=== PATIENT | female | born 1980 | race Caucasian/White ===

== ENCOUNTER 2019-04-02 13:15 | Emergency (ER) | payer OTHER ==
--- OUTSIDE RECORDS SUMMARY | 2019-04-02 13:17 | XMS REPORT ---
:1980 [facility] Address [address] [place] [address] Care Team Providers Name Role Phone Unavailable Unavailable Unavailable Problems This patient has no known problems. Allergies, Adverse Reactions, Alerts This patient has no known allergies or adverse reactions. Medications This patient has no known medications.
--- OUTSIDE RECORDS SUMMARY | 2019-04-02 13:17 | XMS REPORT | Clinical Summary ---
:1980 Author Organization [facility] Address [address] [place] [address] Care Team Providers Name Role Phone Asked, No Pcp Primary Care Provider Unavailable Allergies No Known Allergies Medications Medication Sig Dispensed Refills Start Date End Date Status ALPRAZolam (XANAX) 1 MG Take 1 mg by 0 Active tablet mouth 4 (four) times a day as needed for anxiety. escitalopram (LEXAPRO) Take 20 mg by 0 Active 20 MG tablet mouth nightly. risperiDONE (RisperDAL) Take 1 mg by 0 Active 1 MG tablet mouth nightly. propranolol (INDERAL) Take 40 mg by 0 Active 40 MG tablet mouth daily. estrogens-methyltestost Take 1 tablet by 0 Active erone (EEMT,COVARYX) mouth daily. 1.25-2.5 mg per tablet Active Problems Not on file Encounters Date Type Specialty Care Team Description 11/15/2018 - Emergency Emergency Medicine Kwasi Felix Drug-induced insomnia (HCC) (Primary Dx); 11/16/2018 MD Cristino Passive suicidal ideations after 04/01/2018 Social History Tobacco Use Types Packs/Day Years Used Date Current Every Day Smoker Smokeless Tobacco: Never Used Sex Assigned at Date Recorded Not on file Job Start Date Occupation Industry Not on file Not on file Not on file Travel History Travel Start Travel End No recent travel history available. Last Filed Vital Signs Vital Sign Reading Time Taken Blood Pressure 130/77 11/16/2018 4:39 PM CDT Pulse 103 11/16/2018 4:39 PM CDT Temperature 36.6 C (97.8 F) 11/16/2018 4:39 PM CDT Respiratory Rate 18 11/16/2018 4:39 PM CDT Oxygen Saturation 96% 11/16/2018 4:39 PM CDT Inhaled Oxygen Concentration - - Weight - - Height 172.7 cm (5' 8") 11/15/2018 9:35 PM CDT Body Mass Index - - Plan of Treatment Not on file Procedures Procedure Name Priority Date/Time Associated Comments Diagnosis SALICYLATE LEVEL STAT 11/15/2018 11:45 Results for this PM CDT procedure are in the results section. ESTIMATED GFR STAT 11/15/2018 11:45 Results for this PM CDT procedure are in the results section. URINALYSIS SCREEN AND STAT 11/15/2018 11:45 Results for this MICROSCOPY, WITH PM CDT procedure are in REFLEX TO CULTURE the results section. URINE DRUGS OF ABUSE STAT 11/15/2018 11:45 Results for this SCREEN PM CDT procedure are in the results section. ALCOHOL LEVEL, BLOOD STAT 11/15/2018 11:45 Results for this PM CDT procedure are in the results section. T4, FREE STAT 11/15/2018 11:45 Results for this PM CDT procedure are in the results section. THYROID STIMULATING STAT 11/15/2018 11:45 Results for this HORMONE PM CDT procedure are in the results section. COMPREHENSIVE STAT 11/15/2018 11:45 Results for this METABOLIC PANEL PM CDT procedure are in the results section. HC COMPLETE BLD COUNT STAT 11/15/2018 11:45 Results for this W/AUTO DIFF PM CDT procedure are in the results section. URINE CULTURE STAT 11/15/2018 11:45 Results for this PM CDT procedure are in the results section. after 04/01/2018 Results Urinalysis screen and microscopy, with reflex to culture (11/15/2018 11:45 PM CDT) Specimen site Clean catch [facility] Color, UA Yellow [facility] Appearance, UA Cloudy [facility] Specific gravity, UA 1.020 1.001 - 1.035 [facility] pH, UA 5.0 5.0 - 8.5 [facility] Protein, UA 2+ (A) Negative [facility] Glucose, UA Negative Negative [facility] Ketones, UA Negative Negative [facility] Bilirubin, UA Negative Negative [facility] Blood, UA Negative Negative [facility] Nitrite, UA Negative Negative [facility] Urobilinogen, UA <2.0 <2.0 [facility] Leukocyte esterase, Negative Negative [facility] Epithelial cells, UA >20 /HPF [facility] WBC, UA 4 0 - 4 /HPF [facility] RBC, UA 37 (H) 0 - 5 /HPF [facility] Bacteria, UA Few None seen [facility] Yeast, UA None seen [facility] Yeast with None seen [facility] pseudohyphae, UA HOSPITAL Hyaline casts, UA 2 /LPF [facility] Specimen Urine Performing Organization Address City/[facility]/Zipcode Phone Number [facility] DEPARTMENT OF PATHOLOGY AND [address] [place] [phone] Estimated GFR (11/15/2018 11:45 PM CDT) Estimated GFR 72 mL/min/1.73 [facility] Comment: HOSPITAL CatergoryUnitsInterpretation G1 >=90 Normal or high G2 60-89Mildly decreased O3x81-58Zijhat to moderately decreased D9p58-50Nzlvdyjnxx to severely decreased G4 15-29Severely decreased G5 <15Kidney failure The eGFR was calculated using the Chronic Kidney Disease Epidemiology Collaboration (CKD-EPI) equation. Interpretation is based on recommendations of the National Kidney Foundation-Kidney Disease Outcomes Quality Initiative (NKF-KDOQI) published in 2014. Specimen Plasma specimen Performing Organization Address City/[facility]/Zipcode Phone Number [facility] DEPARTMENT OF PATHOLOGY AND [address] [place] [phone] Urine drugs of abuse screen (11/15/2018 11:45 PM CDT) Amphetamine screen, Positive (A) [place] urine [facility] Barbiturate screen, Negative [place] urine [facility] Benzodiazepine Positive (A) [place] screen, urine [facility] Cannabinoid screen, Negative [place] urine [facility] Cocaine screen, urine Negative [facility] Methadone metabolite Negative [place] (EDDP), urine [facility] Opiates screen, urine Negative [facility] Oxycodone screen, Negative [place] urine [facility] Phencyclidine screen, Negative [place] urine [facility] Tricyclic screen, Negative [place] urine Comment: LATTER-DAY Drug screen minimum concentration of detectability [facility] Emiemnpkrjqz9076 ng/mL Barbiturates 200 ng/mL Ljoojllznizzmgf599 ng/mL Jvxtlfz393 ng/mL Sqbqzokgi514 ng/mL Vqwcmoy637 ng/mL Wexrnpnkr076 ng/mL Phencyclidine 25 ng/mL Hzgirknsyafw57 ng/mL Dutodxwouk0187 ng/mL Results are from screening tests and should only be used for medical evaluation. Drug testing for legal purposes requires definitive (or confirmatory) testing methods, which are available upon request. Contact the laboratory if definitive testing is required. Specimen Urine Performing Organization Address City/State/Zipcode Phone Number [facility] DEPARTMENT OF PATHOLOGY AND [address] [place] [address] [address] CBC with platelet and differential (11/15/2018 11:45 PM CDT) WBC 12.84 (H) 4.50 - 11.00 [facility] k/uL HOSPITAL RBC 4.89 4.20 - 5.50 [facility] muL [facility] HGB 12.9 12.0 - 16.0 [facility] HCT 41.4 37.0 - 47.0 % [facility] MCV 84.7 82.0 - 100.0 [facility] MCH 26.4 (L) 27.0 - 34.0 pg [facility] MCHC 31.2 31.0 - 37.0 [facility] RDW - SD 49.0 37.0 - 55.0 fL [facility] MPV 9.7 8.8 - 13.2 fL [facility] Platelet count 490 (H) 150 - 400 k/uL [facility] Nucleated RBC 0.00 /100 WBC [facility] Neutrophils 61.5 39.0 - 69.0 % [facility] Lymphocytes 27.6 25.0 - 45.0 % [facility] Monocytes 8.8 0.0 - 10.0 % [facility] Eosinophils 1.2 0.0 - 5.0 % [facility] Basophils 0.4 0.0 - 1.0 % [facility] Immature granulocytes 0.5Comment: 0.0 - 1.0 % [facility] "Immature [facility] granulocytes" (promyelocytes , myelocytes, metamyelocytes ) Specimen Blood Performing Organization Address City/[facility]/Zipcode Phone Number [facility] DEPARTMENT OF PATHOLOGY AND [address] [place] [address] [address] Urine culture (11/15/2018 11:45 PM CDT) [facility] Urine culture SEE COMMENTComment: [facility] Bacteriuria screen HOSPITAL negative. Specimen Performing Organization Address City/[facility] Phone Number [facility] DEPARTMENT OF PATHOLOGY AND [address] [place] [phone] [address] Thyroid stimulating hormone (11/15/2018 11:45 PM CDT) TSH 5.12 (H) 0.27 - 4.20 uIU/mL [facility] Specimen Plasma specimen Performing Organization Address [facility] Phone Number [facility] DEPARTMENT OF PATHOLOGY AND [address] [place] [phone] [place] [phone] T4, free (11/15/2018 11:45 PM CDT) [facility] T4, free 1.3 0.9 - 1.7 ng/dL [facility] Specimen Plasma specimen Performing Organization Address [facility] Phone Number [facility] DEPARTMENT OF PATHOLOGY AND [address] [place] [phone] [address] Alcohol level, blood (11/15/2018 11:45 PM CDT) [facility] Alcohol None Detected mg/dL [facility] Comment: HOSPITAL Normal None Detected Legal Intoxication in [place]80 mg/dL (0.08%) - Whole Blood Toxic Dljmwomyitebs045 mg/dL (0.2%) Potentially Cszyp455 - 500 mg/dL (0.35 - 0.5%) Alcohol percent None Detected % [facility] Specimen Plasma specimen Performing Organization Address [facility] Phone Number [facility] DEPARTMENT OF PATHOLOGY AND [address] [place] [phone] [address] Salicylate level (11/15/2018 11:45 PM CDT) [facility] Salicylate <3.0 3.0 - 30.0 mg/dL [facility] Specimen Plasma specimen Performing Organization Address City/[facility] Phone Number [facility] DEPARTMENT OF PATHOLOGY AND [address] [place] [phone] [place] [address] Comprehensive metabolic panel (11/15/2018 11:45 PM CDT) Sodium 137 135 - 148 [facility] mEq/L [facility] Potassium 4.5 3.5 - 5.0 [facility] mEq/L [facility] Chloride 99 98 - 112 mEq/L [facility] CO2 22 (L) 24 - 31 mEq/L [facility] Anion gap 16@ANIO (H) 7 - 15 mEq/L [facility] BUN 13 6 - 20 mg/dL [facility] Creatinine 0.98 (H) 0.50 - 0.90 [facility] mg/dL [facility] Glucose 104 (H) 65 - 99 mg/dL [facility] Calcium 9.8 8.3 - 10.2 [facility] mg/dL [facility] Protein 8.3 6.3 - 8.3 g/dL [facility] Comment: HOSPITAL [place] 4.6-7.0 g/dL 1 week 4.4-7.6 g/dL 7 months-1year5.1-7.3 g/dL 1-2 years5.6-7.5 g/dL >3 years6.0-8.0 g/dL 18-150 6.3-8.3 g/dL Albumin 3.8 3.5 - 5.0 g/dL [facility] A/G ratio 0.8 0.7 - 3.8 [facility] Alkaline phosphatase 70 35 - 104 U/L [facility] AST 22 10 - 35 U/L [facility] ALT 25 5 - 50 U/L [facility] Total bilirubin 0.4 0.0 - 1.2 [facility] mg/dL [facility] Specimen Plasma specimen Performing Organization Address City/State/Zipcode Phone Number [facility] DEPARTMENT OF PATHOLOGY AND [address] [place] [address] [facility]IC[facility] [address] [address] after 04/01/2018 Advance Directives Patient has advance care planning documents on file. For more information, please contact:[address] [address]
[2019-04-02 13:43] LABS: Urine Blood NEGATIVE (NEG); Urine Glucose NEGATIVE (NEG); Urine Protein NEGATIVE (NEG); Urine pH 5.5 (5.0-7.0)
[2019-04-02 13:53] LABS: Absolute Lymphocytes (CBC) 2.3 K/uL (0.7-4.9); Hematocrit 37.8 % (36.0-45.0); Lymphocytes % 33.6 % (15.3-44.8); MPV 8.6 fL (7.6-11.3); RBC Red Blood Cell Count 4.62 M/uL (3.86-4.86)
[2019-04-02 14:02] LABS: Urine Bacteria >50 /HPF (<20); Urine Culture Reflex Order NOT NEEDED; Urine RBC NONE SEEN /HPF (NONE SEEN)
[2019-04-02 14:20] LABS: ALT/SGPT 40 U/L (12-78); AST/SGOT 32 U/L (15-37); Albumin 3.5 g/dL (3.4-5.0); Alkaline Phosphatase 75 U/L (45-117); BUN Blood Urea Nitrogen 9 mg/dL (7-18); Bicarbonate 29 mmol/L (21-32); Bilirubin Direct < 0.1 mg/dL (0-0.2); Bilirubin Total 0.3 mg/dL (0.2-1.0); Glucose Level 88 mg/dL (74-106); Lipase 95 U/L (73-393); Potassium 4.1 mmol/L (3.5-5.1); Protein, Total 7.6 g/dL (6.4-8.2); Sodium Level 140 mmol/L (136-145)
[2019-04-02] MEDS ORDERED: KETOROLAC 30 MG/ML INJ ONE (14:27)
[2019-04-02] MEDS ORDERED: PHENAZOPYRIDINE 100MG TAB PO ONE (14:27)
--- NOTE | 2019-04-02 14:58 | RAD REPORT ---
EXAM DESCRIPTION: CT - Abdomen Pelvis W Contrast - 04/02/2019 2:43 pm CLINICAL HISTORY: Abdominal pain, dysuria COMPARISON: CT study December 2014 TECHNIQUE: Biphasic, helical CT imaging of the abdomen and pelvis was performed following 100 ml non -ionic IV contrast. Oral contrast was given. All CT scans are performed using dose optimization technique as appropriate and may include automated exposure control or mA/KV adjustment according to patient size. FINDINGS: No suspicious findings in the lung bases. The liver, spleen, and pancreas show no suspicious findings. Gallbladder and biliary tree are also wi thout suspicious finding. Symmetric renal function is seen with no hydronephrosis or suspicious renal mass. No pyelonephritis o r acute parenchymal process. Urinary bladder is mostly contracted which limits detail. No bladder isha culus seen. No abnormal enhancement of the urinary bladder moya. No adrenal abnormalities. No dilated bowel loops or bowel wall thickening. Appendix is normal. No free air, free fluid or infla mmatory stranding. No hernia, mass or bulky lymphadenopathy. Uterus and ovaries show no suspicious findings. No suspicious bony findings. IMPRESSION: No pyelonephritis or other acute finding identified. No abnormality seen to explain l ower abdominal pain and dysuria. As detailed above, no acute CT abdomen or pelvis finding.
[2019-04-02] MEDS ORDERED: NA CHLORIDE 0.9% 100 ML IV ONE (15:31)
[2019-04-02] MEDS ORDERED: CEFTRIAXONE 1000 MG/VIAL ONE (15:31)
--- NOTE | 2019-04-02 15:34 | EDPHYS ---
Physician Documentation [facility] Name: Maribel Diaz Age: 38 yrs Sex: Female : 1980 Arrival Date: 04/02/2019 Time: 13:17 Bed 13 Private MD: ED Physician Umang Toth HPI: 04/02 13:30 This 38 yrs old Female presents to ER via EMS with complaints of Abdominal jmm Pain. 13:30 Onset: The symptoms/episode began/occurred gradually, 3 month(s) ago. Modifying jmm factors: The symptoms are alleviated by nothing, the symptoms are aggravated by nothing. Associated signs and symptoms: Pertinent negatives: fever. This is a 38 year old female with a history of fibromyalgia, panic attacks, add/adhd that presents to the ED with complaints of lower abdominal pain, dysuria beginning approx 3 months. Patient states she has been on 3 different abx with no relief. Denies fever, denies vomiting. . [employer] ROOM: 13:20 LMP N/A - Irregular menses bp Historical: - Allergies: 13:20 No Known Allergies; bp - Home Meds: 13:20 None [Active]; bp - PMHx: 13:20 ADD/ADHD; Fibromyalgia; Panic Attacks; SUBSTANCE ABUSE; bp - Immunization history:: Adult Immunizations up to date. - Social history:: Smoking status: Patient/guardian denies using tobacco. - Ebola Screening: : No symptoms or risks identified at this time. ROS: 13:30 Constitutional: Negative for fever, chills, and weight loss, Cardiovascular: Negative jmm for chest pain, palpitations, and edema, Respiratory: Negative for shortness of breath, cough, wheezing, and pleuritic chest pain. 13:30 Abdomen/GI: Positive for abdominal pain. 13:30 Back: Positive for 13:30 : Positive for urinary symptoms. 13:30 All other systems are negative. Exam: 13:30 Head/Face: atraumatic. Eyes: EOMI, no conjunctival erythema appreciated ENT: Moist jmm Mucus Membranes Neck: Trachea midline, Supple Chest/axilla: Normal chest wall appearance and motion. Cardiovascular: Regular rate and rhythm. No edema appreciated Respiratory: Normal respirations, no respiratory distress appreciated 13:30 Constitutional: The patient appears in no acute distress, alert, awake. 13:30 Abdomen/GI: Inspection: obese Bowel sounds: normal, Palpation: soft, mild abdominal tenderness, in the suprapubic area. 13:30 Back: CVA tenderness, is noted on the right. 13:30 Musculoskeletal/extremity: ROM: intact in all extremities. 13:30 Skin: Appearance: Color: normal in color. 13:30 Neuro: Orientation: is normal, Mentation: is normal, Memory: is normal, Gait: is steady. 13:30 Psych: Behavior/mood is pleasant, cooperative. Vital Signs: 13:20 BP 121 / 84; Pulse 70; Resp 16; Temp 98.9; Pulse Ox 98% ; Weight 136.08 kg; Height 5 bp ft. 8 in. (172.72 cm); 15:35 BP 109 / 79; Pulse 67; Resp 16; Temp 98; Pulse Ox 99% ; bp 13:20 Body Mass Index 45.61 (136.08 kg, 172.72 cm) bp MDM: 13:36 Patient medically screened. basilio 15:33 Data reviewed: vital signs, nurses notes. Counseling: I had a detailed discussion with basilio the patient and/or guardian regarding: the historical points, exam findings, and any diagnostic results supporting the discharge/admit diagnosis, the need for outpatient follow up, to return to the emergency department if symptoms worsen or persist or if there are any questions or concerns that arise at home. 04/02 13:23 Order name: Basic Metabolic Panel; Complete Time: 14:23 bp 04/02 13:23 Order name: CBC with Diff; Complete Time: 14:02 bp 04/02 13:23 Order name: Creatinine for Radiology; Complete Time: 14:23 bp 04/02 13:23 Order name: Hepatic Function; Complete Time: 14:23 bp 04/02 13:23 Order name: Lipase; Complete Time: 14:23 bp 04/02 13:23 Order name: Urine Microscopic Only; Complete Time: 14:12 bp 04/02 13:23 Order name: IV Saline Lock; Complete Time: 13:45 bp 04/02 13:31 Order name: Urine Dipstick--Ancillary (enter results); Complete Time: 13:51 em1 04/02 13:31 Order name: Urine --Ancillary (enter results); Complete Time: 13:51 em1 04/02 13:37 Order name: CT Abd/Pelvis - IV Contrast Only; Complete Time: 14:59 [facility] 04/02 14:12 Order name: Urine Culture [facility] 04/02 13:23 Order name: Labs collected and sent; Complete Time: 13:45 bp 04/02 13:23 Order name: Urine Dipstick-Ancillary (obtain specimen); Complete Time: 13:24 bp 04/02 13:23 Order name: Urine Test (obtain specimen); Complete Time: 13:24 bp Administered Medications: 14:30 Drug: Pyridium 200 mg Route: PO; bp 15:45 Follow up: Response: No adverse reaction; Pain is decreased bp 14:30 Drug: Ketorolac 30 mg Route: IVP; Site: right antecubital; bp 15:45 Follow up: Response: No adverse reaction; Pain is decreased bp 15:30 Drug: Rocephin - (cefTRIAXone) 1 grams Route: IVPB; Infused Over: 30 mins; Site: right bp antecubital; 15:45 Follow up: IV Status: Completed infusion; IV Intake: 20ml bp Disposition: 04/02/19 15:33 Discharged to Home. Impression: Urinary tract infection, site not specified. - Condition is Stable. - Discharge Instructions: Urinary Tract Infection, Adult. - Prescriptions for cefpodoxime 200 mg Oral Tablet - take 1 tablet by ORAL route every 12 hours for 10 days with food; 20 tablet. - Medication Reconciliation Form, Thank You Letter, Antibiotic Education, Prescription Opioid Use form. - Follow up: Private Physician; When: 2 - 3 days; Reason: Recheck today's complaints, Continuance of care, Re-evaluation by your physician. Addendum: 04/05/2019 09:22 Co-signature as Attending Physician, Umang Toth MD I agree with the assessment and k dr plan of care. Signatures: Dispatcher [employer] EDMS Umang Toth MD MD kdr Mickail, Joel, PA PA jmm Peltier, Brian RN RN bp Corrections: (The following items were deleted from the chart) 04/02 15:50 15:33 04/02/2019 15:33 Discharged to Home. Impression: Urinary tract infection, site bp not specified. Condition is Stable. Forms are Medication Reconciliation Form, Thank You Letter, Antibiotic Education, Prescription Opioid Use. Follow up: Private Physician; When: 2 - 3 days; Reason: Recheck today's complaints, Continuance of care, Re-evaluation by your physician. basilio
--- NOTE | 2019-04-02 15:34 | ER ---
Nurse's Notes [facility] Name: Maribel Diaz Age: 38 yrs Sex: Female : 1980 Arrival Date: 04/02/2019 Time: 13:17 Bed 13 Private MD: Diagnosis: Urinary tract infection, site not specified Presentation: 04/02 13:18 Presenting complaint: EMS states: P[facility]ED UP [facility] FOR LOWER ABD PAIN AND bp DYSURIA. Transition of care: patient was not received from another setting of care. Onset of symptoms is unknown. Risk Assessment: Do you want to hurt yourself or someone else? Patient reports no desire to harm self or others. Initial Sepsis Screen: Does the patient meet any 2 criteria? No. Patient's initial sepsis screen is negative. Does the patient have a suspected source of infection? No. Patient's initial sepsis screen is negative. Care prior to arrival: None. 13:18 Method Of Arrival: EMS: [facility] bp 13:18 Acuity: RICO 3 bp Triage Assessment: 13:20 General: Appears in no apparent distress. comfortable, obese, Behavior is cooperative, bp appropriate for age, anxious. Pain: Complains of pain in right lower quadrant and left lower quadrant. EENT: No deficits noted. Neuro: No deficits noted. Cardiovascular: No deficits noted. Respiratory: No deficits noted. GI: Reports lower abdominal pain. : Reports burning with urination. Derm: No deficits noted. Musculoskeletal: No deficits noted. [employer]: 13:20 LMP N/A - Irregular menses bp Historical: - Allergies: 13:20 No Known Allergies; bp - Home Meds: 13:20 None [Active]; bp - PMHx: 13:20 ADD/ADHD; Fibromyalgia; Panic Attacks; SUBSTANCE ABUSE; bp - Immunization history:: Adult Immunizations up to date. - Social history:: Smoking status: Patient/guardian denies using tobacco. - Ebola Screening: : No symptoms or risks identified at this time. Screenin:23 Abuse screen: Denies threats or abuse. Denies injuries from another. Nutritional bp screening: No deficits noted. Tuberculosis screening: No symptoms or risk factors identified. Fall Risk None identified. Assessment: 13:20 General: SEE TRIAGE NOTE. bp 13:20 GI: Bowel sounds present X 4 quads. Abd is soft X 4 quads. bp 14:39 Reassessment: PT TO CT. bp 15:35 Reassessment: D/C ON HOLD FOR ABX INFUSION. bp Vital Signs: 13:20 BP 121 / 84; Pulse 70; Resp 16; Temp 98.9; Pulse Ox 98% ; Weight 136.08 kg; Height 5 bp ft. 8 in. (172.72 cm); 15:35 BP 109 / 79; Pulse 67; Resp 16; Temp 98; Pulse Ox 99% ; bp 13:20 Body Mass Index 45.61 (136.08 kg, 172.72 cm) bp ED Course: 13:17 Patient arrived in ED. bp 13:19 Triage completed. bp 13:20 Arm band placed on. bp 13:23 Patient has correct armband on for positive identification. Bed in low position. Call bp light in reach. Side rails up X2. 13:24 Arnold Sahu PA is PHCP. jmm 13:24 Umang Toth MD is Attending Physician. jmm 13:36 Initial lab(s) drawn, by dc, sent to lab. Urine collected: clean catch specimen, tm3 cloudy, Amount Voided: 60mL. Inserted saline lock: 22 gauge in right antecubital area, using aseptic technique. 13:46 Lui Godinez, RN is Primary Nurse. bp 14:[address] via wheelchair. vm2 14:45 CT Abd/Pelvis - IV Contrast Only In Process Unspecified. EDMS 15:49 No provider procedures requiring assistance completed. IV discontinued, intact, bp bleeding controlled, No redness/swelling at site. Pressure dressing applied. Administered Medications: 14:30 Drug: Pyridium 200 mg Route: PO; bp 15:45 Follow up: Response: No adverse reaction; Pain is decreased bp 14:30 Drug: Ketorolac 30 mg Route: IVP; Site: right antecubital; bp 15:45 Follow up: Response: No adverse reaction; Pain is decreased bp 15:30 Drug: Rocephin - (cefTRIAXone) 1 grams Route: IVPB; Infused Over: 30 mins; Site: right bp antecubital; 15:45 Follow up: IV Status: Completed infusion; IV Intake: 20ml bp Intake: 15:45 IV: 20ml; Total: 20ml. bp Outcome: 15:33 Discharge ordered by . jmm 15:48 Discharged to home ambulatory, with friend. bp 15:48 Condition: stable 15:48 Discharge instructions given to patient, Instructed on discharge instructions, follow up and referral plans. medication usage, Demonstrated understanding of instructions, follow-up care, medications, Prescriptions given X 1. 15:50 Patient left the ED. bp Signatures: Dispatcher [employer] EDMS Herman Multani tm3 Arnold Sahu PA PA jmm McGuire, Victoria 2 Lui Godinez, RN RN bp
== END 2019-04-02 15:50 | disposition home or self-care (01) ==
LOC: ER 13:15
DX: N39.0 Urinary tract infection, site not specified (principal)
CPT/HCPCS: 87088; 85025; 87086; 80048; 36415; 81025; 80076; 87077; 87186; 83690; 74177; 96375; 96374; 99284; Q9967; 81003; 81015

== ENCOUNTER 2019-07-10 16:33 | Emergency (ER) | payer OTHER ==
--- OUTSIDE RECORDS SUMMARY | 2019-07-10 16:35 | XMS REPORT ---
:1980 Author Organization [facility] Address [address] [place] [address] Care Team Providers Name Role Phone Unavailable Unavailable Unavailable Problems This patient has no known problems. Allergies, Adverse Reactions, Alerts This patient has no known allergies or adverse reactions. Medications This patient has no known medications.
--- OUTSIDE RECORDS SUMMARY | 2019-07-10 16:35 | XMS REPORT | Summary of Care ---
:1980 Author Organization [facility] Address [address] [place] [address] Care Team Providers Name Role Phone Ambika Dickinson MD Primary Care Provider Encounter Details Date Type Department Care Team Description 05/07/2019 Hospital Encounter [facility] Ambika Dickinson, Manfred Ybarra Radiology [address] [facility] [place] [address] [place], [place] [phone] Allergies No Known Allergiesdocumented as of this encounter (statuses as of 05/08/2019) Medications Medication Sig Dispensed Refills Start Date End Date Status escitalopram oxalate Take 20 mg by 0 Active (LEXAPRO) 20 mg tablet mouth daily. estrogens, Take 1 tablet by 0 Active conjugated,-methyltesto mouth daily. sterone 1.25-2.5 mg per tablet hydrOXYzine 25 mg Take 25 mg by 0 04/07/2019 Active tablet mouth 3 (three) times daily as needed for Anxiety. risperiDONE 1 mg tablet TAKE 1 TABLET BY 0 04/04/2019 Active MOUTH EVERY DAY AT NIGHT QUEtiapine 25 mg tablet 1 tablet by mouth 2 04/25/2019 Active QHS gabapentin 300 mg TAKE 1 CAPSULE BY 2 04/25/2019 Active capsule MOUTH THREE TIMES DAILY documented as of this encounter (statuses as of 05/08/2019) Active Problems Problem Noted Date Morbid obesity with body mass index of 40.0-49.9 10/30/2018 Suicidal overdose 10/30/2018 Suicide attempt 10/29/2018 documented as of this encounter (statuses as of 05/08/2019) Social History Tobacco Use Types Packs/Day Years Used Date Current Some Day Smoker Smokeless Tobacco: Never Used Comments: "Smokes Vape" Alcohol Use Drinks/Week oz/Week Comments Yes Sex Assigned at Date Recorded Not on file Job Start Date Occupation Industry Not on file Not on file Not on file Travel History Travel Start Travel End No recent travel history available. documented as of this encounter Last Filed Vital Signs Not on filedocumented in this encounter Plan of Treatment Date Type Specialty Care Team Description 05/12/2019 Office Visit Obstetrics & Gynecology Indira June PA-C [address] [place] [phone] Health Maintenance Due Date Last Done Comments PNEUMOCOCCAL 0-64 YEARS COMBINED SERIES (1 of 1 - 1985 PPSV23) DTaP,Tdap,and Td Vaccines (1 - Tdap) 1998 PAP SMEAR 2000 INFLUENZA VACCINE (#1) 2019 documented as of this encounter Procedures Procedure Name Priority Date/Time Associated Diagnosis Comments XR CERVICAL SPINE 4 Routine 05/07/2019 3:48 PM Chronic neck pain Results for this VW CDT procedure are in the results section. documented in this encounter Results XR CERVICAL SPINE 4 VW (05/07/2019 3:48 PM CDT) Specimen Impressions Performed At 1.No acute osseous findings are seen. PACS/VR/DOSE 2.Curvature abnormality and minimal degenerative changes. Narrative Performed At * * * * * * * * ORIGINAL REPORT * * * * * * * * PACS/VR/DOSE HISTORY:38yo F with chronic neck pain. TECHNIQUE: Frontal and lateral views of the cervical spine were obtained. COMPARISON:None. FINDINGS: There is reversal the normal cervical lordosis with results sagittal alignment. The vertebral body heights are preserved. The craniocervical junction is unremarkable. Minimal degenerative changes are seen in the form of disc space narrowing and facet arthropathy. Procedure Note [facility], Radiant Results Inft User - 05/07/2019 3:49 PM CDT * * * * * * * * ORIGINAL REPORT * * * * * * * * HISTORY:38yo F with chronic neck pain. TECHNIQUE: Frontal and lateral views of the cervical spine were obtained. COMPARISON:None. FINDINGS: There is reversal the normal cervical lordosis with results sagittal alignment. The vertebral body heights are preserved. The craniocervical junction is unremarkable. Minimal degenerative changes are seen in the form of disc space narrowing and facet arthropathy. IMPRESSION 1. No acute osseous findings are seen. 2. Curvature abnormality and minimal degenerative changes. Performing Organization Address City/State/Zipcode Phone Number PACS/VR/DOSE documented in this encounter Visit Diagnoses Diagnosis Chronic neck pain Cervicalgia documented in this encounter Insurance Payer Benefit Plan / Subscriber ID Effective Dates Phone Address Type Group [facility] xxxxxxxxx 2019-Present Medicaid COMM PLAN - MANAGED MEDICAID documented as of this encounter
--- OUTSIDE RECORDS SUMMARY | 2019-07-10 16:35 | XMS REPORT | Summary of Care ---
:1980 [address] [facility] Address [address] [place] [address] Care Team Providers Name Role Phone Ambika Dickinson MD Primary Care Provider Encounter Details Date Type Department Care Team Description 05/03/[address] [facility] Doctor Unassigned, No [address] [facility] [place] [address] [address] [place] [address] Allergies No Known Allergiesdocumented as of this encounter (statuses as of 05/03/2019) Medications Medication Sig Dispensed Refills Start Date End Date Status escitalopram oxalate Take 20 mg by 0 Active (LEXAPRO) 20 mg mouth daily. tablet TRAMADOL HCL Take by mouth. 0 Active (TRAMADOL ORAL) proMETHazine 25 mg Take 1 tablet by 12 tablet 0 09/09/2016 Active tablet mouth every 6 (six) hours as needed for Nausea and Vomiting (N/V). proMETHazine Insert 1 12 Suppository 0 09/09/2016 Active (PHENERGAN) 25 mg Suppository into suppository rectum every 4 (four) hours as needed for Nausea and Vomiting (N/V). norgestimate-ethinyl Take 1 tablet by 0 Active estradiol mouth daily. 0.18/0.215/0.25 mg-35 mcg (28) tablet CYCLOBENZAPRINE HCL Take by mouth. 0 Active (FLEXERIL ORAL) ondansetron (ZOFRAN Take 1 tablet by 15 tablet 0 03/05/2017 Active ODT) 4 mg mouth every 8 disintegrating (eight) hours as tablet needed for Nausea and Vomiting (N/V). mirtazapine Take 15 mg by 0 Active (REMERON) 15 mg mouth at tablet bedtime. propranolol 10 mg Take 10 mg by 0 Active tablet mouth daily. estrogens, Take 1 tablet by 0 Active conjugated,-methylte mouth daily. stosterone 1.25-2.5 mg per tablet naphazoline Place in each 0 Active HCl/pheniramine eye as needed (OPCON-A OPHTHALMIC) for Itching. clonazePAM 1 mg Take 1 tablet by 9 tablet 0 11/09/2018 Active tabletIndications: mouth 3 (three) Suicide attempt times daily. traMADOL (ULTRAM) 50 Take 1 tablet by 15 tablet 0 11/26/2018 Active mg mouth every 6 tabletIndications: (six) hours as Toothache needed for Pain (scale 4-6). ketorolac 10 mg Take 1 tablet by 16 tablet 0 01/20/2019 Active tabletIndications: mouth every 6 Migraine with aura (six) hours as and without status needed for Pain migrainosus, not (scale 7-10). intractable hydrOXYzine 10 mg Take 1 tablet by 20 tablet 0 02/17/2019 Active tabletIndications: mouth every 6 Benzodiazepine (six) hours as withdrawal without needed for complication Anxiety. documented as of this encounter (statuses as of 05/03/2019) Active Problems Problem Noted Date Morbid obesity with body mass index of 40.0-49.9 10/30/2018 Suicidal overdose 10/30/2018 Suicide attempt 10/29/2018 documented as of this encounter (statuses as of 05/03/2019) Social History Tobacco Use Types Packs/Day Years [...] Treatment Date Type Specialty Care Team Description 05/03/2019 Office Visit Family Medicine Ambika Dickinson MD [address] [place] [address] [address] BONDS, KOMAL [phone] Health Maintenance Due Date Last Done Comments PNEUMOCOCCAL 0-64 YEARS COMBINED SERIES ( - 1985 PPSV23) DTaP,Tdap,and Td Vaccines (1 - Tdap) 1998 PAP SMEAR 2000 INFLUENZA VACCINE (#1) 2019 documented as of this encounter Procedures Procedure Name Priority Date/Time Associated Diagnosis Comments ASSIGNMENT OF BENEFITS Routine 05/03/2019 2:25 PM CDT documented in this encounter Results Not on filedocumented in this encounter Insurance Payer Benefit Plan / Subscriber ID Effective Dates Phone Address Type [facility] xxxxxxxxx 2019-Present Medicaid COMM PLAN - MANAGED MEDICAID documented as of this encounter
--- OUTSIDE RECORDS SUMMARY | 2019-07-10 16:35 | XMS REPORT | Summary of Care ---
:1980 Author Organization [facility] Address [address] [place] [address] Care Team Providers Name Role Phone Ambika Dickinson MD Primary Care Provider Reason for Visit Reason Comments Notification Encounter Details Date Type Department Care Team Description 05/04/2019 Telephone [facility] Family Medicine Ambika Dickinson MD Notification - [address] [phone] [place] [address] Allergies No Known Allergiesdocumented as of this encounter (statuses as of 05/05/2019) Medications Medication Sig Dispensed Refills Start Date [...] as of this encounter (statuses as of 05/05/2019) Active Problems Problem Noted Date Morbid obesity with body mass index of 40.0-49.9 10/30/2018 Suicidal overdose 10/30/2018 Suicide attempt 10/29/2018 documented as of this encounter (statuses as of 05/05/2019) Social History Tobacco Use Types Packs/Day Years [...] Visit Obstetrics & Gynecology Indira June PA-C [address] [place] [phone] Health Maintenance Due Date Last Done Comments PNEUMOCOCCAL 0-64 YEARS COMBINED SERIES (1 of 1 - 1985 PPSV23) DTaP,Tdap,and Td Vaccines (1 - Tdap) 1998 PAP SMEAR 2000 INFLUENZA VACCINE (#1) 2019 documented as of this encounter Results Not on filedocumented in this encounter Insurance Payer Benefit Plan / Subscriber ID Effective Dates Phone Address Type Group [facility] xxxxxxxxx 2019-Present Medicaid COMM PLAN - MANAGED MEDICAID documented as of this encounter
--- OUTSIDE RECORDS SUMMARY | 2019-07-10 16:35 | XMS REPORT | Summary of Care ---
:1980 Author Organization [facility] Address [address] [place] [address] Care Team Providers Name Role Phone Ambika Dickinson MD Primary Care Provider Reason for Referral Radiology Services (Routine) Status Reason Specialty Diagnoses / Referred By Referred To Procedures Contact Contact New Request Diagnostic Diagnoses Chronic pain of right ankle Chronic pain of right hip Chronic pain of right knee [place], Radiology Procedures XR HIPS 2 VW RIGHT Ambika Gaines MD [address] [place] [address] [facility] [place] [address] Radiology Services (Routine) Status Reason Specialty Diagnoses / Referred By Referred To Procedures Contact Contact New Request Diagnostic Diagnoses Chronic pain of right ankle Chronic pain of right hip Chronic pain of right knee [place], Radiology Procedures XR HIPS 2 VW RIGHT Ambika Gaines MD [address] [place] [address] [place] [address] Reason for Visit Radiology Services (Routine) Status Reason Specialty Diagnoses / Referred By Referred To Procedures Contact Contact New Request Diagnostic Diagnoses Chronic pain of right ankle Chronic pain of right hip Chronic pain of right knee [place], Radiology Procedures XR HIPS 2 VW RIGHT Ambika Gaines MD [address] [place] [address] [place] [address] Encounter Details Date Type Department Care Team Description 05/07/2019 Hospital Encounter [facility] Ambika Dickinson Arrived [facility] [address] [place] [address] [place] [address] [place] [address] [place], [place] [phone] Allergies No Known Allergiesdocumented as of this [...] Visit Obstetrics & Gynecology Indira June PA-C [address] [place] [phone] Health Maintenance Due Date Last Done Comments PNEUMOCOCCAL 0-64 YEARS COMBINED SERIES (1 of 1 - 1985 PPSV23) DTaP,Tdap,and Td Vaccines (1 - Tdap) 1998 PAP SMEAR 2000 INFLUENZA VACCINE (#1) 2019 documented as of this encounter Procedures Procedure Name Priority Date/Time Associated Diagnosis Comments XR HIPS 2 VW RIGHT Routine 05/07/2019 3:47 PM Chronic pain of Results for this CDT right ankle procedure are in Chronic pain of the results right hip section. Chronic pain of right knee documented in this encounter Results XR HIPS 2 VW RIGHT (05/07/2019 3:47 PM CDT) Specimen Impressions Performed At Osteoarthrosis PACS/VR/DOSE Narrative Performed At * * * * * * * * ORIGINAL REPORT * * * * * * * * PACS/VR/DOSE EXAM: Right hip 2 views HISTORY: 38yo F with chronic right hip, knee, and ankle pain.; TECHNIQUE:AP and frog-leg views of the right hip are obtained. FINDINGS:No acute abnormality of the hip joint is seen. Degenerative changes are seen in the hip joint in the form of minimal narrowing of the joint, sclerosis of the acetabular roof and small osteophytes. Shape of the femoral head is preserved. No bone lesion is noted. Procedure Note [facility], Radiant Results Inft User - 05/07/2019 3:58 PM CDT * * * * * * * * ORIGINAL REPORT * * * * * * * * EXAM: Right hip 2 views HISTORY: 38yo F with chronic right hip, knee, and ankle pain.; TECHNIQUE:AP and frog-leg views of the right hip are obtained. FINDINGS:No acute abnormality of the hip joint is seen. Degenerative changes are seen in the hip joint in the form of minimal narrowing of the joint, sclerosis of the acetabular roof and small osteophytes. Shape of the femoral head is preserved. No bone lesion is noted. IMPRESSION Osteoarthrosis Performing Organization Address City/State/Zipcode Phone Number PACS/VR/DOSE documented in this encounter Visit Diagnoses Diagnosis Chronic pain of right ankle Chronic pain of right hip Chronic pain of right knee documented in this encounter Insurance Payer Benefit Plan / Subscriber ID Effective Dates Phone Address Type Group [facility] xxxxxxxxx 2019-Present Medicaid COMM PLAN - MANAGED MEDICAID documented as of this encounter
--- OUTSIDE RECORDS SUMMARY | 2019-07-10 16:36 | XMS REPORT | Summary of Care ---
:1980 Author Organization [facility] Address [address] [place] [address] Care Team Providers Name Role Phone Ambika Dickinson MD Primary Care Provider Reason for Visit Radiology Services (Routine) Status Reason Specialty Diagnoses / Referred By Referred To Procedures Contact Contact New Request Diagnostic Diagnoses Chronic pain of right ankle Chronic pain of right hip Chronic pain of right knee [place], Radiology Procedures XR KNEE 3 VW LEFT XR KNEE 3 VW RIGHT Ambika Gaines MD [address] [facility] [place] [place] [address] Encounter Details Date Type Department Care Team Description 05/07/2019 Hospital Encounter [facility] Ambika Dickinson Arrived [facility] [address] [place] [address] [place], [place] [phone] Allergies No Known Allergiesdocumented as of [...] Visit Obstetrics & Gynecology Indira June PA-C [address] [place] [phone] Health Maintenance Due Date Last Done Comments PNEUMOCOCCAL 0-64 YEARS COMBINED SERIES (1 of 1 - 1985 PPSV23) DTaP,Tdap,and Td Vaccines (1 - Tdap) 1998 PAP SMEAR 2000 INFLUENZA VACCINE (#1) 2019 documented as of this encounter Procedures Procedure Name Priority Date/Time Associated Diagnosis Comments XR KNEE 3 VW LEFT Routine 05/07/2019 3:47 PM Chronic pain of Results for this CDT right ankle procedure are in Chronic pain of the results right hip section. Chronic pain of right knee documented in this encounter Results XR KNEE 3 VW LEFT (05/07/2019 3:47 PM CDT) Specimen Impressions Performed At 1. Changes of osteoarthritis PACS/VR/DOSE 2. Soft tissue swelling anterior to the quadriceps tendon Narrative Performed At * * * * * * * * ORIGINAL REPORT * * * * * * * * PACS/VR/DOSE EXAM: Left knee 3 views HISTORY: 38yo F with chronic right hip, knee, and ankle pain TECHNIQUE:AP lateral and oblique views of the left knee are obtained. FINDINGS:Narrowing of the medial joint space is seen. Hypertrophy of the tibial spines is noted. Small osteophytes are seen at the patellar facets. No bone lesion is noted. Soft tissue swelling is seen anterior to the quadriceps tendon. Procedure Note [facility], Radiant Results Inft User - 05/07/2019 3:56 PM CDT * * * * * * * * ORIGINAL REPORT * * * * * * * * EXAM: Left knee 3 views HISTORY: 38yo F with chronic right hip, knee, and ankle pain TECHNIQUE:AP lateral and oblique views of the left knee are obtained. FINDINGS:Narrowing of the medial joint space is seen. Hypertrophy of the tibial spines is noted. Small osteophytes are seen at the patellar facets. No bone lesion is noted. Soft tissue swelling is seen anterior to the quadriceps tendon. IMPRESSION 1. Changes of osteoarthritis 2. Soft tissue swelling anterior to the quadriceps tendon Performing Organization Address City/State/Zipcode Phone Number PACS/VR/DOSE documented in this encounter Visit Diagnoses Diagnosis Chronic pain of right ankle Chronic pain of right hip Chronic pain of right knee documented in this encounter Insurance Payer Benefit Plan / Subscriber ID Effective Dates Phone Address Type Group [facility] xxxxxxxxx 2019-Present Medicaid COMM PLAN - MANAGED MEDICAID documented as of this encounter
--- OUTSIDE RECORDS SUMMARY | 2019-07-10 16:36 | XMS REPORT | Summary of Care ---
:1980 Author Organization [facility] Address [address] [place] [id number] Care Team Providers Name Role Phone Ambika Dickinson MD Primary Care Provider Reason for Visit Radiology Services (Routine) Status Reason Specialty Diagnoses / Referred By Referred To Procedures Contact Contact New Request Diagnostic Diagnoses Chronic pain of right ankle Chronic pain of right hip Chronic pain of right knee Alok, Radiology Procedures XR ANKLE 3+ VW RIGHT XR ANKLE <3 VW RIGHT Ambika Gaines MD [address] [place] [address] Encounter Details Date Type Department Care Team Description 05/07/2019 Hospital Encounter [facility] Ambika Dickinson Arrived [place] [facility] [address] [place] [address] [place], [place] [phone] Allergies No Known Allergiesdocumented as of [...] Visit Obstetrics & Gynecology Indira June PA-C [address] [place] [id number] Health Maintenance Due Date Last Done Comments PNEUMOCOCCAL 0-64 YEARS COMBINED SERIES (1 of 1 - 1985 PPSV23) DTaP,Tdap,and Td Vaccines (1 - Tdap) 1998 PAP SMEAR 2000 INFLUENZA VACCINE (#1) 2019 documented as of this encounter Procedures Procedure Name Priority Date/Time Associated Diagnosis Comments XR ANKLE 3+ VW Routine 05/07/2019 3:47 PM Chronic pain of Results for this RIGHT CDT right ankle procedure are in Chronic pain of the results right hip section. Chronic pain of right knee documented in this encounter Results XR ANKLE 3+ VW RIGHT (05/07/2019 3:47 PM CDT) Specimen Impressions Performed At Mild degenerative changes in the medial ankle joint PACS/VR/DOSE Narrative Performed At * * * * * * * * ORIGINAL REPORT * * * * * * * * PACS/VR/DOSE EXAM: Right ankle 3 views HISTORY: 38yo F with chronic right hip, knee, and ankle pain TECHNIQUE:AP lateral and oblique views of the right ankle are obtained. FINDINGS:An old healed fracture of the distal fibula is noted affixed by means of a plate and multiple screws. No perihardware lucency is seen. Ankle mortise is intact. Degenerative changes are seen in the medial ankle joint in the form of small osteophytes. Procedure Note [facility], Radiant Results Inft User - 05/07/2019 3:57 PM CDT * * * * * * * * ORIGINAL REPORT * * * * * * * * EXAM: Right ankle 3 views HISTORY: 38yo F with chronic right hip, knee, and ankle pain TECHNIQUE:AP lateral and oblique views of the right ankle are obtained. FINDINGS:An old healed fracture of the distal fibula is noted affixed by means of a plate and multiple screws. No perihardware lucency is seen. Ankle mortise is intact. Degenerative changes are seen in the medial ankle joint in the form of small osteophytes. IMPRESSION Mild degenerative changes in the medial ankle joint Performing Organization Address City/State/Zipcode Phone Number PACS/VR/DOSE documented in this encounter Visit Diagnoses Diagnosis Chronic pain of right ankle Chronic pain of right hip Chronic pain of right knee documented in this encounter Insurance Payer Benefit Plan / Subscriber ID Effective Dates Phone Address Type Group [facility] xxxxxxxxx 2019-Present Medicaid COMM PLAN - MANAGED MEDICAID documented as of this encounter
[2019-07-10] MEDS ORDERED: DIAZEPAM 5 MG TABLET ONE (17:33)
[2019-07-10] MEDS ORDERED: KETOROLAC 30 MG/ML INJ ONE (17:33)
[2019-07-10 17:34] LABS: Urine Blood NEGATIVE (NEG); Urine Glucose NEGATIVE (NEG); Urine Protein NEGATIVE (NEG)
[2019-07-10 17:41] LABS: Urine RBC <5 /HPF (NONE SEEN)
[2019-07-10 17:42] LABS: Urine Bacteria 20-50 /HPF (<20); Urine Culture Reflex Order NOT NEEDED
--- NOTE | 2019-07-10 17:57 | EDPHYS ---
Physician Documentation [facility] Name: Maribel Diaz Age: 39 yrs Sex: Female : 1980 Arrival Date: 07/10/2019 Time: 16:35 Bed 30 Private MD: ED Physician Alden Morrison HPI: 07/10 17:29 This 39 yrs old Female presents to ER via Ambulatory with complaints of Low snw Back Pain. 17:29 The patient presents with pain that is acute, with no known mechanism of injury. The snw symptoms are located in the low back. Location: right mid back. The problem was sustained from unknown cause. Onset: The symptoms/episode began/occurred gradually, 2 week(s) ago, and became worse and became persistent. Associated signs and symptoms: Pertinent positives: fever, subjective. Severity of symptoms: At their worst the symptoms were moderate, severe. It is unknown whether or not the patient has had similar symptoms in the past. The patient has not recently seen a physician. 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 - Social history:: Smoking status: Patient/guardian denies using tobacco. - Ebola Screening: : Patient denies travel to an Ebola-affected area in the 21 days before illness onset. ROS: 17:27 Constitutional: Negative for chills and weight loss, +fever Eyes: Negative for injury, snw pain, redness, and discharge, ENT: Negative for injury, pain, and discharge, Neck: Negative for injury, pain, and swelling, Cardiovascular: Negative for chest pain, palpitations, and edema, Respiratory: Negative for shortness of breath, cough, wheezing, and pleuritic chest pain, Abdomen/GI: Negative for abdominal pain, nausea, vomiting, diarrhea, and constipation, : Negative for injury, bleeding, discharge, and swelling, MS/Extremity: Negative for injury and deformity, Skin: Negative for injury, rash, and discoloration, Neuro: Negative for headache, weakness, numbness, tingling, and seizure, Psych: Negative for depression, anxiety, suicide ideation, homicidal ideation, and hallucinations. 17:27 Back: Positive for pain at rest, pain with movement, flank pain, on the right. Exam: 17:27 Constitutional: This is a well developed, well nourished patient who is awake, alert, snw and in no acute distress. Head/Face: Normocephalic, atraumatic. Eyes: Pupils equal round and reactive to light, extra-ocular motions intact. Lids and lashes normal. Conjunctiva and sclera are non-icteric and not injected. Cornea within normal limits. Periorbital areas with no swelling, redness, or edema. ENT: Nares patent. No nasal discharge, no septal abnormalities noted. Tympanic membranes are normal and external auditory canals are clear. Oropharynx with no redness, swelling, or masses, exudates, or evidence of obstruction, uvula midline. Mucous membranes moist. Neck: Trachea midline, no thyromegaly or masses palpated, and no cervical lymphadenopathy. Supple, full range of motion without nuchal rigidity, or vertebral point tenderness. No Meningismus. Chest/axilla: Normal chest wall appearance and motion. Nontender with no deformity. No lesions are appreciated. Cardiovascular: Regular rate and rhythm with a normal S1 and S2. No gallops, murmurs, or rubs. Normal PMI, no JVD. No pulse deficits. Respiratory: Lungs have equal breath sounds bilaterally, clear to auscultation and percussion. No rales, rhonchi or wheezes noted. No increased work of breathing, no retractions or nasal flaring. Abdomen/GI: Soft, non-tender, with normal bowel sounds. No distension or tympany. No guarding or rebound. No evidence of tenderness throughout. Skin: Warm, dry with normal turgor. Normal color with no rashes, no lesions, and no evidence of cellulitis. MS/ Extremity: Pulses equal, no cyanosis. Neurovascular intact. Full, normal range of motion. Neuro: Awake and alert, GCS 15, oriented to person, place, time, and situation. Cranial nerves II-XII grossly intact. Motor strength 5/5 in all extremities. Sensory grossly intact. Cerebellar exam normal. Normal gait. Psych: Awake, alert, with orientation to person, place and time. Behavior, mood, and affect are within normal limits. 17:27 Back: pain, that is moderate, of the low back area, right mid back and right low back, CVA tenderness, that is mild, is noted on the right, muscle spasm, is appreciated in the low back area. Vital Signs: 16:56 BP 129 / 98; Pulse 108; Resp 20; Temp 97.3; Pulse Ox 97% on R/A; Weight 131.54 kg (R); aj1 Height 5 ft. 8 in. (172.72 cm) (R); Pain 8/10; 16:56 Body Mass Index 44.09 (131.54 kg, 172.72 cm) aj1 MDM: 17:01 Patient medically screened. snw 17:57 Data reviewed: vital signs, nurses notes. Data interpreted: Pulse oximetry: on room air snw is 97 %. Interpretation: normal. Counseling: I had a detailed discussion with the patient and/or guardian regarding: the historical points, exam findings, and any diagnostic results supporting the discharge/admit diagnosis, the presence of at least one elevated blood pressure reading (>120/80) during this emergency department visit, lab results, the need for outpatient follow up, to return to the emergency department if symptoms worsen or persist or if there are any questions or concerns that arise at home. Special discussion: I have referred the patient to see his PCP for further evaluation of high blood pressure. Based on the history and exam findings, there is no indication for further emergent testing or inpatient evaluation. I discussed with the patient/guardian the need to see the primary care provider for further evaluation of the symptoms. 07/10 17:14 Order name: Urine Culture snw 07/10 17:14 Order name: Urine Microscopic Only; Complete Time: 17:55 snw 07/10 17:15 Order name: Urine Culture EDDC 07/10 17:30 Order name: Urine Dipstick--Ancillary (enter results); Complete Time: 17:55 em1 07/10 17:30 Order name: Urine --Ancillary (enter results); Complete Time: 17:55 em1 07/10 17:14 Order name: Urine Test (obtain specimen); Complete Time: 17:29 snw 07/10 17:14 Order name: Urine Dipstick-Ancillary (obtain specimen); Complete Time: 17:29 snw Administered Medications: 17:39 Drug: TORadol 30 mg Route: IM; Site: right deltoid; tr5 18:00 Follow up: Response: Marked relief of symptoms tr5 17:39 Drug: Valium 10 mg Route: PO; tr5 18:00 Follow up: Response: Marked relief of symptoms tr5 Disposition: 07/10/19 17:56 Discharged to Home. Impression: Low back pain, Muscle spasm of back. - Condition is Stable. - Discharge Instructions: Back Pain, Adult, Hypertension, Muscle Cramps and Spasms, Musculoskeletal Pain, Back Exercises, [id number]-[id number], Cryotherapy, Rehydration, Adult, Heat Therapy. - Prescriptions for Diclofenac Sodium 75 mg Oral Tablet Sustained Release - take 1 tablet by ORAL route 2 times per day; 30 tablet. orphenadrine citrate 100 mg Oral Tablet Sustained Release - take 1 tablet by ORAL route 2 times per day As needed; 20 tablet. - Work release form, Medication Reconciliation Form, Thank You Letter, Antibiotic Education, Prescription Opioid Use form. - Follow up: Private Physician; When: 2 - 3 days; Reason: Recheck today's complaints, Continuance of care, Re-evaluation by your physician. Follow up: Emergency Department; When: As needed; Reason: Worsening of condition. Addendum: 07/13/2019 07:04 Co-signature as Attending Physician, Alden Morrison MD I agree with the assessment and c samson plan of care. Signatures: Dispatcher [employer] Michelle Sutton RN RN aj1 Alden Morrison MD MD cha Therrien, Shelly, BAR EXAMINER-C BAR EXAMINER-Csnw Dean Rios RN RN tr5 Corrections: (The following items were deleted from the chart) 07/10 18:58 17:56 07/10/2019 17:56 Discharged to Home. Impression: Low back pain; Muscle spasm of tr5 back. Condition is Stable. Forms are Medication Reconciliation Form, Thank You Letter, Antibiotic Education, Prescription Opioid Use. Follow up: Private Physician; When: 2 - 3 days; Reason: Recheck today's complaints, Continuance of care, Re-evaluation by your physician. Follow up: Emergency Department; When: As needed; Reason: Worsening of condition. snw
--- NOTE | 2019-07-10 17:57 | ER ---
Nurse's Notes [facility] Name: Maribel Diaz Age: 39 yrs Sex: Female : 1980 Arrival Date: 07/10/2019 Time: 16:35 Bed 30 Private MD: Diagnosis: Low back pain;Muscle spasm of back Presentation: 07/10 16:53 Presenting complaint: Patient states: "Theres this pain in my mid to lower back on both aj1 sides now, it started out on my right and I don't know if its my back or my kidneys" Denies recent injury. Patient reports urinary frequency, denies dysuria. Patient state that she thinks that she was running fever yesterday as well. Transition of care: patient was not received from another setting of care. Onset of symptoms was June 2019. Risk Assessment: Do you want to hurt yourself or someone else? Patient reports no desire to harm self or others. Initial Sepsis Screen: Does the patient meet any 2 criteria? HR > 90 bpm. No. Patient's initial sepsis screen is negative. Does the patient have a suspected source of infection? Yes: Dysuria/Frequency/Urgency/UTI. Care prior to arrival: None. 16:53 Method Of Arrival: Ambulatory aj 16:53 Method Of Arrival: Ambulatory aj 16:53 Acuity: RICO 3 aj1 Triage Assessment: 16:56 General: Appears in no apparent distress. uncomfortable, Behavior is calm, cooperative, aj1 appropriate for age. Pain: Pain currently is 8 out of 10 on a pain scale. Neuro: Level of Consciousness is awake, alert, obeys commands. Cardiovascular: Patient's skin is warm and dry. Respiratory: Airway is patent Respiratory effort is even, unlabored, Respiratory pattern is regular, symmetrical. 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 - Social history:: Smoking status: Patient/guardian denies using tobacco. - Ebola Screening: : Patient denies travel to an Ebola-affected area in the 21 days before illness onset. Screenin:40 Abuse screen: Denies threats or abuse. Nutritional screening: No deficits noted. tr5 Tuberculosis screening: No symptoms or risk factors identified. Fall Risk None identified. Assessment: 17:40 General: Appears uncomfortable, Behavior is calm, cooperative, appropriate for age. tr5 Pain: Complains of pain in left low back and right low back. Neuro:. Cardiovascular: Heart tones present Capillary refill < 3 seconds Pulses are all present. Respiratory: Airway is patent Respiratory effort is even, unlabored, Respiratory pattern is regular, symmetrical. GI: No signs and/or symptoms were reported involving the gastrointestinal system. : No signs and/or symptoms were reported regarding the genitourinary system. EENT:. Derm:. Musculoskeletal: No signs and/or symptoms reported regarding the musculoskeletal system. Vital Signs: 16:56 BP 129 / 98; Pulse 108; Resp 20; Temp 97.3; Pulse Ox 97% on R/A; Weight 131.54 kg (R); aj1 Height 5 ft. 8 in. (172.72 cm) (R); Pain 8/10; 16:56 Body Mass Index 44.09 (131.54 kg, 172.72 cm) aj1 ED Course: 16:35 Patient arrived in ED. as 16:55 Triage completed. aj1 16:56 Arm band placed on Patient placed in an exam room. aj1 17:00 Irasema Heck FNP-C is PHCP. snw 17:00 Alden Morrison MD is Attending Physician. snw 17:15 Dean Rios RN is Primary Nurse. tr5 17:40 Placed in gown. Bed in low position. Call light in reach. tr5 Administered Medications: 17:39 Drug: TORadol 30 mg Route: IM; Site: right deltoid; tr5 18:00 Follow up: Response: Marked relief of symptoms tr5 17:39 Drug: Valium 10 mg Route: PO; tr5 18:00 Follow up: Response: Marked relief of symptoms tr5 Outcome: 17:56 Discharge ordered by . snw 18:58 Patient left the ED. tr5 Signatures: Michelle Thompson RN RN aj Irasema Heck FNP-C FNP-Csnw Ariana Holliday Tommie, RN RN tr5
[2019-07-10 19:52] VITALS: BP 129/98; TEMP 97.3; O2SAT 97
== END 2019-07-10 18:58 | disposition home or self-care (01) ==
LOC: ER 16:33
DX: M62.830 Muscle spasm of back (principal); F32.9 Major depressive disorder, single episode, unspecified; Z85.41 Personal history of malignant neoplasm of cervix uteri
CPT/HCPCS: 81003; 81015; 81025; 87077; 87086; 87088; 87186; 96372; 99282

== ENCOUNTER 2020-11-23 15:44 | Emergency (ER) | payer OTHER ==
--- OUTSIDE RECORDS SUMMARY | 2020-11-23 15:48 | XMS REPORT | Continuity of Care Document ---
:1980 Author Organization [facility] t Address [address] [place] [address] Care Team Providers Name Role Phone Damon Menendez DO Attending Clinician Liana Dickinson MD Attending Clinician Doctor Unassigned, Name Attending Clinician Unavailable Carl Capps DO Attending Clinician Pramod He Attending Clinician Provider, Urgent Care Attending Clinician Unavailable Oj CEDEÑO, S Attending Clinician Megan Larson Attending Clinician Carl Long Attending Clinician Problems This patient has no known problems. Allergies, Adverse Reactions, Alerts This patient has no known allergies or adverse reactions. Medications This patient has no known medications. Procedures This patient has no known procedures. Encounters Start End Encounter Admission Attending Care Care Encounter Source Date/Time Date/Time Type Type Clinicians Facility Department ID 2020-11-09 2020-11-09 Patient Shon COKRISTEN 1.2.840.114 [id number] 00:00:00 00:00:[address] [facility] [id number] Damon [facility] 4.2.7.2.686 YESY [id number] 2020-11-01 2020-11-01 Telephone Alok [facility] 1.2.840.114 [id number] 00:00:00 00:00:00 [facility] [id number] [place] 4.2.7.2.686 [facility] [phone] [place] [address] [address] One 2020-10-27 2020-10-27 Orders Doctor NIKOLAY 1.2.840.114 [id number] 00:00:00 00:00:00 Only Unassigned, MARLON [id number] [place] [facility] 4.2.7.2.686 [id number] 2020-10-24 2020-10-24 Telephone Alok [facility] 1.2.840.114 [id number] 00:00:00 00:00:00 [facility] [id number] [place] 4.2.7.2.686 Professio [phone] [place] [address] [address] One 2020-10-23 2020-10-23 Telemedici Alok [facility] 1.2.840.114 [id number] 16:47:16 17:53:03 ne Visit [facility] [id number] [place] 4.2.7.2.686 Profess[facility] [phone] [place] [address] [address] One 2020-10-17 2020-10-17 Emergency [facility] 1.2.840.114 [id number] 16:12:00 18:15:00 Khadijah [place] [id number] [place] 4.2.7.2.686 [place] [id number] [id number] 2020-10-17 2020-10-17 Telephone Alok [facility] 1.2.840.114 [id number] 00:00:00 00:00:00 [facility] 350.1.13.10 [place] 4.2.7.2.686 Professio [phone] [place] [address] [address] One 2020-10-16 2020-10-16 [facility] 1.2.840.114 [id number] 00:00:00 00:00:00 [facility] 350.1.13.10 [place] 4.2.7.2.686 Profess[facility] [phone] [place] [address] [address] One 2020-09-15 2020-09-15 Emergency [facility] [id number] 14:33:00 18:20:00 Jaqueline Benavidez [place] [id number] [place] 4.2.7.2.686 [place] [id number] 2020-07-07 2020-07-07 [facility] 1.2.840.114 [id number] 00:00:00 00:00:00 [facility] 350.1.13.10 [place] 4.2.7.2.686 [facility] [phone] [place] [address] [address] One 2020-06-29 2020-06-29 Urgent Provider, [facility] [id number] 14:02:05 15:07:[address] [facility] 350.1.13.10 Care [place] 4.2.7.2.686 [facility] [phone] [place] [address] [address] One 2020-06-29 2020-06-29 Letter Doctor NIKOLAY 1.2.840.114 [id number] 00:00:00 00:00:00 (Out) Unassigned, MARLON 350.1.13.10 [place] [facility] 4.2.7.2.686 [id number] 2020-06-01 2020-06-01 Emergency [facility] [id number] 17:45:00 22:34:00 Marleni Floyd [place] 350.1.13.10 [place] 4.2.7.2.686 [place] [id number] 2020-05-15 2020-05-15 Emergency Lucas Lal [facility] 1.2.840.114 [id number] 19:17:00 21:27:00 Megan Young 350.1.13.10 [place] 4.2.7.2.686 [place] [id number] 2020-05-15 2020-05-15 Telemedici Alok [facility] 1.2.840.114 [id number] 11:19:42 15:58:43 ne Visit [facility] 350.1.13.10 [place] 4.2.7.2.686 [facility] [phone] [place] 044 [address] One 2020-05-12 2020-05-12 Telephone Alok [facility] 1.2.840.114 [id number] 00:00:00 00:00:00 [facility] 350.1.13.10 [place] 4.2.7.2.686 Professio [phone] [place] 044 [address] One 2020-04-08 2020-04-08 Emergency [facility] [id number] 10:44:00 12:53:00 Trish Young 350.1.13.10 [place] 4.2.7.2.686 [place] [id number] 2020-04-08 2020-04-08 Orders Doctor NIKOLAY 1.2.840.114 [id number] 00:00:00 00:00:00 Only Unassigned, MARLON 350.1.13.10 [place] [facility] 4.2.7.2.686 [id number] 2019-05-07 2019-05-07 [facility] [id number] 15:01:43 23:59:00 Encounter [facility] [place] 350.1.13.10 [place] 4.2.7.2.686 [place] [id number] 2019-05-07 2019-05-07 [facility] 1.2.294.084 [id number] 15:01:25 23:59:00 Encounter [facility] A [place] 350.1.13.10 [place] 4.2.7.2.686 [place] [id number] 2019-05-07 2019-05-07 [facility] [id number] 15:00:59 15:00:59 Encounter [facility] A [place] 350.1.13.10 [place] 4.2.7.2.686 [place] [id number] 2019-05-07 2019-05-07 [facility] [id number] 15:00:00 15:00:00 Encounter [facility] [place] 350.1.13.10 [place] 4.2.7.2.686 [place] [id number] 2019-05-04 2019-05-04 Telephone JACQUELINE Dickinson 1.2.840.114 [id number] 00:00:00 00:00:00 [facility] 350.1.13.10 [place] 4.2.7.2.686 [facility] [phone] [place] 0[address] One 2019-05-03 2019-05-03 Orders Doctor NIKOLAY 1.2.840.114 [id number] 00:00:00 00:00:00 Only Unassigned, MARLON 350.1.13.10 [place] [facility] 4.2.7.2.686 [id number] Results Test Description Test Time Test Comments Results Result Comments Source RPR Qualitative 2019-08-14 13:49:18 Test Item Value Reference Range Interpretation Comme nts RPR Qual (test code = RPR Qual) Non-Reactive Non-Reactive Reactive Control (test code = Reactive Control) Reactive Weak Reactive Control (test code = Weak Reactive Weak Reactive Control) Non-Reactive Control (test code = Non-Reactive Non-Reactive Control) Lot # (test code = Lot #) [id number] Expiration Dt (test code = Expiration Dt) 06-24-20 N Comprehensive Metabolic [id number] 22:30:33 Test Item Value Reference Range Interpretation Comments Sodium Level (test code = Sodium 141.0 mmol/L 135.0-145.0 Level) Potassium Level (test code = 3.9 mmol/L 3.5-5.1 Potassium Level) Chloride Level (test code = 104 mmol/L 98-105 Chloride Level) CO2 (test code = CO2) 21 mmol/L 22-29 L Anion Gap (test code = Anion 16 mmol/L 7-16 Gap) BUN (test code = BUN) 11.80 mg/dL 6.00-20.00 Creatinine Level (test code = 1.00 mg/dL 0.50-0.90 H Creatinine Level) BUN/Creat Ratio (test code = 12 N BUN/Creat Ratio) Glucose Level (test code = 141 mg/dL 70-115 H Glucose Level) Calcium Level (test code = 10.0 mg/dL 8.3-10.5 Calcium Level) Alk Phos (test code = Alk Phos) 68 U/L 35-104 Bilirubin Total (test code = 0.3 mg/dL 0.1-0.9 Bilirubin Total) Albumin Level (test code = 4.4 g/dL 3.5-5.2 Albumin Level) Protein Total (test code = 7.3 g/dL 6.4-8.3 Protein Total) ALT (test code = ALT) 63 U/L 1-33 H AST (test code = AST) 34 U/L 1-32 H Globulin (test code = Globulin) 2.9 g/dL 2.9-3.1 A/G Ratio (test code = A/G 1.5 ratio N Ratio) Comprehensive Metabolic [id number] 22:30:33 Test Item Value Reference Range Interpretation Comments Sodium Level (test 141.0 mmol/L 135.0-145.0 code = Sodium Level) Potassium Level 3.9 mmol/L 3.5-5.1 (test code = Potassium Level) Chloride Level (test 104 mmol/L 98-105 code = Chloride Level) CO2 (test code = 21 mmol/L 22-29 L CO2) Anion Gap (test code 16 mmol/L 7-16 = Anion Gap) BUN (test code = 11.80 mg/dL 6.00-20.00 BUN) Creatinine Level 1.00 mg/dL 0.50-0.90 H (test code = Creatinine Level) BUN/Creat Ratio 12 N (test code = BUN/Creat Ratio) Glucose Level (test 141 mg/dL 70-115 H code = Glucose Level) Calcium Level (test 10.0 mg/dL 8.3-10.5 code = Calcium Level) Alk Phos (test code 68 U/L 35-104 = Alk Phos) Bilirubin Total 0.3 mg/dL 0.1-0.9 (test code = Bilirubin Total) Albumin Level (test 4.4 g/dL 3.5-5.2 code = Albumin Level) Protein Total (test 7.3 g/dL 6.4-8.3 code = Protein Total) ALT (test code = 63 U/L 1-33 H ALT) AST (test code = 34 U/L 1-32 H AST) Globulin (test code 2.9 g/dL 2.9-3.1 = Globulin) A/G Ratio (test code 1.5 ratio N = A/G Ratio) eGFR AA (test code = >60 N eGFR (e stimated eGFR AA) mL/min/1.73 m2 Glomerular Filtration Rate ) is an estimated va lue, calculated from the patient's serum creatinine usin g the MDRD equation. It is NOT the patient 's actual GFR. The eGFR provides a more clinically usef ul measure of kidn ey disease than se rum creatinine alone.This calculation giorgi es sex and race in to account, if the information is provided. If th e race is not provided, and t he patient is -Luz n, multiply by 1.2 12. If sex is not provided, and t he patient is fema le, multiply by 0.7 42. Results for pat ients <18 years of ag e have not been validated by th e MDRD study and should be interpreted wit h caution. eGFR R esult Interpretation: eGFR > or = 60 is in the Normal RangeeGF R < 60 may mean kid kath diseaseeGFR < 1 5 may mean kidney failure Rang es recommended by the National Kidney Foundation, http://nkdep.ni h.gov Alcohol [id number] 22:30:33 Test Item Value Reference Range Interpretation Comments Ethanol Level (test <0.00 g/dL 0.00-0.01 Intoxica wilma 0.080 g/dL code = Ethanol or more Level) Ethanol Inst (test <0 N code = Ethanol Inst) Comprehensive Metabolic [id number] 22:30:33 Test Item Value Reference Range Interpretation Comments Sodium Level (test 141.0 mmol/L 135.0-145.0 code = Sodium Level) Potassium Level 3.9 mmol/L 3.5-5.1 (test code = Potassium Level) Chloride Level (test 104 mmol/L 98-105 code = Chloride Level) CO2 (test code = 21 mmol/L 22-29 L CO2) Anion Gap (test code 16 mmol/L 7-16 = Anion Gap) BUN (test code = 11.80 mg/dL 6.00-20.00 BUN) Creatinine Level 1.00 mg/dL 0.50-0.90 H (test code = Creatinine Level) BUN/Creat Ratio 12 N (test code = BUN/Creat Ratio) Glucose Level (test 141 mg/dL 70-115 H code = Glucose Level) Calcium Level (test 10.0 mg/dL 8.3-10.5 code = Calcium Level) Alk Phos (test code 68 U/L 35-104 = Alk Phos) Bilirubin Total 0.3 mg/dL 0.1-0.9 (test code = Bilirubin Total) Albumin Level (test 4.4 g/dL 3.5-5.2 code = Albumin Level) Protein Total (test 7.3 g/dL 6.4-8.3 code = Protein Total) ALT (test code = 63 U/L 1-33 H ALT) AST (test code = 34 U/L 1-32 H AST) Globulin (test code 2.9 g/dL 2.9-3.1 = Globulin) A/G Ratio (test code 1.5 ratio N = A/G Ratio) eGFR AA (test code = >60 N eGFR (e stimated eGFR AA) mL/min/1.73 m2 Glomerular Filtration Rate ) is an estimated va lue, calculated from the patient's serum creatinine usin g the MDRD equation. It is NOT the patient 's actual GFR. The eGFR provides a more clinically usef ul measure of kidn ey disease than se rum creatinine alone.This calculation giorgi es sex and race in to account, if the information is provided. If th e race is not provided, and t he patient is -Luz n, multiply by 1.2 12. If sex is not provided, and t he patient is fema le, multiply by 0.7 42. Results for pat ients <18 years of ag e have not been validated by th e MDRD study and should be interpreted wit h caution. eGFR R esult Interpretation: eGFR > or = 60 is in the Normal RangeeGF R < 60 may mean kid kath diseaseeGFR < 1 5 may mean kidney failure Rang es recommended by the National Kidney Foundation, http://nkdep.ni h.gov eGFR Non-AA (test >60.00 N eGFR (wiliam mated code = eGFR Non-AA) mL/min/1.73 m2 Glomer ular Filtration Rate ) is an estimated va lue, calculated from the patient's serum creatinine usin g the MDRD equation. It is NOT the patient 's actual GFR. The eGFR provides a more clinically usef ul measure of kidn ey disease than se rum creatinine alone.This calculation giorgi es sex and race in to account, if the information is provided. If th e race is not provided, and t he patient is -Luz n, multiply by 1.2 12. If sex is not provided, and t he patient is fema le, multiply by 0.7 42. Results for pat ients <18 years of ag e have not been validated by th e MDRD study and should be interpreted wit h caution. eGFR R esult Interpretation: eGFR > or = 60 is in the Normal RangeeGF R < 60 may mean kid kath diseaseeGFR < 1 5 may mean kidney failure Rang es recommended by the National Kidney Foundation, http://nkdep.ni h.gov HCG Qualitative [id number] 22:23:26 Test Item Value Reference Range Interpretation Comments hCG Ur (test code = Negative If the r esult is hCG Ur) "Negative" in p atients suspected to be , recom mend retest with a s ample obtained 48 to 72 hours later, or by ordering a quantitative as say. If the result i s "Borderline" te sting should be repea wilma in 48 to 72 hours. Lot # (test code = [id number] N Lot #) Expiration Dt (test 2020-09-24 N code = Expiration Dt) Neg Control (test Negative code = Neg Control) Pos Control (test Positive code = Pos Control) Internal QC (test Acceptable code = Internal QC) Complete Blood Count with [id number] 22:08:35 Test Item Value Reference Range Interpretation Comments WBC (test code = WBC) 10.4 x10 4.4-10.5 RBC (test code = RBC) 4.84 x10 3.75-5.20 Hgb (test code = Hgb) 13.3 g/dL 12.2-14.8 MCV (test code = MCV) 85.50 fL 80.00-100.00 Hct (test code = Hct) 41.4 % 36.5-44.4 MCHC (test code = 32.10 g/dL 32.00-37.50 MCHC) RDW CV (test code = 14.5 % 11.5-14.5 RDW CV) MCH (test code = MCH) 27.5 pg 27.0-32.5 Platelets (test code = 352.0 x10 140.0-440.0 Platelets) MPV (test code = MPV) 9.9 fL N Slide Review (test Auto Auto Result cr eated by code = Slide Review) GL_SJM_ SLIDE_REV_AUTO nRBC (test code = 0 N nRBC) NRBC Abs (test code = 0.00 x10 N NRBC Abs) IPF (test code = IPF) 0 % N Automated [id number] 22:08:35 Test Item Value Reference Range Interpretation Comments Neutro Auto (test code = Neutro 64.2 % 36.0-70.0 Auto) Lymph Auto (test code = Lymph Auto) 25.7 % 12.0-44.0 [place] Auto (test code = [place] Auto) 8.2 % 0.0-11.0 Eos, Auto (test code = Eos, Auto) 1.2 % 0.0-7.0 Basophil Auto (test code = Basophil 0.4 % 0.0-2.0 Auto) Neutro Absolute (test code = Neutro 6.7 x10 1.6-7.4 Absolute) Lymph Absolute (test code = Lymph 2.68 x10 .50-4.60 Absolute) [place] Absolute (test code = [place] .86 x10 .00-1.20 Absolute) Eos Absolute (test code = Eos 0.12 x10 0.00-0.74 Absolute) Baso Absolute (test code = Baso 0.04 x10 0.00-0.21 Absolute) IG [id number] 22:08:35 Test Item Value Reference Range Interpretation Comments IG (test code = IG) 0.3 % 0.0-5.0 IG Abs (test code = IG Abs) 0 x10 N
--- NOTE | 2020-11-23 18:28 | EDPHYS ---
Physician Documentation [facility] Name: Maribel Diaz Age: 40 yrs Sex: Female : 1980 Arrival Date: 11/23/2020 Time: 15:49 Bed 16 Private MD: ED Physician Umang Toth HPI: 11/23 18:10 This 40 yrs old Female presents to ER via Ambulatory with complaints of jr8 Dental Pain. 18:10 Patient reports having oral surgery next week to have teeth pulled and implants with jr8 partial in place. She reports having diffuse mouth pain from an abscess from a location she is unable to pinpoint. She reports having recently finished a round of antibiotics. She denies BROWN, Changes to vision, Hearing, or dizziness. . 11/24 00:09 The patient has not experienced similar symptoms in the past. The patient has not jr8 recently seen a physician. MANAGER APPLICATION: 11/23 16:05 LMP N/A - Hysterectomy ca1 Historical: - Allergies: 16:05 No Known Allergies; ca1 - PMHx: 16:05 ADD/ADHD; cervical cancer; Depression; Fibromyalgia; Panic Attacks; Substance Abuse; ca1 - PSHx: 16:05 Hysterectomy; ca1 - Immunization history:: Flu vaccine is up to date. - Social history:: Smoking status: Patient/guardian denies using tobacco, the patient reports quitting approximately 6 years ago. ROS: 18:13 Cardiovascular: Negative for chest pain, palpitations, and edema, Respiratory: Negative jr8 for shortness of breath, cough, wheezing, and pleuritic chest pain, Abdomen/GI: Negative for abdominal pain, nausea, vomiting, diarrhea, and constipation, MS/Extremity: Negative for injury and deformity, Skin: Negative for injury, rash, and discoloration, Neuro: Negative for headache, weakness, numbness, tingling, and seizure. 18:13 ENT: Positive for dental pain, Teeth pain 18:18 All other systems are negative. jr8 Exam: 18:13 Constitutional: This is a well developed, well nourished patient who is awake, alert, jr8 and in no acute distress. Chest/axilla: Normal chest wall appearance and motion. Nontender with no deformity. No lesions are appreciated. Cardiovascular: Regular rate and rhythm with a normal S1 and S2. No gallops, murmurs, or rubs. Normal PMI, no JVD. No pulse deficits. Respiratory: Lungs have equal breath sounds bilaterally, clear to auscultation and percussion. No rales, rhonchi or wheezes noted. No increased work of breathing, no retractions or nasal flaring. Abdomen/GI: Soft, non-tender, with normal bowel sounds. No distension or tympany. No guarding or rebound. No evidence of tenderness throughout. 18:13 ENT: External ear(s): are unremarkable, Ear canal(s): are normal, Nose: is normal, Mouth: Lips: normal, Oral mucosa: pink and intact, moist, Gums: normal with healthy appearance, Tongue: is normal, is moist, abscess, is not appreciated. Vital Signs: 16:05 BP 149 / 108; Pulse 111; Resp 17 S; Temp 97.6(TE); Pulse Ox 99% on R/A; Weight 113.4 kg ca1 (R); Height 5 ft. 8 in. (172.72 cm) (R); Pain 8/10; 19:54 BP 131 / 103; Pulse 90; Resp 16 S; Pulse Ox 96% on R/A; Pain 6/10; bb 16:05 Body Mass Index 38.01 (113.40 kg, 172.72 cm) ca1 MDM: 17:48 [facility] Data reviewed: vital signs, nurses notes, and as a result, I will discharge patient. jr8 Data interpreted: Pulse oximetry: on room air is 99 %. Interpretation: normal. Counseling: I had a detailed discussion with the patient and/or guardian regarding: the historical points, exam findings, and any diagnostic results supporting the discharge/admit diagnosis, the need for outpatient follow up, a dentist, to return to the emergency department if symptoms worsen or persist or if there are any questions or concerns that arise at home. ED course: Patient with poor dentition and cavities diffusely. No abscess formation or significant erythematic region noted. Will put on Abx and pain meds . Administered Medications: 18:23 Drug: TORadol 30 mg Route: IM; Site: right deltoid; bw 19:53 Follow up: Response: No adverse reaction bb 18:28 Drug: Ondansetron (Zofran) 4 mg Route: PO; bw 19:53 Follow up: Response: No adverse reaction bb 19:32 Drug: [place] (HYDROcodone-acetaminophen) 10 mg-325 mg 1 tabs {Note: RASS 0.} Route: PO; bb 19:53 Follow up: Response: No adverse reaction; Pain is decreased bb 19:53 Follow up: Response: RASS: Alert and Calm (0) Disposition: 11/24 08:20 Co-signature as Attending Physician, Umang Toth MD I agree with the assessment and kdr plan of care. Disposition: 11/23/20 18:27 Discharged to Home. Impression: Dental caries, Dentalgia. - Condition is Stable. - Discharge Instructions: Dental Caries, Adult. - Prescriptions for Tylenol- Codeine #3 300-30 mg Oral Tablet - take 2 tablets by ORAL route every 4-6 hours As needed; 20 tablet. Amoxicillin 875 mg Oral Tablet - take 1 tablet by ORAL route every 12 hours for 10 days; 20 tablet. - Medication Reconciliation Form, Thank You Letter, Antibiotic Education, Prescription Opioid Use form. - Follow up: Private Physician; When: 2 - 3 days; Reason: Recheck today's complaints, Continuance of care, Re-evaluation by your physician. - Problem is new. - Symptoms have improved. Signatures: Umang Toth MD MD [facility] Mariam Caldera RN RN bb Yonas Quiñonez PA PA jr8 Florence Finch RN RN [facility] Arlin Alexander RN RN Corrections: (The following items were deleted from the chart) 11/23 19:55 18:27 11/23/2020 18:27 Discharged to Home. Impression: Dental caries; Dentalgia. bb Condition is Stable. Forms are Medication Reconciliation Form, Thank You Letter, Antibiotic Education, Prescription Opioid Use. Follow up: Private Physician; When: 2 - 3 days; Reason: Recheck today's complaints, Continuance of care, Re-evaluation by your physician. Problem is new. Symptoms have improved. jr8
--- NOTE | 2020-11-23 18:28 | ER ---
Nurse's Notes [facility] Name: Maribel Diaz Age: 40 yrs Sex: Female : 1980 Arrival Date: 11/23/2020 Time: 15:49 Bed 16 Private MD: Diagnosis: Dental caries;Dentalgia Presentation: 11/23 16:02 Chief complaint: Patient states: Am seeing my oral surgeon next week, but am having so ca1 much pain right now, I can't sleep and I get real anxious. Coronavirus screen: Client denies travel out of the [place] in the last 14 days. At this time, the client does not indicate any symptoms associated with coronavirus-19. Ebola Screen: Patient negative for fever greater than or equal to 101.5 degrees Fahrenheit, and additional compatible Ebola Virus Disease symptoms Patient denies exposure to infectious person. Patient denies travel to an Ebola-affected area in the 21 days before illness onset. No symptoms or risks identified at this time. Initial Sepsis Screen: Does the patient meet any 2 criteria? No. Patient's initial sepsis screen is negative. Does the patient have a suspected source of infection? No. Patient's initial sepsis screen is negative. Risk Assessment: Do you want to hurt yourself or someone else? Patient reports no desire to harm self or others. Onset of symptoms was November 23, 2020. 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 - Social history:: Smoking status: Patient/guardian denies using tobacco, the patient reports quitting approximately 6 years ago. Screenin:15 Abuse screen: Denies threats or abuse. Nutritional screening: No deficits noted. bw Tuberculosis screening: No symptoms or risk factors identified. Fall Risk None identified. Assessment: 18:15 General: Appears in no apparent distress. Behavior is appropriate for age, anxious, bw crying. Pain: Complains of pain in jaw pain. Neuro: No deficits noted. Cardiovascular: No deficits noted. Respiratory: No deficits noted. GI: No deficits noted. : No deficits noted. EENT: No deficits noted. Derm: No deficits noted. Musculoskeletal: Reports pain in jaw. 19:33 Reassessment: Patient is alert, oriented x 3, equal unlabored respirations, skin bb warm/dry/pink. pt upset, crying states pain is real, administered pain medication see MAR. 19:52 Reassessment: Patient and/or family updated on plan of care and expected duration. Pain bb level reassessed. Patient is alert, oriented x 3, equal unlabored respirations, skin warm/dry/pink. pt verbalized understanding of and agrees to plan of care discharge instructions given pt ambulated with steady gait to exit Patient states feeling better. Vital Signs: 16:05 BP 149 / 108; Pulse 111; Resp 17 S; Temp 97.6(TE); Pulse Ox 99% on R/A; Weight 113.4 kg ca1 (R); Height 5 ft. 8 in. (172.72 cm) (R); Pain 8/10; 19:54 BP 131 / 103; Pulse 90; Resp 16 S; Pulse Ox 96% on R/A; Pain 6/10; bb 16:05 Body Mass Index 38.01 (113.40 kg, 172.72 cm) ca1 ED Course: 15:49 Patient arrived in ED. ds1 16:04 Triage completed. ca1 16:05 Arm band placed on right wrist. ca1 17:48 Yonas Quiñonez PA is PHCP. jr8 17:48 Umang Toth MD is Attending Physician. jr8 18:13 Arlin Alexander RN is Primary Nurse. bw 18:15 Patient has correct armband on for positive identification. Call light in reach. Side bw rails up X 1. 18:15 No provider procedures requiring assistance completed. Patient did not have IV access bw during this emergency room visit. Administered Medications: 18:23 Drug: TORadol 30 mg Route: IM; Site: right deltoid; bw 19:53 Follow up: Response: No adverse reaction bb 18:28 Drug: Ondansetron (Zofran) 4 mg Route: PO; bw 19:53 Follow up: Response: No adverse reaction bb 19:32 Drug: [facility] (HYDROcodone-acetaminophen) 10 mg-325 mg 1 tabs {Note: RASS 0.} Route: PO; bb 19:53 Follow up: Response: No adverse reaction; Pain is decreased bb 19:53 Follow up: Response: RASS: Alert and Calm (0) bb Outcome: 18:27 Discharge ordered by MD. landin 19:54 Discharged to home ambulatory. bb 19:54 Condition: stable 19:54 Discharge instructions given to patient, Instructed on discharge instructions, follow up and referral plans. medication usage, Demonstrated understanding of instructions, follow-up care, Prescriptions given X 2. 19:55 Patient left the ED. bb Signatures: Lena Bright ds1 Mariam Caldera RN RN bb Yonas Quiñonez PA PA jr8 Florence Finch RN RN ca1 Arlin Alexander RN RN Corrections: (The following items were deleted from the chart) 16:06 16:02 Acuity: RICO 4 ca1 ca1
[2020-11-23] MEDS ORDERED: KETOROLAC 30 MG/ML INJ ONE (18:35)
[2020-11-23] MEDS ORDERED: ONDANSETRON 4 MG (ODT) TAB ONE (18:44)
[2020-11-23] MEDS ORDERED: HYDROCODONE/APAP 10/325 TAB ONE (19:45)
[2020-11-24 12:52] VITALS: TEMP 97.6
[2020-11-24 12:53] VITALS: BP 131/103; O2SAT 96
== END 2020-11-23 19:55 | disposition home or self-care (01) ==
LOC: ER 15:44
DX: K02.9 Dental caries, unspecified (principal)
CPT/HCPCS: 96372; 99283

== ENCOUNTER 2021-01-22 11:26 | Inpatient (IN) | payer OTHER ==
--- OUTSIDE RECORDS SUMMARY | 2021-01-22 11:30 | XMS REPORT | Continuity of Care Document ---
:1980 Author Organization [facility] t Address [address] [place] [address] Care Team Providers Name Role Phone Asked, Pcp Primary Care Physician Unavailable Liana Dickinson MD Attending Clinician Mariel Solis MD Attending Clinician Damon Menendez DO Attending Clinician Doctor Unassigned, Name Attending Clinician Unavailable Carl Capps DO Attending Clinician Pramod He Attending Clinician Provider, Urgent Care Attending Clinician Unavailable Mariel Li Attending Clinician Megan Larson Attending Clinician Carl Long Attending Clinician Problems This patient has no known problems. Allergies, Adverse Reactions, Alerts This patient has no known allergies or adverse reactions. Social History Social Habit Start Date Stop Date Quantity Comments Source Tobacco use and 2018-11-16 2018-11-16 Never used David jacquesodist exposure 00:00:00 00:00:00 Sex Assigned At [birth year] [facility] ethodist 00:00:00 00:00:00 Smoking Status Start Date Stop Date Source Current every day smoker 2018-11-16 00:00:00 Lázaro Galindo Medications Ordered Filled Start Stop Current Ordering Indication Dosage Frequency Signature Comments Components Source Medication Medication Date Date Medication? Clinician (SIG) Name Name estrogens-m 2018- Yes 1{tbl} QD Take 1 [place] ethyltestos 3-25 tablet by Met aditya hampton 16:45: mouth st (EEMT,COVAR 28 daily. YX) 1.25-2.5 mg per tablet ALPRAZolam 2018-0 Yes 1mg Q.25D Take 1 mg [place] (XANAX) 1 3-25 by mouth 4 Meth shy MG tablet 16:45: (four) st 28 times a day as needed for anxiety. escitalopra Yes 20mg QD Take 20 mg Hernandez m (LEXAPRO) 3-25 by mouth Meth shy 20 MG 16:45: nightly. st tablet 28 risperiDONE 2018- Yes 1mg QD Take 1 mg [place] (RisperDAL) 3-25 by mouth Meth shy 1 MG tablet 16:45: nightly. st 28 propranolol Yes 40mg Take 40 mg Hernandez (INDERAL) 3-25 by mouth Method i 40 MG 16:45: daily. st tablet 28 Procedures This patient has no known procedures. Encounters Start End Encounter Admission Attending Care Care Encounter Source Date/Time Date/Time Type Type Clinicians Facility Department ID 2020-12-14 2020-12-14 Telemedici Alok [facility] [id number] 16:30:00 16:45:00 ne Visit [facility] [id number] [place] [id number] Professio [phone] [place] [address] [address] 2020-12-13 2020-12-13 Patient [place] [facility] [id number] 00:00:00 00:00:00 Secure Msg [facility] [id number] [place] [id number] Professio [phone] [place] [address] [address] 2020-12-11 2020-12-11 Telephone [place] [facility] [id number] 00:00:00 00:00:00 [facility] [id number] [place] [id number] Professio [phone] [place] [address] [address] 2020-12-06 2020-12-06 Emergency [facility] [id number] 01:21:00 03:58:00 [place] Floyd Hannah [id number] [place] [id number] [place] [id number] [id number] 2020-11-09 2020-11-09 Patient Shon [facility] [id number] 00:00:00 00:00:00 Outreach [facility] [id number] [facility] 4.2.7.2.686 PAVILLION [id number] [id number] 2020-11-01 2020-11-01 Telephone Alok [facility] [id number] 00:00:00 00:00:00 [facility] [id number] [place] [id number] Professio [phone] [place] [address] [address] 2020-10-27 2020-10-27 Orders Doctor NIKOLAY [id number] 00:00:00 00:00:00 Only Unassigned, MARLON [id number] [place] [facility] 4.2.7.2.686 [id number] 2020-10-24 2020-10-24 Telephone Alok [facility] [id number] 00:00:00 00:00:00 [facility] [id number] [place] [id number] Professio [phone] [place] [address] [address] 2020-10-23 2020-10-23 Telemedici Alok [facility] 1.2.840.114 [id number] 16:47:16 17:53:03 ne Visit [facility] [id number] [place] [id number] Professio [phone] [place] [address] [address] 2020-10-17 2020-10-17 Emergency Jefry [facility] 1.2.840.114 [id number] 16:12:00 18:15:00 Khadijah Carl Young [id number] [place] [id number] [place] [id number] 2020-10-17 2020-10-17 Telephone Alok [facility] [id number] 00:00:00 00:00:00 [facility] [id number] [place] [id number] Professio [phone] [place] [address] [address] 2020-10-16 2020-10-16 [facility] [id number] 00:00:00 00:00:00 [facility] [id number] [place] [id number] Professio [phone] [place] [address] [address] 2020-09-15 2020-09-15 Emergency [facility] [id number] 14:33:00 18:20:00 Jaqueline Young [id number] [place] [id number] [place] [id number] [id number] 2020-07-07 2020-07-07 [facility] 1.2.840.114 [id number] 00:00:00 00:00:00 [facility] [id number] [place] 4.2.7.2.686 Professio [phone] [place] [address] [address] 2020-06-29 2020-06-29 Urgent Provider, [facility] [id number] 14:02:05 15:07:58 Care [facility] [id number] Care [place] [id number] Professio [phone] [place] [address] [address] 2020-06-29 2020-06-29 Letter Doctor LINK 1.2.840.114 [id number] 00:00:00 00:00:00 (Out) Unassigned, MARLON 350.1.13.10 [place] [facility] 4.2.7.2.686 [id number] 2020-06-01 2020-06-01 Emergency Oj, [facility] [id number] 17:45:00 22:34:00 Marleni Floyd Hannah [id number] [place] [id number] [place] [id number] 2020-05-15 2020-05-15 Emergency Lucas Lal [facility] 1.2.840.114 [id number] 19:17:00 21:27:00 Megan Hannah [id number] [place] [id number] [place] [id number] 2020-05-15 2020-05-15 [facility] 1.2.840.114 [id number] 11:19:42 15:58:43 ne Visit [facility] 350.1.13.10 [place] 4.2.7.2.686 Professio [phone] nal [facility] 2020-05-12 2020-05-12 [facility] 1.2.840.114 [id number] 00:00:00 00:00:00 [facility] 350.1.13.10 [place] 4.2.7.2.686 Professio [phone] [place] [address] [address] 2020-04-08 2020-04-08 [facility] [id number] 10:44:00 12:53:00 Trish Young 350.1.13.10 [place] 4.2.7.2.686 [place] [id number] [id number] 2020-04-08 2020-04-08 Orders Doctor NIKOLAY 1.2.840.114 [id number] 00:00:00 00:00:00 Only Unassigned, MARLON 350.1.13.10 [place] [facility] 4.2.7.2.686 [id number] 2019-05-07 2019-05[facility]07 [facility] [id number] 15:01:43 23:59:00 Encounter [facility] [place] 350.1.13.10 [place] 4.2.7.2.686 [place] [id number] 2019-05-07 2019-05-07 [facility] [id number] 15:01:25 23:59:00 Encounter [facility]ondiful A Nathalie 350.1.13.10 [place] 4.2.7.2.686 [place] [id number] 2019-05-07 2019-05-07 [facility] [id number] 15:00:59 15:00:59 Encounter [facility]ondiful A [place]athalie 350.1.13.10 [place] 4.2.7.2.686 [place] [id number] 2019-05-07 2019-05-07 [facility] [id number] 15:00:00 15:00:00 Encounter [facility]ondiful A Nathalie 350.1.13.10 [place] 4.2.7.2.686 [place] [id number] 2019-05-04 2019-05-04 [facility] 1.2.840.114 [id number] 00:00:00 00:00:00 [facility] 350.1.13.10 [place] 4.2.7.2.686 Professio [phone] [place] [address] 2019-05-03 2019-05-03 Orders Doctor NIKOLAY 1.2.840.114 [id number] 00:00:00 00:00:00 Only Unassigned, MARLON 350.1.13.10 [place] [facility] 4.2.7.2.686 [id number] Results Test Description Test Time Test [...] = Expiration Dt) 06-24-20 N Comprehensive Metabolic [id number] 22:30:33 Test Item Value Reference Range Interpretation [...] A/G 1.5 ratio N Ratio) Comprehensive Metabolic [id number] 22:30:33 Test Item Value Reference Range Interpretation [...] the National Kidney Foundation, http://nkdep.ni h.gov Alcohol [id number] 22:30:33 Test Item Value Reference Range Interpretation Comments Ethanol Level (test <0.00 g/dL 0.00-0.01 Intoxica wilma 0.080 g/dL code = Ethanol or more Level) Ethanol Inst (test <0 N code = Ethanol Inst) Comprehensive Metabolic [id number] 22:30:33 Test Item Value Reference Range Interpretation [...] ag e have not been validated by [facility] MDRD study and should be interpreted wit [...] account, if the information is provided. If [facility] race is not provided, and t he patient is -Luz n, multiply by 1.2 12. If sex is not provided, and t he patient is fema le, multiply by 0.7 42. Results for pat ients <18 years of ag e have not been validated by [facility] MDRD study and should be interpreted wit h caution. eGFR R esult Interpretation: eGFR > or = 60 is in the Normal RangeeGF R < 60 may mean kid kath diseaseeGFR < 1 5 may mean kidney failure Rang es recommended by the National Kidney Foundation, http://nkdep.ni h.gov HCG Qualitative [id number] 22:23:26 Test Item Value Reference Range Interpretation [...] 72 hours. Lot # (test code = [id number] Lot #) Expiration Dt (test 2020-09-24 N code = Expiration Dt) Neg Control (test Negative code = Neg Control) Pos Control (test Positive code = Pos Control) Internal QC (test Acceptable code = Internal QC) Complete Blood Count with [id number] 22:08:35 Test Item Value Reference Range Interpretation [...] code = IPF) 0 % N Automated [id number] 22:08:35 Test Item Value Reference Range Interpretation Comments Neutro Auto (test code = Neutro 64.2 % 36.0-70.0 Auto) Lymph Auto (test code = Lymph Auto) 25.7 % 12.0-44.0 [place] Auto (test code = [place] Auto) 8.2 % 0.0-11.0 Eos, Auto (test code = Eos, Auto) 1.2 % 0.0-7.0 Basophil Auto (test code = Basophil 0.4 % 0.0-2.0 Auto) Neutro Absolute (test code = Neutro 6.7 x10 1.6-7.4 Absolute) Lymph Absolute (test code = Lymph 2.68 x10 .50-4.60 Absolute) [place] Absolute (test code = [place] .86 x10 .00-1.20 Absolute) Eos Absolute (test code = Eos 0.12 x10 0.00-0.74 Absolute) Baso Absolute (test code = Baso 0.04 x10 0.00-0.21 Absolute) IG [id number] 22:08:35 Test Item Value Reference Range Interpretation Comments IG (test code = IG) 0.3 % 0.0-5.0 IG Abs (test code = IG Abs) 0 x10 N
--- NOTE | 2021-01-22 12:49 | RAD REPORT ---
EXAM DESCRIPTION: CT - Head Brain Wo Cont - 01/22/2021 12:40 pm CLINICAL HISTORY: right eye pain;Headache COMPARISON: No comparisons TECHNIQUE: Axial 5 mm thick images of the head were obtained without IV contrast. All CT scans are performed using dose optimization technique as appropriate and may include automated exposure control or mA/KV adjustment according to patient size. FINDINGS: No intracranial hemorrhage, mass, edema or shift of mid-line structures. No acute infarcti on changes seen. No abnormal extra-axial fluid collections. Ventricles are normal. The mastoid air cells, external auditory canals and middle ears are clear of any significant or suspi cious finding. No globe or orbital content abnormality. No retro-orbital, sella or cavernous sinus ab normality evident on standard CT protocol. No acute bony findings. Patient has normal variant hyperostosis frontalis interna. IMPRESSION: Negative non-contrast CT head examination for acute or significant finding.
[2021-01-22 12:50] LABS: Absolute Lymphocytes (CBC) 2.6 K/uL (0.7-4.9); Basophils % 1.2 % (0-1.3); Hematocrit 43.2 % (36.0-45.0); Lymphocytes % 34.2 % (15.3-44.8); MPV 8.2 fL (7.6-11.3); RBC Red Blood Cell Count 5.12 M/uL (3.86-4.86)
[2021-01-22] MEDS ORDERED: MEPERIDINE HCL 25 MG/ML SYR ONE (12:53)
[2021-01-22] MEDS ORDERED: METHYLPREDNISOLONE 125 MG INJ ONE (12:53)
[2021-01-22] MEDS ORDERED: NA CHLORIDE 0.9% 1,000 ML ONE (12:53)
[2021-01-22 13:06] LABS: ALT/SGPT 34 U/L (12-78); AST/SGOT 20 U/L (15-37); Alkaline Phosphatase 74 U/L (45-117); BUN Blood Urea Nitrogen 7 mg/dL (7-18); Bicarbonate 30 mmol/L (21-32); Bilirubin Direct < 0.1 mg/dL (0-0.2); Bilirubin Total 0.4 mg/dL (0.2-1.0); Glucose Level 102 mg/dL (74-106); Potassium 3.8 mmol/L (3.5-5.1); Protein, Total 8.2 g/dL (6.4-8.2); Sodium Level 138 mmol/L (136-145)
[2021-01-22] MEDS ORDERED: DIAZEPAM 5 MG TABLET ONE (14:20)
--- NOTE | 2021-01-22 14:25 | ER ---
Nurse's Notes [facility] Name: Maribel Diaz Age: 40 yrs Sex: Female : 1980 Arrival Date: 01/22/2021 Time: 11:37 Bed 23 Private MD: Diagnosis: Headache;Unilateral blurred vision Presentation: 01/22 11:50 Chief complaint: Patient states: R lower jaw tooth pain for 3 days. Pain radiates up ll1 into R eye with blurred vision. + nausea. Entire BROWN (migraine) for 2 days. No fever. Coronavirus screen: Client denies travel out of the [place] in the last 14 days. At this time, the client does not indicate any symptoms associated with coronavirus-19. Ebola Screen: Patient denies travel to an Ebola-affected area in the 21 days before illness onset. Initial Sepsis Screen: Does the patient meet any 2 criteria? HR > 90 bpm. No. Patient's initial sepsis screen is negative. Does the patient have a suspected source of infection? Yes: S/S of meningitis or endocarditis. Risk Assessment: Do you want to hurt yourself or someone else? Patient reports no desire to harm self or others. Onset of symptoms was January 20, 2021. 11:50 Method Of Arrival: Ambulatory ll1 11:50 Acuity: RICO 3 ll1 Triage Assessment: 12:41 Headache History: The patient has had previous headaches and this one is different than zb previous episodes, and this one is more severe than previous episodes. 14:43 Pain: Pain began 2-3 days ago. Also complains of nausea, photophobia, labile emotions. 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 - Social history:: Smoking status: Patient denies any tobacco usage or history of. - Family history:: not pertinent. - Hospitalizations: : No recent hospitalization is reported. Screenin:39 Abuse screen: Denies threats or abuse. Denies injuries from another. Nutritional zb screening: No deficits noted. Tuberculosis screening: No symptoms or risk factors identified. Fall Risk None identified. Assessment: 12:30 General: Appears uncomfortable, Behavior is anxious. Pain: Complains of pain in zb forehead, right ear, right hoahaoism, right jaw and right base of the skull Pain currently is 10 out of 10 on a pain scale. Quality of pain is described as aching, pressure, tender. Neuro: Level of Consciousness is awake, alert, obeys commands, Oriented to person, place, time, situation, Reports blurred vision headache photophobia. Cardiovascular: Patient's skin is warm and dry. Respiratory: Airway is patent Respiratory effort is even, unlabored, Respiratory pattern is regular, symmetrical. Derm: Skin is intact, is healthy with good turgor. Musculoskeletal: Range of motion: intact in all extremities. 13:30 Reassessment: Patient appears in no apparent distress at this time. Patient and/or zb family updated on plan of care and expected duration. Pain level reassessed. patient appears less agitated at this time time. light dimmed. 14:30 Reassessment: Patient appears in no apparent distress at this time. Patient and/or zb family updated on plan of care and expected duration. Pain level reassessed. Patient is alert, oriented x 3, equal unlabored respirations, skin warm/dry/pink. 15:30 Reassessment: Patient appears in no apparent distress at this time. Patient and/or zb family updated on plan of care and expected duration. Pain level reassessed. Patient is alert, oriented x 3, equal unlabored respirations, skin warm/dry/pink. Reassessment:. Vital Signs: 11:50 BP 130 / 100; Pulse 105; Resp 17; Temp 98.3; Pulse Ox 96% ; Weight 104.33 kg; Height 5 ll1 ft. 8 in. (172.72 cm); Pain 8/10; 14:42 BP 109 / 91; Pulse 66; Resp 16; Pulse Ox 98% on R/A; zb 11:50 Body Mass Index 34.97 (104.33 kg, 172.72 cm) ll1 [place] Coma Score: 14:15 Eye Response: spontaneous(4). Verbal Response: oriented(5). Motor Response: obeys rn commands(6). Total: 15. ED Course: 11:37 Patient arrived in ED. bp1 11:52 Triage completed. ll1 11:53 Arm band placed on. ll1 12:14 Trice Al, ZION is Primary Nurse. zb 12:14 Jonathan Maria MD is Attending Physician. rn 12:39 CT Head Brain wo Cont In Process Unspecified. EDMS 12:39 Initial lab(s) drawn, by me, sent to lab. Inserted saline lock: 22 gauge in left zb antecubital area, using aseptic technique. Blood collected. Missed attempt(s): 22 gauge in right antecubital area. 12:41 Patient has correct armband on for positive identification. Pulse ox on. NIBP on. Door zb closed. Noise minimized. 14:24 Dionisio Looney MD is Hospitalizing Provider. rn 16:00 No provider procedures requiring assistance completed. Patient admitted, IV remains in zb place. Administered Medications: 12:30 Drug: SOLU-Medrol (methylPrednisoLONE) 125 mg Route: IVP; Site: left antecubital; zb 14:41 Follow up: Response: No adverse reaction zb 12:30 Drug: Demerol (meperidine) 25 mg {Note: RASS +2.} Route: IVP; Site: left antecubital; zb 13:00 Follow up: Response: No adverse reaction; Pain is unchanged, physician notified; RASS: zb Agitated (+2) 12:50 Drug: NS 0.9% 1000 ml Route: IV; Rate: 1000 ml; Site: left antecubital; zb 15:07 Follow up: Response: No adverse reaction; IV Status: Completed infusion; IV Intake: zb 1000ml 14:02 Drug: Valium (diazepam) 5 mg Route: PO; zb 14:42 Follow up: Response: No adverse reaction; Marked relief of symptoms; Anxiety decreased zb 14:37 Drug: TEGretol (carbamazepine) 200 mg Route: PO; zb 15:07 Follow up: Response: No adverse reaction zb 14:41 Drug: morphine 4 mg {Note: RASS +1.} Route: IVP; Site: left antecubital; zb 15:07 Follow up: Response: No adverse reaction; Pain is decreased; RASS: Alert and Calm (0) zb Intake: 15:07 IV: 1000ml; Total: 1000ml. zb Outcome: 14:25 Decision to Hospitalize by Provider. rn 16:00 Admitted to ER Hold. Please see [facility] for further documentation. zb 16:00 Condition: stable zb 01/23 10:28 Patient left the ED. em1 Signatures: Dispatcher [employer] EDMS Jonathan Maria MD MD rn Martinez, Eric em1 Yeison Barboza RN RN ll1 Sravani Wolff Zipporah, RN RN zb Corrections: (The following items were deleted from the chart) 01/22 13:10 12:50 NS 0.9% 1000 ml IV at 1000 ml in right antecubital zb zb 21:51 14:42 BP 109 / 105; Pulse 66bpm; Resp 16bpm; Pulse Ox 98% RA; zb zb
--- NOTE | 2021-01-22 14:25 | EDPHYS ---
Physician Documentation [facility] Name: Maribel Diaz Age: 40 yrs Sex: Female : 1980 Arrival Date: 01/22/2021 Time: 11:37 Bed 23 Private MD: ED Physician Jonathan Maria HPI: 01/22 14:15 This 40 yrs old Female presents to ER via Ambulatory with complaints of rn Headache, Jaw Pain, Blurred Vision. 14:15 The patient complains of pain to the top of head and right pentecostalism. The patient rn describes the headache as aching. Onset: The symptoms/episode began/occurred 2 day(s) ago. Associated signs and symptoms: Pertinent positives: blurred vision, Pertinent negatives: altered mental status, fever, neck stiffness, rash, vision loss, weakness. Severity of symptoms: At its worst the pain was moderate, in the emergency department the pain is unchanged. The symptoms are alleviated by nothing. the symptoms are aggravated by nothing. The patient has not experienced similar symptoms in the past. The patient has not recently seen a physician. Reports 2 days of headache, right side pentecostalism and behind right eye, no fever, + blurred vision and right jaw pain. Reports poor dentition but this feels like pain is different or not coming from her teeth per patient. . TRAIN EXAMINER: 14:43 LMP N/A - Hysterectomy zb Historical: - PMHx: 11:53 ADD/ADHD; cervical cancer; Depression; Fibromyalgia; Panic Attacks; Substance Abuse; ll1 - PSHx: 11:53 Hysterectomy; pins/plates both ankles; ll1 - Immunization history:: Flu vaccine is up to date. - Social history:: Smoking status: Patient denies any tobacco usage or history of. - Family history:: not pertinent. - Hospitalizations: : No recent hospitalization is reported. ROS: 14:15 Constitutional: Negative for fever, chills, and weight loss, Eyes: + blurred vision rn right eye ENT: + right jaw pain Neck: Negative for injury, pain, and swelling, Cardiovascular: Negative for chest pain, palpitations, and edema, Respiratory: Negative for shortness of breath, cough, wheezing, and pleuritic chest pain, Abdomen/GI: Negative for abdominal pain, nausea, vomiting, diarrhea, and constipation, Back: Negative for injury and pain, : Negative for injury, bleeding, discharge, and swelling, MS/Extremity: Negative for injury and deformity, Skin: Negative for injury, rash, and discoloration, Neuro: + headache Exam: 14:15 Constitutional: This is a well developed, well nourished patient who is awake, alert, rn seems very anxious. Head/Face: Normocephalic, atraumatic. Eyes: Pupils equal round and reactive to light, extra-ocular motions intact. Lids and lashes normal. Conjunctiva and sclera are non-icteric and not injected. Cornea within normal limits. Periorbital areas with no swelling, redness, or edema. ENT: Mucous membranes moist. Poor dentition. Neck: Trachea midline, No Meningismus. Cardiovascular: Tachycardic. No pulse deficits. Respiratory: No increased work of breathing, no retractions or nasal flaring. Abdomen/GI: soft, non-tender Skin: Warm, dry MS/ Extremity: Pulses equal, no cyanosis. Neurovascular intact. Full, normal range of motion. Equal circumference. Neuro: Awake and alert, GCS 15, oriented to person, place, time, and situation. Cranial nerves II-XII grossly intact. Motor strength 5/5 in all extremities. Sensory grossly intact. + tenderness over right temporal artery/region Vital Signs: 11:50 BP 130 / 100; Pulse 105; Resp 17; Temp 98.3; Pulse Ox 96% ; Weight 104.33 kg; Height 5 ll1 ft. 8 in. (172.72 cm); Pain 8/10; 14:42 BP 109 / 91; Pulse 66; Resp 16; Pulse Ox 98% on R/A; zb 11:50 Body Mass Index 34.97 (104.33 kg, 172.72 cm) ll1 Rasheed Coma Score: 14:15 Eye Response: spontaneous(4). Verbal Response: oriented(5). Motor Response: obeys rn commands(6). Total: 15. MDM: 12:14 Patient medically screened. rn 14:15 Differential diagnosis: hypertensive headache, migraine, temporal arteritis, tension rn headache, trigeminal neuralgia, vasomotor headache. Data reviewed: vital signs, nurses notes, lab test result(s), radiologic studies, CT scan, and as a result, I will admit patient. Counseling: I had a detailed discussion with the patient and/or guardian regarding: the historical points, exam findings, and any diagnostic results supporting the discharge/admit diagnosis, lab results, radiology results, the need for further work-up and treatment in the hospital. Response to treatment: There is no appreciated change of the patient's symptoms at this time. Admission orders: after a detailed discussion of the patient's condition and case, the admit orders are written by me. ED course: Consulted with Dr. Samson, recommends steroids and tegretol at this point. I consulted with Dr. Lang, states can take for temporal artery biopsy in AM and to keep NPO. Pt with multiple possible etiologies of symptoms but will admit to rule out temporal arteritis given unilateral blurred vision/jaw pain, in setting of elevated ESR/CRP. . 01/22 12:21 Order name: CBC with Diff; Complete Time: 13:15 rn 01/22 12:21 Order name: Basic Metabolic Panel; Complete Time: 13:15 rn 01/22 12:21 Order name: LFT's; Complete Time: 13:15 rn 01/22 12:21 Order name: ESR; Complete Time: 13:15 rn 01/22 12:21 Order name: CRP; Complete Time: 13:15 rn 01/22 14:19 Order name: COVID-19 : Document "Date of Symptom Onset" if Symptomatic. sv 01/22 16:24 Order name: SARS-COV-2 RT PCR EDMS 01/23 00:34 Order name: Troponin I EDMS 01/23 00:34 Order name: T4 Free EDMS 01/23 00:34 Order name: Thyroid Stimulating Hormone EDMS 01/23 05:38 Order name: CBC with Automated Diff EDMS 01/23 05:50 Order name: Basic Metabolic Panel EDMS 01/23 05:50 Order name: Lipid Profile EDMS 01/23 05:50 Order name: Carbamazepine (Tegretol) Level EDMS 01/22 12:21 Order name: IV Start; Complete Time: 12:38 rn 01/22 12:21 Order name: CT Head Brain wo Cont; Complete Time: 13:05 rn 01/23 06:27 Order name: Manual Differential EDMS Administered Medications: 12:30 Drug: SOLU-Medrol (methylPrednisoLONE) 125 mg Route: IVP; Site: left antecubital; zb 14:41 Follow up: Response: No adverse reaction zb 12:30 Drug: Demerol (meperidine) 25 mg {Note: RASS +2.} Route: IVP; Site: left antecubital; zb 13:00 Follow up: Response: No adverse reaction; Pain is unchanged, physician notified; RASS: zb Agitated (+2) 12:50 Drug: NS 0.9% 1000 ml Route: IV; Rate: 1000 ml; Site: left antecubital; zb 15:07 Follow up: Response: No adverse reaction; IV Status: Completed infusion; IV Intake: zb 1000ml 14:02 Drug: Valium (diazepam) 5 mg Route: PO; zb 14:42 Follow up: Response: No adverse reaction; Marked relief of symptoms; Anxiety decreased zb 14:37 Drug: TEGretol (carbamazepine) 200 mg Route: PO; zb 15:07 Follow up: Response: No adverse reaction zb 14:41 Drug: morphine 4 mg {Note: RASS +1.} Route: IVP; Site: left antecubital; zb 15:07 Follow up: Response: No adverse reaction; Pain is decreased; RASS: Alert and Calm (0) zb Disposition: 01/22/21 14:25 Hospitalization ordered by Dionisio Looney for Observation. Preliminary diagnosis are Headache, Unilateral blurred vision. - Bed requested for Telemetry/MedSurg (observation). - Status is Observation. em1 - Condition is Stable. - Problem is new. - Symptoms are unchanged. Signatures: Dispatcher [employer] EDMS Jonathan Maria MD MD rn Martinez, Eric em1 Milli Easley RN RN Nidia Beach cs8 Yeison Barboza RN RN 1 Trice Al RN RN zb Corrections: (The following items were deleted from the chart) 20:20 14:25 Hospitalization Ordered by Dionisio Looney MD for Observation. Preliminary cs8 diagnosis is Headache; Unilateral blurred vision. Bed requested for Telemetry/MedSurg (observation). Status is Observation. Condition is Stable. Problem is new. Symptoms are unchanged. rn 01/23 07:59 01/22 20:20 01/22/2021 14:25 Hospitalization Ordered by Dionisio Looney MD for cg Observation. Preliminary diagnosis is Headache; Unilateral blurred vision. Bed requested for [facility] ER HOLD. Status is Observation. Condition is Stable. Problem is new. Symptoms are unchanged. cs8 01/23 10:28 07:59 01/22/2021 14:25 Hospitalization Ordered by Dionisio Looney MD for Observation. em1 Preliminary diagnosis is Headache; Unilateral blurred vision. Bed requested for Telemetry/MedSurg (observation). Status is Observation. Condition is Stable. Problem is new. Symptoms are unchanged.
[2021-01-22] MEDS ORDERED: carBAMazepine 200 MG TAB ONE ×2 (14:53→22:06)
[2021-01-22] MEDS ORDERED: MORPHINE 4 MG/ML SYR ONE (14:59)
[2021-01-22] MEDS ORDERED: ONDANSETRON 4 MG/2 ML VIAL ONE (15:19)
[2021-01-22] MEDS: MORPHINE 2 MG/ML SYR IV PRN (16:45)
[2021-01-22] MEDS ORDERED: MORPHINE 2 MG/ML SYR ONE ×2 (16:59→22:03)
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
[2021-01-22] MEDS: clonazePAM 1 MG TAB PO PRN (18:24)
[2021-01-22] MEDS ORDERED: clonazePAM 1 MG TAB ONE (18:38)
[2021-01-22 20:31] VITALS: BMI 34.9
[2021-01-22] MEDS: carBAMazepine 200 MG TAB PO SCH (21:00)
[2021-01-22] MEDS ORDERED: MORPHINE 2 MG/ML SYR IV ONE (21:08)
[2021-01-22] MEDS ORDERED: ALBUTEROL 2.5 MG/3 ML NEB SOL NEB PRN (21:48)
[2021-01-22] MEDS ORDERED: ONDANSETRON 4 MG/2 ML VIAL IV PRN (21:48)
[2021-01-23 00:34] LABS: Thyroid Stimulating Hormone 0.549 uIU/mL (0.360-3.740); Troponin I < 0.02 ng/mL (0.0-0.045)
[2021-01-23] MEDS: MORPHINE 2 MG/ML SYR IV PRN ×4 (00:34→20:29)
[2021-01-23] MEDS: hydrOXYzine HCL 25 MG TAB PO PRN ×2 (00:34→16:49)
[2021-01-23] MEDS ORDERED: hydrOXYzine HCL 25 MG TAB ONE (00:51)
[2021-01-23] MEDS ORDERED: MORPHINE 2 MG/ML SYR ONE ×2 (00:51→06:20)
[2021-01-23] MEDS: clonazePAM 1 MG TAB PO PRN (05:09)
[2021-01-23] MEDS ORDERED: clonazePAM 1 MG TAB ONE (05:28)
[2021-01-23 05:34] LABS: Absolute Lymphocytes (CBC) 1.5 K/uL (0.7-4.9); Basophils % 0.9 % (0-1.3); Hematocrit 44.2 % (36.0-45.0); MPV 8.7 fL (7.6-11.3); RBC Red Blood Cell Count 5.23 M/uL (3.86-4.86)
[2021-01-23 06:27] LABS: Blood Morphology Comment NOT SEEN (NOT SEEN); Platelet Estimate INCR
[2021-01-23] MEDS ORDERED: CEFAZOLIN/NS 1gm 1 GM/50 ML BAG IVPB SCH (08:00)
[2021-01-23] MEDS ORDERED: CEFAZOLIN/SWI 1gm 1 GM/10 ML SYR IVP SCH (08:00)
[2021-01-23] MEDS: carBAMazepine 200 MG TAB PO SCH ×3 (08:54→20:29)
[2021-01-23] MEDS: PARoxetine HCL 10 MG TAB PO SCH (08:54)
[2021-01-23] MEDS ORDERED: carBAMazepine 200 MG TAB ONE (09:12)
[2021-01-23] MEDS: ACETAMINOPHEN 500 MG TAB PO PRN ×2 (10:01→20:29)
[2021-01-23] MEDS ORDERED: ACETAMINOPHEN 500 MG TAB ONE (10:20)
[2021-01-23 12:38] LABS: Urine Appearance CLEAR (Clear); Urine Bilirubin NEGATIVE (Negative); Urine Blood NEGATIVE (Negative); Urine Color YELLOW (Yellow); Urine Glucose NEGATIVE (Negative); Urine Protein NEGATIVE (Negative); Urine Specific Gravity 1.015 (1.005-1.030); Urine Urobilinogen 0.2 mg/dL (0.2-1.0)
[2021-01-23 12:50] LABS: Urine Microscopic Reflex ORDER UMIC
[2021-01-23 13:07] LABS: Urine Bacteria <20 /HPF (<20); Urine RBC <5 /HPF (NONE SEEN)
[2021-01-23] MEDS ORDERED: CEFAZOLIN/SWI 1gm 1 GM/10 ML SYR ONE (13:10)
[2021-01-23] MEDS ORDERED: Ringers Lactate 1,000 ML IV ONE (13:26)
--- NOTE | 2021-01-23 13:48 | PREOPCON ---
Date of Consultation: 01/23/2021 Reason For Consultation: The patient needs temporal artery biopsy. History Of Present Illness: The patient is a 40-year-old female, who came in with pain on the right side of her face, which migrated to the right roman catholic behind her right eye associated with loss of vis ion over the last couple of days and she was admitted, and had elevated sed rate and C-reactive prote in, and therefore she was started on steroids and I was asked to do a biopsy to rule out temporal art eritis. She is awake and alert, feels a little better after the steroids were started. No sore thro at, runny nose, cough, headaches, or dizziness. No chest pain. Review of Systems: Otherwise unremarkable. Past Medical History: Significant for cervical cancer, anxiety, depression, obesity, and fibromyalgi a. Past Surgical History: Hysterectomy, tonsillectomy, and ankle surgery. Allergies: NONE. Social History: The patient does not smoke. Drinks alcohol occasionally. Family History: Noncontributory. Physical Examination: Vital Signs: Stable. She is afebrile. General: She is awake, alert, and oriented x3. Head and Neck: Cranial nerves 2 through 12 are grossly within normal limits. No neck masses. No JV D. Throat clear. Neck: Supple. Chest: Clear. Heart: S1 and S2. Abdomen: Soft. Extremities: Neurovascularly intact. Neurologic: Nonfocal. Laboratory Data: White count is 7.3. There is a slight left shift. Sed rate is 24. C-reactive pro tein is 6.5. Assessment: Vision change, right-sided headaches, rule out temporal arteritis. Plan: Right temporal artery biopsy. The patient understands the risks, benefits, and alternatives a nd agrees to procedure. /MODL Voice ID: [id number] Report ID: [id number]
[2021-01-23] MEDS ORDERED: LIDOCAINE 1% 20 ML MDV ONE (14:03)
[2021-01-23] MEDS ORDERED: propofoL 200 MG/20 ML VIAL IV ONE (14:10)
[2021-01-23] MEDS ORDERED: LIDOCAINE 2% MPF 5 ML VIAL ONE (14:11)
[2021-01-23] MEDS ORDERED: FENTANYL CITR 100 MCG/2 ML ONE (14:11)
[2021-01-23] MEDS ORDERED: MIDAZOLAM HCL 2 MG/2 ML INJ ONE (14:11)
[2021-01-23] MEDS ORDERED: ONDANSETRON 4 MG/2 ML VIAL ONE (14:12)
[2021-01-23] MEDS ORDERED: KETOROLAC 30 MG/ML INJ ONE (14:47)
[2021-01-23] MEDS ORDERED: dexAMETHasone 10 MG/ML VIAL ONE (14:47)
[2021-01-23] MEDS ORDERED: GLYCOPYRROLATE 0.2 MG/ML SYR ONE (14:53)
--- NOTE | 2021-01-23 15:02 | P.OP ---
Sewing Machine Attachment Tester: Donald WILDE Preoperative diagnosis: Right eye vision loss, R/O Temporal arteritis Postoperative diagnosis: Same Primary procedure: Right temporal artery biopsy Secondary procedure: Doppler Anesthesia: General Estimated blood loss: min Specimen: Right temporal artery Findings: as above Complications: None Transferred to: Recovery Room Condition: Good
--- NOTE | 2021-01-23 15:52 | OP ---
Date of Procedure: 01/23/2021 Surgeon: James Lang MD Operations Scheduler: CHANI Cook. Preoperative Diagnoses: Right eye vision changes, headaches, rule out temporal arteritis. Postoperative Diagnoses: Right eye vision changes, headaches, rule out temporal arteritis. Procedure: Right temporal artery biopsy and utilization of Doppler device. Estimated Blood Loss: Minimal. Specimen: Right temporal artery. Finding: As above. Anesthesia: General. Complications: None. Disposition: The patient tolerated the procedure in stable condition and taken to Recovery in good g eneral condition. Procedure In Detail: The patient was brought to the OR and placed in supine position. General anest hesia begun. The patient was prepped and draped in the usual sterile fashion. Doppler device was us ed to isolate the branch of the temporal artery in the anterior and superior to the right ear and the n Marcaine 0.5% infiltrated locally. A 15-blade was used to make approximately a 3 cm incision. Sub cutaneous tissue divided and deep to that, a branch of the temporal artery identified, proximal and d istal control obtained with sharp and blunt dissection and clamped and tied off after 3 cm segment wa s excised and sent to Pathology as specimen with 4-0 silk. Wound irrigated, bleeding controlled with cautery, and a 4-0 chromic used to approximate the subcutaneous tissue and close the skin. Sterile dressing was applied. The patient was awakened and taken to Recovery in good general condition. /MODL Voice ID: [id number] Report ID: [id number]
[2021-01-23] MEDS: clonazePAM 1 MG TAB PO SCH (20:29)
[2021-01-24] MEDS ORDERED: HYDROCODONE/APAP 5/325 MG TAB PO ONE (00:35)
[2021-01-24] MEDS: PARoxetine HCL 10 MG TAB PO SCH (08:29)
[2021-01-24] MEDS: carBAMazepine 200 MG TAB PO SCH ×2 (08:30→13:34)
[2021-01-24] MEDS: clonazePAM 1 MG TAB PO SCH (08:30)
[2021-01-24] MEDS: MORPHINE 2 MG/ML SYR IV PRN (08:35)
[2021-01-24 09:28] VITALS: O2SAT 99
--- NOTE | 2021-01-24 09:52 | RAD REPORT ---
EXAM DESCRIPTION: MRI - MRA Head Wo Cont - 01/24/2021 9:41 am CLINICAL HISTORY: headache and decreased vision/radiculoapthy CVA COMPARISON: Head Brain Wo Cont dated 01/22/2021 FINDINGS: 3D noncontrast [id number] MR angiography of the [place] was performed. No aneurysm, flow-limiting stenosis or vascular malformation is seen. Forward flow seen in codominant vertebral arteries. The visualized dural venous sinuses appear patent. IMPRESSION: No significant flow abnormality of the [place] is identified.
--- NOTE | 2021-01-24 10:21 | RAD REPORT ---
EXAM DESCRIPTION: MRI - Brain Wo Cont - 01/24/2021 10:01 am CLINICAL HISTORY: headache and decreased vision/radiculoapthy Headache, drowsiness COMPARISON: MRA Head Wo Cont dated 01/24/2021 TECHNIQUE: Multi-sequence, multiplanar MR imaging of the brain was performed without contrast. FINDINGS: No intracranial hemorrhage, hydrocephalus or extra-axial fluid collections. No edema or sh ift of midline structures. No findings to suspect brain mass. DWI is negative for acute CVA. Midline structures are normally formed. Mastoid air cells and paranasal sinuses are clear. IMPRESSION: Negative for acute CVA or other acute intracranial abnormality.
--- NOTE | 2021-01-24 10:32 | RAD REPORT ---
EXAM DESCRIPTION: MRI - C Spine Wo Cont- 01/24/2021 10:01 am CLINICAL HISTORY: headache and decreased vision/radiculoapthy Radiculopathy COMPARISON: No comparisons FINDINGS: Cervical vertebral bodies are normal in height and alignment. No suspicious marrow edema or marrow replacing process. No fracture or traumatic subluxation. The craniocervical junction is normal. C2-3 level: 2 mm posterior osteophyte/ disc complex is seen anteriorly attenuating the anterior subar achnoid space. C3-4 level: 2-3 mm posterior osteophyte/ disc complex is seen attenuating the anterior subarachnoid s pace and contacting the anterior cord. C4-5 level: 4 mm right paracentral disc herniation is seen contacting and deforming the right natali co rd. C5-6 level: Small posterior osteophyte/ disc complex is present attenuating the anterior subarachnoid space and contacting the anterior cord. C6-7 level: Mild posterior disc bulge mildly attenuates the anterior subarachnoid space. C7-T1 level: No significant findings. Cervical cord is normal in size and signal. IMPRESSION: Mild cervical spondylosis is present. 4 mm disc herniation is seen right paracentral loc ation at C4-5 contacting and deforming the right natali cord.
[2021-01-24] MEDS ORDERED: HYDROCODONE/APAP 10/325 TAB PO ONE (11:55)
[2021-01-24] MEDS ORDERED: HOME MED 1 EA UNK PO ONE (14:37)
[2021-01-24] MEDS ORDERED: UBROGEPANT 100 MG PO PRN (14:38)
[2021-01-24 17:04] VITALS: BP 104/54; TEMP 97.7
--- NOTE | 2021-01-24 19:56 | CON ---
Reason For Consultation: Consultation called because of headache and possible temporal arteritis. History Of Present Illness: Ms. Diaz is a 40-year-old right-handed patient with history o f cervical cancer, anxiety, depression, morbid obesity, fibromyalgia, and migraines who comes in to [facility] on 22 Jan 2021 with a 2-week history of fluctuating headache along with right ey e blurry vision that was fluctuating. She also had jaw pain that migrated and extended into her righ t jaw and restorationist region. This pain was severe with a maximum rating of about 10/10. The headache wa s also aching in quality and she had facial spasms. At [facility], she had b Geneixod work, which showed an elevated sedimentation rate to 24. Her C-reactive protein was elevated to 6.5. Other abnormal parameters including elevated cholesterol of 297, LDL cholesterol 203, HDL chol esterol was 77. Thyroid-stimulating hormone and free T4 were normal. Liver function studies are nor mal. Electrolyte panel normal. Glucose slightly elevated at 113. She was considered for temporal a rteritis, placed on Tegretol, and scheduled to have a biopsy and did receive intravenous antibiotics Ancef for possible infection. Steroids were not started at that time. She did receive a biopsy of t he temporal artery on the right by Dr. Lang on the and the pathology report is pending. She was started on prednisone 60 mg daily along with the Tegretol 200 mg twice daily and Ubrelvy 100 mg as n eeded for abortive headache treatment. She was discharged and is to follow up with home demonstrator, Dr. Eligio Moore and to follow up in Dr. Samson's clinic within a month. Past Medical History: As indicated. Allergies: NO KNOWN DRUG ALLERGIES. Social History: The patient does drink alcohol moderately. No tobacco or IV drug use. Family History: Noncontributory. Review of Systems: She does have headache, blurry vision and right facial pain. Otherwise, no recent fevers, chills, na usea, vomiting, and no myalgias, arthralgias, or rash. She does have depression and she is seeing a psychiatrist and counselor. Physical Examination: Vital Signs: Blood pressure 104/54, pulse 72, respiratory rate 16, temperature 97.7, oxygen saturati on 98% on room air. Weight 230 pounds, height 5 feet inches, BMI 35. General: Ms. Diaz is resting in bed. She has no significant distress. HEENT: She is normocephalic, atraumatic. Sclerae anicteric. Oropharynx is pink and moist. Neck: Supple. Chest: Clear. Heart: Regular. Extremities: Show no edema, cyanosis, or clubbing. Neurologic: She is alert and oriented to situation, place, and person. Cranial nerves show no focal deficits. She does have Steri-Strips over the right temporal artery biopsy site, which she said is mildly to moderately painful, and she has actually received Groveton for the pain, which she says does g abdoul significant relief and was asking for Groveton by name. She said that it is better than morphine. She did not try any medications for migraine while hospitalized. She was given the Ubrelvy as indica wilma above. In terms of her motor examination, 5/5 strength proximally and distally. Sensory exam intact in uppe r and lower extremities. Coordination intact in upper and lower extremities. Gait normal stance, st ride and arm swing. Assessment: Ms. Diaz is a 40-year-old patient with elevated CRP and ESR, headache and some visual d isturbance in the right eye. She has no stroke on imaging. She completed a brain MRI with MRA, whic h showed no acute ischemic or hemorrhagic stroke. Cervical spine MRI rule out the presence of any si gnificant cord compression. There was mild cervical spondylosis with a 4 mm disk herniation in the r ight paracentral region at C4-5. It was contacting and deforming the right hemicord. Ms. Diaz is a 40-year-old patient with possible temporal arteritis. She has received a biopsy. She does have elevated ESR and CRP. She does have an MRI of the cervical spine, which did show some her niation at C4-5, which deformed the right hemicord. However, she does not have any symptoms related to that. That may be followed up as outpatient and potentially by Surgery as needed. Plan: 1.Continue steroid 60 mg daily for at least around a month, and she will follow up in the office aft er that. 2.Use Ubrelvy for abortive headache treatment. 3.Tegretol 200 mg twice daily. 4.Follow up with Psychiatry as appropriate. 5.Follow up with Dr. Eligio Moore as indicated above and the patient may be discharged home today. STEPHANIA Voice ID: [id number] Report ID: [id number]
[2021-01-24] MEDS ORDERED: carBAMazepine 200 MG TAB PO SCH (21:00)
[2021-01-25] MEDS ORDERED: predniSONE 20 MG TAB PO SCH (09:00)
--- NOTE | 2021-01-29 04:47 | P.DS ---
Discharge Date: 01/24/21 Disposition: ROUTINE DISCHARGE Discharge Condition: GOOD Reason for Admission: Headache Consultations: Neurology Brief History of Present Illness: Patient is a 40-year-old female with a past medical history significant for cervical cancer, depression, fibromyalgia, anxiety disorder who presents with complaint of headache onset 2 days ago. Patient indicated that she initially started having jaw pain which migrated to the right side of her face and then to her right catholic and under her right eye. Patient rated pain as 10/10 and described headache as aching in quality. Patient reports associated signs and symptoms of photophobia, blurry vision and nausea. Patient reported that over a week ago she had spasms on her face which later self- resolved. Patient denies any other signs and symptoms. Symptoms are aggravated or relieved by nothing. Patient decided to present to the hospital due to worsening symptoms. Hospital Course: Patient has done well during hospital stay. Sed rate was not really that elevated. But with patient's symptoms decision was made to do a temporal artery biopsy. Results are pending. Headache is improved. Discharge on tapering dose of steroid. At this time, patient is stable for discharge home. Patient will need close follow with Neurology, Neuro-Ophthalmology, and general surgery for biopsy results. Patient can call me if she has any questions. Vital Signs/Physical Exam: Temp Pulse Resp BP Pulse Ox 97.7 F 72 18 104/54 L 94 01/24/21 16:00 01/24/21 16:00 01/24/21 16:00 01/24/21 16:00 01/24/21 16:00 General: Alert, In no apparent distress, Oriented x3 Laboratory Data at Discharge: WBC 7.30 K/uL (4.3-10.9) 01/23/21 05:03 Hgb 14.6 g/dL (12.0-15.0) 01/23/21 05:03 Hct 44.2 % (36.0-45.0) 01/23/21 05:03 Plt Count 352 K/uL (152-406) 01/23/21 05:03 Sodium 140 mmol/L (136-145) 01/23/21 05:03 Potassium 4.0 mmol/L (3.5-5.1) 01/23/21 05:03 BUN 8 mg/dL (7-18) 01/23/21 05:03 Creatinine 0.76 mg/dL (0.55-1.3) 01/23/21 05:03 Glucose 113 mg/dL (74-106) H 01/23/21 05:03 Total Bilirubin 0.4 mg/dL (0.2-1.0) 01/22/21 12:30 AST 20 U/L (15-37) 01/22/21 12:30 ALT 34 U/L (12-78) 01/22/21 12:30 Alkaline Phosphatase 74 U/L (45-117) 01/22/21 12:30 Troponin I < 0.02 ng/mL (0.0-0.045) 01/22/21 23:45 Triglycerides 87 mg/dL (<150) 01/23/21 05:03 Cholesterol 297 mg/dL (<200) H 01/23/21 05:03 HDL Cholesterol 77 mg/dL (40-60) H 01/23/21 05:03 Cholesterol/HDL Ratio 3.86 01/23/21 05:03 Home Medications: Paroxetine HCl [Paxil] 30 mg PO DAILY 01/22/21 hydrOXYzine HCL [Atarax] 50 mg PO BIDP PRN 01/22/21 clonazePAM [Klonopin*] 1 tab PO BIDP PRN 01/23/21 Hydrocodone 10/APAP 325 [[place] 10/325] 1 tab PO Q12H PRN #30 tab 01/24/21 carBAMazepine [Tegretol*] 200 mg PO BID #60 tab 01/24/21 predniSONE [Prednisone*] 60 mg PO DAILY #90 tab 01/24/21 predniSONE [Prednisone*] 20 mg PO DAILY #90 tab 01/25/21 New Medications: Hydrocodone 10/APAP 325 [[place] 10/325] 1 tab PO Q12H PRN #30 tab PRN Reason: Pain predniSONE [Prednisone*] 60 mg PO DAILY #90 tab predniSONE [Prednisone*] 20 mg PO DAILY #90 tab carBAMazepine [Tegretol*] 200 mg PO BID #60 tab Physician Discharge Instructions: OK TO DC IV AND DC HOME FOLLOW-UP WITH PRIMARY CARE PROVIDER IN 1-2 WEEKS FOLLOW-UP WITH NEUROLOGY IN 1-2 WEEKS & OPHTHAMOLOGY, Dr. Moore, in 1-2 weeks RETURN TO THE ER IF symptoms worsen CALL or TEXT DR. TAN AT [phone] IF ANY QUESTIONS REGARDING HOSPITAL STAY. PLEASE CALL THE FLOOR AT [phone] IF ANY MEDICATION OR NURSING QUESTIONS. Diet: Regular Activity: Fall precautions Followup: Simon Samson MD [ASSOCIATE-ACTIVE - CAN ADMIT] - (call to schedule appointment) Eligio Moore MD [OUTSIDE PHYSICIAN] - (call to schedule appointment) Unknown,U [Primary Care Provider] - (call to schedule appointment) Time spent managing pt's care (in minutes): 35
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
== END 2021-01-24 17:50 | disposition home or self-care (01) | DRG 517 ==
LOC: ER 11:26 → ERHOLD 15:07 → 4TH 01-23 10:07 → OBSVTOIN 01-23 13:52
PROVIDERS: ADMIT Hospitalist; ATTEND Hospitalist
PROC: 03BS0ZX Excision of Right Temporal Artery, Open Approach, Diagnostic (ICD-10-PCS; principal; 2021-01-23 12:15)
DX: M31.6 Other giant cell arteritis (principal); M79.7 Fibromyalgia; F32.9 Major depressive disorder, single episode, unspecified; F41.9 Anxiety disorder, unspecified; N18.2 Chronic kidney disease, stage 2 (mild); M50.221 Other cervical disc displacement at C4-C5 level; M47.892 Other spondylosis, cervical region; E66.9 Obesity, unspecified; R11.0 Nausea; H54.61 Unqualified visual loss, right eye, normal vision left eye; R70.0 Elevated erythrocyte sedimentation rate; R51.9 Headache, unspecified; Z68.35 Body mass index [BMI] 35.0-35.9, adult; Z90.710 Acquired absence of both cervix and uterus; Z79.52 Long term (current) use of systemic steroids; Z79.899 Other long term (current) drug therapy; Z85.41 Personal history of malignant neoplasm of cervix uteri; Z20.822 Contact with and (suspected) exposure to COVID-19
CPT/HCPCS: 36415; 70450; 70544; 70551; 72141; 80048; 80061; 80076; 80156; 81003; 81015; 84439; 84443; 84484; 85025; 85652; 86140; 87077; 87086; 87088; 87186; 88305; 96361; 96374; 96375; 99285; J0690; J1100; J2175; J2250; J2270; J2405; J2704; J2930; J3010; J7030; J7120; U0003

== ENCOUNTER 2021-02-12 20:34 | Emergency (ER) | payer OTHER ==
--- OUTSIDE RECORDS SUMMARY | 2021-02-12 20:37 | XMS REPORT | Continuity of Care Document ---
:1980 Author Organization [facility] t Address [address] [place] [address] Care Team Providers Name Role Phone Liana Dickinson MD Attending Clinician Mariel Solis [...] Date/Time Type Type Clinicians Facility Department ID 2021-01-31 2021-01-31 Patient JACQUELINE Dickinson [id number] [id number] 00:00:00 00:00:00 [facility] [id number] [place] [id number] Professio [phone] [place] [address] [address] One 2021-01-31 2021-01-31 Refill Alok [facility] [id number] 00:00:00 00:00:00 [facility] [id number] [place] [id number] Professio [phone] [place] [address] [address] One 2020-12-14 2020-12-14 [facility]ici [facility] 1.2.840.114 [id number] 16:30:00 16:45:00 ne Visit [facility] [id number] [place] [id number] Professio [phone] [place] [address] [address] One 2020-12-13 2020-12-13 Patient Alok [facility] 1.2.840.114 [id number] 00:00:00 00:00:00 Secure Msg [facility] [id number] [place] [id number] Professio [phone] [place] [address] [address] One 2020-12-11 2020-12-11 Telephone [facility] 1.2.840.114 [id number] 00:00:00 00:00:00 [facility] [id number] [place] [id number] Professio [phone] [place] [address] [address] One 2020-12-06 2020-12-06 Emergency [facility] [id number] 01:21:00 03:58:00 America Floyd [place] [id number] [place] [id number] [place] [phone] 2020-11-09 2020-11-09 Patient Shon [facility] 1.2.840.114 [id number] 00:00:00 00:00:00 Outreach Stefan PRIMARY [id number] [facility] 4.2.7.2.686 PAVILLION [phone] 388 2020-11-01 2020-11-01 Telephone Alok [facility] 1.2.840.114 [id number] 00:00:00 00:00:00 [facility] [id number] [place] [id number] Professio [phone] [place] [address] [address] One 2020-10-27 2020-10-27 Orders Doctor NIKOLAY 1.2.840.114 [id number] 00:00:00 00:00:00 Only Unassigned, MARLON [id number] [place] [facility] 4.2.7.2.686 [phone] [id number] 2020-10-24 2020-10-24 Telephone [facility] 1.2.840.114 [id number] 00:00:00 00:00:00 [facility] [id number] [place] [id number] Professio [phone] [place] [address] [address] One 2020-10-23 2020-10-23 Telemedici [facility] 1.2.840.114 [id number] 16:47:16 17:53:03 ne Visit [facility] [id number] [place] [id number] Professio [phone] [place] [address] [address] One 2020-10-17 2020-10-17 Emergency [facility] 1.2.840.114 [id number] 16:12:00 18:15:00 Khadijah Young [id number] [place] [id number] [place] [phone] 2020-10-17 2020-10-17 Telephone [facility] 1.2.840.114 [id number] 00:00:00 00:00:00 [facility] [id number] [place] [id number] Professio [phone] [place] [address] [address] One 2020-10-16 2020-10-16 Telephone [facility] 1.2.840.114 [id number] 00:00:00 00:00:00 [facility] [id number] [place] [id number] Professio [phone] nal [facility] Office Building One 2020-09-15 2020-09-15 Emergency [place], [facility] [id number] 14:33:00 18:20:00 Jaqueline Pramod Hannah [id number] [place] 4.2.7.2.686 [place] [phone] 2020-07-07 2020-07-07 Refill [facility] 1.2.840.114 [id number] 00:00:00 00:00:00 [facility] [id number] [place] [id number] Professio [phone] [place] [address] [address] One 2020-06-29 2020-06-29 Urgent Provider, [facility] [id number] 14:02:05 15:07:58 [facility] 350.1.13.10 Care [place] 4.2.7.2.686 Professio [phone] [place] [address] [address] One 2020-06-29 2020-06-29 Letter Doctor NIKOLAY 1.2.840.114 [id number] 00:00:00 00:00:00 (Out) Unassigned, MARLON [id number] [place] [facility] 4.2.7.2.686 [id number] [id number] 2020-06-01 2020-06-01 Emergency [facility] 1.2.479.774 [id number] 17:45:00 22:34:00 Marleninic Young [id number] [place] 4.2.7.2.686 [place] [phone] [phone] 2020-05-15 Emergency Lukasz, Lucas [facility] 1.2.840.114 [id number] 19:17:00 21:27:00 Megan Young 350.1.13.10 [place] 4.2.7.2.686 [place] [phone] 084 2020-05-15 2020-05-15 Tele[facility]ici [facility] 1.2.840.114 [id number] 11:19:42 15:58:43 ne Visit [facility] 350.1.13.10 [place] [id number] Professio [phone] nal 044 Office Building One 2020-05-12 2020-05-12 [facility] 1.2.840.114 [id number] 00:00:00 00:00:00 [facility] 350.1.13.10 [place] 4.2.7.2.686 Professio [phone] nal 044 Office Building One 2020-04-08 2020-04-08 Emergency [facility] [id number] 10:44:00 12:53:00 Trish Young 350.1.13.10 [place] 4.2.7.2.686 [place] [phone] 084 2020-04-08 2020-04-08 Orders Doctor NIKOLAY 1.2.840.114 [id number] 00:00:00 00:00:00 Only Unassigned, MARLON 350.1.13.10 [place] [facility] 4.2.7.2.686 [phone] [id number] 2019-05-07 2019-05-07 [facility] 1.2.162.081 [id number] 15:01:43 23:59:00 Encounter [facility] [place] 350.1.13.10 [place] 4.2.7.2.686 [place] [phone] [phone] 2019-05-07 [facility] [id number] 15:01:25 23:59:00 Encounter [facility] A [place] 350.1.13.10 [place] 4.2.7.2.686 [place] [phone] [phone] 2019-05-07 [facility] [id number] [id number] 15:00:59 15:00:59 Encounter [facility] A [place] 350.1.13.10 [place] 4.2.7.2.686 [place] [phone] [phone] 2019-05-07 [facility] [id number] 15:00:00 15:00:00 Encounter [facility] A [place] 350.1.13.10 [place] 4.2.7.2.686 [place] [phone] [phone] 2019-05-04 Telephone JACQUELINE Dickinson 1.2.840.114 [id number] 00:00:00 00:00:00 [facility] 350.1.13.10 [place] 4.2.7.2.686 [facility] [phone] nal 044 Office Building One 2019-05-03 2019-05-03 Orders Doctor NIKOLAY 1.2.840.114 [id number] 00:00:00 00:00:00 Only Unassigned, MARLON 350.1.13.10 [place] [facility] [id number] [id number] Results Test Description Test Time Test [...] = Expiration Dt) 06-24-20 N Comprehensive Metabolic [id number] 22:30:33 Test Item Value Reference Range Interpretation [...] A/G 1.5 ratio N Ratio) Comprehensive Metabolic [id number] 22:30:33 Test Item Value Reference Range Interpretation [...] the National Kid[employer] Foundation, http://nkdep.ni h.gov Alcohol [id number] 22:30:33 Test Item Value Reference Range Interpretation Comments Ethanol Level (test <0.00 g/dL 0.00-0.01 Intoxica wilma 0.080 g/dL code = Ethanol or more Level) Ethanol Inst (test <0 N code = Ethanol Inst) Comprehensive Metabolic [id number] 22:30:33 Test Item Value Reference Range Interpretation [...] National Kidney Foundation, http://nkdep.ni h.gov HCG Qualitative [id number] 22:23:26 Test Item Value Reference Range Interpretation [...] 72 hours. Lot # (test code = [id number] N Lot #) Expiration Dt (test 2020-09-24 N code = Expiration Dt) Neg Control (test Negative code = Neg Control) Pos Control (test Positive code = Pos Control) Internal QC (test Acceptable code = Internal QC) Complete Blood Count with [id number] 22:08:35 Test Item Value Reference Range Interpretation [...] code = IPF) 0 % N Automated [id number] 22:08:35 Test Item Value Reference Range Interpretation Comments Neutro Auto (test code = Neutro 64.2 % 36.0-70.0 Auto) Lymph Auto (test code = Lymph Auto) 25.7 % 12.0-44.0 Laramie Auto (test code = Laramie Auto) 8.2 % 0.0-11.0 Eos, Auto (test code = Eos, Auto) 1.2 % 0.0-7.0 Basophil Auto (test code = Basophil 0.4 % 0.0-2.0 Auto) Neutro Absolute (test code = Neutro 6.7 x10 1.6-7.4 Absolute) Lymph Absolute (test code = Lymph 2.68 x10 .50-4.60 Absolute) Laramie Absolute (test code = Laramie .86 x10 .00-1.20 Absolute) Eos Absolute (test code = Eos 0.12 x10 0.00-0.74 Absolute) Baso Absolute (test code = Baso 0.04 x10 0.00-0.21 Absolute) IG [id number] 22:08:35 Test Item Value Reference Range Interpretation Comments IG (test code = IG) 0.3 % 0.0-5.0 IG Abs (test code = IG Abs) 0 x10 N
[2021-02-12] MEDS ORDERED: ONDANSETRON 4 MG/2 ML VIAL ONE (23:23)
[2021-02-12] MEDS ORDERED: MORPHINE 4 MG/ML SYR ONE (23:23)
[2021-02-12] MEDS ORDERED: NA CHLORIDE 0.9% 1,000 ML ONE (23:24)
[2021-02-12 23:30] LABS: Absolute Lymphocytes (CBC) 3.3 K/uL (0.7-4.9); Hematocrit 42.8 % (36.0-45.0); Lymphocytes % 32.9 % (15.3-44.8); MPV 7.7 fL (7.6-11.3); RBC Red Blood Cell Count 5.02 M/uL (3.86-4.86)
[2021-02-12 23:42] LABS: BUN Blood Urea Nitrogen 17 mg/dL (7-18); Bicarbonate 28 mmol/L (21-32); Glucose Level 88 mg/dL (74-106); Sodium Level 138 mmol/L (136-145)
[2021-02-12 23:44] LABS: Potassium 4.1 mmol/L (3.5-5.1)
[2021-02-13] MEDS ORDERED: MEPERIDINE HCL 50 MG/ML ONE (01:51)
[2021-02-13] MEDS ORDERED: DIPHENHYDRAMINE 50 MG/ML VIAL ONE (01:52)
[2021-02-13] MEDS ORDERED: ACETAMINOPHEN 500 MG TAB ONE (04:06)
--- NOTE | 2021-02-13 07:03 | ER ---
Nurse's Notes [facility] Name: Maribel Diaz Age: 40 yrs Sex: Female : 1980 Arrival Date: 02/12/2021 Time: 20:40 Bed 5 Private MD: Diagnosis: Recurrent headache. Visual disturbance Presentation: 02/12 20:49 Chief complaint: Patient states: Headache all day, pressure behind R eye and my vision ca1 is going in and out again on my R eye. 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 I take Tegretol for preventative measure but I stopped it yesterday cause it was giving me nightmares. Also, is not taking the pain meds prescribed cause I don't like them. Coronavirus screen: Client denies travel out of the [place] in the last 14 days. At this time, the client does not indicate any symptoms associated with coronavirus-19. Ebola Screen: Patient negative for fever greater than or equal to 101.5 degrees Fahrenheit, and additional compatible Ebola Virus Disease symptoms Patient denies exposure to infectious person. Patient denies travel to an Ebola-affected area in the 21 days before illness onset. No symptoms or risks identified at this time. Initial Sepsis Screen: Does the patient meet any 2 criteria? No. Patient's initial sepsis screen is negative. Does the patient have a suspected source of infection? No. Patient's initial sepsis screen is negative. Risk Assessment: Do you want to hurt yourself or someone else? Patient reports no desire to harm self or others. Onset of symptoms was February 12, 2021. 20:49 Method Of Arrival: Wheelchair ca1 20:49 Acuity: RICO 3 ca1 Triage Assessment: 02/13 07:00 Pain: Pain currently is 6 out of 10 on a pain scale. Pain began years ago. Also bp complains of photophobia. 07:00 Headache History: The patient has had previous headaches and this one is similar to bp previous episodes. General: Appears distressed, uncomfortable, obese, Behavior is cooperative, appropriate for age, anxious. 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 Flu vaccine is not up to date. - Social history:: Smoking status: Patient/guardian denies using tobacco, the patient reports quitting approximately 5 years ago. Screenin:02 Abuse screen: Denies threats or abuse. Nutritional screening: No deficits noted. ea Tuberculosis screening: No symptoms or risk factors identified. Fall Risk None identified. Assessment: 21:30 General: Appears distressed, Behavior is anxious. Pain: Complains of pain in headache. ea Neuro: Reports blurred vision headache. Neuro: Level of Consciousness is awake, alert, obeys commands, Oriented to person, place, time, situation, Appropriate for age Paediatric Physiotherapist are equal bilaterally Moves all extremities. Gait is steady, Speech is normal, Facial symmetry appears normal, Intact. Cardiovascular: Capillary refill < 3 seconds Patient's skin is warm and dry. Rhythm is regular. Respiratory: No deficits noted. Airway is patent Respiratory effort is even, unlabored, Respiratory pattern is regular, symmetrical. GI: No deficits noted. No signs and/or symptoms were reported involving the gastrointestinal system. : No deficits noted. No signs and/or symptoms were reported regarding the genitourinary system. Derm: No deficits noted. No signs and/or symptoms reported regarding the dermatologic system. Skin is pink, warm \T\ dry. 23:21 Reassessment: No changes from previously documented assessment. Patient and/or family ea updated on plan of care and expected duration. Pain level reassessed. Patient is alert, oriented x 3, equal unlabored respirations, skin warm/dry/pink. General: Behavior is anxious. 02/13 00:52 Reassessment: Patient appears in no apparent distress at this time. No changes from ad5 previously documented assessment. Pt reports continued headache, provider aware. Awaiting further orders. Pt VS remain stable. Will continue to monitor. 01:42 Reassessment: Patient and/or family updated on plan of care and expected duration. Pain ea level reassessed. Patient is alert, oriented x 3, equal unlabored respirations, skin warm/dry/pink. Provider reported pt is to be monitored until morning and then she will be discharged. 02:30 Reassessment: Patient and/or family updated on plan of care and expected duration. Pain ea level reassessed. Patient is alert, oriented x 3, equal unlabored respirations, skin warm/dry/pink. 03:30 Reassessment: Pt up to restroom, ambulates independently with steady gait. Pt ad5 repositioned back into stretcher for comfort. Pt reports continued headache, provider aware. Awaiting further orders. Bed remains low and locked, bedrails x 2, call light within reach. Will continue to monitor. 04:30 Reassessment: Patient appears in no apparent distress at this time. Patient and/or ad5 family updated on plan of care and expected duration. Pain level reassessed. Patient is alert, oriented x 3, equal unlabored respirations, skin warm/dry/pink. 05:40 Reassessment: Patient appears in no apparent distress at this time. No changes from ad5 previously documented assessment. 07:00 Reassessment: RECD REPORT FROM MILADIS DONOVAN. 40YO WF P/W DIZZINESS AND BROWN, SEEN FOR SAME MX bp TIMES WITH NO CONCLUSIVE DX. PT TO F/U WITH [facility] THIS AM. 07:12 Reassessment: PT D/C HOME VIA W/C WITH FAMILY, DX WITH RECURRENT BROWN. bp Vital Signs: 02/12 20:49 BP 152 / 99; Pulse 113; Resp 15 S; Temp 97.4(TE); Pulse Ox 98% on R/A; Weight 58.97 kg ca1 (R); Height 5 ft. 8 in. (172.72 cm) (R); Pain 7/10; 22:32 BP 116 / 73; Pulse 109; Resp 18 S; Pulse Ox 97% on R/A; ea 23:20 BP 117 / 81; Pulse 116; Resp 18 S; Pulse Ox 97% on R/A; ea 02/13 00:52 Pulse 70; Resp 18 S; Pulse Ox 97% on R/A; ad5 03:45 BP 113 / 80; Pulse 94; Resp 18 S; Pulse Ox 96% on R/A; ad5 07:00 BP 115 / 75; Pulse 97; Resp 18; Temp 97.5; Pulse Ox 97% ; bp 02/12 20:49 Body Mass Index 19.77 (58.97 kg, 172.72 cm) ca1 Visual Acuity: 03:35 Left Eye Visual acuity 20/50, Normal, Brisk; Right Eye Visual acuity 20/50, Normal, ad5 Brisk; Both Eyes Visual acuity 20/40; Without Lenses; ED Course: 02/12 20:40 Patient arrived in ED. bp1 20:52 Triage completed. ca1 20:53 Arm band placed on right wrist. ca1 20:58 Miladis Chacon, RN is Primary Nurse. ea 21:02 Patient has correct armband on for positive identification. Bed in low position. Call ea light in reach. 21:51 Narciso Henao MD is Attending Physician. pkl 23:13 Initial lab(s) drawn, by me, sent to lab. Inserted saline lock: 20 gauge in right ea antecubital area, using aseptic technique. Blood collected. 02/13 01:43 No provider procedures requiring assistance completed. ea 07:01 Remedios Pond MD is Referral Physician. pkl 07:12 IV discontinued, intact, bleeding controlled, No redness/swelling at site. Pressure bp dressing applied. Administered Medications: 02/12 23:12 Drug: morphine 4 mg Route: IVP; Site: right antecubital; ea 02/13 02:30 Follow up: Response: No adverse reaction; RASS: Alert and Calm (0) ad5 02/12 23:13 Drug: Zofran (Ondansetron) 4 mg Route: IVP; Site: right antecubital; ea 02/13 02:30 Follow up: Response: No adverse reaction ad5 01:30 Drug: Demerol (meperidine) 50 mg Route: IVP; Site: right antecubital; ea 04:16 Follow up: Response: No adverse reaction; RASS: Alert and Calm (0) ad5 01:41 Drug: Benadryl (diphenhydrAMINE) 25 mg Route: IVP; Site: right antecubital; ea 04:16 Follow up: Response: No adverse reaction ad5 03:45 Drug: Tylenol 1000 mg Route: PO; ad5 07:14 Follow up: Response: No adverse reaction bp Outcome: 07:02 Discharge ordered by . pkl 07:12 Discharged to home via wheelchair, with family. bp 07:12 Condition: stable 07:12 Discharge instructions given to patient, Instructed on discharge instructions, follow up and referral plans. Demonstrated understanding of instructions, follow-up care. 07:15 Patient left the ED. bp 13:10 Condition: Dr. Pond's office called, pt did not make appt with office today as iw recommended by Dr. Henao Signatures: Narciso Henao MD MD pkl Williams, Irene RN RN Miladis aVughn RN RN ea Peltier, Brian, RN RN bp Acob, Florence RN RN Sravani Adames Andrea ad5 Corrections: (The following items were deleted from the chart) 02/12 23:21 23:20 BP 113 / 60; Pulse 82bpm; Resp 16bpm; Spontaneous; Pulse Ox 99% RA; ea ea
--- NOTE | 2021-02-13 07:03 | EDPHYS ---
Physician Documentation [facility] Name: Maribel Diaz Age: 40 yrs Sex: Female : 1980 Arrival Date: 02/12/2021 Time: 20:40 Bed 5 Private MD: ED Physician Narciso Henao HPI: 02/12 23:56 This 40 yrs old Female presents to ER via Wheelchair with complaints of pkl Dizziness, Headache, Loss Of Vision. 23:57 The patient complains of pain to the behind right eye. The patient describes the pkl headache as a pressure. Onset: The symptoms/episode began/occurred today. Associated signs and symptoms: Pertinent positives: vision going in and out today. Patient was admitted in this Hospital 2 weeks ago for headache and had biopsy of the temporal artery done. 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 Flu vaccine is not up to date. - Social history:: Smoking status: Patient/guardian denies using tobacco, the patient reports quitting approximately 5 years ago. ROS: 23:57 Eyes: Negative for injury, pain, redness, and discharge, ENT: Negative for injury, pkl pain, and discharge, Neck: Negative for injury, pain, and swelling, Cardiovascular: Negative for chest pain, palpitations, and edema, Respiratory: Negative for shortness of breath, cough, wheezing, and pleuritic chest pain, Abdomen/GI: Negative for abdominal pain, nausea, vomiting, diarrhea, and constipation, Back: Negative for injury and pain, : Negative for injury, bleeding, discharge, and swelling, MS/Extremity: Negative for injury and deformity, Skin: Negative for injury, rash, and discoloration. 23:57 Neuro: Positive for headache, of the behind right eye. Exam: 23:57 Head/Face: Normocephalic, atraumatic. Eyes: Pupils equal round and reactive to light, pkl extra-ocular motions intact. Lids and lashes normal. Conjunctiva and sclera are non-icteric and not injected. Cornea within normal limits. Periorbital areas with no swelling, redness, or edema. ENT: Nares patent. No nasal discharge, no septal abnormalities noted. Tympanic membranes are normal and external auditory canals are clear. Oropharynx with no redness, swelling, or masses, exudates, or evidence of obstruction, uvula midline. Mucous membranes moist. Neck: Trachea midline, no thyromegaly or masses palpated, and no cervical lymphadenopathy. Supple, full range of motion without nuchal rigidity, or vertebral point tenderness. No Meningismus. Chest/axilla: Normal chest wall appearance and motion. Nontender with no deformity. No lesions are appreciated. Cardiovascular: Regular rate and rhythm with a normal S1 and S2. No gallops, murmurs, or rubs. Normal PMI, no JVD. No pulse deficits. Respiratory: Lungs have equal breath sounds bilaterally, clear to auscultation and percussion. No rales, rhonchi or wheezes noted. No increased work of breathing, no retractions or nasal flaring. Abdomen/GI: Soft, non-tender, with normal bowel sounds. No distension or tympany. No guarding or rebound. No evidence of tenderness throughout. Back: No spinal tenderness. No costovertebral tenderness. Full range of motion. Skin: Warm, dry with normal turgor. Normal color with no rashes, no lesions, and no evidence of cellulitis. MS/ Extremity: Pulses equal, no cyanosis. Neurovascular intact. Full, normal range of motion. Neuro: Awake and alert, GCS 15, oriented to person, place, time, and situation. Cranial nerves II-XII grossly intact. Motor strength 5/5 in all extremities. Sensory grossly intact. Cerebellar exam normal. Normal gait. Vital Signs: 20:49 BP 152 / 99; Pulse 113; Resp 15 S; Temp 97.4(TE); Pulse Ox 98% on R/A; Weight 58.97 kg ca1 (R); Height 5 ft. 8 in. (172.72 cm) (R); Pain 7/10; 22:32 BP 116 / 73; Pulse 109; Resp 18 S; Pulse Ox 97% on R/A; ea 23:20 BP 117 / 81; Pulse 116; Resp 18 S; Pulse Ox 97% on R/A; ea 02/13 00:52 Pulse 70; Resp 18 S; Pulse Ox 97% on R/A; ad5 03:45 BP 113 / 80; Pulse 94; Resp 18 S; Pulse Ox 96% on R/A; ad5 07:00 BP 115 / 75; Pulse 97; Resp 18; Temp 97.5; Pulse Ox 97% ; bp 02/12 20:49 Body Mass Index 19.77 (58.97 kg, 172.72 cm) ca1 Visual Acuity: 03:35 Left Eye Visual acuity 20/50, Normal, Brisk; Right Eye Visual acuity 20/50, Normal, ad5 Brisk; Both Eyes Visual acuity 20/40; Without Lenses; MDM: 02/12 21:51 Patient medically screened. pkl 02/13 06:55 Data reviewed: vital signs, nurses notes, lab test result(s). ED course: Talked to Dr. cher Lopez, will see patient in her office today. Patient to call her office at 8 AM for appointment. Patient understood instructions. 02/12 23:03 Order name: CBC with Diff; Complete Time: 01:23 pkl 02/12 23:03 Order name: Chem 7; Complete Time: 01:23 pkl 02/13 00:42 Order name: SARS-COV-2 RT PCR; Complete Time: 01:23 EDMS 02/12 23:03 Order name: Saline Lock; Complete Time: 23:13 pkl 02/13 03:20 Order name: Visual Acuity; Complete Time: 04:16 pkl Administered Medications: 02/12 23:12 Drug: morphine 4 mg Route: IVP; Site: right antecubital; ea 02/13 02:30 Follow up: Response: No adverse reaction; RASS: Alert and Calm (0) ad5 02/12 23:13 Drug: Zofran (Ondansetron) 4 mg Route: IVP; Site: right antecubital; ea 02/13 02:30 Follow up: Response: No adverse reaction ad5 01:30 Drug: Demerol (meperidine) 50 mg Route: IVP; Site: right antecubital; ea 04:16 Follow up: Response: No adverse reaction; RASS: Alert and Calm (0) ad5 01:41 Drug: Benadryl (diphenhydrAMINE) 25 mg Route: IVP; Site: right antecubital; ea 04:16 Follow up: Response: No adverse reaction ad5 03:45 Drug: Tylenol 1000 mg Route: PO; ad5 07:14 Follow up: Response: No adverse reaction bp Disposition: 02/13/21 07:02 Discharged to Home. Impression: Recurrent headache. Visual disturbance. - Condition is Stable. - Medication Reconciliation Form, Thank You Letter, Antibiotic Education, Prescription Opioid Use form. - Follow up: Remedios Pond MD; When: Today; Reason: Re-evaluation by your physician. - Problem is new. - Symptoms have improved. Signatures: Dispatcher [employer] EDDE Narciso Henao MD MD pkl Miladis Chacon RN RN Lui Julien RN RN Florence Rodriguez RN Garett Vizcarra ad5 Corrections: (The following items were deleted from the chart) 02/12 23:34 23:24 CORONAVIRUS+[email or web address] ordered. [facility] 02/13 07:15 07:02 02/13/2021 07:02 Discharged to Home. Impression: Recurrent headache. Visual bp disturbance. Condition is Stable. Forms are Medication Reconciliation Form, Thank You Letter, Antibiotic Education, Prescription Opioid Use. Follow up: Remedios Pond; When: Today; Reason: Re-evaluation by your physician. Problem is new. Symptoms have improved. pkl
[2021-02-13 07:45] VITALS: BP 115/75; TEMP 97.5; O2SAT 97
== END 2021-02-13 07:15 | disposition home or self-care (01) ==
LOC: ER 20:34
DX: H53.9 Unspecified visual disturbance (principal); Z20.822 Contact with and (suspected) exposure to COVID-19
CPT/HCPCS: 85025; 80048; 36415; U0003; J1200; J2175; J7030; J2405; 96374; 96375; 99284

== ENCOUNTER 2021-02-14 13:43 | Emergency (ER) | payer OTHER ==
--- OUTSIDE RECORDS SUMMARY | 2021-02-14 13:47 | XMS REPORT | Continuity of Care Document ---
:1980 Author Organization [facility] t Address [address] [place] [place] [address] Care Team Providers Name Role Phone Asked, [...] 00:00:00 00:00:00 Sex [birth year] At [birth year] [place] [facility] 00:00:00 00:00:00 Smoking Status Start Date Stop Date Source Current every day smoker 2018-11-16 00:00:00 Lázaro Galindo Medications Ordered Filled Start Stop Current Ordering Indication Dosage Frequency Signature Comments Components Source Medication Medication Date Date Medication? Clinician (SIG) Name Name krystyna-m Yes 1{tbl} QD Take 1 [place] ethyltestos 3-25 tablet by Met hodjg terone 16:45: mouth st (EEMT,COVAR 28 daily. YX) 1.25-2.5 mg per tablet ALPRAZolam Yes 1mg Q.25D Take 1 mg [place] (XANAX) 1 3-25 by mouth 4 Meth shy MG tablet 16:45: (four) st 28 times a day as needed for anxiety. escitalopra Yes 20mg QD Take 20 mg David lopes (LEXAPRO) 3-25 by mouth Meth shy 20 MG 16:45: nightly. st tablet 28 risperiDONE Yes 1mg QD Take 1 mg H [...] Clinicians Facility Department ID 2021-01-31 2021-01-31 Patient Alok [facility] [id number] 00:00:00 00:00:00 Secure Msg [facility] [id number] [place] [id number] Professio [phone] [place] [address] [address] 2021-01-31 2021-01-31 Refill Alok [facility] [id number] 00:00:00 00:00:00 [facility] [id number] [place] [id number] Professio [phone] [place] [address] [address] One 2020-12-14 2020-12-14 Telemedici Alok [facility] 1.2.840.114 [id number] 16:30:00 16:45:00 ne Visit [facility] [id number] [place] [id number] Professio [phone] [place] [address] [address] One 2020-12-13 2020-12-13 Patient Alok [facility] 1.2.840.114 [id number] 00:00:00 00:00:00 Secure [facility] [id number] [place] [id number] Professio [phone] [place] [address] [address] One 2020-12-11 2020-12-11 Telephone Alok [facility] 1.2.840.114 [id number] 00:00:00 00:00:00 [facility] [id number] [place] [id number] Professio [phone] [place] [address] [address] One 2020-12-06 2020-12-06 Emergency [facility] [id number] 01:21:00 03:58:00 [place] [id number] [place] [id number] [place] [phone] [id number] 2020-11-09 2020-11-09 Patient Shon [facility] 1.2.840.114 [id number] 00:00:00 00:00:00 Outreach [facility] [id number] [facility] 4.2.7.2.686 [place] [id number] [id number] 2020-11-01 2020-11-01 Telephone Alok WAKRISTEN 1.2.840.114 [id number] 00:00:00 00:00:00 [facility] [id number] [place] [id number] Professio [phone] [place] [address] [address] One 2020-10-27 2020-10-27 Orders Doctor NIKOLAY 1.2.840.114 [id number] 00:00:00 00:00:00 Only Unassigned, MARLON [id number] Joslin [facility] [id number] [phone] [id number] 2020-10-24 2020-10-24 Telephone [facility] 1.2.840.114 [id number] 00:00:00 00:00:00 [facility] [id number] [place] [id number] Professio [phone] [place] [address] [address] One 2020-10-23 2020-10-23 [facility] 1.2.840.114 [id number] 16:47:16 17:53:03 ne Visit [facility] [id number] [place] [id number] Professio [phone] [place] [address] [address] One 2020-10-17 2020-10-17 Emergency [facility] 1.2.840.114 [id number] 16:12:00 18:15:00 Khadijah Young [id number] [place] [id number] [place] [phone] 2020-10-17 2020-10-17 Telephone [facility] 1.2.840.114 [id number] 00:00:00 00:00:00 [facility] [id number] [place] [id number] Professio [phone] [place] [address] Office [facility] One 2020-10-16 2020-10-16 [facility] 1.2.840.114 [id number] 00:00:00 00:00:00 [facility] [id number] [place] [id number] Professio [phone] [place] [address] [address] One 2020-09-15 2020-09-15 Emergency [facility] [id number] 14:33:00 18:20:00 Jaqueline Young [id number] [place] 4.2.7.2.686 [place] [phone] [phone] 2020-07-07 [facility] 1.2.840.114 [id number] 00:00:00 00:00:00 [facility] [id number] [place] [id number] Professio [phone] [place] [address] [address] One 2020-06-29 2020-06-29 Urgent Provider, [facility] [id number] 14:02:05 15:07:58 Care [facility] [id number] Care [place] [id number] Profess[facility] [phone] [place] [address] [address] One 2020-06-29 2020-06-29 Letter Doctor NIKOLAY 1.2.840.114 [id number] 00:00:00 00:00:00 (Out) Unassigned, MARLON 350.1.13.10 [facility] 4.2.7.2.686 [id number] [id number] 2020-06-01 2020-06-01 Emergency Mcwilliams, [facility] 1.2.373.534 [id number] 17:45:00 22:34:00 Marleni Young 350.1.13.10 [place] 4.2.7.2.686 [place] [phone] [id number] 2020-05-15 2020-05-15 Emergency Lukasz, K [facility] 1.2.840.114 [id number] 19:17:00 21:27:00 Megan Young 350.1.13.10 [place] 4.2.7.2.686 [place] [id number] [id number] 2020-05-15 2020-05-15 Telemedici [employer] [facility] 1.2.840.114 [id number] 11:19:42 15:58:43 ne Visit [facility] 350.1.13.10 [place] 4.2.7.2.686 Professio [phone] [place] [address] [address] One 2020-05-12 2020-05-12 Telephone [employer] [facility] 1.2.840.114 [id number] 00:00:00 00:00:00 [facility] 350.1.13.10 [place] 4.2.7.2.686 Professio [phone] [place] [address] [address] One 2020-04-08 2020-04-08 Emergency Nirmal, [facility] 1.2.803.695 [id number] 10:44:00 12:53:00 Trish J [place] 350.1.13.10 [place] 4.2.7.2.686 [place] [phone] [id number] 2020-04-08 2020-04-08 Orders Doctor NIKOLAY 1.2.840.114 [id number] 00:00:00 00:00:00 Only Unassigned, MARLON 350.1.13.10 [facility] .2.7.2.686 [id number] [id number] 2019-05-07 2019-05-07 [facility] [id number] 15:01:43 23:59:00 Encounter [facility] 350.1.13.10 [place] 4.2.7.2.686 [place] [address] [id number] [id number] 2019-05-07 2019-05-07 [facility] [id number] 15:01:25 23:59:00 Encounter [facility] 350.1.13.10 [place] 4.2.7.2.686 [place] [address] [id number] 2019-05-07 2019-05-07 [facility] 1.2.393.342 [id number] 15:00:59 15:00:59 Encounter [facility] 350.1.13.10 [place] 4.2.7.2.686 [place] [address] [id number] 2019-05-07 2019-05-07 [facility] [id number] [id number] 15:00:00 15:00:00 Encounter [facility] 350.1.13.10 [place] 4.2.7.2.686 [place] [id number] 2019-05-04 2019-05-04 [facility] 1.2.840.114 [id number] 00:00:00 00:00:00 [facility] 350.1.13.10 [place] 4.2.7.2.686 [facility] [phone] [place] [address] One 2019-05-03 2019-05-03 Orders Doctor LINK 1.2.840.114 [id number] 00:00:00 00:00:00 Only Unassigned, MARLON 350.1.13.10 Joslin [facility] [id number] Results Test Description Test Time Test [...] = Expiration Dt) 06-24-20 N Comprehensive Metabolic [id number] 22:30:33 Test Item Value Reference Range Interpretation [...] A/G 1.5 ratio N Ratio) Comprehensive Metabolic [id number] 22:30:33 Test Item Value Reference Range Interpretation [...] not provided, and t he patient is lenard le, multiply by 0.7 42. Results for pat ients <18 years of ag e have not been validated by e MDRD study and should be interpreted wit h caution. eGFR R esult Interpretation: eGFR > or = 60 is in the Normal RangeeGF R < 60 may mean kid kath diseaseeGFR < 1 5 may mean kidney failure Rang es recommended by the National Kidney Foundation, http://nkdep.ni h.gov Alcohol [id number] 22:30:33 Test Item Value Reference Range Interpretation Comments Ethanol Level (test <0.00 g/dL 0.00-0.01 Intoxica wilma 0.080 g/dL code = Ethanol or more Level) Ethanol Inst (test <0 N code = Ethanol Inst) Comprehensive Metabolic [id number] 22:30:33 Test Item Value Reference Range Interpretation [...] disease than se rum creatinine alone.This calculation giorig es sex and race in to account, if the information is provided. If th e race is not provided, and t he patient is -Luz n, multiply by 1.2 12. If sex is not provided, and t he patient is fema le, multiply by 0.7 42. Results for pat ients <18 years of ag e have not been validated by [facility] MDRD study and should be interpreted [...] ag e have not been validated by [facility] MDRD study and should be interpreted wit h caution. eGFR R esult Interpretation: eGFR > or = 60 is in the Normal RangeeGF R < 60 may mean kid kath diseaseeGFR < 1 5 may mean kidney failure Rang es recommended by the National Kidney Foundation, http://nkdep.ni h.gov HCG Qualitative [id number] 22:23:26 Test Item Value Reference Range Interpretation [...] 72 hours. Lot # (test code = [id number] N Lot #) Expiration Dt (test 2020-09-24 N code = Expiration Dt) Neg Control (test Negative code = Neg Control) Pos Control (test Positive code = Pos Control) Internal QC (test Acceptable code = Internal QC) Complete Blood Count with [id number] 22:08:35 Test Item Value Reference Range Interpretation [...] code = IPF) 0 % N Automated [id number] 22:08:35 Test Item Value Reference Range Interpretation Comments Neutro Auto (test code = Neutro 64.2 % 36.0-70.0 Auto) Lymph Auto (test code = Lymph Auto) 25.7 % 12.0-44.0 Hemphill Auto (test code = Hemphill Auto) 8.2 % 0.0-11.0 Eos, Auto (test code = Eos, Auto) 1.2 % 0.0-7.0 Basophil Auto (test code = Basophil 0.4 % 0.0-2.0 Auto) Neutro Absolute (test code = Neutro 6.7 x10 1.6-7.4 Absolute) Lymph Absolute (test code = Lymph 2.68 x10 .50-4.60 Absolute) Hemphill Absolute (test code = Hemphill .86 x10 .00-1.20 Absolute) Eos Absolute (test code = Eos 0.12 x10 0.00-0.74 Absolute) Baso Absolute (test code = Baso 0.04 x10 0.00-0.21 Absolute) IG [id number] 22:08:35 Test Item Value Reference Range Interpretation Comments IG (test code = IG) 0.3 % 0.0-5.0 IG Abs (test code = IG Abs) 0 x10 N
[2021-02-14] MEDS ORDERED: METOCLOPRAMIDE 10 MG/2mL INJ ONE (16:47)
[2021-02-14] MEDS ORDERED: DIPHENHYDRAMINE 50 MG/ML VIAL ONE (16:47)
[2021-02-14] MEDS ORDERED: MEPERIDINE HCL 25 MG/ML SYR ONE (18:00)
--- NOTE | 2021-02-14 18:06 | ER ---
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 it is inflamed. i can NOT see out of my RIGHT eye. it comes and goes. there feels like there is pressure behind my RIGHT eye. my head hurts so bad i want to smash it into something. i havent slept. Chief complaint: Patient states: i had an adverse reaction to Tegratol, the neurologist. steriods too but the Tegratol was causes nightmares and vomiting. i have had a headache for 3 days. Coronavirus screen: At this time, the client does not indicate any symptoms associated with coronavirus-19. Ebola Screen: Patient denies travel to an Ebola-affected area in the 21 days before illness onset. Initial Sepsis Screen: Does the patient meet any 2 criteria? No. Patient's initial sepsis screen is negative. Does the patient have a suspected source of infection? No. Patient's initial sepsis screen is negative. Risk Assessment: Do you want to hurt yourself or someone else? Patient reports no desire to harm self or others. Onset of symptoms was February 14, 2021. 14:03 Method Of Arrival: Wheelchair tw2 14:03 Acuity: RICO 3 tw2 Triage Assessment: 14:10 General: Appears in no apparent distress. Behavior is anxious. Pain: Complains of pain tw2 in right eye. Historical: - Allergies: 14:08 Tegretol; hallucinations; tw2 - Home Meds: 14:09 Paxil 20 mg Oral tab 1 tab once daily [Active]; clonazepam 0.5 mg Oral TbDL 1 tab 3 tw2 times per day [Active]; - PMHx: 14:08 Substance Abuse; Panic Attacks; Fibromyalgia; Depression; cervical cancer; ADD/ADHD; tw2 - PSHx: 14:08 pins/plates both ankles; Hysterectomy; tw2 - Immunization history:: Adult Immunizations. - Social history:: Smoking status: . Screenin:06 Abuse screen: Denies threats or abuse. Nutritional screening: No deficits noted. vg1 Tuberculosis screening: No symptoms or risk factors identified. Fall Risk No fall in past 12 months (0 pts). No secondary diagnosis (0 pts). No IV (0 pts). Ambulatory Aid- None/Bed Rest/Nurse Assist (0 pts). Gait- Normal/Bed Rest/Wheelchair (0 pts) Mental Status- Oriented to own ability (0 pts). Total Nick Fall Scale indicates No Risk (0-24 pts). Assessment: 15:54 General: Appears in no apparent distress. uncomfortable, Behavior is cooperative, vg1 anxious. Pain: Complains of pain in right eye Pain currently is 10 out of 10 on a pain scale. Pain began about two weeks ago Noted to be crying, grimacing. Neuro: Level of Consciousness is awake, alert, obeys commands, Oriented to person, place, time, situation. Cardiovascular: Patient's skin is warm and dry. Respiratory: Airway is patent Respiratory effort is even, unlabored. GI: No signs and/or symptoms were reported involving the gastrointestinal system. : No signs and/or symptoms were reported regarding the genitourinary system. EENT: Eyes no redness or tearing noted. Derm: Skin is intact, is healthy with good turgor. Musculoskeletal: Circulation, motion, and sensation intact. 18:38 Reassessment: Patient appears in no apparent distress at this time. Patient and/or vg1 family updated on plan of care and expected duration. Pain level reassessed. Patient is alert, oriented x 3, equal unlabored respirations, skin warm/dry/pink. Patient states feeling better. Vital Signs: 14:03 BP 128 / 80; Pulse 89; Resp 18; Temp 97.9(TE); Pulse Ox 100% on R/A; Weight 104.33 kg tw2 (R); Height 5 ft. 8 in. (172.72 cm); 18:37 BP 126 / 69; Pulse 80; Resp 16; Pulse Ox 100% ; vg1 14:03 Body Mass Index 34.97 (104.33 kg, 172.72 cm) tw2 ED Course: 13:49 Patient arrived in ED. mr 14:07 Triage completed. tw2 14:10 Arm band placed on. tw2 15:39 Aurora Easley, RN is Primary Nurse. vg1 15:43 [facility] jr8 15:43 Jonathan Maria MD is Attending Physician. jr8 16:07 Patient has correct armband on for positive identification. Bed in low position. Call vg1 light in reach. Side rails up X 1. 16:41 Inserted saline lock: 20 gauge in right antecubital area, using aseptic technique. vg1 18:04 Simon Samson MD is Referral Physician. jr8 18:39 No provider procedures requiring assistance completed. IV discontinued, intact, vg1 bleeding controlled, No redness/swelling at site. Pressure dressing applied. Administered Medications: 16:36 Drug: Reglan (metoCLOPramide) 10 mg Route: IVP; Site: left antecubital; vg1 18:39 Follow up: Response: No adverse reaction vg1 16:38 Drug: Benadryl (diphenhydrAMINE) 25 mg Route: IVP; Site: right antecubital; vg1 18:39 Follow up: Response: No adverse reaction vg1 17:43 Drug: Demerol (meperidine) 25 mg Route: IVP; Site: right antecubital; vg1 18:39 Follow up: Response: No adverse reaction; Marked relief of symptoms vg1 Outcome: 18:05 Discharge ordered by . jr8 18:39 Discharged to home ambulatory. vg1 18:39 Condition: stable 18:39 Discharge instructions given to patient, Instructed on discharge instructions, follow up and referral plans. Demonstrated understanding of instructions, follow-up care. 18:39 Patient left the ED. vg1 Signatures: Jaky Fuller mr Yonas Quiñonez PA PA jr8 Nicole Marcelino RN RN tw2 Aurora Easley, RN RN vg1
--- NOTE | 2021-02-14 18:06 | EDPHYS ---
Physician Documentation [facility] Name: Maribel Diaz Age: 40 yrs Sex: Female : 1980 Arrival Date: 02/14/2021 Time: 13:49 Bed 26 Private MD: ED Physician Jonathan Maria HPI: 02/14 17:55 This 40 yrs old Female presents to ER via Wheelchair with complaints of jr8 headache, visual problem. 17:55 The patient complains of pain to the right temporal area, right side of forehead, right jr8 occipital area and right base of the skull. The patient describes the headache as a pressure. Onset: The symptoms/episode began/occurred gradually, 1 day(s) ago. Associated signs and symptoms: Pertinent positives: blurred vision. Severity of symptoms: At its worst the pain was moderate, in the emergency department the pain is unchanged. The symptoms are alleviated by nothing. the symptoms are aggravated by nothing. The patient has experienced a previous episode. The patient has been recently seen by a physician:. Patient had similar episode earlier this month and a couple of days ago. Patient had MRI, MRA, and temporal artery biopsy which was negative. No acute findings on MRI/MRA. Referred to neurology at that point. Today started to have headache on right side with visual changes again. Still on prednisone at this time and being tapered off . Historical: - Allergies: 14:08 Tegretol; hallucinations; tw2 - Home Meds: 14:09 Paxil 20 mg Oral tab 1 tab once daily [Active]; clonazepam 0.5 mg Oral TbDL 1 tab 3 tw2 times per day [Active]; - PMHx: 14:08 Substance Abuse; Panic Attacks; Fibromyalgia; Depression; cervical cancer; ADD/ADHD; tw2 - PSHx: 14:08 pins/plates both ankles; Hysterectomy; tw2 - Immunization history:: Adult Immunizations. - Social history:: Smoking status: . ROS: 17:55 Eyes: Negative for injury, pain, redness, and discharge, ENT: Negative for injury, jr8 pain, and discharge, Neck: Negative for injury, pain, and swelling, Cardiovascular: Negative for chest pain, palpitations, and edema, Respiratory: Negative for shortness of breath, cough, wheezing, and pleuritic chest pain, Abdomen/GI: Negative for abdominal pain, nausea, vomiting, diarrhea, and constipation, Back: Negative for injury and pain, MS/Extremity: Negative for injury and deformity, Skin: Negative for injury, rash, and discoloration. 17:55 Neuro: Positive for headache, visual changes. Exam: 17:55 Eyes: Pupils equal round and reactive to light, extra-ocular motions intact. Lids and jr8 lashes normal. Conjunctiva and sclera are non-icteric and not injected. Cornea within normal limits. Periorbital areas with no swelling, redness, or edema. ENT: Nares patent. No nasal discharge, no septal abnormalities noted. Tympanic membranes are normal and external auditory canals are clear. Oropharynx with no redness, swelling, or masses, exudates, or evidence of obstruction, uvula midline. Mucous membranes moist. Neck: Trachea midline, no thyromegaly or masses palpated, and no cervical lymphadenopathy. Supple, full range of motion without nuchal rigidity, or vertebral point tenderness. No Meningismus. Cardiovascular: Regular rate and rhythm with a normal S1 and S2. No gallops, murmurs, or rubs. Normal PMI, no JVD. No pulse deficits. Respiratory: Lungs have equal breath sounds bilaterally, clear to auscultation and percussion. No rales, rhonchi or wheezes noted. No increased work of breathing, no retractions or nasal flaring. Abdomen/GI: Soft, non-tender, with normal bowel sounds. No distension or tympany. No guarding or rebound. No evidence of tenderness throughout. Back: No spinal tenderness. No costovertebral tenderness. Full range of motion. Skin: Warm, dry with normal turgor. Normal color with no rashes, no lesions, and no evidence of cellulitis. MS/ Extremity: Pulses equal, no cyanosis. Neurovascular intact. Full, normal range of motion. Neuro: Awake and alert, GCS 15, oriented to person, place, time, and situation. Cranial nerves II-XII grossly intact. Motor strength 5/5 in all extremities. Sensory grossly intact. Cerebellar exam normal. Normal gait. Vital Signs: 14:03 BP 128 / 80; Pulse 89; Resp 18; Temp 97.9(TE); Pulse Ox 100% on R/A; Weight 104.33 kg tw2 (R); Height 5 ft. 8 in. (172.72 cm); 18:37 BP 126 / 69; Pulse 80; Resp 16; Pulse Ox 100% ; vg1 14:03 Body Mass Index 34.97 (104.33 kg, 172.72 cm) tw2 MDM: 15:48 Patient medically screened. jr8 17:55 Data reviewed: vital signs, nurses notes, and as a result, I will discharge patient. jr8 Data interpreted: Pulse oximetry: on room air is 100 %. Interpretation: normal. Counseling: I had a detailed discussion with the patient and/or guardian regarding: the historical points, exam findings, and any diagnostic results supporting the discharge/admit diagnosis, the need for outpatient follow up, a neurologist, to return to the emergency department if symptoms worsen or persist or if there are any questions or concerns that arise at home. Response to treatment: the patient's symptoms have markedly improved after treatment. ED course: Patient feeling much better. Will go home to f/u with neurology. Return precautions given which patient understands . 02/14 16:10 Order name: IV; Complete Time: 16:41 jr8 Administered Medications: 16:36 Drug: Reglan (metoCLOPramide) 10 mg Route: IVP; Site: left antecubital; vg1 18:39 Follow up: Response: No adverse reaction vg1 16:38 Drug: Benadryl (diphenhydrAMINE) 25 mg Route: IVP; Site: right antecubital; vg1 18:39 Follow up: Response: No adverse reaction vg1 17:43 Drug: Demerol (meperidine) 25 mg Route: IVP; Site: right antecubital; vg1 18:39 Follow up: Response: No adverse reaction; Marked relief of symptoms vg1 Disposition: 02/14/21 18:05 Discharged to Home. Impression: Migraine. - Condition is Stable. - Discharge Instructions: Migraine Headache. - Medication Reconciliation Form, Thank You Letter, Antibiotic Education, Prescription Opioid Use form. - Follow up: Simon Samson MD; When: 5 - 6 days; Reason: Recheck today's complaints, Continuance of care, Re-evaluation by your physician. - Problem is new. - Symptoms have improved. Signatures: Yonas Quiñonez PA PA jr8 Nicole Marcelino RN RN tw2 Aurora Easley RN RN vg1 Corrections: (The following items were deleted from the chart) 18:39 18:05 02/14/2021 18:05 Discharged to Home. Impression: Migraine. Condition is Stable. vg1 Forms are Medication Reconciliation Form, Thank You Letter, Antibiotic Education, Prescription Opioid Use. Follow up: Simon Samson; When: 5 - 6 days; Reason: Recheck today's complaints, Continuance of care, Re-evaluation by your physician. Problem is new. Symptoms have improved. jr8
[2021-02-14 19:11] VITALS: TEMP 97.9; O2SAT 100
[2021-02-14 19:13] VITALS: BP 126/69
== END 2021-02-14 18:39 | disposition home or self-care (01) ==
LOC: ER 13:43
DX: G43.909 Migraine, unspecified, not intractable, without status migrainosus (principal); F32.9 Major depressive disorder, single episode, unspecified; Z88.8 Allergy status to other drugs, medicaments and biological substances
CPT/HCPCS: J2765; J1200; J2175

== ENCOUNTER 2021-03-01 06:27 | Emergency (ER) | payer OTHER ==
--- OUTSIDE RECORDS SUMMARY | 2021-03-01 06:31 | XMS REPORT | Continuity of Care Document ---
:1980 Author Organization [facility] t Address [address] [place] [address] Care Team Providers Name Role Phone Asked, [...] 00:00:00 00:00:00 Sex Ass[birth year] At [birth year] [place] ethodist 00:00:00 00:00:00 Smoking Status Start [...] Facility Department ID 2021-01-31 2021-01-31 Patient Alok [facility] [id number] [id number] 00:00:00 00:00:00 Secure Msg [facility] [id number] [facility] [id number] [facility] [phone] [place] [address] [address] One 2021-01-31 2021-01-31 Refill Alok [facility] 1.2.840.114 [id number] 00:00:00 00:00:00 [facility] [id number] [facility] [id number] Professio [phone] [place] [address] [address] One 2020-12-14 2020-12-14 Telemedici Alok [facility] 1.2.840.114 [id number] 16:30:00 16:45:00 ne Visit [facility] [id number] [facility] [id number] Professio [phone] [place] [address] [address] One 2020-12-13 2020-12-13 Patient Alok [facility] 1.2.840.114 [id number] 00:00:00 00:00:00 Secure [facility] [id number] [facility] [id number] [facility] [phone] [place] [address] [address] One 2020-12-11 2020-12-11 Telephone Alok [facility] 1.2.840.114 [id number] 00:00:00 00:00:00 [facility] [id number] [facility] [id number] Professio [phone] [place] [address] [address] One 2020-12-06 2020-12-06 Emergency [facility] [id number] 01:21:00 03:58:00 [place] 350.1.13.10 [place] 4.2.7.2.686 [place] [phone] [id number] 2020-11-09 2020-11-09 Patient Shon [facility] 1.2.840.114 [id number] 00:00:00 00:00:00 Outreach [facility] [id number] [facility] 4.2.7.2.686 [place] [phone] [id number] 2020-11-01 2020-11-01 Telephone Alok TNKRISTEN 1.2.840.114 [id number] 00:00:00 00:00:00 [facility] [id number] [facility] 4.2.7.2.686 [facility] [phone] [place] [address] [address] One 2020-10-27 2020-10-27 Orders Doctor NIKOLAY 1.2.840.114 [id number] 00:00:00 00:00:00 Only Unassigned, MARLON 350.1.13.10 [place] [facility] 4.2.7.2.686 [phone] [id number] 2020-10-24 2020-10-24 Telephone [facility] 1.2.840.114 [id number] 00:00:00 00:00:00 [facility] 350.1.13.10 [facility] 4.2.7.2.686 [facility] [phone] [place] [address] [address] One 2020-10-23 2020-10-23 [facility] 1.2.840.114 [id number] 16:47:16 17:53:03 ne Visit [facility] [id number] [facility] 4.2.7.2.686 [facility] [phone] [place] [address] [address] One 2020-10-17 2020-10-17 Emergency [facility] 1.2.840.114 [id number] 16:12:00 18:15:00 Khadijah Young 350.1.13.10 [place] 4.2.7.2.686 [place] [phone] 2020-10-17 2020-10-17 Telephone [facility] 1.2.840.114 [id number] 00:00:00 00:00:00 [facility] 350.1.13.10 [facility] 4.2.7.2.686 [facility] [phone] [place] [address] Office [facility] One 2020-10-16 2020-10-16 [place] [facility] 1.2.840.114 [id number] 00:00:00 00:00:00 [facility] 350.1.13.10 [facility] 4.2.7.2.686 [facility] [phone] [place] [address] [address] One 2020-09-15 2020-09-15 Emergency [facility] 1.2.911.894 [id number] 14:33:00 18:20:00 Jaqueline Young 350.1.13.10 [place] 4.2.7.2.686 [place] [phone] [phone] 2020-07-07 [facility] 1.2.840.114 [id number] 00:00:00 00:00:00 [facility] 350.1.13.10 [facility] 4.2.7.2.686 [facility] [phone] [place] [address] [address] One 2020-06-29 2020-06-29 Urgent Provider, [facility] [id number] 14:02:05 15:07:58 Care [facility] 350.1.13.10 Care [facility] 4.2.7.2.686 [facility] [phone] [place] [address] [address] One 2020-06-29 2020-06-29 Letter Doctor NIKOLAY 1.2.840.114 [id number] 00:00:00 00:00:00 (Out) Unassigned, MARLON 350.1.13.10 [place] [facility] 4.2.7.2.686 [id number] [id number] 2020-06-01 2020-06-01 Emergency Mcwilliams, [facility] 1.2.557.864 [id number] 17:45:00 22:34:00 Marleni Young 350.1.13.10 [place] 4.2.7.2.686 [place] [phone] [phone] 2020-05-15 Emergency Lukasz, K [facility] 1.2.840.114 [id number] 19:17:00 21:27:00 Megan Young 350.1.13.10 [place] 4.2.7.2.686 [place] [phone] [phone] 2020-05-15 Telemedici Christmas [facility] 1.2.840.114 [id number] 11:19:42 15:58:43 ne Visit [facility] 350.1.13.10 [place] 4.2.7.2.686 [facility] [phone] [place] [address] [address] One 2020-05-12 2020-05-12 Telephone Alok [facility] 1.2.840.114 [id number] 00:00:00 00:00:00 [facility] 350.1.13.10 [place] 4.2.7.2.686 [facility] [phone] [place] [address] [address] One 2020-04-08 2020-04-08 Emergency Nirmal, [facility] 1.2.451.956 [id number] 10:44:00 12:53:00 Trish J [facility] 350.1.13.10 [place] 4.2.7.2.686 [place] [phone] [phone] 2020-04-08 Orders Doctor NIKOLAY 1.2.840.114 [id number] 00:00:00 00:00:00 Only Unassigned, MARLON 350.1.13.10 [place] [facility] .2.7.2.686 [id number] 2019-05-07 2019-05-07 [facility] 1.2.095.179 [id number] 15:01:43 23:59:00 Encounter [facility] 350.1.13.10 [place] 4.2.7.2.686 [place] [address] [phone] [phone] 2019-05-07 [facility] [id number] 15:01:25 23:59:00 Encounter [facility] 350.1.13.10 [place] 4.2.7.2.686 [place] [address] [id number] [id number] 2019-05-07 2019-05-07 [facility] 1.2.920.642 [id number] 15:00:59 15:00:59 Encounter [facility] 350.1.13.10 [place] 4.2.7.2.686 [place] [address] [id number] [id number] 2019-05-07 2019-05-07 [facility] [id number] 15:00:00 15:00:00 Encounter [facility] 350.1.13.10 [place] 4.2.7.2.686 [place] [phone] [phone] 2019-05-04 [facility] 1.2.840.114 [id number] 00:00:00 00:00:00 [facility] 350.1.13.10 [place] 4.2.7.2.686 [facility] [phone] [place] [address] Office Building One 2019-05-03 2019-05-03 Orders Doctor LINK 1.2.840.114 [id number] 00:00:00 00:00:00 Only Unassigned, MARLON 350.1.13.10 [place] [facility] 4.2.7.2.686 [id number] [id number] Results Test Description Test Time Test [...] = Expiration Dt) 06-24-20 N Comprehensive Metabolic [id number] 22:30:33 Test Item Value Reference Range Interpretation [...] A/G 1.5 ratio N Ratio) Comprehensive Metabolic [id number] 22:30:33 Test Item Value Reference Range Interpretation [...] the National Kidney Foundation, http://nkdep.ni h.gov Alcohol [id number] 22:30:33 Test Item Value Reference Range Interpretation Comments Ethanol Level (test <0.00 g/dL 0.00-0.01 Intoxica wilma 0.080 g/dL code = Ethanol or more Level) Ethanol Inst (test <0 N code = Ethanol Inst) Comprehensive Metabolic [id number] 22:30:33 Test Item Value Reference Range Interpretation [...] ag e have not been validated by [facility] MDRD study and should be interpreted wit [...] ag e have not been validated by [facility] MDRD study and should be interpreted wit h caution. eGFR R esult Interpretation: eGFR > or = 60 is in the Normal RangeeGF R < 60 may mean kid kath diseaseeGFR < 1 5 may mean kidney failure Rang es recommended by the National Kidney Foundation, http://nkdep.ni h.gov HCG Qualitative [id number] 22:23:26 Test Item Value Reference Range Interpretation [...] 72 hours. Lot # (test code = [id number] N Lot #) Expiration Dt (test 2020-09-24 N code = Expiration Dt) Neg Control (test Negative code = Neg Control) Pos Control (test Positive code = Pos Control) Internal QC (test Acceptable code = Internal QC) Complete Blood Count with [id number] 22:08:35 Test Item Value Reference Range Interpretation [...] code = IPF) 0 % N Automated [id number] 22:08:35 Test Item Value Reference Range Interpretation Comments Neutro Auto (test code = Neutro 64.2 % 36.0-70.0 Auto) Lymph Auto (test code = Lymph Auto) 25.7 % 12.0-44.0 [place] Auto (test code = [place] Auto) 8.2 % 0.0-11.0 Eos, Auto (test code = Eos, Auto) 1.2 % 0.0-7.0 Basophil Auto (test code = Basophil 0.4 % 0.0-2.0 Auto) Neutro Absolute (test code = Neutro 6.7 x10 1.6-7.4 Absolute) Lymph Absolute (test code = Lymph 2.68 x10 .50-4.60 Absolute) [place] Absolute (test code = [place] .86 x10 .00-1.20 Absolute) Eos Absolute (test code = Eos 0.12 x10 0.00-0.74 Absolute) Baso Absolute (test code = Baso 0.04 x10 0.00-0.21 Absolute) IG [id number] 22:08:35 Test Item Value Reference Range Interpretation Comments IG (test code = IG) 0.3 % 0.0-5.0 IG Abs (test code = IG Abs) 0 x10 N
[2021-03-01 07:24] LABS: Absolute Lymphocytes (CBC) 5.2 K/uL (0.7-4.9); Basophils % 1.4 % (0-1.3); Hematocrit 43.5 % (36.0-45.0); Lymphocytes % 39.1 % (15.3-44.8); MPV 7.8 fL (7.6-11.3)
--- NOTE | 2021-03-01 07:42 | RAD REPORT ---
EXAM DESCRIPTION: CT - Head Brain Wo Cont - 03/01/2021 7:27 am CLINICAL HISTORY: Mental status change;Headache COMPARISON: Head Brain Wo Cont dated 01/22/2021 TECHNIQUE: Axial 5 mm thick images of the head were obtained without IV contrast. All CT scans are performed using dose optimization technique as appropriate and may include automated exposure control or mA/KV adjustment according to patient size. FINDINGS: No intracranial hemorrhage, mass, edema or shift of mid-line structures. No acute infarcti on changes seen. No abnormal extra-axial fluid collections. Ventricles are normal. Mastoid air cells and visualized portions of the paranasal sinuses are clear. No acute bony findings. No significant change from comparison. IMPRESSION: Negative non-contrast CT head examination.
[2021-03-01 07:50] LABS: Potassium 3.5 mmol/L (3.5-5.1)
[2021-03-01] MEDS ORDERED: METOCLOPRAMIDE 10 MG/2mL INJ ONE (07:52)
[2021-03-01] MEDS ORDERED: DIPHENHYDRAMINE 50 MG/ML VIAL ONE (07:52)
[2021-03-01 08:00] LABS: C-Reactive Protein 15.6 mg/L (<3.00)
[2021-03-01] MEDS ORDERED: KETOROLAC 30 MG/ML INJ ONE (08:55)
--- NOTE | 2021-03-01 09:12 | EDPHYS ---
Physician Documentation [facility] Name: Maribel Diaz Age: 40 yrs Sex: Female : 1980 Arrival Date: 03/01/2021 Time: 06:33 Bed 14 Private MD: ED Physician Louis Madison HPI: 03/01 07:40 This 40 yrs old Female presents to ER via Wheelchair with complaints of jr8 Headache, CONFUSION, JAW PAIN. 07:40 The patient complains of pain to the right frontal area, right temporal area and right jr8 side of forehead. The patient describes the headache as a pressure. Onset: The symptoms/episode began/occurred suddenly, 2 day(s) ago. Associated signs and symptoms: Pertinent positives: Photophobia blurred vision. Severity of symptoms: At its worst the pain was moderate, in the emergency department the pain is unchanged. The patient has experienced similar episodes in the past, a few times. The patient has not recently seen a physician. Patient was diagnosed with GCA early last month and was put on steroids. Patient had MRI/MRA without acute findings. Stated that she will go for several days feeling fine and then start to have jaw pain and headaches with photophobia . Historical: - Allergies: 06:50 Tegretol; hallucinations; bb - Home Meds: 06:50 clonazepam 0.5 mg Oral TbDL 1 tab 3 times per day [Active]; Paxil 20 mg Oral tab 1 tab bb once daily [Active]; - PMHx: 06:50 ADD/ADHD; cervical cancer; Depression; Fibromyalgia; Panic Attacks; Substance Abuse; bb - Immunization history:: Adult Immunizations unknown. - Social history:: Smoking status: unknown. ROS: 07:40 Eyes: Negative for injury, pain, redness, and discharge, ENT: Negative for injury, jr8 pain, and discharge, Neck: Negative for injury, pain, and swelling, Cardiovascular: Negative for chest pain, palpitations, and edema, Respiratory: Negative for shortness of breath, cough, wheezing, and pleuritic chest pain, Abdomen/GI: Negative for abdominal pain, nausea, vomiting, diarrhea, and constipation, Back: Negative for injury and pain, MS/Extremity: Negative for injury and deformity, Skin: Negative for injury, rash, and discoloration. 07:40 Neuro: Positive for headache, visual changes. Exam: 07:40 Eyes: Pupils equal round and reactive to light, extra-ocular motions intact. Lids and jr8 lashes normal. Conjunctiva and sclera are non-icteric and not injected. Cornea within normal limits. Periorbital areas with no swelling, redness, or edema. ENT: Nares patent. No nasal discharge, no septal abnormalities noted. Tympanic membranes are normal and external auditory canals are clear. Oropharynx with no redness, swelling, or masses, exudates, or evidence of obstruction, uvula midline. Mucous membranes moist. Neck: Trachea midline, no thyromegaly or masses palpated, and no cervical lymphadenopathy. Supple, full range of motion without nuchal rigidity, or vertebral point tenderness. No Meningismus. Cardiovascular: Regular rate and rhythm with a normal S1 and S2. No gallops, murmurs, or rubs. Normal PMI, no JVD. No pulse deficits. Respiratory: Lungs have equal breath sounds bilaterally, clear to auscultation and percussion. No rales, rhonchi or wheezes noted. No increased work of breathing, no retractions or nasal flaring. Abdomen/GI: Soft, non-tender, with normal bowel sounds. No distension or tympany. No guarding or rebound. No evidence of tenderness throughout. Skin: Warm, dry with normal turgor. Normal color with no rashes, no lesions, and no evidence of cellulitis. MS/ Extremity: Pulses equal, no cyanosis. Neurovascular intact. Full, normal range of motion. 07:40 Constitutional: The patient appears alert, awake, anxious, restless. 07:40 Neuro: Orientation: to person, place \T\ time. Mentation: is normal, Memory: is normal, immediate memory is intact, recent memory is intact, remote memory is intact, Cranial nerves: CN I not tested, CN II- XII are normal as tested, visual rodriguez are intact. extraocular movements are intact, Facial palsy and sensory deficits are absent. Nystagmus is absent. Speech is clear and appropriate. Tongue strength is normal, Cerebellar function: normal finger to nose testing, heel to santos testing is normal, Motor: moves all fours, strength is 5/5 in all extremities, Sensation: no obvious gross deficits, seizure activity, is not displayed by the patient, Abnormal movements: there are no abnormal movements. Vital Signs: 06:46 BP 118 / 77; Pulse 91; Resp 18 S; Temp 98.3(O); Pulse Ox 99% on R/A; Weight 104.33 kg bb (R); Height 5 ft. 8 in. (172.72 cm) (R); Pain 8/10; 06:46 Body Mass Index 34.97 (104.33 kg, 172.72 cm) bb MDM: 06:43 Patient medically screened. jr8 07:40 Differential diagnosis: cerebral vascular accident, glaucoma, intracerebral hemorrhage, jr8 migraine, neoplasm, temporal arteritis, tension headache, trigeminal neuralgia, vasomotor headache, psychogenic, pseudotumor cerebri. Data reviewed: vital signs, nurses notes, lab test result(s), radiologic studies, CT scan. Data interpreted: Pulse oximetry: on room air is 99 %. Interpretation: normal. Counseling: I had a detailed discussion with the patient and/or guardian regarding: the historical points, exam findings, and any diagnostic results supporting the discharge/admit diagnosis, lab results, radiology results, the need for outpatient follow up, a neurologist, to return to the emergency department if symptoms worsen or persist or if there are any questions or concerns that arise at home. 09:09 ED course: Patient has had slight relief. VS stable. No acute findings on CT. Labs jr8 stable. Patient appears to be more calm in exam room. Explained to her that she needs to continue her steroids and to f/u with neurology. That from an Emergency stand point she stable but does require further outpatient work up. If worse to come back. Patient is good with this plan . 03/01 06:58 Order name: CBC with Diff; Complete Time: 08:28 03/01 06:58 Order name: Basic Metabolic Panel; Complete Time: 08:28 03/01 06:58 Order name: Westergren Sedrate; Complete Time: 08:28 03/01 06:58 Order name: C-Reactive Protein; Complete Time: 08:28 03/01 07:04 Order name: CT Head Brain wo Cont; Complete Time: 07:47 03/01 06:58 Order name: IV; Complete Time: 07:13 Administered Medications: 07:41 Drug: Reglan (metoCLOPramide) 10 mg Route: IVP; Site: right antecubital; jd3 08:29 Follow up: Response: No adverse reaction jd3 07:42 Drug: Benadryl (diphenhydrAMINE) 25 mg Route: IVP; Site: right antecubital; jd3 08:29 Follow up: Response: No adverse reaction jd3 08:37 Drug: Ketorolac 30 mg Route: IVP; Site: right antecubital; tr6 Disposition Summary: 03/01/21 09:11 Discharge Ordered Location: Home jr8 Problem: new jr8 Symptoms: have improved jr8 Condition: Stable jr8 Diagnosis - Headache jr8 Followup: jr8 - With: Gerson [place] MD - When: 2 - 3 days - Reason: Recheck today's complaints, Continuance of care, Re-evaluation by your physician Followup: jr8 - With: Simon Samson MD - When: 2 - 3 days - Reason: Recheck today's complaints, Continuance of care, Re-evaluation by your physician Discharge Instructions: - Discharge Summary Sheet jr8 - General Headache Without Cause jr8 - Neuropathic Pain jr8 Forms: - Medication Reconciliation Form jr8 - Thank You Letter jr8 - Antibiotic Education jr8 - Prescription Opioid Use jr8 Addendum: 03/03/2021 15:28 Co-signature as Attending Physician, Louis Madison MD I agree with the assessment and t w4 plan of care. Signatures: Dispatcher [employer] Mariam Damon RN RN bb Roszak, Josh, PA PA jr8 Vladimir Duarte RN RN jd3 Wadley, Terrence, MD MD tw4 Cheryl Oliver RN RN tr6
--- NOTE | 2021-03-01 09:12 | ER ---
Nurse's Notes [facility] Name: Maribel Diaz Age: 40 yrs Sex: Female : 1980 Arrival Date: 03/01/2021 Time: 06:33 Bed 14 Private MD: Diagnosis: Headache Presentation: 03/01 06:46 Chief complaint: Patient states: she has been seen here and diagnosed with Giant Cell bb Arteritis but her symptoms all return 4 to 5 days after she goes home and they have worsened. She is confused, has pain to the right side of her head which radiates down her head to her neck she has nausea she "doesn't feel like herself" and "can't make any sense of it". Coronavirus screen: At this time, the client does not indicate any symptoms associated with coronavirus-19. Ebola Screen: No symptoms or risks identified at this time. Initial Sepsis Screen: Does the patient meet any 2 criteria? No. Patient's initial sepsis screen is negative. Does the patient have a suspected source of infection? No. Patient's initial sepsis screen is negative. Risk Assessment: Do you want to hurt yourself or someone else? Patient reports no desire to harm self or others. Onset of symptoms is unknown. 06:46 Method Of Arrival: Wheelchair bb 06:46 Acuity: RICO 2 bb Historical: - Allergies: 06:50 Tegretol; hallucinations; bb - Home Meds: 06:50 clonazepam 0.5 mg Oral TbDL 1 tab 3 times per day [Active]; Paxil 20 mg Oral tab 1 tab bb once daily [Active]; - PMHx: 06:50 ADD/ADHD; cervical cancer; Depression; Fibromyalgia; Panic Attacks; Substance Abuse; bb - Immunization history:: Adult Immunizations unknown. - Social history:: Smoking status: unknown. Screenin:01 Abuse screen: Denies threats or abuse. Nutritional screening: No deficits noted. fu Tuberculosis screening: No symptoms or risk factors identified. Fall Risk None identified. Assessment: 06:58 General: Appears uncomfortable, Behavior is cooperative, anxious. Pain: Complains of fu pain in right side of the head Pain radiates to neck Pain currently is 8 out of 10 on a pain scale. Neuro: Level of Consciousness is awake, alert, obeys commands, Oriented to person, place, time, Moves all extremities. Speech is slurred. Respiratory: Respiratory effort is even, Respiratory pattern is regular. GI: Reports nausea, Patient currently denies abdominal pain, diarrhea. Musculoskeletal: Range of motion: intact in all extremities. 07:30 General: Appears in no apparent distress. uncomfortable, Behavior is cooperative, jd3 anxious. Pain: Complains of pain in right side of head Quality of pain is described as pressure. Neuro: Level of Consciousness is awake, alert, obeys commands, Oriented to person, place, time, Moves all extremities. Full function. Cardiovascular: Capillary refill < 3 seconds Patient's skin is warm and dry. Respiratory: Airway is patent Respiratory effort is even, unlabored, Respiratory pattern is regular, symmetrical, Denies cough, shortness of breath. GI: Patient currently denies abdominal pain. : No signs and/or symptoms were reported regarding the genitourinary system. EENT: No signs and/or symptoms were reported regarding the EENT system. Derm: Skin is intact, Skin is dry, Skin is normal, Skin temperature is warm. Musculoskeletal: Circulation, motion, and sensation intact. Range of motion: intact in all extremities. 08:29 Reassessment: Patient appears in no apparent distress at this time. Patient and/or jd3 family updated on plan of care and expected duration. Pain level reassessed. Patient is alert, oriented x 3, equal unlabored respirations, skin warm/dry/pink. reports medication not helping yet. provider notified. 08:37 Reassessment: pt resting comfortably in bed. states she did not have much relief with tr6 previous meds. SHASHI Quiñonez informed. Vital Signs: 06:46 BP 118 / 77; Pulse 91; Resp 18 S; Temp 98.3(O); Pulse Ox 99% on R/A; Weight 104.33 kg bb (R); Height 5 ft. 8 in. (172.72 cm) (R); Pain 8/10; 06:46 Body Mass Index 34.97 (104.33 kg, 172.72 cm) bb ED Course: 06:33 Patient arrived in ED. es 06:34 [facility] jr8 06:34 Louis Madison MD is Attending Physician. jr8 06:50 Triage completed. bb 06:50 Arm band placed on Patient placed in an exam room, on a stretcher, on pulse oximetry. bb 07:13 Inserted saline lock: 22 gauge in right antecubital area, using aseptic technique. Blood collected. 07:27 CT Head Brain wo Cont In Process Unspecified. EDMS 07:44 Cheryl Oliver, RN is Primary Nurse. tr6 09:11 Gerson [place] MD is Referral Physician. jr8 09:11 Simon Samson MD is Referral Physician. jr8 09:27 No apparent distress. pt waiting in waiting room for ride. tr6 09:27 No provider procedures requiring assistance completed. IV discontinued, intact, tr6 bleeding controlled, No redness/swelling at site. Pressure dressing applied. Administered Medications: 07:41 Drug: Reglan (metoCLOPramide) 10 mg Route: IVP; Site: right antecubital; jd3 08:29 Follow up: Response: No adverse reaction jd3 07:42 Drug: Benadryl (diphenhydrAMINE) 25 mg Route: IVP; Site: right antecubital; jd3 08:29 Follow up: Response: No adverse reaction jd3 08:37 Drug: Ketorolac 30 mg Route: IVP; Site: right antecubital; tr6 Outcome: 09:11 Discharge ordered by MD. jr8 09:27 Discharged to home via wheelchair. tr6 09:27 Condition: stable 09:27 Discharge instructions given to patient, Instructed on discharge instructions, follow up and referral plans. medication usage, safety practices, Demonstrated understanding of instructions, follow-up care, medications. 09:27 Patient left the ED. tr6 Signatures: Dispatcher [employer] EDHI Grecia Kincaid Brenda RN RN Yonas Ly PA PA jr8 Vladimir Duarte RN RN jd3 Umadhay, Felix, RN RN fu Ramnanan, Tiffany, RN RN tr6
[2021-03-01 09:35] VITALS: BP 118/77; TEMP 98.3; O2SAT 99
== END 2021-03-01 09:27 | disposition home or self-care (01) ==
LOC: ER 06:27
DX: R51.9 Headache, unspecified (principal); F32.9 Major depressive disorder, single episode, unspecified; Z88.8 Allergy status to other drugs, medicaments and biological substances
CPT/HCPCS: 85025; 80048; 36415; 85652; 86140; 70450; 96375; 96374; 99284; J2765; J1200

== ENCOUNTER 2021-05-07 01:29 | Emergency (ER) | payer OTHER ==
--- OUTSIDE RECORDS SUMMARY | 2021-05-07 01:33 | XMS REPORT | Continuity of Care Document ---
:1980 Author Organization [facility] t Address [address] [place] [place] [address] Care Team Providers Name Role Phone Asked, [...] Tobacco use and 2018-11-16 2018-11-16 Never used [facility] exposure 00:00:00 00:00:00 Sex Ass[birth year] At [birth year] [facility] 00:00:00 00:00:00 Smoking Status Start Date Stop Date Source Current every day smoker 2018-11-16 00:00:00 [facility] Medications Ordered Filled Start Stop Current Ordering Indication Dosage Frequency Signature Comments Components Source Medication Medication Date Date Medication? Clinician (SIG) Name Name ALPRAZolam Yes 1mg Q.25D Take 1 mg M ethodi (XANAX) 1 3-[address] MG tablet 21:45: (four) Hospit a 28 times a l day as needed for anxiety. escitalopra Yes 20mg QD Take 20 mg Methodi m (LEXAPRO) 3-[address] 20 MG 21:45: nightly. Hospita tablet 28 l risperiDONE Yes 1mg QD Take 1 mg M ethodi (RisperDAL) 3-[address] 1 MG tablet 21:45: nightly. Ho spita 28 l propranolol Yes 40mg Take 40 mg Methodi (INDERAL) 3-[address] 40 MG 21:45: daily. Hospita tablet 28 l estrogens-m Yes 1{tbl} QD Take 1 Me thodi ethyltestos 3-[address] terone 21:45: mouth Hospita (EEMT,COVAR 28 daily. l YX) 1.25-2.5 mg per tablet Procedures This patient has no known procedures. Encounters Start End Encounter Admission Attending Care Care Encounter Source Date/Time Date/Time Type Type Clinicians Facility Department ID 2021-01-31 2021-01-31 Patient [place] [facility] [id number] 00:00:00 00:00:00 Secure Msg [facility] [id number] [place] [id number] Professio [phone] [place] [address] [address] One 2021-01-31 2021-01-31 Refill Alok [facility] [id number] 00:00:00 00:00:00 [facility] [id number] [place] [id number] Professio [phone] [place] [address] [address] One 2020-12-14 2020-12-14 Telemedici Alok [facility] 1.2.840.114 [id number] 16:30:00 16:45:00 ne Visit [facility] [id number] [place] [id number] Professio [phone] nal [facility] Office Building One 2020-12-13 2020-12-13 Patient Alok [facility] [id number] 00:00:00 00:00:00 Secure g [facility] [id number] [place] [id number] Professio [phone] [place] [address] [address] One 2020-12-11 2020-12-11 Telephone Alok [facility] 1.2.840.114 [id number] 00:00:00 00:00:00 [facility] [id number] [place] [id number] Professio [phone] [place] [address] [address] One 2020-12-06 2020-12-06 Emergency Michelleor [facility] [id number] 01:21:00 03:58:00 [place] [id number] [place] 4.2.7.2.686 [place] [phone] 2020-11-09 2020-11-09 Patient Shon MIKRISTEN 1.2.840.114 [id number] 00:00:00 00:00:[address] [facility] [id number] [facility] 4.2.7.2.686 [place] [phone] [id number] 2020-11-01 2020-11-01 Telephone Alok MIKRISTEN 1.2.840.114 [id number] 00:00:00 00:00:00 [facility] [id number] [place] 4.2.7.2.686 Professio [phone] nal [facility] Office Building One 2020-10-27 2020-10-27 Orders Doctor LINK 1.2.840.114 [id number] 00:00:00 00:00:00 Only Unassigned, MARLON 350.1.13.10 [place] [facility] 4.2.7.2.686 [phone] [id number] 2020-10-24 2020-10-24 Telephone Alok [facility] 1.2.840.114 [id number] 00:00:00 00:00:00 [facility] [id number] [place] 4.2.7.2.686 Professio [phone] [place] [address] [address] One 2020-10-23 2020-10-23 [facility] 1.2.840.114 [id number] 16:47:16 17:53:03 ne Visit [facility] [id number] [place] 4.2.7.2.686 Professio [phone] [place] [address] [address] One 2020-10-17 2020-10-17 Emergency [facility] 1.2.840.114 [id number] 16:12:00 18:15:00 Khadijah [place] 350.1.13.10 [place] 4.2.7.2.686 [place] [phone] [phone] 2020-10-17 Telephone [facility] 1.2.840.114 [id number] 00:00:00 00:00:00 [facility] 350.1.13.10 [place] 4.2.7.2.686 Professio [phone] [place] [address] [address] One 2020-10-16 2020-10-16 [facility] 1.2.840.114 [id number] 00:00:00 00:00:00 [facility] 350.1.13.10 [place] 4.2.7.2.686 Professio [phone] [place] [address] [address] One 2020-09-15 2020-09-15 Emergency [facility] [id number] 14:33:00 18:20:00 Jaqueline Bust[place] 350.1.13.10 [place] 4.2.7.2.686 [place] [phone] [phone] 2020-07-07 [facility] 1.2.840.114 [id number] 00:00:00 00:00:00 [facility] 350.1.13.10 [place] 4.2.7.2.686 Profess[facility] [phone] [place] [address] [address] One 2020-06-29 2020-06-29 Urgent Provider, [facility] [id number] 14:02:05 15:07:58 [facility] 350.1.13.10 Care [place] 4.2.7.2.686 Professio [phone] [place] [address] [address] One 2020-06-29 2020-06-29 Letter Doctor NIKOLAY 1.2.840.114 [id number] 00:00:00 00:00:00 (Out) Unassigned, MARLON 350.1.13.10 [place] [facility] 4.2.7.2.686 [phone] [id number] 2020-06-01 2020-06-01 Emergency Mcwilliams, [facility] [id number] 17:45:00 22:34:00 Marleni Young 350.1.13.10 [place] 4.2.7.2.686 [place] [phone] [phone] 2020-05-15 Emergency Lukasz, K [facility] 1.2.840.114 [id number] 19:17:00 21:27:00 Megan Young 350.1.13.10 [place] 4.2.7.2.686 [place] [phone] [id number] 2020-05-15 2020-05-15 [facility] 1.2.840.114 [id number] 11:19:42 15:58:43 ne Visit [facility] 350.1.13.10 [place] 4.2.7.2.686 Profess[place] [phone] [place] [address] [address] One 2020-05-12 2020-05-12 Telephone Alok [facility] 1.2.840.114 [id number] 00:00:00 00:00:00 [facility] 350.1.13.10 [place] 4.2.7.2.686 Professio [phone] [place] [address] [address] One 2020-04-08 2020-04-08 Emergency Nirmal, [facility] [id number] 10:44:00 12:53:00 Trish Young 350.1.13.10 [place] 4.2.7.2.686 [place] [phone] [phone] 2020-04-08 Orders Doctor NIKOLAY 1.2.840.114 [id number] 00:00:00 00:00:00 Only Unassigned, MARLON 350.1.13.10 [place] [address] [id number] [id number] 2019-05-07 2019-05-07 [facility] 1.2.122.195 [id number] 15:01:43 23:59:00 Encounter [facility] [place] 350.1.13.10 [place] 4.2.7.2.686 [place] [id number] [id number] 2019-05-07 2019-05-07 [facility] [id number] 15:01:25 23:59:00 Encounter [facility] [place] 350.1.13.10 [place] 4.2.7.2.686 [place] [phone] [id number] 2019-05-07 2019-05-07 [facility] 1.2.085.685 [id number] 15:00:59 15:00:59 Encounter [facility] [place] 350.1.13.10 [place] 4.2.7.2.686 [place] [id number] [id number] 2019-05-07 2019-05-07 [facility] [id number] 15:00:00 15:00:00 Encounter [facility] A [place] 350.1.13.10 [place] 4.2.7.2.686 [place] [id number] [id number] 2019-05-04 2019-05-04 [facility] 1.2.840.114 [id number] 00:00:00 00:00:00 [facility] 350.1.13.10 [place] 4.2.7.2.686 [facility] [phone] nal [address] One 2019-05-03 2019-05-03 Orders Doctor LINK 1.2.840.114 [id number] 00:00:00 00:00:00 Only Unassigned, MARLON 350.1.13.10 [place] [facility] 4.2.7.2.686 [id number] Results Test Description Test Time Test [...] = Expiration Dt) 06-24-20 N Comprehensive Metabolic [id number] 22:30:33 Test Item Value Reference Range Interpretation [...] A/G 1.5 ratio N Ratio) Comprehensive Metabolic [id number] 22:30:33 Test Item Value Reference Range Interpretation [...] the National Kidney Foundation, http://nkdep.ni h.gov Alcohol [id number] 22:30:33 Test Item Value Reference Range Interpretation Comments Ethanol Level (test <0.00 g/dL 0.00-0.01 Intoxica wilma 0.080 g/dL code = Ethanol or more Level) Ethanol Inst (test <0 N code = Ethanol Inst) Comprehensive Metabolic [id number] 22:30:33 Test Item Value Reference Range Interpretation [...] ag e have not been validated by [facility] MDRD study and should be interpreted [...] ag e have not been validated by [facility] MDRD study and should be interpreted wit h caution. eGFR R esult Interpretation: eGFR > or = 60 is in the Normal RangeeGF R < 60 may mean kid kath diseaseeGFR < 1 5 may mean kidney failure Rang es recommended by the National Kidney Foundation, http://nkdep.ni h.gov HCG Qualitative [id number] 22:23:26 Test Item Value Reference Range Interpretation [...] 72 hours. Lot # (test code = [id number] Lot #) Expiration Dt (test 2020-09-24 N code = Expiration Dt) Neg Control (test Negative code = Neg Control) Pos Control (test Positive code = Pos Control) Internal QC (test Acceptable code = Internal QC) Complete Blood Count with [id number] 22:08:35 Test Item Value Reference Range Interpretation [...] code = IPF) 0 % N Automated [id number] 22:08:35 Test Item Value Reference Range Interpretation Comments Neutro Auto (test code = Neutro 64.2 % 36.0-70.0 Auto) Lymph Auto (test code = Lymph Auto) 25.7 % 12.0-44.0 Union Auto (test code = Union Auto) 8.2 % 0.0-11.0 Eos, Auto (test code = Eos, Auto) 1.2 % 0.0-7.0 Basophil Auto (test code = Basophil 0.4 % 0.0-2.0 Auto) Neutro Absolute (test code = Neutro 6.7 x10 1.6-7.4 Absolute) Lymph Absolute (test code = Lymph 2.68 x10 .50-4.60 Absolute) Union Absolute (test code = Union .86 x10 .00-1.20 Absolute) Eos Absolute (test code = Eos 0.12 x10 0.00-0.74 Absolute) Baso Absolute (test code = Baso 0.04 x10 0.00-0.21 Absolute) IG [id number] 22:08:35 Test Item Value Reference Range Interpretation Comments IG (test code = IG) 0.3 % 0.0-5.0 IG Abs (test code = IG Abs) 0 x10 N
--- NOTE | 2021-05-07 02:34 | EDPHYS ---
Physician Documentation [facility] Name: Maribel Diaz Age: 40 yrs Sex: Female : 1980 Arrival Date: 05/07/2021 Time: 01:33 Bed 30 Private MD: ED Physician Louis Madison HPI: 05/07 06:19 This 40 yrs old Female presents to ER via Wheelchair with complaints of tw4 Allergy Symptoms, JOINT PAIN, DISORIENTED. 06:19 The patient was bitten on the right santos. Onset: The symptoms/episode began/occurred tw4 today. The patient has not experienced similar symptoms in the past. Patient is a 40-year-old female who believes that she has been bitten by bedbugs. Patient states she noticed bites on her lower leg and she noticed that she had redness and itching. She is concerned that she might possibly have's some other symptoms related to the bites. Patient states she feels fatigued feels weak and has joint pain.. 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 ankle; section; em - Immunization history:: Adult Immunizations up to date. - Social history:: Smoking status: Patient denies any tobacco usage or history of. ROS: 06:25 Constitutional: Negative for fever, chills, and weight loss, Eyes: Negative for injury, tw4 pain, redness, and discharge, Cardiovascular: Negative for chest pain, palpitations, and edema, Respiratory: Negative for shortness of breath, cough, wheezing, and pleuritic chest pain, Abdomen/GI: Negative for abdominal pain, nausea, vomiting, diarrhea, and constipation, Back: Negative for injury and pain, Neuro: Negative for headache, weakness, numbness, tingling, and seizure, Psych: Negative for depression, anxiety, suicide ideation, homicidal ideation, and hallucinations. 06:25 Skin: Positive for rash. Exam: 06:25 Constitutional: This is a well developed, well nourished patient who is awake, alert, tw4 and in no acute distress. Head/Face: Normocephalic, atraumatic. Chest/axilla: Normal chest wall appearance and motion. Nontender with no deformity. No lesions are appreciated. Cardiovascular: Regular rate and rhythm with a normal S1 and S2. No gallops, murmurs, or rubs. Normal PMI, no JVD. No pulse deficits. Respiratory: Lungs have equal breath sounds bilaterally, clear to auscultation and percussion. No rales, rhonchi or wheezes noted. No increased work of breathing, no retractions or nasal flaring. Abdomen/GI: Soft, non-tender, with normal bowel sounds. No distension or tympany. No guarding or rebound. No evidence of tenderness throughout. 06:25 Skin: rash a moderate rash is noted. Vital Signs: 01:41 BP 121 / 89; Pulse 119; Resp 18; Temp 96.9; Pulse Ox 98% on R/A; Weight 104.33 kg; em Height 5 ft. 8 in. (172.72 cm); 02:30 BP 118 / 84; Pulse 104; Resp 18; Pulse Ox 99% on R/A; wg 01:41 Body Mass Index 34.97 (104.33 kg, 172.72 cm) em MDM: 02:34 Patient medically screened. tw4 06:25 Differential diagnosis: superficial laceration, tendon injury. Data reviewed: vital tw4 signs, nurses notes. Data interpreted: Pulse oximetry: Interpretation: normal. Counseling: I had a detailed discussion with the patient and/or guardian regarding: the historical points, exam findings, and any diagnostic results supporting the discharge/admit diagnosis. Special discussion: I discussed with the patient/guardian in detail that at this point there is no indication for admission to the hospital. It is understood, however, that if the symptoms persist or worsen the patient needs to return immediately for re-evaluation. Administered Medications: 02:30 Drug: Ketorolac 60 mg Route: IM; Site: right deltoid; wg 02:51 Follow up: Response: No adverse reaction wg 02:30 Drug: SOLU-Medrol (methylPREDNISolone sodium succinate) 125 mg Route: IM; Site: right wg deltoid; 02:51 Follow up: Response: No adverse reaction wg 02:30 Drug: Benadryl (diphenhydrAMINE) 12.5 mg Route: PO; wg 02:51 Follow up: Response: No adverse reaction Disposition Summary: 05/07/21 02:34 Discharge Ordered Location: Home tw4 Problem: new tw4 Symptoms: have improved tw4 Condition: Stable tw4 Diagnosis - Insect bite (nonvenomous), right lower leg tw4 - Insect bite (nonvenomous), left lower leg tw4 Followup: tw4 - With: Private Physician - When: Upon discharge from the Emergency Department - Reason: Recheck today's complaints, Continuance of care, Re-evaluation by your physician Discharge Instructions: - Discharge Summary Sheet tw4 - Allergies, Adult tw4 - Insect Bite, Adult tw4 Forms: - Medication Reconciliation Form tw4 - Thank You Letter tw4 - Antibiotic Education tw4 - Prescription Opioid Use tw4 Prescriptions: - Medrol (Rafal) 4 mg Oral Tablets, Dose Pack - take 1 tablet by ORAL route as directed - follow package instructions; 1 tw4 packet; Refills: 0, Product Selection Permitted Signatures: Adam Paez RN RN Louis Madison MD MD 4 Stanton Byrne RN
--- NOTE | 2021-05-07 02:34 | ER ---
Nurse's Notes [facility] Name: Maribel Diaz Age: 40 yrs Sex: Female : 1980 Arrival Date: 05/07/2021 Time: 01:33 Bed 30 Private MD: Diagnosis: Insect bite (nonvenomous), right lower leg;Insect bite (nonvenomous), left lower leg Presentation: 05/07 01:41 Chief complaint: Patient states: bites on cher. 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 Coronavirus screen: Vaccine status: Patient reports being unvaccinated. Ebola Screen: Patient negative for fever greater than or equal to 101.5 degrees Fahrenheit, and additional compatible Ebola Virus Disease symptoms Patient denies exposure to infectious person. Patient denies travel to an Ebola-affected area in the 21 days before illness onset. No symptoms or risks identified at this time. Initial Sepsis Screen: Does the patient meet any 2 criteria? HR > 90 bpm. No. Patient's initial sepsis screen is negative. Does the patient have a suspected source of infection? No. Patient's initial sepsis screen is negative. Risk Assessment: Do you want to hurt yourself or someone else? Patient reports no desire to harm self or others. Onset of symptoms was May 07, 2021. 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 ankle; section; em - Immunization history:: Adult Immunizations up to date. - Social history:: Smoking status: Patient denies any tobacco usage or history of. Screenin:52 Abuse screen: Denies threats or abuse. Denies injuries from another. Nutritional wg screening: No deficits noted. Tuberculosis screening: No symptoms or risk factors identified. Fall Risk None identified. Assessment: 02:52 Respiratory: Airway Breath sounds are clear bilaterally. wg 02:52 Respiratory: Respiratory effort is. wg Vital Signs: 01:41 BP 121 / 89; Pulse 119; Resp 18; Temp 96.9; Pulse Ox 98% on R/A; Weight 104.33 kg; em Height 5 ft. 8 in. (172.72 cm); 02:30 BP 118 / 84; Pulse 104; Resp 18; Pulse Ox 99% on R/A; wg 01:41 Body Mass Index 34.97 (104.33 kg, 172.72 cm) em ED Course: 01:33 Patient arrived in ED. wm 01:45 Triage completed. em 01:45 Arm band placed on. em 01:50 Louis Madison MD is Attending Physician. tw4 02:48 Stanton Byrne, RN is Primary Nurse. wg 02:52 No provider procedures requiring assistance completed. wg Administered Medications: 02:30 Drug: Ketorolac 60 mg Route: IM; Site: right deltoid; wg 02:51 Follow up: Response: No adverse reaction wg 02:30 Drug: SOLU-Medrol (methylPREDNISolone sodium succinate) 125 mg Route: IM; Site: right wg deltoid; 02:51 Follow up: Response: No adverse reaction wg 02:30 Drug: Benadryl (diphenhydrAMINE) 12.5 mg Route: PO; wg 02:51 Follow up: Response: No adverse reaction wg Outcome: 02:34 Discharge ordered by . tw4 02:51 Discharged to home ambulatory. wg 02:51 Condition: stable 02:51 Discharge instructions given to Instructed on Demonstrated understanding of Prescriptions given X 1. 02:53 Patient left the ED. wg Signatures: Adam Paez RN RN Louis Madison MD MD tw4 Pearl Wooten Stanton Byrne RN
[2021-05-07] MEDS ORDERED: KETOROLAC 30 MG/ML INJ ONE (03:01)
[2021-05-07] MEDS ORDERED: METHYLPREDNISOLONE 125 MG INJ ONE (03:02)
[2021-05-07] MEDS ORDERED: DIPHENHYDRAMINE 12.5MG/5ML LIQ ONE (03:03)
[2021-05-07 03:12] VITALS: TEMP 96.9
[2021-05-07 03:14] VITALS: BP 118/84; O2SAT 99
== END 2021-05-07 02:53 | disposition home or self-care (01) ==
LOC: ER 01:29
DX: S80.862A Insect bite (nonvenomous), left lower leg, initial encounter (principal); S80.861A Insect bite (nonvenomous), right lower leg, initial encounter; Z88.8 Allergy status to other drugs, medicaments and biological substances
CPT/HCPCS: 96372; 99283; Q0163; J2930

== ENCOUNTER 2023-02-21 11:52 | Emergency (ER) | payer OTHER ==
--- OUTSIDE RECORDS SUMMARY | 2023-02-21 12:05 | XMS REPORT | Continuity of Care Document ---
:1980 Author Organization [facility] t Address [address] [place] [address] Care Team Providers Name Role Phone Asked, No Pcp Primary Care Physician Unavailable OSCAR SOLANO Attending Clinician Unavailable Oscar He Attending Clinician JOEL TAN Attending Clinician Unavailable BRAD ESCOBAR Attending Clinician Unavailable ROD PRADO Attending Clinician Unavailable STEFAN WHITFIELD Attending Clinician Unavailable Ambika Miranda MD Attending Clinician AMBIKA MIRANDA Attending Clinician Unavailable America Solis MD Attending Clinician Stefan Whitfield DO Attending Clinician Doctor Unassigned, [place] Attending Clinician Unavailable Khadijah Capps DO Attending Clinician Provider, [facility] Attending Clinician Unavailable Stella Gamboa Attending Clinician STELLA LOPEZ Attending Clinician Unavailable PHILLIP WAYNE Attending Clinician Unavailable Janene Li Attending Clinician Lucas Larson Attending Clinician Trish Long Attending Clinician SUSAN ULRICH Attending Clinician Unavailable OSCAR SOLANO Admitting Clinician Unavailable Payers Payer Name Policy Type Policy Number Effective Date Expiration Date S torie [facility] [id number] 2020 00:00:00 MEDICAID OF [place] [id number] 2020 00:00:00 Problems Condition Condition Condition Status Onset Resolution Last Treating Co mments Source Name Details Category Date Date Treatment Clinician Date 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 6-09 ity of 00:00: [place] [address] Medical Branch DDD DDD Disease Active Univers (degenerat (degenerat 3-13 it y of abdoul disc abdoul disc 00:00: [place] disease), disease), 00 Medi isha cervical cervical Branch Muscle Muscle Disease Active Univers spasms spasms 3-13 ity of 00:00: [place] [address] Medical Branch Chronic Chronic Disease Active Univers pain of pain of 3-13 ity of both both 00:00: [place] ankles ankles 00 Medical Branch History of History of Disease Active U nivers ankle ankle 3-13 ity of surgery surgery 00:00: [place] [facility] Polyarthra Polyarthra Disease Active U nivers lgia lgia 3-13 ity of 00:00: [place] [facility] Chronic Chronic Disease Active 2019- Univers pain pain 9-22 ity of syndrome syndrome 00:00: [place] [facility] Chronic Chronic Disease Active 2019- Univers depression depression 9-22 it y of 00:00: [place] [address] Medical Branch Anxiety Anxiety Disease Active 2019- Univers 9-22 ity of 00:00: [place] [address] Medical Branch JASON JASON Disease Active 2018- Univers positive positive 9-18 ity of 00:00: [place] [address] Medical Branch Gout Gout Disease Active Univers 9-18 ity of 00:00: [place] 00 Medical Branch Osteoarthr Osteoarthr Disease Active U nivers itis of itis of 9-18 ity of multiple multiple 00:00: [place] joints joints 00 Medical Branch Morbid Morbid Disease Active Univers obesity obesity 3-08 [place] of with body [place] body [place] mass [place] mass index 00 Me dical of of Branch 40.0-49.9 40.0-49.9 Suicidal Suicidal Disease Active Unive rs overdose overdose 3-08 ity of 00:00: [place] 00 Medical Branch Morbid Morbid Disease Active Univers obesity obesity 3-08 it[place] of with body [place] body [place] mass [place] mass index 00 Me dical of of Branch 40.0-49.9 40.0-49.9 Suicidal Suicidal Disease Active Unive rs overdose overdose 3-08 ity of 00:00: [place] [address] Medical Branch Suicide Suicide Disease Active Univers attempt attempt 3-07 ity of 00:00: [address] Allergies, Adverse Reactions, Alerts Allergy Allergy Status Severity Reaction(s) Onset Inactive Treating Comm ents Source Name Type Date Date Clinician NO KNOWN Drug Active Univers ALLERGIE Class ity of S [facility] Social History Social Habit Start Date Stop Date Quantity Comments Source Exposure to Not sure [place] of SARS-CoV-2 (event) [facility] History of tobacco Smokes tobacco [facility] Sexual [facility] Alcohol intake 2021-07-10 2021-07-10 Current drinker Unive rsity of 00:00:00 00:00:00 of alcohol [facility] (finding) Branch History of Social 2019-04-21 2019-04-[address] function 00:00:00 00:00:00 Hospital Tobacco Comment 2018-10-30 2018-10-30 "Smokes Vape" Univer sity of 00:00:00 00:00:00 [facility] Tobacco use and 2018-10-30 2018-10-30 Never used Universit y of exposure 00:00:00 00:00:00 [facility] Sex Assigned At [birth year] [facility] 00:00:00 00:00:00 Hospital Smoking Status Start Date Stop Date Source Current every day smoker 2018-11-16 00:00:00 [facility] Current some day smoker 2018-10-30 00:00:00 [facility] Medical Branch Medications Ordered Filled Start Stop Current Ordering Indication Dosage Frequency Signature Comments Components Source Medication Medication Date Date Medication? Clinician (SIG) Name Name LORazepam 2020-08- No 1mg 1 mg, Slow U nivers (ATIVAN) 09-10 IV Push, ity of injection 1 01:00: 02:41 ONCE, 1 [place] mg 00 :[place] dose, On Medical Tue Branch 07/10/21 at 1900, STAT ondansetron 2020-08- No 4mg 4 mg, Slow Univers (ZOFRAN 09-10 IV Push, ity of (PF)) 01:00: 02:21 ONCE, 1 [place] injection 4 00 :00 dose, On Medi isha mg e Branch 07/10/21 at 1900, [place] ketorolac 2020-08- No 15mg 15 mg, Unive rs (TORADOL) 09-10 Slow IV ity of injection 01:00: 02:25 Push, [place] 15 mg 00 :00 ONCE, 1 Medical dose, On Branch e 07/10/21 at 1900, MOODY
Fa culty member approving Restricted medication : SOLANOOSCAR R famotidine 2020-08- No 20mg 20 mg, [facility] ers (PEPCID AC) 09-10 Oral, ity of tablet 20 01:00: 02:21 ONCE, 1 [place] mg 00 :[place] dose, On Medical Tue Branch 07/10/21 at 1900, [place] dexamethaso 2020-08- No 10mg 10 mg, IV Univers ne 09-10 Push, ity of (DECADRON 01:00: 02:25 ONCE, 1 [place] PHOSPHATE[place] 00 :00 dose, On Medic al injection Tue Branch 10 mg 07/10/21 at 1900, STAT ondansetron 0 Yes [id number] 4mg Take 1 U nivers 4 mg 7-20 tablet by ity of disintegrat 00:00: mouth [place] ing tablet 00 every 8 Medica l (eight) Branch hours as needed for Nausea and Vomiting (N/V). Tramadol Yes [id number] 100mg Take 1 Univer s 100 mg 7-20 tablet by ity of tablet 00:00: mouth [place] 00 daily. Medical Indication Branch s: acute pain ketorolac Yes [id number] 10mg Take 1 U nivers 10 mg 4-14 tablet by ity of tablet 00:00: mouth [place] 00 every 6 Medical (six) Branch hours as needed for Pain (scale 7-10). cyclobenzap Yes [id number] 10mg Take 1 Univers rine 10 mg 3-03 tablet by ity of tablet 00:00: mouth 3 00 (three) Medical times Branch daily as needed for Muscle Spasms. REFILLS SHOULD COME FROM PAIN MANAGEMENT cyclobenzap Yes [id number] 10mg Take 1 Univers rine 10 mg 3-03 tablet by ity of tablet 00:00: mouth 3 [place] 00 (three) Medical times Branch daily as needed for Muscle Spasms. REFILLS SHOULD COME FROM PAIN MANAGEMENT cyclobenzap Yes [id number] 10mg Take 1 Univers rine 10 mg 3-03 tablet by ity of tablet 00:00: mouth 3 00 (three) Medical times Branch daily as needed for Muscle Spasms. REFILLS SHOULD COME FROM PAIN MANAGEMENT cyclobenzap Yes [id number] 10mg Take 1 Univers rine 10 mg 3-03 tablet by ity of tablet 00:00: mouth 3 00 (three) Medical times Branch daily as needed for Muscle Spasms. REFILLS SHOULD COME FROM PAIN MANAGEMENT cyclobenzap 2020- No [id number] 10mg Take 1 Univers rine 10 mg 3-01 03-03 tablet by ity of tablet 00:00: 00:00 mouth 3 [place] 00 :00 (three) Medical times Branch daily as needed for Muscle Spasms. cyclobenzap 2020- No [id number] 10mg Take 1 Univers rine 10 mg 3-01 03-03 tablet by ity of tablet 00:00: 00:00 mouth 3 [place] 00 :00 (three) Medical times Branch daily as needed for Muscle Spasms. LORazepam 2020- No 2mg 2 mg, Slow U nivers (ATIVAN) 2- IV Push, ity of injection 2 00:00: 23:01 ONCE, 1 [place] mg 00 :[place] dose, Tu Medical 10/17/20 at Branch 1800, STAT NaCl 0.9% No 1000mL at 999 Uni vers (NS) bolus 10-17 02-24 mL/hr, ity of infusion 23:00: 00:03 1,000 mL, Amandeep as 1,000 mL 00 :00 IV Medical Infusion, [place] ONCE, 1 dose, [facility] 10/17/20 at 1700, [place] cyclobenzap Yes [id number] 10mg Take 1 Univers rine 10 mg 10-17 4 tablet by ity of tablet 00:00: mouth 3 [place] 00 (three) Medical times [place] daily as needed for Muscle Spasms. cyclobenzap 2020- No [id number] 10mg Take 1 Univers rine 10 mg 10-17 03- 4 tablet by ity of tablet 00:00: 00:00 mouth 3 [place] 00 :00 (three) Medical times [place] daily as needed for Muscle Spasms. FENTanyl PF No 50ug 50 mcg, Un sandra (SUBLIMAZE 09-16 Slow IV ity o f (PF)) 00:15: 23:16 Push, [place] injection 00 :00 ONCE, 1 Medical 50 mcg dose, [facility] 09/15/20 at 1815, Routine iohexol 2020- No 120mL 120 mL, Unive rs (OMNIPAQUE 09-15 Intravenou it y of 350 22:45: 22:35 s, ONCE, 1 [place] BULK-150 00 :00 dose, Fri Medica l mL) 09/15/20 at [place] injection 1645, 120 mL Routine ondansetron 2020- No 4mg 4 mg, Slow Univers (ZOFRAN 09-15 IV Push, ity of (PF)) 22:15: 21:19 ONCE, 1 [place] injection 4 00 :00 dose, Fri Med ical mg 09/15/20 at Branch 1615, [place] LORazepam 2020- No 1mg 1 mg, Slow U nivers (ATIVAN) 09-15 IV Push, ity of injection 1 22:15: 21:21 ONCE, 1 [place] mg 00 :[place] dose, Fri Medical 09/15/20 at Branch 1615, STAT diphenhydrA 2020- No 25mg 25 mg, Uni vers MINE 09-15 Slow IV ity of (BENADRYL) 22:15: 21:20 Push, [place] injection 00 :00 ONCE, 1 Medical 25 mg dose, Fri Branch 09/15/20 at 1615, STAT ketorolac 2020- No 15mg 15 mg, Unive rs (TORADOL) 09-15 Slow IV ity of injection 22:15: 21:21 Push, [place] 15 mg 00 :00 ONCE, 1 Medical dose, Fri Branch 09/15/20 at 1615, MOODY
Fa culty member approving Restricted medication : SOLANOOSCAR NaCl 0.9% No 1000mL at 999 Uni vers (NS) bolus 09-15 mL/hr, ity of infusion 21:15: 23:19 1,000 mL, [place] as 1,000 mL 00 :00 IV Medical Infusion, Branch ONCE, 1 dose, 09/15/20 at 1515, [place] pantoprazol Yes [id number] 20mg Take 1 Univers e 20 mg EC 1-22 tablet by ity of tablet 00:00: mouth [place] 00 daily. Medical Branch dicyclomine Yes [id number] 10mg Take 1 Univers 10 mg 1-22 capsule by ity of capsule 00:00: mouth 4 [place] 00 (four) Medical times Branch daily. pantoprazol Yes [id number] 20mg Take 1 Univers e 20 mg EC 1-22 tablet by ity of tablet 00:00: mouth [place] 00 daily. Medical Branch dicyclomine Yes [id number] 10mg Take 1 Univers 10 mg 1-22 capsule by ity of capsule 00:00: mouth 4 [place] 00 (four) Medical times Branch daily. pantoprazol Yes [id number] 20mg Take 1 Univers e 20 mg EC 1-22 tablet by ity of tablet 00:00: mouth [place] 00 daily. Medical Branch dicyclomine Yes [id number] 10mg Take 1 Univers 10 mg 1-22 capsule by ity of capsule 00:00: mouth (four) Medical times Branch daily. pantoprazol 2020-0 Yes [id number] 20mg Take 1 Univers e 20 mg EC 1-22 tablet by ity of tablet 00:00: mouth 00 daily. Medical Branch dicyclomine 2020-0 Yes [id number] 10mg Take 1 Univers 10 mg 1-22 capsule by ity of capsule 00:00: mouth (four) Medical times Branch daily. pantoprazol 2020-0 Yes [id number] 20mg Take 1 Univers e 20 mg EC 1-22 tablet by ity of tablet 00:00: mouth 00 daily. Medical Branch dicyclomine 0 Yes [id number] 10mg Take 1 Univers 10 mg 1-22 capsule by ity of capsule 00:00: mouth (four) Medical times Branch daily. pantoprazol 2020-0 Yes [id number] 20mg Take 1 Univers e 20 mg EC 1-22 tablet by ity of tablet 00:00: mouth 00 daily. Medical Branch dicyclomine 0 Yes [id number] 10mg Take 1 Univers 10 mg 1-22 capsule by ity of capsule 00:00: mouth (four) Medical times Branch daily. pantoprazol 2020-0 Yes [id number] 20mg Take 1 Univers e 20 mg EC 1-22 tablet by ity of tablet 00:00: mouth 00 daily. Medical Branch dicyclomine 0 Yes [id number] 10mg Take 1 Univers 10 mg 1-22 capsule by ity of capsule 00:00: mouth (four) Medical times Branch daily. pantoprazol 2020-0 Yes [id number] 20mg Take 1 Univers e 20 mg EC 1-22 tablet by ity of tablet 00:00: mouth 00 daily. Medical Branch dicyclomine 2020-0 Yes [id number] 10mg Take 1 Univers 10 mg 1-22 capsule by ity of capsule 00:00: mouth (four) Medical times Branch daily. pantoprazol 2020-0 Yes [id number] 20mg Take 1 Univers e 20 mg EC 1-22 tablet by ity of tablet 00:00: mouth 00 daily. Medical Branch dicyclomine 2021-0 Yes [id number] 10mg Take 1 Univers 10 mg 1-22 capsule by ity of capsule 00:00: mouth 4 [place] 00 (four) Medical times Branch daily. amphetamine 2019-08 Yes TAKE 1 Univ ers -dextroamph 2-27 CAPSULE BY it y of etamine 25 00:00: MOUTH IN [place] mg 24 hr 00 THE Medical capsule MORNING Branch amphetamine 2019-08 Yes TAKE 1 Univ ers -dextroamph 2-27 CAPSULE BY it y of etamine 25 00:00: MOUTH IN [place] mg 24 hr 00 THE Medical capsule MORNING Branch amphetamine 2019-08 Yes TAKE 1 Univ ers -dextroamph 2-27 CAPSULE BY it y of etamine 25 00:00: MOUTH IN [place] mg 24 hr 00 THE Medical capsule MORNING Branch amphetamine 2019-08 Yes TAKE 1 Univ ers -dextroamph 2-27 CAPSULE BY it y of etamine 25 00:00: MOUTH IN [place] mg 24 hr 00 THE Medical capsule MORNING Branch ondansetron 2019-08 Yes 8mg Take 1 Univers (ZOFRAN 1-14 tablet by ity of ODT) 8 mg 00:00: mouth [place] disintegrat 00 every 8 Medic al ing tablet (eight) Branch hours as needed for Nausea and Vomiting (N/V). ondansetron 2019-08 Yes 8mg Take 1 Univers (ZOFRAN 1-14 tablet by ity of ODT) 8 mg 00:00: mouth [place] disintegrat 00 every 8 Medic al ing tablet (eight) Branch hours as needed for Nausea and Vomiting (N/V). ondansetron 2019-08 Yes 8mg Take 1 Univers (ZOFRAN 1-14 tablet by ity of ODT) 8 mg 00:00: mouth [place] disintegrat 00 every 8 Medic al ing tablet (eight) Branch hours as needed for Nausea and Vomiting (N/V). ondansetron 2019-08 Yes 8mg Take 1 Univers (ZOFRAN 1-14 tablet by ity of ODT) 8 mg 00:00: mouth [place] disintegrat 00 every 8 Medic al ing tablet (eight) Branch hours as needed for Nausea and Vomiting (N/V). ondansetron 2019-08 Yes 8mg Take 1 Univers (ZOFRAN 1-14 tablet by ity of ODT) 8 mg 00:00: mouth [place] disintegrat 00 every 8 Medic al ing tablet (eight) Branch hours as needed for Nausea and Vomiting (N/V). ondansetron 2020- Yes [id number] 8mg Take 1 Univers (ZOFRAN 1-14 tablet by ity of ODT) 8 mg 00:00: mouth [place] disintegrat 00 every 8 Medic al ing tablet (eight) Branch hours as needed for Nausea and Vomiting (N/V). ondansetron 2020- Yes [id number] 8mg Take 1 Univers (ZOFRAN 1-14 tablet by ity of ODT) 8 mg 00:00: mouth [place] disintegrat 00 every 8 Medic al ing tablet (eight) Branch hours as needed for Nausea and Vomiting (N/V). ondansetron 2020- Yes [id number] 8mg Take 1 Univers (ZOFRAN 1-14 tablet by ity of ODT) 8 mg 00:00: mouth [place] disintegrat 00 every 8 Medic al ing tablet (eight) Branch hours as needed for Nausea and Vomiting (N/V). ondansetron 2019- Yes [id number] 8mg Take 1 Univers (ZOFRAN 1-14 tablet by ity of ODT) 8 mg 00:00: mouth [place] disintegrat 00 every 8 Medic al ing tablet (eight) Branch hours as needed for Nausea and Vomiting (N/V). OMEPRAZOLE 2019-08 2020- No Take by Uni vers ORAL 1-05 11-05 mouth. ity of 21:03: 00:00 [place] 33 :00 Medical Branch azelastine 2019- Yes [id number] 1{spray Use 1 Univers 137 mcg 1-05 } [place] in ity of (0.1 %) 00:00: each [place] nasal spray 00 nostril 2 Med ical (two) Branch times daily. Use in each nostril as directed azelastine 2019- Yes [id number] 1{spray Use 1 Univers 137 mcg 1-05 } [place] in ity of (0.1 %) 00:00: each [place] nasal spray 00 nostril 2 Med ical (two) Branch times daily. Use in each nostril as directed azelastine 2020- Yes [id number] 1{spray Use 1 Univers 137 mcg 1-05 } [place] in ity of (0.1 %) 00:00: each [place] nasal spray 00 nostril 2 Med ical (two) Branch times daily. Use in each nostril as directed azelastine 2020-1 Yes [id number] 1{spray Use 1 Univers 137 mcg 1-05 } [place] in ity of (0.1 %) 00:00: each [place] nasal spray 00 nostril 2 Med ical (two) Branch times daily. Use in each nostril as directed azelastine 2020-1 Yes [id number] 1{spray Use 1 Univers 137 mcg 1-05 } [place] in ity of (0.1 %) 00:00: each [place] nasal spray 00 nostril 2 Med ical (two) Branch times daily. Use in each nostril as directed azelastine 2020-1 Yes [id number] 1{spray Use 1 Univers 137 mcg 1-05 } [place] in ity of (0.1 %) 00:00: each [place] nasal spray 00 nostril 2 Med ical (two) Branch times daily. Use in each nostril as directed azelastine 2020-1 Yes [id number] 1{spray Use 1 Univers 137 mcg 1-05 } [place] in ity of (0.1 %) 00:00: each [place] nasal spray 00 nostril 2 Med ical (two) Branch times daily. Use in each nostril as directed azelastine 2020-1 Yes [id number] 1{spray Use 1 Univers 137 mcg 1-05 } [place] in ity of (0.1 %) 00:00: each [place] nasal spray 00 nostril 2 Med ical (two) Branch times daily. Use in each nostril as directed azelastine 2020-1 Yes [id number] 1{spray Use 1 Univers 137 mcg 1-05 } [place] in ity of (0.1 %) 00:00: each [place] nasal spray 00 nostril 2 Med ical (two) Branch times daily. Use in each nostril as directed azelastine 2020-1 Yes [id number] 1{spray Use 1 Univers 137 mcg 1-05 } [place] in ity of (0.1 %) 00:00: each [place] nasal spray 00 nostril 2 Med ical (two) Branch times daily. Use in each nostril as directed azelastine 2020-1 Yes [id number] 1{spray Use 1 Univers 137 mcg 1-05 } [place] in ity of (0.1 %) 00:00: each [place] nasal spray 00 nostril 2 Med ical (two) Branch times daily. Use in each nostril as directed cefUROXime 2019-08- No [id number] 250mg Take 1 Univers 250 mg 08-2916 tablet by ity of tablet 00:00: 05:59 mouth 2 [place] 00 :00 (two) Medical times [place] daily for 10 days. cefUROXime 2019-08- No [id number] 250mg Take 1 Univers 250 mg 08-29 tablet by ity of tablet 00:00: 05:59 mouth 2 [place] 00 :00 (two) Medical times [place] daily for 10 days. proMETHazin 2019-08- No 12.5mg 12.5 mg, Univers e 06-02 IV ity of (PHENERGAN) 03:15: 03:15 [facility] [place] 12.5 mg in 00 :00 ONCE, 1 Medica l NaCl 0.9% dose, [facility] h (NS) [facility] morpHINE 2019-08 No 4mg 4 mg, Slow Un sandra injection 4 06-02 IV Push, ity of mg 03:00: 02:09 ONCE, 1 [place] 00 :00 dose, [facility] Medical 06/01/20 at Branch 2200, STAT ketorolac 2019-08- No 30mg 30 mg, Unive rs (TORADOL) 006-02 Slow IV ity of injection 02:00: 00:51 Push, [place] 30 mg 00 :00 ONCE, 1 Medical dose, [facility] 06/01/20 at 2100, MOODY
Fa [facility] member approving Restricted medication : JANENE MCMILLAN iohexol 2019-08- No 120mL 120 mL, Unive rs (OMNIPAQUE 06-02 Intravenou it y of 350 01:45: 01:10 s, ONCE, 1 [place] BULK-150 00 :00 dose, [place] Medica l mL) 06/01/20 at [place] injection 2045, 120 mL Routine ondansetron 2019-08- No 4mg 4 mg, Slow Univers (ZOFRAN 06-02 IV Push, ity of (PF)) 00:00: 00:10 ONCE, 1 [place] injection 4 00 :00 dose, [place] Med ical mg 06/01/20 at Branch 1900, [place] morpHINE 2019- 2020- No 4mg 4 mg, Slow Un sandra injection 4 0-09 06-02 IV Push, ity of mg 00:00: 00:10 ONCE, 1 [place] 00 :00 dose, [place] Medical 06/01/20 at Branch 1900, STAT traMADoL 50 2019-08 Yes [id number] 50mg Take 1 Univ ers mg tablet 0-08 tablet by ity o f 00:00: mouth [place] 00 every 6 Medical (six) Branch hours as needed for Pain (scale 4-6). Indication s: acute pain ondansetron 2019-08 Yes [id number] 8mg Take 1 Univers (ZOFRAN 0-08 tablet by ity of ODT) 8 mg 00:00: mouth [place] disintegrat 00 every 8 Medic al ing tablet (eight) Branch hours as needed for Nausea and Vomiting (N/V). traMADoL 50 2019-08 Yes [id number] 50mg Take 1 Univ ers mg tablet 0-08 tablet by ity o f 00:00: mouth [place] 00 every 6 Medical (six) Branch hours as needed for Pain (scale 4-6). Indication s: acute pain ondansetron 2019-08 Yes [id number] 8mg Take 1 Univers (ZOFRAN 0-08 tablet by ity of ODT) 8 mg 00:00: mouth [place] disintegrat 00 every 8 Medic al ing tablet (eight) Branch hours as needed for Nausea and Vomiting (N/V). traMADoL 50 2019-08 Yes [id number] 50mg Take 1 Univ ers mg tablet 0-08 tablet by ity o f 00:00: mouth [place] 00 every 6 Medical (six) Branch hours as needed for Pain (scale 4-6). Indication s: acute pain ondansetron 2019-08 Yes [id number] 8mg Take 1 Univers (ZOFRAN 0-08 tablet by ity of ODT) 8 mg 00:00: mouth [place] disintegrat 00 every 8 Medic al ing tablet (eight) Branch hours as needed for Nausea and Vomiting (N/V). traMADoL 50 2019-08 Yes [id number] 50mg Take 1 Univ ers mg tablet 0-08 tablet by ity o f 00:00: mouth [place] 00 every 6 Medical (six) Branch hours as needed for Pain (scale 4-6). Indication s: acute pain traMADoL 50 2019-08 Yes [id number] 50mg Take 1 Univ ers mg tablet 0-08 tablet by ity o f 00:00: mouth [place] 00 every 6 Medical (six) Branch hours as needed for Pain (scale 4-6). Indication s: acute pain traMADoL 50 2019-08 Yes [id number] 50mg Take 1 Univ ers mg tablet 0-08 tablet by ity o f 00:00: mouth [place] 00 every 6 Medical (six) Branch hours as needed for Pain (scale 4-6). Indication s: acute pain traMADoL 50 2019-08 Yes [id number] 50mg Take 1 Univ ers mg tablet 0-08 tablet by ity o f 00:00: mouth [place] 00 every 6 Medical (six) Branch hours as needed for Pain (scale 4-6). Indication s: acute pain traMADoL 50 2019-08 Yes [id number] 50mg Take 1 Univ ers mg tablet 0-08 tablet by ity o f 00:00: mouth [place] 00 every 6 Medical (six) Branch hours as needed for Pain (scale 4-6). Indication s: acute pain traMADoL 50 2019-08- No [id number] 50mg Take 1 Uni vers mg tablet 0-08 03-01 tablet by ity of 00:00: 00:00 mouth [place] 00 :00 every 6 Medical (six) Branch hours as needed for Pain (scale 4-6). Indication s: acute pain ondansetron 2019-08- No [id number] 8mg Take 1 Univers (ZOFRAN 0-08 11-14 tablet by ity of ODT) 8 mg 00:00: 00:00 mouth [place] disintegrat 00 :00 every 8 Medic al ing tablet (eight) Branch hours as needed for Nausea and Vomiting (N/V). ketorolac 2019- No 60mg 60 mg, Unive rs (TORADOL) 05-16 Intramuscu ity of injection 03:15: 02:12 [place], ONCE, [place] 60 mg 00 :00 1 dose, Medical Mon Branch 05/15/20 at 2215, MOODY
Fa culty member approving Restricted medication : Lucas JEFFRIES HYDROcodone 2019- No 1{tbl} 1 tablet, Univers -acetaminop 05-16 Oral, ity of hen (NORCO) 02:15: 01:13 ONCE, 1 [place] 10-325 mg 00 :00 dose, Mon Medic al tablet 1 05/15/20 at [facility] h tablet 2114, Routine PARoxetine 2020-0 Yes 30mg Take 30 mg U nivers 30 mg 9-22 by mouth ity of tablet 00:16: daily. [place] [address] Medical Branch QUEtiapine 2020-0 Yes 100mg Take 100 Un sandra 100 mg 9-22 mg by ity of tablet 00:16: mouth [place] daily. Medical Branch OMEPRAZOLE 2020-0 Yes Take by [facility] ers ORAL 9-22 mouth. ity of 00:16: [place] [address] Medical Branch PARoxetine 2020-0 Yes 30mg Take 30 mg U nivers 30 mg 9-22 by mouth ity of tablet 00:16: daily. [place] [address] Medical Branch QUEtiapine 2020-0 Yes 100mg Take 100 Un sandra 100 mg 9-22 mg by ity of tablet 00:16: mouth daily. Medical Branch OMEPRAZOLE 2020-0 Yes Take by [facility] ers ORAL 9-22 mouth. ity of 00:16: [place] [address] Medical Branch PARoxetine 2020-0 Yes 30mg Take 30 mg U nivers 30 mg 9-22 by mouth ity of tablet 00:16: daily. [place] [address] Medical Branch QUEtiapine 2020-0 Yes 100mg Take 100 Un sandra 100 mg 9-22 mg by ity of tablet 00:16: mouth daily. Medical Branch OMEPRAZOLE 2020-0 Yes Take by [facility] ers ORAL 9-22 mouth. ity of 00:16: [place] [address] Medical Branch PARoxetine 2020-0 Yes 30mg Take 30 mg U nivers 30 mg 9-22 by mouth ity of tablet 00:16: daily. [place] [address] Medical Branch QUEtiapine 2020-0 Yes 100mg Take 100 Un sandra 100 mg 9-22 mg by ity of tablet 00:16: mouth [place] 28 daily. Medical Branch OMEPRAZOLE 2020-0 Yes Take by [facility] ers ORAL 9-22 mouth. ity of 00:16: [place] [address] Medical Branch PARoxetine 2020-0 Yes 30mg Take 30 mg U nivers 30 mg 9-22 by mouth ity of tablet 00:16: daily. [place] [address] Medical Branch QUEtiapine 2020-0 Yes 100mg Take 100 Un sandra 100 mg 9-22 mg by ity of tablet 00:16: mouth [place] daily. Medical Branch PARoxetine 2020-0 Yes 30mg Take 30 mg U nivers 30 mg 9-22 by mouth ity of tablet 00:16: daily. [place] [address] Medical Branch QUEtiapine 2020-0 Yes 100mg Take 100 Un sandra 100 mg 9-22 mg by ity of tablet 00:16: mouth [place] daily. Medical Branch PARoxetine 2020-0 Yes 30mg Take 30 mg U nivers 30 mg 9-22 by mouth ity of tablet 00:16: daily. [place] [address] Medical Branch QUEtiapine 2020-0 Yes 100mg Take 100 Un sandra 100 mg 9-22 mg by ity of tablet 00:16: mouth [place] daily. Medical Branch PARoxetine 2020-0 Yes 30mg Take 30 mg U nivers 30 mg 9-22 by mouth ity of tablet 00:16: daily. [place] [address] Medical Branch QUEtiapine 2020-0 Yes 100mg Take 100 Un sandra 100 mg 9-22 mg by ity of tablet 00:16: mouth [place] daily. Medical Branch PARoxetine 2020-0 Yes 30mg Take 30 mg U nivers 30 mg 9-22 by mouth ity of tablet 00:16: daily. [place] [address] Medical Branch QUEtiapine 2020-0 Yes 100mg Take 100 Un sandra 100 mg 9-22 mg by ity of tablet 00:16: mouth [place] daily. Medical Branch PARoxetine 2020-0 Yes 30mg Take 30 mg U nivers 30 mg 9-22 by mouth ity of tablet 00:16: daily. [place] [address] Medical Branch QUEtiapine 2020-0 Yes 100mg Take 100 Un sandra 100 mg 9-22 mg by ity of tablet 00:16: mouth [place] daily. Medical Branch PARoxetine 2020-0 Yes 30mg Take 30 mg U nivers 30 mg 9-22 by mouth ity of tablet 00:16: daily. [place] [address] Medical Branch QUEtiapine 2020-0 Yes 100mg Take 100 Un sandra 100 mg 9-22 mg by ity of tablet 00:16: mouth [place] 28 daily. Medical Branch PARoxetine 2020-0 Yes 30mg Take 30 mg U nivers 30 mg 9-22 by mouth ity of tablet 00:16: daily. [place] [address] Medical Branch QUEtiapine 2020-0 Yes 100mg Take 100 Un sand[place] 100 mg 9-22 mg by ity of tablet 00:16: mouth 28 daily. Medical Branch PARoxetine 2020-0 Yes 30mg Take 30 mg U nivers 30 mg 9-22 by mouth ity of tablet 00:16: daily. [place] [address] Medical Branch QUEtiapine 2020-0 Yes 100mg Take 100 Un [place] 100 mg 9-22 mg by ity of tablet 00:16: mouth 28 daily. Medical Branch PARoxetine 2020-0 Yes 30mg Take 30 mg U nivers 30 mg 9-22 by mouth ity of tablet 00:16: daily. [place] [address] Medical Branch QUEtiapine 2020-0 Yes 100mg Take 100 Un [place] 100 mg 9-22 mg by ity of tablet 00:16: mouth daily. Medical Branch escitalopra 2019-0 2020- No 20mg Take 20 mg [facility] m oxalate 05-15 by mouth ity o f (LEXAPRO) 20:41: 00:00 daily. [place] 20 mg 34 :00 Medical tablet Branch estrogens, 2020-0 2020- No 1{tbl} Take 1 Un sand[facility] conjugated, 05-15 tablet by it y of -methyltest 20:41: 00:00 [place] osterone 28 :00 daily. Medical 1.25-2.5 mg Branch per tablet clonazePAM 2019-0 2020- No 1mg Take 1 mg U nivers 1 mg tablet 05-15 by mouth 3 i ty of 20:41: 00:00 (three) [place] 15 :00 times Medical daily. Branch PARoxetine 2019-0 Yes 30mg Take 30 mg U nivers 30 mg -21 by mouth ity of tablet 19:16: daily. [place] [address] Medical Branch QUEtiapine 2020-0 Yes 100mg Take 100 Un [place] 100 mg 9-21 mg by ity of tablet 19:16: mouth daily. Medical Branch clonazePAM 2020-0 Yes .5mg Take 0.5-1 U nivers 1 mg tablet -21 tablets by it y of 00:00: mouth 2 [place] 00 (two) Medical times Branch daily as needed. ondansetron 2020-0 Yes [id number] 4mg Take 1 [facility] (ZOFRAN -21 tablet by ity of ODT) 4 mg 00:00: mouth [place] disintegrat 00 every 8 Medic al ing tablet (eight) Branch hours as needed for Nausea and Vomiting (N/V). acetaminoph 2020-0 Yes [id number] 1{tbl} Take 1 Un sandra en-codeine 9-21 tablet by ity of 300-30 mg 00:00: mouth [place] tablet 00 every 4 Medical (four) Branch hours as needed for Pain (scale 4-6). Indication s: acute pain ibuprofen 2020-0 Yes [id number] 600mg Take 1 [facility] 600 mg 9-21 9108 tablet by ity of tablet 00:00: mouth [place] 00 every 6 Medical (six) Branch hours as needed for Pain (scale 4-6). clonazePAM 2020-0 Yes .5mg Take 0.5-1 U nivers 1 mg tablet 9-21 tablets by it y of 00:00: mouth 2 [place] 00 (two) Medical times Branch daily as needed. ondansetron 2020-0 Yes [id number] 4mg Take 1 [facility] (ZOFRAN 9-21 tablet by ity of ODT) 4 mg 00:00: mouth [place] disintegrat 00 every 8 Medic al ing tablet (eight) Branch hours as needed for Nausea and Vomiting (N/V). clonazePAM 2020-0 Yes .5mg Take 0.5-1 U nivers 1 mg tablet 9-21 tablets by it y of 00:00: mouth 2 [place] 00 (two) Medical times Branch daily as needed. acetaminoph 2020-0 Yes [id number] 1{tbl} Take 1 Un sand[facility] en-codeine 9-21 tablet by ity of 300-30 mg 00:00: mouth [place] tablet 00 every 4 Medical (four) Branch hours as needed for Pain (scale 4-6). Indication s: acute pain ibuprofen 2020-0 Yes [id number] 600mg Take 1 [facility] 600 mg 9-21 9108 tablet by ity of tablet 00:00: mouth [place] 00 every 6 Medical (six) Branch hours as needed for Pain (scale 4-6). clonazePAM 2020-0 Yes .5mg Take 0.5-1 U nivers 1 mg tablet 9-21 tablets by it y of 00:00: mouth 2 [place] 00 (two) Medical times Branch daily as needed. acetaminoph 2020-0 Yes [id number] 1{tbl} Take 1 Un [facility] en-codeine 9-21 tablet by ity of 300-30 mg 00:00: mouth [place] tablet 00 every 4 Medical (four) Branch hours as needed for Pain (scale 4-6). Indication s: acute pain ibuprofen 2020-0 Yes [id number] 600mg Take 1 [facility] 600 mg 9-21 9108 tablet by ity of tablet 00:00: mouth [place] 00 every 6 Medical (six) Branch hours as needed for Pain (scale 4-6). clonazePAM 2020-0 Yes .5mg Take 0.5-1 U nivers 1 mg tablet 9-21 tablets by it y of 00:00: mouth 2 [place] 00 (two) Medical times Branch daily as needed. acetaminoph 2020-0 Yes [id number] 1{tbl} Take 1 Un sand[facility] en-codeine 9-21 tablet by ity of 300-30 mg 00:00: mouth [place] tablet 00 every 4 Medical (four) Branch hours as needed for Pain (scale 4-6). Indication s: acute pain ibuprofen 2020-0 Yes [id number] 600mg Take 1 [facility] 600 mg 9-21 9108 tablet by ity of tablet 00:00: mouth [place] 00 every 6 Medical (six) Branch hours as needed for Pain (scale 4-6). clonazePAM 2020-0 Yes .5mg Take 0.5-1 U nivers 1 mg tablet 9-21 tablets by it y of 00:00: mouth 2 [place] 00 (two) Medical times Branch daily as needed. acetaminoph 2020-0 Yes 4647 1{tbl} Take 1 Un [facility] en-codeine 9-21 tablet by ity of 300-30 mg 00:00: mouth [place] tablet 00 every 4 Medical (four) Branch hours as needed for Pain (scale 4-6). Indication s: acute pain ibuprofen 2020-0 Yes [id number] 600mg Take 1 [facility] 600 mg 9-21 9108 tablet by ity of tablet 00:00: mouth [place] 00 every 6 Medical (six) Branch hours as needed for Pain (scale 4-6). clonazePAM 2020-0 Yes .5mg Take 0.5-1 U nivers 1 mg tablet 9-21 tablets by it y of 00:00: mouth 2 [place] 00 (two) Medical times Branch daily as needed. acetaminoph 2020-0 Yes 4647 1{tbl} Take 1 Un [facility] en-codeine 9-21 tablet by ity of 300-30 mg 00:00: mouth [place] tablet 00 every 4 Medical (four) Branch hours as needed for Pain (scale 4-6). Indication s: acute pain ibuprofen 2020-0 Yes [id number] 600mg Take 1 [facility] 600 mg 9-21 9108 tablet by ity of tablet 00:00: mouth [place] 00 every 6 Medical (six) Branch hours as needed for Pain (scale 4-6). clonazePAM 2020-0 Yes .5mg Take 0.5-1 U nivers 1 mg tablet 9-21 tablets by it y of 00:00: mouth 2 [place] 00 (two) Medical times Branch daily as needed. acetaminoph 2020-0 Yes 4647 1{tbl} Take 1 Un [facility] en-codeine 9-21 tablet by ity of 300-30 mg 00:00: mouth [place] tablet 00 every 4 Medical (four) Branch hours as needed for Pain (scale 4-6). Indication s: acute pain ibuprofen 2020-0 Yes [id number] 600mg Take 1 [facility] 600 mg 9-21 9108 tablet by ity of tablet 00:00: mouth [place] 00 every 6 Medical (six) Branch hours as needed for Pain (scale 4-6). clonazePAM 2020-0 Yes .5mg Take 0.5-1 U nivers 1 mg tablet 9-21 tablets by it y of 00:00: mouth 2 [place] 00 (two) Medical times Branch daily as needed. acetaminoph 2020-0 Yes 4647 1{tbl} Take 1 Un [facility] en-codeine 9-21 tablet by ity of 300-30 mg 00:00: mouth [place] tablet 00 every 4 Medical (four) Branch hours as needed for Pain (scale 4-6). Indication s: acute pain ibuprofen 2020-0 Yes [id number] 600mg Take 1 [facility] 600 mg 9-21 9108 tablet by ity of tablet 00:00: mouth [place] 00 every 6 Medical (six) Branch hours as needed for Pain (scale 4-6). clonazePAM 2020-0 Yes .5mg Take 0.5-1 U nivers 1 mg tablet 9-21 tablets by it y of 00:00: mouth 2 [place] 00 (two) Medical times Branch daily as needed. acetaminoph 2020-0 Yes 4647 1{tbl} Take 1 Un sand[facility] en-codeine 9-21 tablet by ity of 300-30 mg 00:00: mouth [place] tablet 00 every 4 Medical (four) Branch hours as needed for Pain (scale 4-6). Indication s: acute pain ibuprofen 2020-0 Yes [id number] 600mg Take 1 [facility] 600 mg 9-21 9108 tablet by ity of tablet 00:00: mouth [place] 00 every 6 Medical (six) Branch hours as needed for Pain (scale 4-6). clonazePAM 2020-0 Yes .5mg Take 0.5-1 U nivers 1 mg tablet 9-21 tablets by it y of 00:00: mouth 2 [place] 00 (two) Medical times Branch daily as needed. acetaminoph 2020-0 Yes 4647 1{tbl} Take 1 Un [facility] en-codeine 9-21 tablet by ity of 300-30 mg 00:00: mouth [place] tablet 00 every 4 Medical (four) Branch hours as needed for Pain (scale 4-6). Indication s: acute pain ibuprofen 2020-0 Yes [id number] 600mg Take 1 [facility] 600 mg 9-21 9108 tablet by ity of tablet 00:00: mouth [place] 00 every 6 Medical (six) Branch hours as needed for Pain (scale 4-6). clonazePAM 2020-0 Yes .5mg Take 0.5-1 U nivers 1 mg tablet 9-21 tablets by it y of 00:00: mouth 2 [place] 00 (two) Medical times Branch daily as needed. acetaminoph 2020-0 Yes 4647 1{tbl} Take 1 Un sandra en-codeine 9-21 tablet by ity of 300-30 mg 00:00: mouth [place] tablet 00 every 4 Medical (four) Branch hours as needed for Pain (scale 4-6). Indication s: acute pain ibuprofen 2020-0 Yes [id number] 600mg Take 1 [facility] 600 mg 9-21 9108 tablet by ity of tablet 00:00: mouth [place] 00 every 6 Medical (six) Branch hours as needed for Pain (scale 4-6). clonazePAM 2020-0 Yes .5mg Take 0.5-1 U nivers 1 mg tablet 9-21 tablets by it y of 00:00: mouth 2 [place] 00 (two) Medical times Branch daily as needed. acetaminoph 2020-0 Yes 4647 1{tbl} Take 1 Un sandra en-codeine 9-21 tablet by ity of 300-30 mg 00:00: mouth [place] tablet 00 every 4 Medical (four) Branch hours as needed for Pain (scale 4-6). Indication s: acute pain ibuprofen 2020-0 Yes [id number] 600mg Take 1 [facility] 600 mg 9-21 9108 tablet by ity of tablet 00:00: mouth [place] 00 every 6 Medical (six) Branch hours as needed for Pain (scale 4-6). clonazePAM 2020-0 Yes .5mg Take 0.5-1 U nivers 1 mg tablet 9-21 tablets by it y of 00:00: mouth 2 [place] 00 (two) Medical times Branch daily as needed. acetaminoph 2020-0 Yes 4647 1{tbl} Take 1 Un sandra en-codeine 9-21 tablet by ity of 300-30 mg 00:00: mouth [place] tablet 00 every 4 Medical (four) Branch hours as needed for Pain (scale 4-6). Indication s: acute pain ibuprofen 2020-0 Yes [id number] 600mg Take 1 [facility] 600 mg 9-21 9108 tablet by ity of tablet 00:00: mouth [place] 00 every 6 Medical (six) Branch hours as needed for Pain (scale 4-6). clonazePAM 2020-0 Yes .5mg Take 0.5-1 U nivers 1 mg tablet 9-21 tablets by it y of 00:00: mouth 2 [place] 00 (two) Medical times Branch daily as needed. acetaminoph 2020-0 Yes [id number] 1{tbl} Take 1 Un sand[facility] en-codeine 9-21 tablet by ity of 300-30 mg 00:00: mouth [place] tablet 00 every 4 Medical (four) Branch hours as needed for Pain (scale 4-6). Indication s: acute pain ibuprofen 2020-0 Yes [id number] 600mg Take 1 [facility] 600 mg 9-21 9108 tablet by ity of tablet 00:00: mouth [place] 00 every 6 Medical (six) Branch hours as needed for Pain (scale 4-6). ondansetron 2020-0 2020- No [id number] 4mg Take 1 [facility] (ZOFRAN 9-21 10-08 tablet by ity of ODT) 4 mg 00:00: 00:00 mouth [place] disintegrat 00 :00 every 8 Medic al ing tablet (eight) Branch hours as needed for Nausea and Vomiting (N/V). proMETHazin 2020-0 2020- No 12.5mg 12.5 mg, [facility] e 04-08 IV ity of (PHENERGAN) 17:45: 17:45 Piggyback, [place] 12.5 mg in 00 :00 ONCE, 1 Medica l NaCl 0.9% dose, Sat Branc h (NS) 50 mL 04/08/20 at piggyback 1245, 50 mL LORazepam 2019- 2020- No 1mg 1 mg, Slow U nivers (ATIVAN) 04-08 IV Push, ity of injection 1 17:15: 16:20 ONCE, 1 [place] mg 00 :00 dose, Sat Medical 04/08/20 at Branch 1215, STAT ondansetron 2019-0 2020- No 4mg 4 mg, Slow [facility] (ZOFRAN 04-08 IV Push, ity of (PF)) 17:15: 16:14 ONCE, 1 [place] injection 4 00 :00 dose, Sat Med ical mg 04/08/20 at Branch 1215, MOODY NaCl 0.9% 2019- 2020- No 1000mL at 999 Uni vers (NS) bolus 04-08 mL/hr, ity of infusion 16:15: 17:15 1,000 mL, [place] 1,000 mL 00 :00 IV Medical Infusion, Branch ONCE, 1 dose, 04/08/20 at 1115, [place] ondansetron 2020-0 Yes [id number] 4mg Take 1 [facility] (ZOFRAN 8-15 tablet by ity of ODT) 4 mg 00:00: mouth [place] disintegrat 00 every 8 Medic al ing tablet (eight) Branch hours as needed for Nausea and Vomiting (N/V) for up to 15 doses. ondansetron 2020-0 Yes [id number] 4mg Take 1 [facility] (ZOFRAN 8-15 tablet by ity of ODT) 4 mg 00:00: mouth [place] disintegrat 00 every 8 Medic al ing tablet (eight) Branch hours as needed for Nausea and Vomiting (N/V) for up to 15 doses. ondansetron 2020-0 2020- No [id number] 4mg Take 1 [facility] (ZOFRAN 8-15 09-21 tablet by ity of ODT) 4 mg 00:00: 00:00 mouth [place] disintegrat 00 :00 every 8 Medic al ing tablet (eight) Branch hours as needed for Nausea and Vomiting (N/V) for up to 15 doses. ondansetron 2018-08 Yes [id number] 4mg Take 1 [facility] 4 mg 2-19 tablet by ity of disintegrat 00:00: mouth [place] ing tablet 00 every 4 Medica l (four) Branch hours as needed for Nausea and Vomiting (N/V). butalbital- 2018-08 Yes [id number] 1{tbl} Take 1 [facility] acetaminoph 2-19 tablet by ity of en-caff 00:00: mouth [place] 50-325-40 00 every 6 Medical mg tablet (six) Branch hours as needed for Pain (scale 4-6). Nitrofurant 2018-08 Yes [id number] 100mg Take 1 [facility] oin&Nit. 2-19 capsule by ity o f Macrocryst 00:00: mouth 2 [place] (MACROBID) 00 (two) Medical 100 mg times Branch capsule daily. ondansetron 2018-08 Yes [id number] 4mg Take 1 [facility] 4 mg 2-19 tablet by ity of disintegrat 00:00: mouth [place] ing tablet 00 every 4 Medica l (four) Branch hours as needed for Nausea and Vomiting (N/V). butalbital2018-08 Yes [id number] 1{tbl} Take 1 [facility] acetaminoph 2-19 tablet by ity of en-caff 00:00: mouth [place] 50-325-40 00 every 6 Medical mg tablet (six) Branch hours as needed for Pain (scale 4-6). Nitrofurant 2018-08 Yes [id number] 100mg Take 1 [facility] oin&Nit. 2-19 capsule by ity o f Macrocryst 00:00: mouth 2 [place] (MACROBID) 00 (two) Medical 100 mg times Branch capsule daily. ondansetron 2018-08 Yes [id number] 4mg Take 1 [facility] 4 mg 2-19 tablet by ity of disintegrat 00:00: mouth [place] ing tablet 00 every 4 Medica l (four) Branch hours as needed for Nausea and Vomiting (N/V). butalbital- 2018-08 Yes [id number] 1{tbl} Take 1 [facility] acetaminoph 2-19 tablet by ity of en-caff 00:00: mouth [place] 50-325-40 00 every 6 Medical mg tablet (six) Branch hours as needed for Pain (scale 4-6). Nitrofurant 2018-08 Yes [id number] 100mg Take 1 [facility] oin&Nit. 2-19 capsule by ity o f Macrocryst 00:00: mouth 2 [place] (MACROBID) 00 (two) Medical 100 mg times Branch capsule daily. ondansetron 2018-08- No [id number] 4mg Take 1 [facility] 4 mg 10-13 tablet by ity of disintegrat 00:00: 00:00 mouth [place] tablet 00 :00 every 4 Medica l (four) Branch hours as needed for Nausea and Vomiting (N/V). butalbital- 2018-08- No [id number] 1{tbl} Take 1 [facility] acetaminoph 10-13 tablet by it y of en-caff 00:00: 00:00 mouth [place] 50-325-40 00 :00 every 6 Medical mg tablet (six) Branch hours as needed for Pain (scale 4-6). Nitrofurant 2018-08- No [id number] 100mg Take 1 [facility] oin&Nit. 10-13 capsule by ity of Macrocryst 00:00: 00:00 mouth 2 [place] (MACROBID) 00 :00 (two) Medical 100 mg times Branch capsule daily. methylPREDN 2018-08 Yes [id number] Take by [facility] ISolone 1-20 mouth ity of (MEDROL, 00:00: SEE-INSTRU [place] LIZANDRO,) 4 mg 00 CTIONS. Medica l tablets follow Branch package directions methylPREDN 2018-08 Yes [id number] Take by [facility] ISolone 1-20 mouth ity of (MEDROL, 00:00: SEE-INSTRU [place] LIZANDRO,) 4 mg 00 CTIONS. Medica l tablets follow Branch package directions methylPREDN 2018-08 Yes [id number] Take by [facility] ISolone 1-20 mouth ity of (MEDROL, 00:00: SEE-INSTRU [place] LIZANDRO,) 4 mg 00 CTIONS. Medica l tablets follow Branch package directions methylPREDN 2018-08 2020- No [id number] Take by [facility] ISolone -14 05- mouth ity of (MEDROL, 00:00: 00:00 SEE-INSTRU [place] LIZANDRO,) 4 mg 00 :00 CTIONS. Medica l tablets follow Branch package directions risperiDONE 2018-08 Yes TAKE 1 Univ ers 1 mg tablet 0-22 TABLET BY ity of 00:00: MOUTH [place] 00 EVERY Medical MORNING Branch risperiDONE 2018-08 Yes TAKE 1 Univ ers 1 mg tablet 0-22 TABLET BY ity of 00:00: MOUTH [place] 00 EVERY Medical MORNING Branch risperiDONE 2018-08 Yes TAKE 1 Univ ers 1 mg tablet 0-22 TABLET BY ity of 00:00: MOUTH [place] 00 EVERY Medical MORNING Branch risperiDONE 2018-08 2020- No TAKE 1 Uni vers 1 mg tablet 0-22 09-21 TABLET BY it y of 00:00: 00:00 MOUTH [place] 00 :00 EVERY Medical MORNING Branch allopurinol Yes [id number] 100mg Take 1 [facility] 100 mg 9-19 tablet by ity of tablet 00:00: mouth [place] 00 daily. Medical Branch allopurinol Yes [id number] 100mg Take 1 [facility] 100 mg 9-19 tablet by ity of tablet 00:00: mouth [place] 00 daily. Medical Branch allopurinol Yes [id number] 100mg Take 1 [facility] 100 mg 9-19 tablet by ity of tablet 00:00: mouth [place] 00 daily. [facility] Branch allopurinol 2020- No [id number] 100mg Take 1 [facility] 100 mg 9-19 09-21 tablet by ity of tablet 00:00: 00:00 mouth [place] 00 :00 daily. Medical Branch estrogens, Yes 1{tbl} Take 1 Uni vers conjugated, 9-09 tablet by ity of -methyltest 20:07: mouth [place] osterone 04 daily. Medical 1.25-2.5 mg Branch per tablet estrogens, Yes 1{tbl} Take 1 Uni vers conjugated, 9-09 tablet by ity of -methyltest 20:07: mouth [place] osterone 04 daily. Medical 1.25-2.5 mg Branch per tablet estrogens, Yes 1{tbl} Take 1 Uni vers conjugated, 9-09 tablet by ity of -methyltest 20:07: mouth [place] osterone 04 daily. Medical 1.25-2.5 mg Branch per tablet estrogens, Yes 1{tbl} Take 1 [facility] vers conjugated, 9-09 tablet by ity of -methyltest 20:07: mouth [place] osterone 04 daily. Medical 1.25-2.5 mg Branch per tablet estrogens, Yes 1{tbl} Take 1 Uni vers conjugated, 9-09 tablet by ity of -methyltest 20:07: mouth [place] osterone 04 daily. Medical 1.25-2.5 mg Branch per tablet estrogens, Yes 1{tbl} Take 1 Uni vers conjugated, 05-03 tablet by ity of -methyltest 20:07: mouth [place] osterone 04 daily. Medical 1.25-2.5 mg Branch per tablet estrogens, Yes 1{tbl} Take 1 [facility] vers conjugated, 9- tablet by ity of -methyltest 20:07: mouth [place] osterone 04 daily. Medical 1.25-2.5 mg Branch per tablet estrogens, Yes 1{tbl} Take 1 [facility] vers conjugated, 05-03 tablet by ity of -methyltest 20:07: mouth [place] osterone 04 daily. Medical 1.25-2.5 mg Branch per tablet escitalopra Yes 20mg Take 20 mg [facility] m oxalate 05-03 by mouth ity of (LEXAPRO) 20:03: daily. [place] 20 mg 42 Medical tablet Branch escitalopra Yes 20mg Take 20 mg [facility] m oxalate 05-03 by mouth ity of (LEXAPRO) 20:03: daily. [place] 20 mg 42 Medical tablet Branch escitalopra Yes 20mg Take 20 mg [facility] m oxalate 05-03 by mouth ity of (LEXAPRO) 20:03: daily. [place] 20 mg 42 Medical tablet Branch escitalopra Yes 20mg Take 20 mg [facility] m oxalate 05-03 by mouth ity of (LEXAPRO) 20:03: daily. [place] 20 mg 42 Medical tablet Branch escitalopra Yes 20mg Take 20 mg [facility] m oxalate 05-03 by mouth ity of (LEXAPRO) 20:03: daily. [place] 20 mg 42 Medical tablet Branch escitalopra Yes 20mg Take 20 mg [facility] m oxalate 05-03 by mouth ity of (LEXAPRO) 20:03: daily. [place] 20 mg 42 Medical tablet Branch escitalopra 2019-0 Yes 20mg Take 20 mg [facility] m oxalate 05-03 by mouth ity of (LEXAPRO) 20:03: daily. [place] 20 mg 42 Medical tablet Branch escitalopra 2019-0 Yes 20mg Take 20 mg [facility] m oxalate 05-03 by mouth ity of (LEXAPRO) 20:03: daily. [place] 20 mg 42 Medical tablet Branch QUEtiapine 2019-0 Yes 1 tablet Uni vers 25 mg 9-01 by mouth ity of tablet 00:00: [place] [address] Medical Branch gabapentin 2019-0 Yes TAKE 1 Unive rs 300 mg 9-01 CAPSULE BY ity of capsule 00:00: MOUTH [place] [facility] Medical TIMES Branch DAILY QUEtiapine 2019-0 Yes 1 tablet Uni vers 25 mg 9-01 by mouth ity of tablet 00:00: [facility] Medical Branch gabapentin 2019-0 Yes TAKE 1 Unive rs 300 mg 9-01 CAPSULE BY ity of capsule 00:00: MOUTH [place] [facility] Medical TIMES Branch DAILY QUEtiapine 2019-0 Yes 1 tablet Uni vers 25 mg 9-01 by mouth ity of tablet 00:00: [facility] Medical Branch gabapentin 2019-0 Yes TAKE 1 Unive rs 300 mg 9-01 CAPSULE BY ity of capsule 00:00: MOUTH [place] [facility] Medical TIMES Branch DAILY QUEtiapine 2019-0 Yes 1 tablet Uni vers 25 mg 9-01 by mouth ity of tablet 00:00: [facility] Medical Branch gabapentin 2019-0 Yes TAKE 1 Unive rs 300 mg 9-01 CAPSULE BY ity of capsule 00:00: [facility] Medical TIMES Branch DAILY QUEtiapine 2019-0 Yes 1 tablet Uni vers 25 mg 9-01 by mouth ity of tablet 00:00: [facility] Medical Branch gabapentin 2019-0 Yes TAKE 1 Unive rs 300 mg 9-01 CAPSULE BY ity of capsule 00:00: MOUTH [place] [facility] Medical TIMES Branch DAILY gabapentin 2019-0 Yes TAKE 1 Unive rs 300 mg 9-01 CAPSULE BY ity of capsule 00:00: MOUTH [place] [facility] Medical TIMES Branch DAILY gabapentin 2019-0 Yes TAKE 1 Unive rs 300 mg 9-01 CAPSULE BY ity of capsule 00:00: MOUTH [place] [facility] Medical TIMES Branch DAILY gabapentin 2019-0 Yes TAKE 1 Unive rs 300 mg 9-01 CAPSULE BY ity of capsule 00:00: MOUTH [place] [facility] Medical TIMES Branch DAILY gabapentin 2019-0 2020- No TAKE 1 Univ ers 300 mg 04-25 CAPSULE BY ity of capsule 00:00: 00:00 MOUTH [place] 00 :00 THREE Medical TIMES Branch DAILY hydrOXYzine 2019-0 Yes 25mg Take 25 mg [facility] 25 mg 8-14 by mouth 3 ity of tablet 00:00: (three) [place] 00 times Medical daily as Branch needed for Anxiety. hydrOXYzine 2019-0 Yes 25mg Take 25 mg [facility] 25 mg 8-14 by mouth 3 ity of tablet 00:00: (three) [place] 00 times Medical daily as Branch needed for Anxiety. hydrOXYzine 2019-0 Yes 25mg Take 25 mg [facility] 25 mg 8-14 by mouth 3 ity of tablet 00:00: (three) [place] 00 times Medical daily as Branch needed for Anxiety. hydrOXYzine 2019-0 Yes 25mg Take 25 mg [facility] 25 mg 8-14 by mouth 3 ity of tablet 00:00: (three) [place] 00 times Medical daily as Branch needed for Anxiety. hydrOXYzine 2019-0 Yes 25mg Take 25 mg [facility] 25 mg 8-14 by mouth 3 ity of tablet 00:00: (three) [place] 00 times Medical daily as Branch needed for Anxiety. hydrOXYzine 2019-0 Yes 25mg Take 25 mg [facility] 25 mg 8-14 by mouth 3 ity of tablet 00:00: (three) [place] 00 times Medical daily as Branch needed for Anxiety. hydrOXYzine 2019-0 Yes 25mg Take 25 mg [facility] 25 mg 8-14 by mouth 3 ity of tablet 00:00: (three) [place] 00 times Medical daily as Branch needed for Anxiety. hydrOXYzine 2019-0 Yes 25mg Take 25 mg [facility] 25 mg 8-14 by mouth 3 ity of tablet 00:00: (three) [place] 00 times Medical daily as Branch needed for Anxiety. hydrOXYzine 2019-0 2020- No 25mg Take 25 mg [facility] 25 mg 8-14 05-15 by mouth 3 ity of tablet 00:00: 00:00 (three) [place] 00 :00 times Medical daily as Branch needed for Anxiety. risperiDONE 2019-0 Yes TAKE 1 Univ ers 1 mg tablet 8-11 TABLET BY ity of 00:00: MOUTH [place] 00 EVERY DAY Medical AT NIGHT Branch risperiDONE 2019-0 Yes TAKE 1 Univ ers 1 mg tablet 8-11 TABLET BY ity of 00:00: MOUTH [place] 00 EVERY DAY Medical AT NIGHT Branch risperiDONE Yes TAKE 1 Univ ers 1 mg tablet 8-11 TABLET BY ity of 00:00: MOUTH [place] 00 EVERY DAY Medical AT NIGHT Branch risperiDONE Yes TAKE 1 Univ ers 1 mg tablet 8-11 TABLET BY ity of 00:00: MOUTH [place] 00 EVERY DAY Medical AT NIGHT Branch risperiDONE Yes TAKE 1 Univ ers 1 mg tablet 8-11 TABLET BY ity of 00:00: MOUTH [place] 00 EVERY DAY Medical AT NIGHT Branch hydrOXYzine Yes [id number] 10mg Take 1 [facility] 10 mg 6-26 tablet by ity of tablet 00:00: mouth [place] 00 every 6 Medical (six) Branch hours as needed for Anxiety. ketorolac Yes [id number] 10mg Take 1 Uni vers 10 mg 5-29 tablet by ity of tablet 00:00: mouth [place] 00 every 6 Medical (six) Branch hours as needed for Pain (scale 7-10). traMADOL Yes [id number] 50mg Take 1 Uni vers (ULTRAM) 50 4-04 tablet by ity of mg tablet 00:00: mouth [place] 00 every 6 Medical (six) Branch hours as needed for Pain (scale 4-6). ALPRAZolam Yes 1mg Q.25D Take 1 mg [...] 21:45: nightly. [facility] 28 l propranolol 0 Yes 40mg Take 40 mg [facility] (INDERAL) 3-[address] 40 MG 21:45: daily. [facility]osp[facility] tablet 28 l estrogens-m Yes 1{tbl} QD Take 1 Me thodi ethyltestos 3-[address] terone 21:45: mouth [facility]osp[facility] (EEMT,COVAR 28 daily. l YX) 1.25-2.5 mg per tablet escitalopra 2019-0 Yes 20mg QD Take 20 mg [facility] m (LEXAPRO) 3-[address] 20 MG 16:45: nightly. Hospita tablet 28 l risperiDONE 2019-0 Yes 1mg QD Take 1 mg M ethodi (RisperDAL) 3-[address] 1 MG tablet 16:45: nightly. [facility] 28 l propranolol 2018-0 Yes 40mg Take 40 mg [facility] (INDERAL) 3-[address] 40 MG 16:45: daily. Hospita tablet 28 l estrogens-m Yes 1{tbl} QD Take 1 Me thodi ethyltestos 3-[address] terone 16:45: mouth [facility]ospita (EEMT,COVAR 28 daily. l YX) 1.25-2.5 mg per tablet ALPRAZolam 2018-0 Yes 1mg Q.25D Take 1 mg M ethodi (XANAX) 1 3-[address] MG tablet 16:45: (four) Hospit a 28 times a l day as needed for anxiety. escitalopra Yes 20mg Take 20 mg Univers m oxalate 3-19 by mouth ity of (LEXAPRO) 00:44: daily. [place] 20 mg 57 Medical tablet Branch TRAMADOL Yes Take by Univer s HCL 3-19 mouth. ity of (TRAMADOL 00:44: [place] ORAL) 57 Medical Branch norgestimat Yes 1{tbl} Take 1 Un sandra e-ethinyl 3-19 tablet by ity o f estradiol 00:44: mouth [place] 0.18/0.215/ 57 daily. Medica l 0.25 mg-35 Branch mcg (28) tablet CYCLOBENZAP Yes Take by Uni vers RINE HCL 3-19 mouth. ity of (FLEXERIL 00:44: [place] ORAL) 57 Medical Branch mirtazapine 2018-0 Yes 15mg Take 15 mg Univers (REMERON) 3-19 by mouth ity of 15 mg 00:44: at [place] tablet 57 bedtime. Medical Branch propranolol 2018- Yes 10mg Take 10 mg Univers 10 mg 3-19 by mouth ity of tablet 00:44: daily. [place] [id number] Medical Branch estrogens, 2018-0 Yes 1{tbl} Take 1 Uni vers conjugated, 3-19 tablet by ity of -methyltest 00:44: mouth [place] osterone 57 daily. Medical 1.25-2.5 mg Branch per tablet naphazoline Yes Place in Un sandra HCl/phenira 3-19 each eye ity of mine 00:44: as needed [place] (OPCON-A 57 for Medical OPHTHALMIC) Itching. Bran ch clonazePAM Yes [id number] 1mg Take 1 U nivers 1 mg tablet 3-18 tablet by ity of 00:00: mouth 3 [place] 00 (three) Medical times Branch daily. ondansetron 2016- Yes 4mg Take 1 Univ ers (ZOFRAN 7-12 tablet by ity of ODT) 4 mg 00:00: mouth [place] disintegrat 00 every 8 Medic al ing tablet (eight) Branch hours as needed for Nausea and Vomiting (N/V). proMETHazin Yes 25mg Take 1 Univ ers e 25 mg 1-16 tablet by ity of tablet 00:00: mouth [place] 00 every 6 Medical (six) Branch hours as needed for Nausea and Vomiting (N/V). proMETHazin 2016- Yes 25mg Insert 1 Un sandra e 1-16 Suppositor ity of (PHENERGAN) 00:00: [place] 25 mg 00 rectum Medical suppository every 4 Branc h (four) hours as needed for Nausea and Vomiting (N/V). Vital Signs Vital Name Observation Time Observation Value Comments Source Systolic blood 2021-07-11 04:11:14 114 mm[Hg] [facility] sity [facility] Diastolic blood 2021-07-11 04:11:14 80 mm[Hg] [facility] Heart rate 2021-07-11 04:11:14 90 /min [facility] Respiratory rate 2021-07-11 04:11:14 17 /min [facility] Oxygen saturation in 2021-07-11 04:11:14 100 /min [facility] Arterial blood by [facility] Pulse oximetry Branch Body temperature 2021-07-10 22:57:00 37 Olimpia [facility] Body height 2021-07-10 22:57:00 172.7 cm [facility] Body weight 2021-07-10 22:57:00 104.327 kg [facility] Branch BMI 2021-07-10 22:57:00 34.97 kg/m2 [facility] [place] [facility] Body weight 2020-10-23 23:16:00 104.327 kg [facility] [place] [facility] BMI 2020-10-23 23:16:00 34.97 kg/m2 [facility] [place] [facility] Body weight 2020-10-23 23:16:00 104.327 kg [facility] [place] [facility] BMI 2020-10-23 23:16:00 34.97 kg/m2 [facility] [place] [facility] Heart rate 2020-10-18 00:00:00 103 /min [facility] [place] [facility] Respiratory rate 2020-10-18 00:00:00 25 /min Univ ersity [facility] [place] [facility] Oxygen saturation in 2020-10-18 00:00:00 98 /min University of Arterial blood by [place] Medi isha Pulse oximetry Branch Systolic blood 2020-10-17 23:04:00 100 mm[Hg] Univer sity of pressure [place] [facility] Diastolic blood 2020-10-17 23:04:00 88 mm[Hg] Unive rsity of pressure [place] [facility] Body temperature 2020-10-17 22:10:00 36.06 Olimpia [facility] [place] [facility] Body weight 2020-10-17 22:10:00 117.935 kg [facility] [place] [facility] BMI 2020-10-17 22:10:00 39.53 kg/m2 [facility] [place] [facility] Heart rate 2020-10-18 00:00:00 103 /min [facility] [place] [facility] Respiratory rate 2020-10-18 00:00:00 25 /min Univ ersity [facility] [place] [facility] Oxygen saturation in 2020-10-18 00:00:00 98 /min University of Arterial blood by [facility] isha Pulse oximetry Branch Systolic blood 2020-10-17 23:04:00 100 mm[Hg] Univer sity of pressure [place] [facility] Diastolic blood 2020-10-17 23:04:00 88 mm[Hg] Unive rsity of pressure [place] [facility] Body temperature 2020-10-17 22:10:00 36.06 Olimpia Univ ers[facility] [place] [facility] Body weight 2020-10-17 22:10:00 117.935 kg [facility] [place] [facility] BMI 2020-10-17 22:10:00 39.53 kg/m2 [facility] [place] [facility] Systolic blood 2020-09-15 23:29:00 124 mm[Hg] Univer sity of pressure [place] [facility] Diastolic blood 2020-09-15 23:29:00 88 mm[Hg] Unive rsity of pressure [place] [facility] Heart rate 2020-09-15 23:29:00 81 /min [facility] [place] [facility] Respiratory rate 2020-09-15 23:29:00 14 /min Univ ersity [facility] [place] [facility] Oxygen saturation in 2020-09-15 23:29:00 100 /min University of Arterial blood by [place] Intio isha Pulse oximetry Branch Body temperature 2020-09-15 20:32:00 37.22 Olimpia Univ ers[facility] [place] [facility] Body weight 2020-09-15 20:32:00 117.935 kg [facility] [place] [facility] BMI 2020-09-15 20:32:00 39.53 kg/m2 [facility] [place] [facility] Systolic blood 2020-09-15 23:29:00 124 mm[Hg] Univer sity of pressure [place] [facility] Diastolic blood 2020-09-15 23:29:00 88 mm[Hg] Unive rsity of pressure [place] [facility] Heart rate 2020-09-15 23:29:00 81 /min [facility] [place] [facility] Respiratory rate 2020-09-15 23:29:00 14 /min Univ ersity [facility] [place] [facility] Oxygen saturation in 2020-09-15 23:29:00 100 /min University of Arterial blood by [place] Intio isha Pulse oximetry Branch Body temperature 2020-09-15 20:32:00 37.22 Olimpia Univ [facility] [place] [facility] Body weight 2020-09-15 20:32:00 117.935 kg [facility] [place] [facility] BMI 2020-09-15 20:32:00 39.53 kg/m2 [facility] [place] [facility] Heart rate 2020-06-29 20:58:00 99 /min [facility] [place] [facility] Oxygen saturation in 2020-06-29 20:58:00 99 /min University of Arterial blood by [place] Intio isha Pulse oximetry Branch Systolic blood 2020-06-29 20:36:00 120 mm[Hg] Univer sity of pressure [place] [facility] Diastolic blood 2020-06-29 20:36:00 83 mm[Hg] Unive rsity of pressure [place] [facility] Body temperature 2020-06-29 20:36:00 37 Olimpia Univ [facility] [place] [facility] Respiratory rate 2020-06-29 20:36:00 18 /min Univ [facility] [place] [facility] Body height 2020-06-29 20:36:00 172.7 cm [facility] [place] [facility] Body weight 2020-06-29 20:36:00 118.117 kg [facility] [place] [facility] BMI 2020-06-29 20:36:00 39.59 kg/m2 [facility] [place] [facility] Heart rate 2020-06-29 20:58:00 99 /min [facility] [place] [facility] Oxygen saturation in 2020-06-29 20:58:00 99 /min University of Arterial blood by [facility] Pulse oximetry Branch Systolic blood 2020-06-29 20:36:00 120 mm[Hg] Univer sity of pressure [place] [facility] Diastolic blood 2020-06-29 20:36:00 83 mm[Hg] Unive rsity of pressure [place] [facility] Body temperature 2020-06-29 20:36:00 37 Olimpia Univ [facility] [place] [facility] Respiratory rate 2020-06-29 20:36:00 18 /min Univ [facility] [place] [facility] Body height 2020-06-29 20:36:00 172.7 cm [facility] [place] [facility] Body weight 2020-06-29 20:36:00 118.117 kg [facility] [place] [facility] BMI 2020-06-29 20:36:00 39.59 kg/m2 [facility] [place] [facility] Systolic blood 2020-06-02 02:00:00 138 mm[Hg] Univer sity of pressure [place] [facility] Diastolic blood 2020-06-02 02:00:00 92 mm[Hg] Unive rsity of pressure [place] [facility] Heart rate 2020-06-02 02:00:00 93 /min [facility] [place] [facility] Respiratory rate 2020-06-02 02:00:00 17 /min Univ ers[facility] [place] [facility] Oxygen saturation in 2020-06-02 02:00:00 98 /min University of Arterial blood by [facility] Pulse oximetry Branch Body temperature 2020-06-01 22:30:00 37.17 Olimpia Univ [facility] [place] [facility] Body height 2020-06-01 22:30:00 175.3 cm [facility] [place] [facility] Body weight 2020-06-01 22:30:00 129.275 kg [facility] [place] [facility] BMI 2020-06-01 22:30:00 42.09 kg/m2 [facility] [place] [facility] Systolic blood 2020-06-02 02:00:00 138 mm[Hg] Univer sity of pressure [place] [facility] Diastolic blood 2020-06-02 02:00:00 92 mm[Hg] Unive rsity of pressure [place] [facility] Heart rate 2020-06-02 02:00:00 93 /min [facility] [place] [facility] Respiratory rate 2020-06-02 02:00:00 17 /min Univ [facility] [place] [facility] Oxygen saturation in 2020-06-02 02:00:00 98 /min University of Arterial blood by [place] Medi isha Pulse oximetry Branch Body temperature 2020-06-01 22:30:00 37.17 Olimpia Univ [facility] [place] [facility] Body height 2020-06-01 22:30:00 175.3 cm [facility] [place] [facility] Body weight 2020-06-01 22:30:00 129.275 kg [facility] [place] [facility] BMI 2020-06-01 22:30:00 42.09 kg/m2 [facility] [place] [facility] Diastolic blood 2020-05-16 02:24:57 96 mm[Hg] Unive rsity of pressure [place] [facility] Heart rate 2020-05-16 02:24:57 81 /min [facility] [place] [facility] Respiratory rate 2020-05-16 02:24:57 18 /min Univ [facility] [place] [facility] Oxygen saturation in 2020-05-16 02:24:57 97 /min University of Arterial blood by [place] Medi isha Pulse oximetry Branch Systolic blood 2020-05-16 02:24:57 127 mm[Hg] Univer sity of pressure [place] [facility] Body temperature 2020-05-16 00:14:00 37.11 Olimpia Univ [facility] [place] [facility] Body weight 2020-05-16 00:14:00 131.543 kg [facility] [place] [facility] BMI 2020-05-16 00:14:00 44.09 kg/m2 [facility] [place] [facility] Diastolic blood 2020-05-16 02:24:57 96 mm[Hg] Unive rsity of pressure [place] [facility] Heart rate 2020-05-16 02:24:57 81 /min [facility] [place] [facility] Respiratory rate 2020-05-16 02:24:57 18 /min Univ [facility] [place] [facility] Oxygen saturation in 2020-05-16 02:24:57 97 /min University of Arterial blood by [facility] Pulse oximetry Branch Systolic blood 2020-05-16 02:24:57 127 mm[Hg] Univer sity of pressure [place] [facility] Body temperature 2020-05-16 00:14:00 37.11 Olimpia [facility] [place] [facility] Body weight 2020-05-16 00:14:00 131.543 kg [facility] [place] [facility] BMI 2020-05-16 00:14:00 44.09 kg/m2 [facility] [place] [facility] Systolic blood 2020-04-08 17:50:00 135 mm[Hg] Univer sity of pressure [place] [facility] Diastolic blood 2020-04-08 17:50:00 91 mm[Hg] Unive rsity of pressure [place] [facility] Heart rate 2020-04-08 17:50:00 75 /min [facility] [place] [facility] Respiratory rate 2020-04-08 17:50:00 18 /min [facility] [place] [facility] Oxygen saturation in 2020-04-08 17:50:00 96 /min University of Arterial blood by [facility] Pulse oximetry Branch Body temperature 2020-04-08 16:22:51 37.28 Olimpia [facility] [place] [facility] Body weight 2020-04-08 15:39:00 104.327 kg [facility] [place] [facility] BMI 2020-04-08 15:39:00 34.97 kg/m2 [facility] [place] [facility] Systolic blood 2020-04-08 17:50:00 135 mm[Hg] Univer sity of pressure [place] [facility] Diastolic blood 2020-04-08 17:50:00 91 mm[Hg] Unive rsity of pressure [place] [facility] Heart rate 2020-04-08 17:50:00 75 /min [facility] [place] [facility] Respiratory rate 2020-04-08 17:50:00 18 /min [facility] [place] [facility] Oxygen saturation in 2020-04-08 17:50:00 96 /min University of Arterial blood by [facility] Pulse oximetry Branch Body temperature 2020-04-08 16:22:51 37.28 Olimpia [facility] Body weight 2020-04-08 15:39:00 104.327 kg [facility] BMI 2020-04-08 15:39:00 34.97 kg/m2 [facility] Procedures Procedure Date / Time Performed Performing Clinician Sourc e URINALYSIS 2021-07-11 03:33:00 Oscar Solano [facility] TROPONIN I 2021-07-11 02:16:00 Oscar Solano [facility] COMP. METABOLIC PANEL 2021-07-11 02:16:00 Oscar Solano [facility] ([id number]) [facility] CBC WITH DIFF 2021-07-11 02:16:00 Oscar Solano [facility] XR SHOULDER 2+ VW LEFT 2021-07-11 01:41:42 Oscar Solano [facility] CT LUMBAR SPINE WO 2021-07-11 01:40:00 Oscar Solano [facility] CONTRAST [facility] Branch CONSENT/REFUSAL FOR 2021-07-10 22:41:10 Doctor Unassigned, No [facility] [place] DIAGNOSIS AND Name Medical Branch TREATMENT CONSENT/REFUSAL FOR 2020-10-17 21:57:07 Doctor Unassigned, No [facility] [place] DIAGNOSIS AND Name Medical Branch TREATMENT CT ABDOMEN PELVIS W 2020-09-15 22:39:18 Oscar Solano [facility] CONTRAST [facility] Branch LIPASE 2020-09-15 21:16:00 Oscar Solano [facility] COMP. METABOLIC PANEL 2020-09-15 21:16:00 Oscar Solano [facility] ([id number]) [facility] [place] CBC WITH DIFF 2020-09-15 21:16:00 Oscar Solano [facility] URINALYSIS 2020-09-15 21:16:00 Oscar Solano [facility] CONSENT/REFUSAL FOR 2020-09-15 20:18:37 Doctor Unassigned, No [facility] [place] DIAGNOSIS AND Name Medical Branch TREATMENT CT ABDOMEN PELVIS W 2020-06-02 01:39:02 Janene Mcmillan [facility] CONTRAST Medical Branch LIPASE 2020-06-02 00:01:00 Janene Mcmillan [facility] COMP. METABOLIC PANEL 2020-06-02 00:01:00 Janene Mcmillan [facility] ([id number]) Medical Branch CBC WITH DIFF 2020-06-02 00:01:00 Janene Mcmillan [facility] URINALYSIS 2020-06-01 23:54:00 Janene Mcmillan [facility] CONSENT/REFUSAL FOR 2020-06-01 22:14:48 Doctor [facility], No [facility] Branch TREATMENT XR KNEE 3 VW LEFT 2020-05-16 00:32:27 Lucas Jeffries [facility] CONSENT/REFUSAL FOR 2020-05-15 23:59:19 Doctor Unassigned, No [facility] Branch TREATMENT CT ABDOMEN PELVIS WO 2020-04-08 16:30:32 Trish Kinney [facility] CONTRAST Medical Branch LIPASE 2020-04-08 16:11:00 Trish Kinney [facility] TROPONIN I 2020-04-08 16:11:00 Trish Kinney [facility] HEPATIC FUNCTION PANEL 2020-04-08 16:11:00 Trish Kinney [facility] ([id number]) Medical Branch (ALB,T.PRO,BILI T,BU/BC,ALT,AST,ALK PHOS) BASIC METABOLIC PANEL 2020-04-08 16:11:00 Trish Kinney [facility] (NA, K, CL, CO2, Medical Branch GLUCOSE, BUN, CREATININE, CA) CBC WITH DIFF 2020-04-08 16:11:00 Trish Kinney [facility] URINALYSIS 2020-04-08 16:11:00 Trish Kinney [facility] POCT TEST 2020-04-08 16:11:00 Trish Kinney [facility] EKG-12 LEAD 2020-04-08 16:07:37 Trish Kinney [facility] NOTICE OF PRIVACY 2020-04-08 15:36:17 Doctor Unassigned, No Univ [facility] PRACTICES Name Medical Branch CONSENT/REFUSAL FOR 2020-04-08 15:34:59 Doctor Unassigned, No [facility] Medical Branch TREATMENT XR CERVICAL SPINE 4 VW 2019-05-07 20:48:10 Ambika Miranda [facility] XR HIPS 2 VW RIGHT 2019-05-07 20:47:45 Ambika Miranda Unive rsity of [facility] XR KNEE 3 VW LEFT 2019-05-07 20:47:16 Ambika Miranda Univer sity of [facility] XR ANKLE 3+ VW RIGHT 2019-05-07 20:47:01 [facility] 2019-05-03 19:25:44 Doctor Unassigned, No [facility] Name Medical Branch Encounters Start End Encounter Admission Attending Care Care Encounter Source Date/Time Date/Time Type Type Clinicians Facility Department ID 2021-06-25 Emergency [facility] [id number] Univers 09:16:29 ity of [facility] 2021-06-24 Emergency [facility] [id number] Univers 12:43:14 ity of [facility] 2021-06-24 Emergency [facility] [id number] Univers 00:54:11 ity of [facility] 2021-06-23 Emergency [facility] [id number] Univers 18:56:21 ity of [facility] 2021-06-22 Emergency [facility] [id number] Univers 21:58:08 ity of [facility] 2021-06-22 Emergency [facility] [id number] Univers 18:42:15 ity of [facility] 2021-06-22 Emergency [facility] [id number] Univers 12:39:56 ity of [facility] 2021-07-10 2021-07-10 Emergency X [facility] ERT [id number] Univers 17:16:00 22:27:00 OSCAR ity of [facility] 2021-07-10 2021-07-10 Emergency [facility] [id number] Univers 17:16:00 22:27:00 Oscar BONDS [id number] i ty [facility] [id number] [facility] [phone] [address] 2021-07-09 2021-07-09 Emergency E JOEL TAN BL [facility]BL [id number] [facility]BL 15:18:00 22:28:00 2021-03-27 2021-03-27 Outpatient R SHAWN [facility] [id number] Univers 10:00:00 10:00:00 BRAD laughlin o f [facility] 2021-03-26 2021-03-26 [id number] Univers 14:00:00 14:00:00 [facility] 2021-03-15 2021-03-15 Outpatient Pramod PRADO [facility] [id number] Univers 14:00:00 14:00:00 [facility] 2021-02-23 2021-02-23 Outpatient Pramod WHITFIELD [facility] [id number] Univers 10:40:00 10:40:00 [facility] 2021-01-31 2021-01-31 Patient Alok [facility] [id number] 00:00:00 00:00:00 Secure Msg [facility] [id number] [place] [id number] Professio [phone] nal 044 Office [facility] One 2021-01-31 2021-01-31 Refill Alok [facility] [id number] 00:00:00 00:00:00 [facility] [id number] [place] [id number] Professio [phone] nal 044 Office [facility] One 2020-12-15 2020-12-15 Outpatient ROSEANN [facility] [id number] Univers 14:10:00 14:10:00 [facility] 2020-12-14 2020-12-14 [facility] [id number] 16:30:00 16:45:00 ne Visit [facility] [id number] [place] [id number] Professio [phone] nal [facility] Office Building One 2020-12-14 2020-12-14 Outpatient R ALOK [facility] [id number] Univers 16:30:00 16:30:00 WONDIFUL ity o f [facility] 2020-12-13 2020-12-13 Patient Alok [facility] [id number] 00:00:00 00:00:00 Secure Msg [facility] [id number] [place] [id number] Professio [phone] [place] [address] Office Building One 2020-12-11 2020-12-11 Telephone Alok [facility] [id number] 00:00:00 00:00:00 [facility] [id number] [place] [id number] Professio [phone] [place] [address] Office Building One 2020-12-06 2020-12-06 Emergency Replaced by [facility] [id number] 01:21:00 03:58:00 [place] [id number] [place] [id number] [place] [phone] [id number] 2020-11-09 2020-11-09 Patient Roseann [facility] [id number] 00:00:00 00:00:00 Outreach Stefan PRIMARY [id number] [place] [facility] [id number] PAVILLION [phone] [id number] 2020-11-09 2020-11-09 Patient Roseann [facility] [id number] Univers 00:00:00 00:00:00 Outreach Stefan PRIMARY [id number] i ty of [id number] [phone] Co dical [facility] Branch 2020-11-01 2020-11-01 Outpatient R ALKO [facility] [id number] Univers 00:00:00 00:00:00 WONDIFUL ity o f [facility] 2020-11-01 2020-11-01 Telephone Alok TXKRISTEN [id number] 00:00:00 00:00:00 [facility] [id number] [place] [id number] Professio [phone] [place] [address] Office Building One 2020-11-01 2020-11-01 Telephone Alok TXKRISTEN 1.2.840.114 [id number] Univers 00:00:00 00:00:00 [facility] [id number] ity of [place] [id number] Amandeep as Professio [phone] [address] Office Building One 2020-10-27 2020-10-27 Orders Doctor NIKOLAY [id number] 00:00:00 00:00:00 Only Unassigned, MARLON [id number] [place] [facility] [id number] [id number] 2020-10-24 2020-10-24 Telephone Alok TXKRISTEN 1.2.840.114 [id number] 00:00:00 00:00:00 [facility] [id number] [place] [id number] Professio [phone] [place] [address] Office Building One 2020-10-24 2020-10-24 Telephone Alok [facility] [id number] Univers 00:00:00 00:00:00 [facility] [id number] ity of [place] [id number] Amandeep as Professio [phone] [address] Office Building One 2020-10-23 2020-10-23 Telemedici Alok [facility] 1.2.840.114 [id number] 16:47:16 17:53:03 ne Visit [facility] [id number] [place] [id number] Professio [phone] [place] [address] Office Building One 2020-10-23 2020-10-23 Telemedici Alok [facility] [id number] [facility] 16:47:16 17:53:03 ne Visit [facility] [id number] ity of [place] [id number] Amandeep as Professio [phone] [address] Office [facility] One 2020-10-23 2020-10-23 Outpatient R ALOK [facility] [id number] [facility] 16:15:00 16:15:00 WONDIFUL ity o f [facility] 2020-10-17 2020-10-17 [facility] 1.2.840.114 [id number] 16:12:00 18:15:00 Khadijah Bonds [id number] [place] [id number] [place] [phone] [facility] 2020-10-17 2020-10-17 Emergency [facility] 1.2.840.114 [id number] [facility] 16:12:00 18:15:00 Khadijah Bonds [id number] ity of [place] [id number] [facility] [phone] [address] 2020-10-17 2020-10-17 [facility] 1.2.840.114 [id number] 00:00:00 00:00:00 [facility] [id number] [place] [id number] Professio [phone] [place] [address] Office Building One 2020-10-17 2020-10-17 [facility] 1.2.840.114 [id number] [facility] 00:00:00 00:00:00 [facility] [id number] ity of [place] [id number] Amandeep as Professio [phone] [address] Office Building One 2020-10-16 2020-10-16 Telephone [facility] [facility] 1.2.840.114 [id number] 00:00:00 00:00:00 [facility] 350.1.13.10 [place] 4.2.7.2.686 Professio [phone] [place] [address] Office [facility] 2020-10-16 2020-10-16 [facility]phone [facility] 1.2.840.114 [id number] Univers 00:00:00 00:00:00 [facility] 350.1.13.10 [facility]y of [place] 4.2.7.2.686 Amandeep as Professio [phone] [address] Office [facility] 2020-09-15 2020-09-15 Emergency [facility] 1.2.042.141 [id number] 14:33:00 18:20:00 Oscar R [place] 350.1.13.10 [place] 4.2.7.2.686 [place] [phone] 4 2020-09-15 2020-09-15 Emergency [facility] [id number] [facility] 14:33:00 18:20:00 Oscar R [place] 350.1.13.10 i ty of [place].2.[place] [phone] [address] 2020-07-07 2020-07-07 [facility] 1.2.840.114 [id number] 00:00:00 00:00:00 [facility] 350.1.13.10 [place] 4.2.7.2.686 Professio [phone] [address] 2020-07-07 2020-07-07 Refcuca [facility] 1.2.840.114 [id number] Univers 00:00:00 00:00:00 [facility] 350.1.13.10 [facility]y of [place] 4.2.7.2.686 Amandeep as Professio [phone] [address] Office [facility] 2020-06-29 2020-06-29 Urgent [facility], [facility] [id number] 1768 14:02:05 15:07:58 Care [facility] 350.1.13.10 Care [place] 4.2.7.2.686 Professio [phone] [place] [address] Office Building [facility] 2020-06-29 2020-06-29 Urgent Provider, [facility] 1.2.840.114 [id number] Univers 14:02:05 15:07:[address] [facility] 350.1.13.10 ity of [place] 4.2.7.2.686 Amandeep as Professio [phone] Co dical [address] Office [facility] 2020-06-29 2020-06-29 [facility] [id number] Univers 14:00:00 14:00:00 STELLA [facility] 2020-06-29 2020-06-29 Letter Doctor NIKOLAY 1.2.840.114 [id number] 00:00:00 00:00:00 (Out) Unassigned, MARLON 350.1.13.10 [place] [facility] 4.2.7.2.686 [phone] [facility] 2020-06-29 2020-06-29 Letter Doctor NIKOLAY 1.2.840.114 [id number] Univers 00:00:00 00:00:00 (Out) Unassigned, MARLON 350.1.13.10 ity of [place] [facility] 4.2.7.2.686 Amandeep as [phone] [address] 2020-06-08 2020-06-08 [facility]patient [facility] [id number] Univers 13:00:00 13:00:00 PHILLIP [facility] 2020-06-01 2020-06-01 Emergency [facility] 1.2.082.526 [id number] 17:45:00 22:34:00 Janene S [place] 350.1.13.10 [place] 4.2.7.2.686 [place] [phone] [facility] 2020-06-01 2020-06-01 Emergency [facility] [id number] Univers 17:45:00 22:34:00 Janene S [place] 350.1.13.10 i ty of [place]7.2.[place] [phone] [address] 2020-05-15 2020-05-15 Emergency Lucas Jeffries [facility] 1.2.840.114 [id number] 19:17:00 21:27:00 Megan Bonds 350.1.13.10 [place] 4.2.7.2.686 [place] [phone] [facility] 2020-05-15 2020-05-15 Emergency Lucas Jeffries [facility] 1.2.840.114 [id number] Univers 19:17:00 21:27:00 Megan Bonds 350.1.13.10 i ty of [place] 4[place].2.[place] [phone] [address] 2020-05-15 2020-05-15 [facility]medici [facility] 1.2.840.114 [id number] 11:19:42 15:58:43 ne Visit [facility] 350.1.13.10 [place] 4.2.7.2.686 Professio [phone] [place] [address] Office [facility] 2020-05-15 2020-05-15 Telemedici [facility] 1.2.840.114 [id number] [facility] 11:19:42 15:58:43 ne Visit [facility] 350.1.13.10 ity of [place] 4.2.7.2.686 Amandeep as Professio [phone] [address] 2020-05-15 2020-05-15 Outpatient R ALOK [facility] [id number] Univers 15:00:00 15:00:00 WONDIFUL ity o f [facility] 2020-05-12 2020-05-12 Outpatient R JESSICA [facility] [id number] Univers 13:30:00 13:30:00 STELLA ity of [facility] 2020-05-12 2020-05-12 Telephone Alok [facility] 1.2.840.114 [id number] Univers 00:00:00 00:00:00 [facility] 350.1.13.10 [facility]y of [place] 4.2.7.2.686 Amandeep as Professio [phone] [address] Office [facility] 2020-05-12 2020-05-12 Telephone Alok [facility] 1.2.840.114 [id number] 00:00:00 00:00:00 [facility] 350.1.13.10 [place] 4.2.7.2.686 [facility] [phone] [address] Office Building One 2020-04-08 2020-04-08 Emergency Nirmal, [facility] 1.2.902.799 [id number] [facility] 10:44:00 12:53:00 Trish Bonds 350.1.13.10 ity of [place] 4.2.7.2.686 [facility] [phone] [facility] [address] [place] 2020-04-08 2020-04-08 [facility] 1.2.581.381 [id number] 10:44:00 12:53:00 Trish Bonds 350.1.13.10 [place] 4.2.7.2.686 [place] [phone] [facility] 2020-04-08 2020-04-08 Orders Doctor NIKOLAY 1.2.840.114 [id number] Univers 00:00:00 00:00:00 Only Unassigned, MARLON 350.1.13.10 ity of [place] [facility] 4.2.7.2.686 Amandeep [phone] [facility] [address] [place] 2020-04-08 2020-04-08 Orders Doctor NIKOLAY 1.2.840.114 [id number] 00:00:00 00:00:00 Only Unassigned, MARLON 350.1.13.10 [place] [facility] 4.2.7.2.686 [phone] 009 2019-08-12 2019-08-12 Emergency X [facility] ERT [id number] Univers 03:10:33 05:48:00 SUSAN ity of [facility] 2019-05-07 2019-05-07 [facility] 1.2.271.246 [id number] Univers 15:01:43 23:59:00 Encounter Ambika Bonds 350.1.13.10 ity of [place] 4.2.7.2.686 [facility] [phone] [facility] [address] 2019-05-07 2019-05-07 [facility] 1.2.236.016 [id number] 15:01:43 23:59:00 Encounter Wondiful A [place] 350.1.13.10 [place] 4.2.7.2.686 [place] [phone] [facility] 2019-05-07 2019-05-07 [facility] [id number] [id number] Univers 15:01:25 23:59:00 Encounter Wondiful A [place] 350.1.13.10 ity of [place] 4.2.7.2.686 [facility] [phone] [address] 2019-05-07 2019-05-07 [facility]patient [facility] [id number] Univers 15:01:25 23:59:00 WONDIFUL ity o f [facility] 2019-05-07 2019-05-07 [facility] 1.2.887.613 [id number] 15:01:25 23:59:00 Encounter Wond[facility] A [place] 350.1.13.10 [place] [address] [place] [address] [phone] [facility] 2019-05-07 2019-05-07 [facility] 1.2.887.686 [id number] Univers 15:00:59 15:00:59 Encounter Wondiful A [place] 350.1.13.10 ity of [place] 4.2.7.2.[address] [place] [phone] 2019-05-07 2019-05-07 [facility] 1.2.226.177 [id number] 15:00:59 15:00:59 Encounter Wondiful A [place] 350.1.13.10 [place] 4.2.7.2.686 [place] [phone] [facility] 2019-05-07 2019-05-07 [facility] 1.2.248.426 [id number] Univers 15:00:00 15:00:00 Encounter Wond[facility] A [place] 350.1.13.10 ity of [place] 4.2.7.[address] [place] [phone] 2019-05-07 2019-05-07 [facility] 1.2.832.421 [id number] 15:00:00 15:00:00 Encounter Wond[facility] A [place] 350.1.13.10 [place] 4.2.7.2.686 [place] [phone] 807 2019-05-04 2019-05-04 Telephone Alok [facility] 1.2.840.114 [id number] Univers 00:00:00 00:00:00 [facility] 350.1.13.10 ity of [place] 4.2.7.2.686 Amandeep as Professio [phone] Co dic[address] Office Building One 2019-05-04 2019-05-04 [facility] 1.2.840.114 [id number] 00:00:00 00:00:00 [facility] 350.1.13.10 [place] 4.2.7.2.686 Professio [phone] [place] [address] Office [facility] 2019-05-03 2019-05-03 Orders Doctor NIKOLAY 1.2.840.114 [id number] Univers 00:00:00 00:00:00 Only Unassigned, MARLON 350.1.13.10 ity of [place] [facility] 4.2.7.2.686 Amandeep as [phone] [address] 2019-05-03 2019-05-03 Orders Doctor NIKOLAY 1.2.840.114 [id number] 00:00:00 00:00:00 Only Unassigned, MARLON 350.1.13.10 [place] [facility] 4.2.7.2.686 [phone] 009 Results Test Description Test Time Test Comments Results Result Comments Source TROPONIN I 2021-07-11 02:52:41 Test Item Value Reference Range Interpretation Comme nts TROPONIN I (test code = 0.002 ng/mL See_Comment [Au tomated message] The 8598354437) system which ge nerated this result tra nsmitted reference range : <=0.034. The reference r radha was not used to int erpret this result as normal/abnormal . AMAYA (test code = AMAYA) Reference (Normal) Range (defined by the 99th percentile reference limit): <= 0.034 ng/mL Note: Cardiac troponin begins to rise 3-4 hours after the onset of ischemia. Repeat in 4-6 hours if the sample was drawn within 3-4 hours of the onset of the symptom and found normal. Diagnosis of myocardial injury is made with acute changes in cTn concentrations with at least one serial sample above the 99th percentile upper reference limit (URL), taken together with the patient's clinical presentation. Biotin has been reported to cause a negative bias, interpret results relative to patient's use of biotin. Lab Interpretation Normal (test code = 87092-1) [facility]. METABOLIC PANEL ([id number])2021-07-11 02:40:16 Test Item Value Reference Range Interpretation Comments NA (test code = 137 mmol/L 135-145 3962679009) K (test code = 3.8 mmol/L 3.5-5.0 8334390032) CL (test code = 101 mmol/L 98-108 2312346318) CO2 TOTAL (test code = 29 mmol/L 23-31 6425914209) AGAP (test code = 2-16 3526395678) BUN (test code = 13 mg/dL 7-23 4010454687) GLUCOSE (test code = 124 mg/dL 70-110 H 6307626700) CREATININE (test code = 0.58 mg/dL 0.50-1.04 3132320619) TOTAL BILI (test code = 0.5 mg/dL 0.1-1.4 0677944122) CALCIUM (test code = 9.8 mg/dL 8.6-10.6 9341657521) T PROTEIN (test code = 7.0 g/dL 6.3-8.2 9532011435) ALBUMIN (test code = 4.3 g/dL 3.5-5.0 6215823727) ALK PHOS (test code = 58 U/L 34-122 7944379861) ALTv (test code = 18 U/L 5-35 1742-6) AST(SGOT) (test code = 25 U/L 13-40 0545424082) eGFR (test code = mL/min/1.73m2 5255636333) AMAYA (test code = AMAYA) Association of Glomerular Filtration Rate (GFR) and Staging of Kidney Disease* + --+ --+ ------+| GFR (mL/min/1.73 m2) ?| With Kidney Damage ?| ?Without Kidney Damage+ --------+ --------+ +| ?>90 ?| ?Stage one ?| ? Normal ?+ ---+ ---+ -------+| ?60-89 ?| ?Stage two ?| ? Decreased GFR ? + --+ --+ ------+| ?30-59 ?| ?Stage three ?| ? Stage three ? + --+ --+ ------+| ?15-29 ?| ?Stage four ? | ? Stage four ?+ ---+ ---+ -------+| ?<15 (or dialysis) ? ?| ?Stage five ? | ? Stage five ?+ ---+ ---+ -------+ *Each stage assumes the associated GFR level has been in effect for at least three months. ?Stages 1 to 5, with or without kidney disease, indicate chronic kidney disease. Notes: Determination of stages one and two (with eGFR >59mL/min/1.73 m2) requires estimation of kidney damage for at least three months as defined by structural or functional abnormalities of the kidney, manifested by either:Pathological abnormalities or Markers of kidney damage (including abnormalities in the composition of the blood or urine or abnormalities in imaging tests). Lab Interpretation Abnormal (test code = 62344-9) [facility] WITH [id number] 02:28:55 Test Item Value Reference Range Interpretation Comments WBC (test code = See_Comment [Automated message] 6690-2) The system Baton generated this result transmitted ref erence range: 4.30 - 1 1.10 10*3/?L. The re ference range was not u sed to interpret this result as normal/abnor mal. RBC (test code = See_Comment [Automated message] 789-8) The system Baton generated this result transmitted ref erence range: 3.93 - 5 .25 10*6/?L. The re ference range was not u sed to interpret this result as normal/abnor mal. HGB (test code = 13.8 g/dL 11.6-15.0 718-7) HCT (test code = 42.9 % 35.7-45.2 4544-3) MCV (test code = 86.0 fL 80.6-95.5 787-2) MCH (test code = 27.7 pg 25.9-32.8 785-6) MCHC (test code = 32.2 g/dL 31.6-35.1 786-4) RDW-SD (test code 39.0 fL 39.0-49.9 = 40945-5) RDW-CV (test code 12.5 % 12.0-15.5 = 788-0) PLT (test code = See_Comment [Automated message] 777-3) The system whic h generated this result transmitted ref erence range: 166 - 35 8 10*3/?L. The re ference range was not u sed to interpret this result as normal/abnor mal. MPV (test code = 9.5 fL 9.5-12.9 73749-8) NRBC/100 WBC (test See_Comment [Automat ed message] code = 4455616289) The syste m which generated this result transmitted ref erence range: 0.0 - 10 .0 /100 WBCs. The refer ence range was not u sed to interpret this result as normal/abnor mal. NRBC x10^3 (test <0.01 See_Comment [Automated message] code = 5820304273) The syste m which generated this result transmitted ref erence range: 10*3/?L. The reference range was not used to interpr et this result as normal/abnormal . GRAN MAT (NEUT) % 45.5 % (test code = 770-8) IMM GRAN % (test 0.60 % code = 2111727271) LYMPH % (test code 41.7 % = 736-9) MONO % (test code 9.2 % = 5905-5) EOS % (test code = 2.3 % 713-8) BASO % (test code 0.7 % = 706-2) GRAN MAT 3.22 10*3/uL 1.88-7.09 x10^3(ANC) (test code = 4268379885) IMM GRAN x10^3 0.04 10*3/uL 0.00-0.06 (test code = 8920103827) LYMPH x10^3 (test 2.95 10*3/uL 1.32-3.29 code = 731-0) MONO x10^3 (test 0.65 10*3/uL 0.33-0.92 code = 742-7) EOS x10^3 (test 0.16 10*3/uL 0.03-0.39 code = 711-2) BASO x10^3 (test 0.05 10*3/uL 0.01-0.07 code = 704-7) [facility] [id number] 23:09:54 1. ?No acute abnormality identified within the abdomen or pelvis. 2. ?Few foci of nodularity and groundglass in the periphery of the rightlung base. New from May 2020 and favored infectious or inflammatory inetiology.. EXAM: CT ABDOMEN PELVIS W CONTRAST HISTORY: 40 year -old woman with acute generalized abdominal pain. TECHNIQUE: Contrast - IV contrast was given, no oral contrast was given Portal venous phase - abdomen and pelvisReconstructions - coronal and sagittal planes COMPARISON: CT abdomen pelvis with contrast, 06/01/2020 FINDINGS:Statements: None. Thoracic: Few punctate groundglass nodules and peripheral areas ofgroundglass low-attenuation at the right lung base (anteriorly on 2:7 andposteriorly on 2:32). Additionally an irregular platelike density withsurrounding groundglass attenuation is seen in the right lower lobe on 2:6.Findings are new from May 2020 favored infectious or inflammatory inetiology Hepatobiliary: The liver is unremarkable without focal lesion. Thegallbladder is unremarkable. No biliary dilation. Pancreas: No abnormality identified in the pancreas. Spleen: Noabnormality identified in the spleen. Adrenals: No abnormality identified in either adrenal gland. Genitourinary: No parenchymal abnormality identified in either kidney. Nohydronephrosis. The bladder is distended and unremarkable. Status posthysterectomy. Gastrointestinal: No evidence of bowel obstruction or perientericinflammation. The appendix is normal. Vascular/Lymphatics: No enlarged lymph nodesby CT size criteria. Abdominalaorta is normal in caliber. MSK/Body Wall: No concerning bony lesion identified. Peritoneum/Other: No extraluminal air. No extraluminal fluid. [facility], Radiant Results Inft User - 09/15/2020 5:10 PM CSTEXAM: CT ABDOMEN PELVIS W CONTRASTHISTORY: 40 year -old woman with acute generalized abdominal pain.TECHNIQUE: Contrast - IV contrast was given, no oral contrast was given [place] rubina venous phase - abdomen and pelvisReconstructions - coronal and sagittal planesCOMPARISON: CT abdomen pelvis with contrast, 06/01/2020FINDINGS:Statements: None.Thoracic: Few punctate groundglass nodules and peripheral areas ofgroundglass low-attenuation at the right lung base (anteriorly on 2:7 andpo steriorly on 2:32). Additionally an irregular platelike density withsurrounding groundglass attenuation is seen in the right lower lobe on 2:6.Findings are new from May 2020 favored infectious or inflammatory inetiologyHepatobiliary: The liver is unremarkable without focal lesion. Thegallbladder is unremarkable. No biliary dilation.Pancreas: No abnormality identified in the pancreas.Spleen: No abnormality identified in the spleen. Adrenals: No abnormality identified in either adrenal gland. Genitourinary: No parenchymal abnormality identified in either kidney. Nohydronephrosis. The bladder is distended and unremarkable. Status posthysterectomy.Gastrointestinal: No evidence of bowel obstructionor perientericinflammation. The appendix is normal.Vascular/Lymphatics: No enlarged lymph nodes by CT size criteria. Abdominalaorta is normal in caliber.MSK/Body Wall: No concerning bony lesion identified.Peritoneum/Other: No extraluminal air. No extraluminal fluid.IMPRESSION1. No acute abnormality identified within the abdomen or pelvis.2. Few foci of nodularity and groundglass in the periphery of the rightlung base. New from May 2020 and favored infectious or inflammatory inetiology..[facility] METABOLIC PANEL ([id number])2020-09-15 22:18:00 Test Item Value Reference Range Interpretation Comments NA (test code = 137 mmol/L 135-145 0306880074) K (test code = 3.9 mmol/L 3.5-5 2160235563) CL (test code = 100 mmol/L 98-108 8415200439) CO2 TOTAL (test code = 28 mmol/L 23-31 0952517673) AGAP (test code = 2-16 8594079284) BUN (test code = 16 mg/dL 7-23 1438101092) GLUCOSE (test code = 98 mg/dL 70-110 9651533110) CREATININE (test code = 0.63 mg/dL 0.5-1.04 9981032089) TOTAL BILI (test code = 0.8 mg/dL 0.1-1.1 8623656593) CALCIUM (test code = 9.1 mg/dL 8.6-10.6 0774778689) T PROTEIN (test code = 7.7 g/dL 6.3-8.2 9322311867) ALBUMIN (test code = 4.5 g/dL 3.5-5 4478362021) ALK PHOS (test code = 51 U/L 34-122 3267397022) ALTv (test code = 41 U/L 5-35 H 1742-6) AST(SGOT) (test code = 41 U/L 13-40 H 8222847153) eGFR Calculation mL/min/1.73m2 (Non-) (test code = 3009113342) eGFR Calculation mL/min/1.73m2 () (test code = 1614199602) AMAYA (test code = AMAYA) Association of Glomerular Filtration Rate (GFR) and Staging of Kidney Disease* + --+ --+ ------+| GFR (mL/min/1.73 m2) ?| With Kidney Damage ?| ?Without Kidney Damage+ --------+ --------+ +| ?>90 ?| ?Stage one ?| ? Normal ?+ ---+ ---+ -------+| ?60-89 ?| ?Stage two ?| ? Decreased GFR ? + --+ --+ ------+| ?30-59 ?| ?Stage three ?| ? Stage three ? + --+ --+ ------+| ?15-29 ?| ?Stage four ? | ? Stage four ?+ ---+ ---+ -------+| ?<15 (or dialysis) ? ?| ?Stage five ? | ? Stage five ?+ ---+ ---+ -------+ *Each stage assumes the associated GFR level has been in effect for at least three months. ?Stages 1 to 5, with or without kidney disease, indicate chronic kidney disease. Notes: Determination of stages one and two (with eGFR >59mL/min/1.73 m2) requires estimation of kidney damage for at least three months as defined by structural or functional abnormalities of the kidney, manifested by either:Pathological abnormalities or Markers of kidney damage (including abnormalities in the composition of the blood or urine or abnormalities in imaging tests). Lab Interpretation Abnormal (test code = 79117-2) [facility] 22:18:00 Test Item Value Reference Range Interpretation Comments LIPASE (test code = 5479531362) 44 U/L 0-220 Lab Interpretation (test code = Normal 66010-3) [facility]2021-[facility]-22 22:09:00 Test Item Value Reference Range Interpretation Comments APPEARANCE (test code = Cloudy Clear A 5511940891) COLOR (test code = Yellow Yellow 9518137360) PH (test code = 4.8-8.0 2093179610) SP GRAVITY (test code = 1.003-1.030 1868877466) GLU U QUAL (test code = Normal Normal 4387403052) BLOOD (test code = Negative Negative 5431711390) KETONES (test code = Negative Negative 3542438294) PROTEIN (test code = Negative Negative 2887-8) UROBILIN (test code = Normal Normal 5605382357) BILIRUBIN (test code = Negative Negative 0263275855) NITRITE (test code = Negative Negative 4587144775) LEUK JONO (test code = 75/uL Negative A 3664781388) RBC/HPF (test code = See_Comment H [Autom ated message] 4130121132) The system Baton generated this result transmitted ref erence range: 0 - 3 HP F. The reference range was not used to int erpret this result as normal/abnormal . WBC/HPF (test code = See_Comment H [Autom ated message] 6216741583) The system Baton generated this result transmitted ref erence range: 0 - 5 HP F. The reference range was not used to int erpret this result as normal/abnormal . BACTERIA (test code = Moderate Negative A 6910201496) MUCOUS (test code = Slight Negative LPF A 1111831624) AMORPHOUS (test code = Rare Rare HPF 3637092711) SQ EPITH (test code = HPF 4222001145) Lab Interpretation (test Abnormal code = 21232-1) [facility] WITH [id number] 22:02:00 Test Item Value Reference Range Interpretation Comments WBC (test code = See_Comment [Automated message] 6690-2) The system Baton generated this result transmitted ref erence range: 4.30 - 1 1.10 10*3/?L. The re ference range was not u sed to interpret this result as normal/abnor mal. RBC (test code = See_Comment [Automated message] 789-8) The system Baton generated this result transmitted ref erence range: 3.93 - 5 .25 10*6/?L. The re ference range was not u sed to interpret this result as normal/abnor mal. HGB (test code = 13.5 g/dL 11.6-15 718-7) HCT (test code = 41.1 % 35.7-45.2 4544-3) MCV (test code = 84.6 fL 80.6-95.5 787-2) MCH (test code = 27.8 pg 25.9-32.8 785-6) MCHC (test code = 32.8 g/dL 31.6-35.1 786-4) RDW-SD (test code 41.2 fL 39-49.9 = 78984-6) RDW-CV (test code 13.4 % 12-15.5 = 788-0) PLT (test code = See_Comment [Automated message] 777-3) The system Baton generated this result transmitted ref erence range: 166 - 35 8 10*3/?L. The re ference range was not u sed to interpret this result as normal/abnor mal. MPV (test code = 10.4 fL 9.5-12.9 86871-6) NRBC/100 WBC (test See_Comment [Automat ed message] code = 7277398266) The syste [employer] which generated this result transmitted ref erence range: 0.0 - 10 .0 /100 WBCs. The refer ence range was not u sed to interpret this result as normal/abnor mal. NRBC x10^3 (test <0.01 See_Comment [Automated message] code = 0807231179) The syste m which generated this result transmitted ref erence range: 10*3/?L. The reference range was not used to interpr et this result as normal/abnormal . GRAN MAT (NEUT) % 57.6 % (test code = 770-8) IMM GRAN % (test 0.30 % code = 6365815242) LYMPH % (test code 31.3 % = 736-9) MONO % (test code 8.9 % = 5905-5) EOS % (test code = 1.5 % 713-8) BASO % (test code 0.4 % = 706-2) GRAN MAT 4.60 10*3/uL 1.88-7.09 x10^3(ANC) (test code = 5290445262) IMM GRAN x10^3 <0.03 0-0.06 (test code = 7415331343) LYMPH x10^3 (test 2.50 10*3/uL 1.32-3.29 code = 731-0) MONO x10^3 (test 0.71 10*3/uL 0.33-0.92 code = 742-7) EOS x10^3 (test 0.12 10*3/uL 0.03-0.39 code = 711-2) BASO x10^3 (test 0.03 10*3/uL 0.01-0.07 code = 704-7) [facility] W [id number] 03:12:10 No acute abdominal or pelvic process. Preliminary Report Dictated by Resident: Alberto Mack MD., have reviewed this study and agree with theabove report.EXAM: CT ABDOMEN AND PELVIS WITH CONTRAST HISTORY: complaints of generalized abdominal pain and nausea that has beenongoing for "months." Patient states that pain worsened last night, patientdenies vomiting. States that shehas had 5-6 episodes of diarrhea today. COMPARISON: None. TECHNIQUE AND FINDINGS: Contiguous axial imaging from the level of the lungbases through the proximal thighs was performed after the administration ofintravenous Omnipaque contrast. Coronal and sagittal reconstructions wereobtained. ?Auto mA and/or iterative reconstruction were used to reduceradiation dose. FINDINGS: LOWER THORAX: The lungs bases are clear. LIVER: Fatty infiltration at the falciform ligament. No suspicious focalhepatic lesions. Normal contour. GALLBLADDER AND BILIARY TREE: Physiologically distended gallbladder withoutradiopaque cholelithiasis. No biliary ductal dilatation. SPLEEN: No splenomegaly. PANCREAS: No ductal dilation or masses. ADRENAL GLANDS: No adrenal nodules. KIDNEYS: No hydronephrosis, stones, or masses. PERITONEUM AND RETROPERITONEUM: No free air or fluid. LYMPH NODES: No lymphadenopathy. GI TRACT: No dilation or abnormal wall thickening. The appendix isunremarkable. PELVIS/BLADDER: Hysterectomy. Bilateralovaries are not visualized. VESSELS: Unremarkable. BONES AND SOFT TISSUES: No suspicious lytic or sclerotic bony lesions. [facility], Radiant Results Inft User - 06/01/2020 10:13 PM CDTEXAM: CT ABDOMEN AND PELVIS WITH CONTRASTHISTORY: complaints of generalized abdominal pain and nausea that has beenongoing for "months." Patient states that pain worsened last night, patientdenies vomiting. States that she has had 5-6 episodes of diarrhea today.COMPARISON: None.TECHNIQUE AND FINDINGS: Contiguous axial imaging from the level of the lungbases through the proximal thighs was performed after the administrationofintravenous Omnipaque contrast. Coronal and sagittal reconstructions wereobtained. Auto mA and/or iterative reconstruction were used to reduceradiation dose.FINDINGS:LOWER THORAX: The lungs bases are clear. LIVER: Fatty infiltration at the falciform ligament. No suspicious focalhepatic lesions. Normal contour.GALLBLADDER AND BILIARY TREE: Physiologically distended gallbladder withoutradiopaque cholelithiasis. No biliary ductal dilatation.SPLEEN: No splenomegaly.PANCREAS: No ductal dilation or masses.ADRENAL GLANDS: No adrenal nodules.KIDNEYS: No hydronephrosis, stones, or masses.PERITONEUM AND RETROPERITONEUM: No free air or fluid.LYMPH NODES: No lymphadenopathy.GI TRACT: No dilation or abnormalwall thickening. The appendix isunremarkable.PELVIS/BLADDER: Hysterectomy. Bilateral ovaries are not visualized.VESSELS: Unremarkable.BONES AND SOFT TISSUES: No suspicious lytic or sclerotic bony lesions.IMPRESSIONNo acute abdominal or pelvic process.Preliminary Report Dictated by Resident: Alberto Lassiter MD., have reviewed this study and agree with theabove report. [facility] 00:47:00 Test Item Value Reference Range Interpretation Comments APPEARANCE (test code = Clear Clear 8536847194) COLOR (test code = Yellow Yellow 9029775844) PH (test code = 4.8-8.0 6392363846) SP GRAVITY (test code = 1.003-1.030 5244031528) GLU U QUAL (test code = Normal Normal 2091991163) BLOOD (test code = Negative Negative 4607943393) KETONES (test code = Negative Negative 6455829762) PROTEIN (test code = Negative Negative 2887-8) UROBILIN (test code = Normal Normal 6559621405) BILIRUBIN (test code = Negative Negative 5629136599) NITRITE (test code = Negative Negative 1486714970) LEUK JONO (test code = Negative Negative 7345379555) RBC/HPF (test code = See_Comment [Autom ated message] 0556055821) The system B[employer] generated this result transmitted ref erence range: 0 - 3 HP F. The reference range was not used to int erpret this result as normal/abnormal . WBC/HPF (test code = <1 See_Comment [Autom ated message] 7614150763) The system Baton generated this result transmitted ref erence range: 0 - 5 HP F. The reference range was not used to int erpret this result as normal/abnormal . BACTERIA (test code = Few Negative A 9476172177) SQ EPITH (test code = HPF 5434918307) Lab Interpretation (test Abnormal code = 82477-0) [facility]. METABOLIC PANEL (40490)2020-06-02 00:26:00 Test Item Value Reference Range Interpretation Comments NA (test code = 138 mmol/L 135-145 0314873569) K (test code = 4.5 mmol/L 3.5-5 2347285491) CL (test code = 100 mmol/L 98-108 0072820219) CO2 TOTAL (test code = 28 mmol/L 23-31 7955266489) AGAP (test code = 2-16 1298612624) BUN (test code = 11 mg/dL 7-23 0117518327) GLUCOSE (test code = 115 mg/dL 70-110 H 6462739296) CREATININE (test code = 0.70 mg/dL 0.5-1.04 6698980875) TOTAL BILI (test code = 0.8 mg/dL 0.1-1.3 0076329185) CALCIUM (test code = 10.1 mg/dL 8.6-10.6 4796842840) T PROTEIN (test code = 8.1 g/dL 6.3-8.2 6362410146) ALBUMIN (test code = 4.3 g/dL 3.5-5 3860252406) ALK PHOS (test code = 58 U/L 34-122 4142164516) ALTv (test code = 23 U/L 5-35 1742-6) AST(SGOT) (test code = 31 U/L 13-40 1755185127) eGFR Calculation mL/min/1.73m2 (Non-) (test code = 6001822311) eGFR Calculation mL/min/1.73m2 () (test code = 1792028169) AMAYA (test code = AMAYA) Association of Glomerular Filtration Rate (GFR) and Staging of Kidney Disease* + --+ --+ ------+| GFR (mL/min/1.73 m2) ?| With Kidney Damage ?| ?Without Kidney Damage+ --------+ --------+ +| ?>90 ?| ?Stage one ?| ? Normal ?+ ---+ ---+ -------+| ?60-89 ?| ?Stage two ?| ? Decreased GFR ? + --+ --+ ------+| ?30-59 ?| ?Stage three ?| ? Stage three ? + --+ --+ ------+| ?15-29 ?| ?Stage four ? | ? Stage four ?+ ---+ ---+ -------+| ?<15 (or dialysis) ? ?| ?Stage five ? | ? Stage five ?+ ---+ ---+ -------+ *Each stage assumes the associated GFR level has been in effect for at least three months. ?Stages 1 to 5, with or without kidney disease, indicate chronic kidney disease. Notes: Determination of stages one and two (with eGFR >59mL/min/1.73 m2) requires estimation of kidney damage for at least three months as defined by structural or functional abnormalities of the kidney, manifested by either:Pathological abnormalities or Markers of kidney damage (including abnormalities in the composition of the blood or urine or abnormalities in imaging tests). Lab Interpretation Abnormal (test code = 26642-3) [facility] 00:26:00 Test Item Value Reference Range Interpretation Comments LIPASE (test code = 2354219669) 43 U/L 0-220 Lab Interpretation (test code = Normal 33316-3) [facility] WITH [id number] 00:09:00 Test Item Value Reference Range Interpretation Comments WBC (test code = See_Comment [Automated message] 6690-2) The system B[employer] generated this result transmitted ref erence range: 4.30 - 1 1.10 10*3/?L. The re ference range was not u sed to interpret this result as normal/abnor mal. RBC (test code = See_Comment [Automated message] 899-8) The system B[employer] generated this result transmitted ref erence range: 3.93 - 5 .25 10*6/?L. The re ference range was not u sed to interpret this result as normal/abnor mal. HGB (test code = 13.9 g/dL 11.6-15 718-7) HCT (test code = 43.6 % 35.7-45.2 4544-3) MCV (test code = 86.0 fL 80.6-95.5 787-2) MCH (test code = 27.4 pg 25.9-32.8 785-6) MCHC (test code = 31.9 g/dL 31.6-35.1 786-4) RDW-SD (test code 41.8 fL 39-49.9 = 25318-5) RDW-CV (test code 13.5 % 12-15.5 = 788-0) PLT (test code = See_Comment [Automated message] 827-3) The system B[employer] generated this result transmitted ref erence range: 166 - 35 8 10*3/?L. The re ference range was not u sed to interpret this result as normal/abnor mal. MPV (test code = 10.0 fL 9.5-12.9 28092-7) NRBC/100 WBC (test See_Comment [Automat ed message] code = 2167410891) The syste [employer] which generated this result transmitted ref erence range: 0.0 - 10 .0 /100 WBCs. The refer ence range was not u sed to interpret this result as normal/abnor mal. NRBC x10^3 (test <0.01 See_Comment [Automated message] code = 8865106553) The [employer] which generated this result transmitted ref erence range: 10*3/?L. The reference range was not used to interpr et this result as normal/abnormal . GRAN MAT (NEUT) % 64.7 % (test code = 770-8) IMM GRAN % (test 0.50 % code = 3540878479) LYMPH % (test code 26.0 % = 736-9) MONO % (test code 6.8 % = 5905-5) EOS % (test code = 1.6 % 713-8) BASO % (test code 0.4 % = 706-2) GRAN MAT 5.26 10*3/uL 1.88-7.09 x10^3(ANC) (test code = 6777138099) IMM GRAN x10^3 0.04 10*3/uL 0-0.06 (test code = 2084502895) LYMPH x10^3 (test 2.11 10*3/uL 1.32-3.29 code = 731-0) MONO x10^3 (test 0.55 10*3/uL 0.33-0.92 code = 742-7) EOS x10^3 (test 0.13 10*3/uL 0.03-0.39 code = 711-2) BASO x10^3 (test 0.03 10*3/uL 0.01-0.07 code = 704-7) [facility] [id number] 16:52:00 Test Item Value Reference Range Interpretation Comments TROPONIN I (test <0.012 See_Comment [Automated code = 6888571898) message] The system which generated this result transmitted reference range : <=0.034 ng/mL. The reference range was not used to interpr et this result as normal/abnormal . AMAYA (test code = Equal or Less than AMAYA) 0.034 ng/ml---Normal ?Note: Cardiac troponin begins to rise 3-4 hours after the onset of ischemia. Repeat in 4-6 hours if the sample was drawn within 3-4 hours of the onset of the symptom and found normal. Between 0.035 and 0.120 ng/mL--- Borderline. Questionable myocardial injury or necrosis ? ?Note: Serial measurement may be necessary to confirm or exclude the diagnosis of myocardial injury or necrosis; Clinical correlation (symptoms, EKGs, imaging studies, and others) required; Repeat in 4-6 hours if clinically indicated. ? Equal or Higher than 0.121 ng/mL---Abnormal. Myocardial Injury or Necrosis Likely ? Biotin has been reported to cause a negative bias, interpret results relative to patient's use of biotin. ? Lab Interpretation Normal (test code = 33132-1) [facility]CT [facility]dom[facility]Pelvis W/O [id number] 16:48:14 No acute findings in the abdomen or pelvis. Preliminary Report Dictated by Resident: Tom Collins ?MD. Anderson, have reviewed this study and agree withthe above report.EXAM: CT ABDOMEN AND PELVIS WITHOUT CONTRAST HISTORY: 39-year-old female with acute abdominal pain, diverticulitis suspected. COMPARISON: CT abdomen and pelvis on 03/04/2017 TECHNIQUE AND FINDINGS: Contiguous axial imaging from the level of the lungbases through the pubic symphysis was performed without the intravenousadministration of contrast. Coronal and sagittal reconstructions wereobtained. ?Auto mA and/or iterative reconstruction were used to reduceradiation dose. FINDINGS: LOWER THORAX: The lung bases are clear. No cardiomegaly. LIVER: Normal liver contour. GALLBLADDER AND BILIARY TREE: No biliary ductal dilation. No gallbladderwall thickening. SPLEEN: No splenomegaly. PANCREAS: No ductal dilation or masses ADRENAL GLANDS: No adrenal nodules KIDNEYS: No hydronephrosis or stones. PERITONEUM AND RETROPERITONEUM: No free air or fluid. LYMPH NODES: No lymphadenopathy. GI TRACT: No dilation or wall thickening. The appendix is normal. PELVIS/BLADDER: Prior hysterectomy. The bladder is decompressed, limitingevaluation. VESSELS: Unremarkable. BONES AND SOFT TISSUES: No suspicious lytic or sclerotic bony lesions. [facility], Radiant Results Inft User - 04/08/2020 11:49 AM CDTEXAM: CT ABDOMEN AND PELVIS WITHOUT CONTRASTHISTORY: 39-year-old female with acute abdominal pain, diverticulitissuspected.COMPARISON: CT abdomen and pelvis on 03/04/2017TECHNIQUE AND FINDINGS: Contiguous axial imaging from the level of the lungbases through the pubic symphysis was performed without the intravenousadministration of contrast. Coronal and sagittal reconstructions wereobtained. Auto mA and/or iterative reconstruction were used to reduceradiation dose.FINDINGS:LOWER THORAX: The lung bases are clear. No cardiomegaly.LIVER: Normal liver contour. GALLBLADDER AND BILIARY TREE: No biliary ductal dilation. No gallbladderwall thickening.SPLEEN: No splenomegaly.PANCREAS: No ductal dilation or massesADRENAL GLANDS: No adrenal nodulesKIDNEYS: No hydronephrosis or stones.PERITONEUM AND RETROPERITONEUM: No free air or fluid.LYMPH NODES:No lymphadenopathy.GI TRACT: No dilation or wall thickening. The appendix is normal.PELVIS/BLADDER: Prior hysterectomy. The bladder is decompressed, limitingevaluation.VESSELS: Unremarkable.BONES AND SOFT TISSUES: No suspicious lytic or sclerotic bony lesions.IMPRESSIONNo acute findings in the abdomenor pelvis.Preliminary Report Dictated by Resident: Tom Stoddard MD., havereviewed this study and agree withthe above report.[facility] NorthwestUrinalysis2020-08-15 16:44:00 Test Item Value Reference Range Interpretation Comments APPEARANCE (test code = Clear Clear 6453510361) COLOR (test code = Straw Yellow A 5718415233) PH (test code = 4.8-8.0 1559257708) SP GRAVITY (test code = 1.003-1.030 9668717746) GLU U QUAL (test code = Normal Normal 1366279007) BLOOD (test code = Negative Negative 3580782947) KETONES (test code = Negative Negative 4772380801) PROTEIN (test code = Negative Negative 2887-8) UROBILIN (test code = Normal Normal 3798410584) BILIRUBIN (test code = Negative Negative 6263613650) NITRITE (test code = Negative Negative 8095382479) LEUK JONO (test code = Negative Negative 6600607516) RBC/HPF (test code = <1 See_Comment [Autom ated message] 1829324418) The system [employer] generated this result transmitted ref erence range: 0 - 3 HP F. The reference range was not used to int erpret this result as normal/abnormal . WBC/HPF (test code = See_Comment [Autom ated message] 8628454207) The system [employer] generated this result transmitted ref erence range: 0 - 5 HP F. The reference range was not used to int erpret this result as normal/abnormal . BACTERIA (test code = Few Negative A 0278626438) SQ EPITH (test code = HPF 2579179327) Lab Interpretation (test Abnormal code = 69790-2) [facility] Metabolic Panel (NA, K, CL, CO2, GLUCOSE, BUN, CREATININE, CA)2020-04-08 16:41:00 Test Item Value Reference Range Interpretation Comments NA (test code = 137 mmol/L 135-145 6777227359) K (test code = 4.5 mmol/L 3.5-5 2511713599) CL (test code = 104 mmol/L 98-108 8724040340) CO2 TOTAL (test code = 26 mmol/L 23-31 2029655282) AGAP (test code = 2-16 7777049707) BUN (test code = 6 mg/dL 7-23 L 7189069330) GLUCOSE (test code = 99 mg/dL 70-110 6001531727) CREATININE (test code = 0.73 mg/dL 0.5-1.04 9626795253) CALCIUM (test code = 9.6 mg/dL 8.6-10.6 9036768249) eGFR Calculation mL/min/1.73m2 (Non-) (test code = 3919485259) eGFR Calculation mL/min/1.73m2 () (test code = 7684957813) AMAYA (test code = AMAYA) Association of Glomerular Filtration Rate (GFR) and Staging of Kidney Disease* + --+ --+ ------+| GFR (mL/min/1.73 m2) ?| With Kidney Damage ?| ?Without Kidney Damage+ --------+ --------+ +| ?>90 ?| ?Stage one ?| ? Normal ?+ ---+ ---+ -------+| ?60-89 ?| ?Stage two ?| ? Decreased GFR ? + --+ --+ ------+| ?30-59 ?| ?Stage three ?| ? Stage three ? + --+ --+ ------+| ?15-29 ?| ?Stage four ? | ? Stage four ?+ ---+ ---+ -------+| ?<15 (or dialysis) ? ?| ?Stage five ? | ? Stage five ?+ ---+ ---+ -------+ *Each stage assumes the associated GFR level has been in effect for at least three months. ?Stages 1 to 5, with or without kidney disease, indicate chronic kidney disease. Notes: Determination of stages one and two (with eGFR >59mL/min/1.73 m2) requires estimation of kidney damage for at least three months as defined by structural or functional abnormalities of the kidney, manifested by either:Pathological abnormalities or Markers of kidney damage (including abnormalities in the composition of the blood or urine or abnormalities in imaging tests). Lab Interpretation Abnormal (test code = 02197-2) [facility] Northwest[facility] Function [facility] (ALB, T.PRO, BILI T, BU/BC, ALT, AST, ALK PHOS)2020-04-08 16:41:00 Test Item Value Reference Range Interpretation Comments TOTAL BILI (test code = 3516958901) 0.4 mg/dL 0.1-1.1 BILI UNCON (test code = 6627876613) 0.5 mg/dL 0.1-1.1 BILI CONJ (test code = 8157528443) 0.0 mg/dL 0-0.3 T PROTEIN (test code = 2230014713) 8.1 g/dL 6.3-8.2 ALBUMIN (test code = 7056010208) 4.6 g/dL 3.5-5 ALK PHOS (test code = 4149025418) 61 U/L 34-122 ALTv (test code = 1742-6) 28 U/L 5-35 AST(SGOT) (test code = 0422411934) 35 U/L 13-40 Lab Interpretation (test code = Normal 29771-9) [facility] NorthwestLipase [id number] 16:41:00 Test Item Value Reference Range Interpretation Comments LIPASE (test code = 6161022947) 39 U/L 0-220 Lab Interpretation (test code = Normal 46315-8) [facility] with [id number] 16:27:00 Test Item Value Reference Range Interpretation Comments WBC (test code = See_Comment [Automated 6690-2) message] The sy stem which generated this result transmitted reference range : 4.30 - 11.10 10*3/?L. The reference range was not used to interpret this result as normal/abnormal . RBC (test code = See_Comment [Automated 789-8) message] The sy stem which generated this result transmitted reference range : 3.93 - 5.25 10*6/?L. The reference range was not used to interpret this result as normal/abnormal . HGB (test code = 13.9 g/dL 11.6-15 718-7) HCT (test code = 42.6 % 35.7-45.2 4544-3) MCV (test code = 84.2 fL 80.6-95.5 787-2) MCH (test code = 27.5 pg 25.9-32.8 785-6) MCHC (test code = 32.6 g/dL 31.6-35.1 786-4) RDW-SD (test code = 41.0 fL 39-49.9 71411-5) RDW-CV (test code = 13.3 % 12-15.5 788-0) PLT (test code = See_Comment [Automated 777-3) message] The sy stem which generated this result transmitted reference range : 166 - 358 10*3/ ?L. The reference r radha was not used to interpret this result as normal/abnormal . MPV (test code = 10.5 fL 9.5-12.9 53127-1) NRBC/100 WBC (test See_Comment [Automat ed code = 0787096090) message] The system which generated this result transmitted reference range : 0.0 - 10.0 /100 WBCs. The refer ence range was not u sed to interpret th is result as normal/abnormal . NRBC x10^3 (test code <0.01 See_Comment [Auto mated = 0930797464) message] The s ystem which generated this result transmitted reference range : 10*3/?L. The reference range was not used to interpret this result as normal/abnormal . GRAN MAT (NEUT) % 53.1 % (test code = 770-8) IMM GRAN % (test code 0.30 % = 3504024190) LYMPH % (test code = 35.9 % 736-9) MONO % (test code = 9.0 % 5905-5) EOS % (test code = 1.3 % 713-8) BASO % (test code = 0.4 % 706-2) GRAN MAT x10^3(ANC) 4.89 10*3/uL 1.88-7.09 (test code = 2217898921) IMM GRAN x10^3 (test 0.03 10*3/uL 0-0.06 code = 0020597724) LYMPH x10^3 (test code 3.31 10*3/uL 1.32-3.29 H = 731-0) MONO x10^3 (test code 0.83 10*3/uL 0.33-0.92 = 742-7) EOS x10^3 (test code = 0.12 10*3/uL 0.03-0.39 711-2) BASO x10^3 (test code 0.04 10*3/uL 0.01-0.07 = 704-7) Lab Interpretation Abnormal (test code = 29292-3) [facility] NorthwestPOCT [id number] 16:11:00 Test Item Value Reference Range Interpretation Comments POCT PREG (test code = 1605) negative POCT PREG LOT # (test code = 3575) [id number] POCT PREG TEST DATE (test 03/24/2021 code = 3576) Lab Interpretation (test code = Normal 34641-8) [facility] NorthwestRPR [id number] 13:49:18 Test Item Value Reference Range Interpretation Comments RPR Qual (test code = RPR Qual) Non-Reactive Non-Reactive Reactive Control (test code = Reactive Reactive Control) Weak Reactive Control (test Weak Reactive code = Weak Reactive Control) Non-Reactive Control (test code Non-Reactive = Non-Reactive Control) Lot # (test code = Lot #) [id number] Expiration Dt (test code = 06-24-20 N Expiration Dt) Comprehensive Metabolic Ebubi7766-15-03 22:30:33 Test Item Value Reference Range Interpretation [...] A/G 1.5 ratio N Ratio) Comprehensive Metabolic [id number] 22:30:33 Test Item Value Reference Range Interpretation [...] the National Kid[employer] Foundation, http://nkdep.ni h.gov Alcohol [id number] 22:30:33 Test Item Value Reference Range Interpretation Comments Ethanol Level (test <0.00 g/dL 0.00-0.01 Intoxica wilma 0.080 g/dL code = Ethanol or more Level) Ethanol Inst (test <0 N code = Ethanol Inst) Comprehensive Metabolic [id number] 22:30:33 Test Item Value Reference Range Interpretation [...] ag e have not been validated by [facility] MDRD study and should be interpreted [...] account, if the information is provided. If [facility] race is not provided, and t he patient is -Luz n, multiply by 1.2 12. If sex is not provided, and t he patient is fema le, multiply by 0.7 42. Results for pat ients <18 years of ag e have not been validated by [facility] MDRD study and should be interpreted wit h caution. eGFR R esult Interpretation: eGFR > or = 60 is in the Normal RangeeGF R < 60 may mean kid kath diseaseeGFR < 1 5 may mean kidney failure Rang es recommended by the National Kidney Foundation, http://nkdep.ni h.gov HCG Qualitative Hdqlk4872-55-06 22:23:26 Test Item Value Reference Range Interpretation Comments hCG Ur (test code = Negative If the r esult is hCG Ur) "Negative" in p atients suspected to be , recom mend retest with a s ample obtained 48 to 72 hours later, or by ordering a quantitative as say. If the result is "Borderline" te sting should be repea wilma in 48 to 72 hours. Lot # (test code = [id number] N Lot #) Expiration Dt (test 2020-09-24 N code = Expiration Dt) Neg Control (test Negative code = Neg Control) Pos Control (test Positive code = Pos Control) Internal QC (test Acceptable code = Internal QC) Complete Blood Count with Vqepvahlxafb3565-66-84 22:08:35 Test Item Value Reference Range Interpretation [...] code = IPF) 0 % N Automated Fxfnczzterjv6882-18-95 22:08:35 Test Item Value Reference Range Interpretation Comments Neutro Auto (test code = Neutro 64.2 % 36.0-70.0 Auto) Lymph Auto (test code = Lymph Auto) 25.7 % 12.0-44.0 Griggs Auto (test code = Griggs Auto) 8.2 % 0.0-11.0 Eos, Auto (test code = Eos, Auto) 1.2 % 0.0-7.0 Basophil Auto (test code = Basophil 0.4 % 0.0-2.0 Auto) Neutro Absolute (test code = Neutro 6.7 x10 1.6-7.4 Absolute) Lymph Absolute (test code = Lymph 2.68 x10 .50-4.60 Absolute) Griggs Absolute (test code = Griggs .86 x10 .00-1.20 Absolute) Eos Absolute (test code = Eos 0.12 x10 0.00-0.74 Absolute) Baso Absolute (test code = Baso 0.04 x10 0.00-0.21 Absolute) IG [id number] 22:08:35 Test Item Value Reference Range Interpretation Comments IG (test code = IG) 0.3 % 0.0-5.0 IG Abs (test code = IG Abs) 0 x10 N XR HIPS 2 [id number] 20:58:17Osteoarthrosis * * * * * * * * ORIGINAL REPORT * * * * * * * *EXAM: Right hip 2 views HISTORY: 38yo F with chronic right hip, knee, and ankle pain.; TECHNIQUE:AP and frog-leg views of the right hip are obtained. FINDINGS:No acute abnormality of the hip joint is seen. Degenerativechanges are seen in the hip joint in the form of minimal narrowing of thejoint, sclerosis of the acetabular roof and small osteophytes. Shape of thefemoral head is preserved. No bone lesion is noted. [facility], Radiant Results Inf t User - 05/07/2019 3:58 PM CDT* * * * * * * * ORIGINAL REPORT * * * * * * * *EXAM: Right hip 2 viewsHISTORY: 38yo F with chronic right hip, knee, and ankle pain.;TECHNIQUE:AP and frog-leg views of theright hip are obtained.FINDINGS:No acute abnormality of the hip joint is seen. Degenerativechanges are seen in the hip joint in the form of minimal narrowing of thejoint, sclerosis of the acetabular roof and small osteophytes. Shape of thefemoral head is preserved. No bone lesion is noted.IMPRESSIONOsteoarthrosisUnNorth Central Surgical Center [facility] XR ANKLE 3+ [id number] 20:57:16Mild degenerative changes in the medial ankle joint * * * * * * * * ORIGINAL REPORT * * * * * * * *EXAM: Right ankle 3 views HISTORY: 38yo F with chronic right hip, knee, and ankle pain TECHNIQUE:AP lateral and oblique views of the right ankle are obtained. FINDINGS:An old healed fracture of the distal fibula is noted affixed bymeans of a plate and multiple screws. No perihardware lucency is seen.Ankle mortise is intact. Degenerative changes are seen in the medial anklejoint in the form of small oste ophytes. [facility], Radiant Results Inft User - 05/07/2019 3:57 PM CDT* * * * * * * * ORIGINAL REPORT * * * * * *EXAM: Right ankle 3 viewsHISTORY: 38yo F with chronic right hip, knee, and ankle painTECHNIQUE:AP lateral and oblique views of the right ankle are obtained.FINDINGS:An old healed fracture ofthe distal fibula is noted affixed bymeans of a plate and multiple screws. No perihardware lucency is seen.Ankle mortise is intact. Degenerative changes are seen in the medial anklejoint in the form ofsmall osteophytes.IMPRESSIONMild degenerative changes in the medial ankle jointUnNorth Central Surgical Center HospitalXR KNEE 3 VW LEFT 2019-05-07 20:56:101. Changes of osteoarthritis2. Soft tissue swelling anterior to the quadriceps tendon * * * * * * * * ORIGINAL REPORT * * * * * * * *EXAM: Left knee 3 views HISTORY: 38yo F with chronic right hip, knee, and ankle pain TECHNIQUE:AP lateral and oblique views of the left knee are obtained. FINDINGS:Narrowing of the medial joint space is seen. Hypertrophy of thetibial spines is noted. Small osteophytes are seen at the patellar facets.No bone lesion is noted. Soft tissue swelling is seen anterior to thequadriceps tendon. [facility], Radiant Results [facility] User - 05/07/2019 3:56 PM CDT* * * * * * * * ORIGINAL REPORT * * * * * * * *EXAM: Left knee 3 viewsHISTORY: 38yo F with chronic right hip, knee, and ankle painTECHNIQUE:AP lateral and oblique views of the left knee are obtained.FINDINGS:Narrowing of the medial joint space is seen. Hypertrophy of thetibial spines is noted. Small osteophytes are seen at the patellar facets.No bone lesion is noted. Soft tissue swelling is seen anterior to thequadriceps tendon.IMPRESSION1. Changes of osteoarthritis2. Soft tissue swelling anterior to the quadriceps tendonUnNorth Central Surgical Center HospitalXR CERVICAL SPINE 4 [id number] 20:49:441.?No acute osseous findings are seen.2.?Curvature abnormality and minimal degenerative changes.* * * * * * * * ORIGINAL REPORT * * * * * * * *HISTORY:38yo F with chronic neck pain. TECHNIQUE: Frontal and lateral views of the cervical spine were obtained. COMPARISON:None. FINDINGS: There is reversal the normal cervical lordosis with results sagittalalignment. The vertebral body heights are preserved.The craniocervicaljunction is unremarkable. Minimal degenerative changes are seen in the formof discspace narrowing and facet arthropathy. [facility], [facility] Results [facility] User - 05/07/2019 3:49 PM CDT* * * * * * ORIGINAL REPORT * * * * * * * *HISTORY:38yo F with chronic neck pain. TECHNIQUE: Frontal and lateral views of the cervical spine were obtained. COMPARISON:None.FINDINGS:There is reversal the normal cervical lordosis with results sagittalalignment. The vertebral body heights are preserved. The craniocervicaljunction is unremarkable. Minimal degenerative changes are seen in the formof disc space narrowing and facet arthropathy.IMPRESSION1. No acute osseous findings are seen.2. Curvature abnor mality and minimal degenerative changes.[facility]
[2023-02-21] MEDS ORDERED: NA CHLORIDE 0.9% 1,000 ML ONE (12:25)
[2023-02-21] MEDS ORDERED: ONDANSETRON 4 MG/2 ML VIAL ONE (12:25)
--- NOTE | 2023-02-21 12:43 | RAD REPORT ---
EXAM DESCRIPTION: RAD - Hand Right 3 View - 02/21/2023 12:34 pm CLINICAL HISTORY: right 5th finger injury COMPARISON: No comparisons TECHNIQUE: Right hand, 3 views. FINDINGS: Displaced posterior corner fracture of the distal phalanx of the fifth age. Curvilinear kiana cency along the mid to distal aspect of the middle phalanx of the fifth digit. Surrounding soft tissu e swelling. There is no dislocation or periosteal reaction noted. No foreign body or other soft tissue abnormalit y. IMPRESSION: Displaced posterior corner fracture of the fifth digit distal phalanx, and possible nond isplaced curvilinear fracture of the middle phalanx.
[2023-02-21] MEDS ORDERED: MORPHINE 4 MG/ML SYR ONE (13:13)
--- NOTE | 2023-02-21 13:41 | EDPHYS ---
Physician Documentation [facility] Name: Maribel Diaz Age: 42 yrs Sex: Female : 1980 Arrival Date: 02/21/2023 Time: 11:52 Bed 18 Private MD: ED Physician Carlos Oliveira HPI: 02/21 12:11 This 42 yrs old Female presents to ER via Ambulatory with complaints of Finger Injury, jmm Abdominal Pain. 12:11 The patient or guardian reports injury, pain. Onset: The symptoms/episode jmm began/occurred acutely, 3 week(s) ago. Modifying factors: The symptoms are alleviated by nothing, the symptoms are aggravated by nothing. This is a 42/f with a history of fibromyalgia, depssion, anxiety that presents to the ED with complaints of right 5th finger pain following an injury which occurred approx 2 to 3 weeks per patient. Patient is also having nausea and abdominal pain which she is attributing to her giant cell arteritis and polymyalgia rheumatica. Patient request zofran. . Historical: - Allergies: 12:08 Tegretol; hallucinations; ss 12:08 Benadryl; ss 12:08 Toradol; ss - PMHx: 12:08 ADD/ADHD; cervical cancer; Depression; Fibromyalgia; Panic Attacks; Substance Abuse; ss - PSHx: 12:08 cher. ankle; section; hysterectomy; ss - Immunization history:: Client reports receiving the 2nd dose of the Covid vaccine. - Social history:: Smoking status: Patient denies any tobacco usage or history of. ROS: 12:11 Constitutional: Negative for fever, chills, and weight loss, Cardiovascular: Negative jmm for chest pain, palpitations, and edema, Respiratory: Negative for shortness of breath, cough, wheezing, and pleuritic chest pain. 12:11 Abdomen/GI: Positive for abdominal pain, nausea. 12:11 MS/extremity: Positive for injury or acute deformity. 12:11 All other systems are negative. Exam: 12:11 Constitutional: This is a well developed, well nourished patient who is awake, alert, jmm and in no acute distress. Head/Face: atraumatic. Eyes: EOMI, no conjunctival erythema appreciated ENT: Moist Mucus Membranes Neck: Trachea midline, Supple Chest/axilla: Normal chest wall appearance and motion. Cardiovascular: Regular rate and rhythm. No edema appreciated Respiratory: Normal respirations, no respiratory distress appreciated Abdomen/GI: Non distended Back: Normal ROM Skin: General appearance color normal 12:11 Abdomen/GI: Inspection: abdomen appears normal, Bowel sounds: normal, Palpation: soft, in all quadrants. 12:11 Musculoskeletal/extremity: painful rom noted to the right 5th finger at the pip, < 2 sec dist cap refill, NVI. 12:11 Skin: Appearance: Color: normal in color. 12:11 Neuro: Orientation: is normal, Mentation: is normal, Memory: is normal. 12:11 Psych: Behavior/mood is pleasant, cooperative. Vital Signs: 12:05 BP 131 / 86; Pulse 92; Resp 20; Pulse Ox 100% on R/A; Weight 102.06 kg; Height 5 ft. 8 ss in. ; Pain 8/10; 12:05 Body Mass Index 34.21 (102.06 kg, 172.72 cm) ss 12:05 Pain Scale: Adult ss MDM: 12:11 Patient medically screened. basilio 15:34 Differential diagnosis: closed fracture. Data reviewed: vital signs, nurses notes. I basilio considered the following discharge prescriptions or medication management in the emergency department Medications were administered in the Emergency Department. See MAR. Counseling: I had a detailed discussion with the patient and/or guardian regarding: the historical points, exam findings, and any diagnostic results supporting the discharge/admit diagnosis, radiology results, the need for outpatient follow up, to return to the emergency department if symptoms worsen or persist or if there are any questions or concerns that arise at home. ED course: Patient states feeling much better. I currently do not suspect an acute intraabdominal process. Patient is otherwise given strict return precautions. patient understood and agrees with the plan of care. . 02/21 12:12 Order name: Hand Right 3 View XRAY; Complete Time: 12:44 [facility] 02/21 12:12 Order name: Saline Lock; Complete Time: 12:35 [facility] 02/21 13:02 Order name: Finger Splint; Complete Time: 16:04 [facility] Administered Medications: 12:28 Drug: Ondansetron IVP 4 mg Route: IVP; Site: right antecubital; eh3 13:14 Follow up: Response: No adverse reaction; Nausea is decreased eh3 12:29 Drug: NS 0.9% IV 1000 ml Route: IV; Rate: 1 bolus; Site: right antecubital; 3 13:30 Follow up: IV Status: Completed infusion; IV Intake: 1000ml 3 13:10 Drug: morphine IVP or IV 4 mg Route: IVP; Infused Over: 4 mins; Site: right antecubital;3 13:30 Follow up: Response: No adverse reaction; Pain is decreased 3 Disposition: 18:04 Co-signature as Attending Physician, Carlos Oliveira DO I was immediately available on-site ms3 in the Emergency Department for consultation in the care of the patient. Disposition Summary: 02/21/23 13:41 Discharge Ordered Location: Home [facility] Condition: Stable jmm Diagnosis - Finger Fracture jmm - Abdominal Pain jmm - Nausea [facility] Followup: [facility] - With: Kaushal Elder MD - When: 2 - 3 days - Reason: Recheck today's complaints, Continuance of care, Re-evaluation by your physician Discharge Instructions: - Discharge Summary Sheet jmm - Finger Fracture, Adult jmm - Nausea, Adult jmm Forms: - Medication Reconciliation Form [facility] - Thank You Letter [facility] - Antibiotic Education [facility] - Prescription Opioid Use [facility] - Jimmy [email or web address] [facility] Prescriptions: - ondansetron 4 mg Oral Tablet,disintegrating - take 1 tablet by ORAL route every 4 to 6 hours As needed as needed for nausea jmm and vomiting; 30 tablet; Refills: 0, Product Selection Permitted Signatures: Dispatcher [employer] EDArnold Tucker PA PA [facility] Felicita Gerardo, ZION DONOVAN Carlos Oliveira DO DO ms3 Marta Venegas RN RN 3
--- NOTE | 2023-02-21 13:41 | ER ---
Nurse's Notes [facility] Name: Maribel Diaz Age: 42 yrs Sex: Female : 1980 Arrival Date: 02/21/2023 Time: 11:52 Bed 18 Private MD: Diagnosis: Finger Fracture;Abdominal Pain;Nausea Presentation: 02/21 12:05 Chief complaint: Patient states: R fifth finger pain and bruising that began 2-3 weeks ss ago after initial injury. Pt reports she injured it again 30 minutes ago. Also requesting Zofran. Coronavirus screen: Client denies travel out of the [place] in the last 14 days. Ebola Screen: Patient denies exposure to infectious person. Patient denies travel to an Ebola-affected area in the 21 days before illness onset. Initial Sepsis Screen: Does the patient meet any 2 criteria? No. Patient's initial sepsis screen is negative. Does the patient have a suspected source of infection? No. Patient's initial sepsis screen is negative. Risk Assessment: Do you want to hurt yourself or someone else? Patient reports no desire to harm self or others. Onset of symptoms is unknown. 12:05 Method Of Arrival: Ambulatory ss 12:05 Acuity: RICO 4 ss Triage Assessment: 12:00 General: Appears distressed, uncomfortable, Behavior is cooperative. Injury eh3 Description: Deformity sustained to right little finger. Historical: - Allergies: 12:08 Tegretol; hallucinations; ss 12:08 Benadryl; ss 12:08 Toradol; ss - PMHx: 12:08 ADD/ADHD; cervical cancer; Depression; Fibromyalgia; Panic Attacks; Substance Abuse; ss - PSHx: 12:08 cher. ankle; section; hysterectomy; ss - Immunization history:: Client reports receiving the 2nd dose of the Covid vaccine. - Social history:: Smoking status: Patient denies any tobacco usage or history of. Screenin:00 [facility] ED Fall Risk Assessment (Adult) Score/Fall Risk Level 0 - 2 = Low Risk. Abuse eh3 screen: Denies threats or abuse. Denies injuries from another. Nutritional screening: No deficits noted. Tuberculosis screening: No symptoms or risk factors identified. Assessment: 12:00 General: Appears distressed, uncomfortable, Behavior is cooperative, anxious, restless. eh3 Pain: Complains of pain in right hand. Neuro: Level of Consciousness is awake, alert, obeys commands, Oriented to person, place, time, situation. Cardiovascular: Capillary refill < 3 seconds Patient's skin is warm and dry. Respiratory: Airway is patent Respiratory effort is even, unlabored, Respiratory pattern is regular, symmetrical. GI: Abdomen is round non-distended. Derm: Skin is pink, warm \T\ dry. Bruising that is bright red, on dorsal aspect of distal phalanx of right little finger and palmar aspect of distal phalanx of right little finger. Musculoskeletal: Circulation, motion, and sensation intact. Swelling present in right little finger. 13:00 Reassessment: Patient and/or family updated on plan of care and expected duration. Pain eh3 level reassessed. Patient is alert, oriented x 3, equal unlabored respirations, skin warm/dry/pink. Vital Signs: 12:05 BP 131 / 86; Pulse 92; Resp 20; Pulse Ox 100% on R/A; Weight 102.06 kg; Height 5 ft. 8 ss in. ; Pain 8/10; 12:05 Body Mass Index 34.21 (102.06 kg, 172.72 cm) ss 12:05 Pain Scale: Adult ss ED Course: 11:55 Patient arrived in ED. rg4 11:59 Arnold Sahu PA is PHCP. [facility] 11:59 Carlos Oliveira DO is Attending Physician. m 12:00 Patient has correct armband on for positive identification. Bed in low position. Call 3 light in reach. Pulse ox on. NIBP on. 12:03 Marta Venegas, RN is Primary Nurse. eh3 12:08 Triage completed. ss 12:08 Arm band placed on right wrist. ss 12:27 Inserted saline lock: 20 gauge in right antecubital area, using aseptic technique. eh3 12:36 Hand Right 3 View XRAY In Process Unspecified. EDMS 13:30 No provider procedures requiring assistance completed. IV discontinued, intact, eh3 bleeding controlled, No redness/swelling at site. Pressure dressing applied. 13:40 Kaushal Elder MD is Referral Physician. [facility] Administered Medications: 12:28 Drug: Ondansetron IVP 4 mg Route: IVP; Site: right antecubital; eh3 13:14 Follow up: Response: No adverse reaction; Nausea is decreased 3 12:29 Drug: NS 0.9% IV 1000 ml Route: IV; Rate: 1 bolus; Site: right antecubital; 3 13:30 Follow up: IV Status: Completed infusion; IV Intake: 1000ml 3 13:10 Drug: morphine IVP or IV 4 mg Route: IVP; Infused Over: 4 mins; Site: right antecubital;3 13:30 Follow up: Response: No adverse reaction; Pain is decreased 3 Medication: 16:07 VIS not applicable for this client. eh3 Intake: 13:30 IV: 1000ml; Total: 1000ml. 3 Outcome: 13:41 Discharge ordered by MD. [facility] 13:50 Discharged to home ambulatory, with family. [facility] 13:50 Condition: stable 13:50 Discharge instructions given to patient, Instructed on discharge instructions, follow up and referral plans. medication usage, Demonstrated understanding of instructions, follow-up care, medications, Prescriptions given X 1. 13:59 Patient left the ED. 1 Signatures: Dispatcher [employer] EDMS Arnold Sahu PA PA jmm Blanchard, Shelby, RN RN Ree Gayle Lynsay, RN RN 1 Marta Venegas RN RN 3
[2023-02-21 14:07] VITALS: BP 131/86; O2SAT 100
== END 2023-02-21 13:59 | disposition home or self-care (01) ==
LOC: ER 11:52
PROC: 2W3JX1Z Immobilization of Right Finger using Splint (ICD-10-PCS; principal; 2023-02-21)
DX: S62.606A Fracture of unspecified phalanx of right little finger, initial encounter for closed fracture (principal); R10.9 Unspecified abdominal pain; R11.0 Nausea; Z88.5 Allergy status to narcotic agent; Z88.8 Allergy status to other drugs, medicaments and biological substances
CPT/HCPCS: 96361; 73130; 96375; 96374; 99284; 29130; J2405; J7030

== ENCOUNTER 2023-02-27 12:52 | Inpatient (IN) | payer OTHER, SELFPAY ==
--- OUTSIDE RECORDS SUMMARY | 2023-02-27 13:01 | XMS REPORT | Continuity of Care Document ---
:1980 Author Organization [facility] t Address [address] [place] [address] Care Team Providers Name Role Phone Asked, [...] Stefan Whitfield DO Attending Clinician Doctor Unassigned, Lupus Attending Clinician Unavailable Khadijah Capps DO Attending Clinician Provider, [facility] Attending Clinician Unavailable Stella Gamboa Attending Clinician STELLA LOPEZ Attending Clinician Unavailable PHILLIP WAYNE Attending Clinician Unavailable Janene Li Attending Clinician Lucas Larson Attending Clinician Trish Long Attending Clinician SUSAN ULRICH Attending Clinician Unavailable OSCAR SOLANO Admitting Clinician Unavailable Payers Payer Name Policy Type Policy Number Effective Date Expiration Date [place] [facility] [id number] 2020 00:00:00 MEDICAID OF [place] [id number] 2020 00:00:00 Problems Condition Condition Condition Status Onset Resolution Last Treating Co mments Source Name Details Category Date Date Treatment Clinician Date 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 6-09 ity of 00:00: [place] [address] Medical Branch DDD DDD Disease Active Univers (degenerat (degenerat 3-13 it y of abdoul disc abdoul disc 00:00: [place] disease), disease), 00 Medi isha cervical cervical Branch Muscle Muscle Disease Active Univers spasms spasms 3-13 ity of 00:00: [place] [facility] Chronic Chronic Disease Active 2020- Univers pain of pain of 3-13 ity of both both 00:00: [place] ankles ankles 00 Medical Branch History of History of Disease Active U yair ankle ankle 3-13 ity of surgery surgery 00:00: [place] [facility] Polyarthra Polyarthra Disease Active U nivers lgia lgia 3-13 ity of 00:00: [place] [facility] Chronic Chronic Disease Active 2019- Univers pain pain 9-22 ity of syndrome syndrome 00:00: [place] [facility] Chronic Chronic Disease Active 2019- Univers depression depression 9-22 it y of 00:00: [place] [address] Medical Branch Anxiety Anxiety Disease Active 2019- Univers 9-22 ity of 00:00: [place] [address] Medical Branch JASON JASON Disease Active 2018- Univers positive positive 9-18 ity of 00:00: [place] [address] Medical Branch Gout Gout Disease Active 2019- Univers 9-18 ity of 00:00: [place] 00 Medical Branch Osteoarthr Osteoarthr Disease Active U nivers itis of itis of 9-18 ity of multiple multiple 00:00: [place] joints joints 00 Medical Branch Morbid Morbid Disease Active Univers obesity obesity 3-08 [place] of with body [place] body [place] mass index mass index 00 Me dical of of Branch 40.0-49.9 40.0-49.9 Suicidal Suicidal Disease Active Unive rs overdose overdose 3-08 ity of 00:00: [place] 00 Medical Branch Morbid Morbid Disease Active Univers obesity obesity 3-08 it[place] of with body [place] body [place] mass [place] mass index 00 Me dical of of Branch 40.0-49.9 40.0-49.9 Suicidal Suicidal Disease Active Unive rs overdose overdose 3-08 ity of 00:00: [place] 00 Medical Branch Suicide Suicide Disease Active Univers attempt attempt 3-07 ity of 00:00: [place] 00 [facility] Allergies, Adverse Reactions, Alerts Allergy Allergy Status Severity Reaction(s) Onset Inactive Treating Comm ents Source Name Type Date Date Clinician NO KNOWN Drug Active Univers ALLERGIE Class ity of S [facility] Social History Social Habit Start Date Stop Date Quantity Comments Source Exposure to Not sure [place] of SARS-CoV-2 (event) [facility] Gender identity Ho[facility]ism [facility] Sexual orientation [facility] History of tobacco Smokes tobacco [facility] use daily Hospital Alcohol intake 2021-07-10 2021-07-10 Current drinker Unive rsity of 00:00:00 00:00:00 of alcohol [facility] (finding) Ward History of Social 2019-04-21 2019-04-[address] function 00:00:00 00:00:00 Hospital Tobacco Comment 2018-10-30 2018-10-30 "Smokes Vape" Univer sity of 00:00:00 00:00:00 [facility] Tobacco use and 2018-10-30 2018-10-30 Never used Universit y of exposure 00:00:00 00:00:00 [facility] Sex Ass[birth year] At [birth year] [place] 00:00:00 00:00:00 Hospital Smoking Status Start Date Stop Date Source Smokes tobacco daily 2018-11-15 00:00:00 [facility] Current some day smoker 2018-10-30 00:00:00 [facility] Medical Ward Medications Ordered Filled Start Stop Current Ordering Indication Dosage Frequency Signature Comments Components Source Medication Medication Date Date Medication? Clinician (SIG) Name Name LORazepam 2020-08- No 1mg 1 mg, Slow U nivers (ATIVAN) 09-10 IV Push, ity of injection 1 01:00: 02:41 [place]CE, 1 [place] mg 00 :[place] dose, On Medical Tue Branch 07/10/21 at 1900, STAT ondansetron 2020-08 No 4mg 4 mg, Slow Univers (ZOFRAN 09-10 IV Push, ity of (PF)) 01:00: 02:21 ONCE, 1 [place] injection 4 00 :00 dose, On Medi isha mg [facility] Branch 07/10/21 at 1900, MO[place] ketorolac 2020-08- No 15mg 15 [facility]10 Slow IV ity of injection 01:00: 02:25 Push, [place] 15 mg 00 :00 ONCE, 1 Medical dose, On Branch e 07/10/21 at 1900, MOODY
Fa culty member approving Restricted medication : SOLANOOSCAR R famotidine 2020-08- No 20mg 20 mg, [facility] ers (PEPCID AC) 09-10 Oral, ity of tablet 20 01:00: 02:21 ONCE, 1 [place] mg [place] :[place] dose, On Medical Tue Branch 07/10/21 at 1900, [place] dexamethaso 2020-08- No 10mg 10 mg, IV Univers ne 09-10 Push, ity of (DECADRON 01:00: 02:25 ONCE, 1 [place] PHOSPHATE[place] 00 :00 dose, On Medic al injection e Branch 10 mg 07/10/21 at 1900, STAT ondansetron 0 Yes [id number] 4mg Take 1 U nivers 4 mg 7-20 tablet by ity of disintegrat 00:00: mouth [place] ing tablet 00 every 8 Medica l (eight) Branch hours as needed for Nausea and Vomiting (N/V). Tramadol Yes [id number] 100mg Take 1 Univer s 100 mg 7-20 tablet by ity of tablet 00:00: mouth [place] 00 daily. Medical Indication Branch s: acute pain ketorolac Yes [id number] 10mg Take 1 U nivers 10 mg 4-14 tablet by ity of tablet 00:00: mouth [place] 00 every 6 Medical (six) Branch hours as needed for Pain (scale 7-10). cyclobenzap Yes [id number] 10mg Take 1 Univers rine 10 mg 3-03 tablet by ity of tablet 00:00: mouth 3 00 (three) Medical times Branch daily as needed for Muscle Spasms. REFILLS SHOULD COME FROM PAIN MANAGEMENT cyclobenzap Yes [id number] 10mg Take 1 Univers rine 10 mg 3-03 tablet by ity of tablet 00:00: mouth 3 00 (three) Medical times Branch daily as needed for Muscle Spasms. REFILLS SHOULD COME FROM PAIN MANAGEMENT cyclobenzap Yes [id number] 10mg Take 1 Univers rine 10 mg 3-03 tablet by ity of tablet 00:00: mouth 3 00 (three) Medical times Branch daily as needed for Muscle Spasms. REFILLS SHOULD COME FROM PAIN MANAGEMENT cyclobenzap Yes [id number] 10mg Take 1 Univers rine 10 mg 3-03 tablet by ity of tablet 00:00: mouth 3 00 (three) Medical times Branch daily as needed for Muscle Spasms. REFILLS SHOULD COME FROM PAIN MANAGEMENT cyclobenzap 2020- No [id number] 10mg Take 1 Univers rine 10 mg 3-01 03-03 tablet by ity of tablet 00:00: 00:00 mouth 3 [place] 00 :00 (three) Medical times Branch daily as needed for Muscle Spasms. cyclobenzap 2020- No [id number] 10mg Take 1 Univers rine 10 mg 3-01 03-03 tablet by ity of tablet 00:00: 00:00 mouth 3 [place] 00 :00 (three) Medical times Branch daily as needed for Muscle Spasms. LORazepam 2020- No 2mg 2 mg, Slow U nivers (ATIVAN) 210-17 IV Push, ity of injection 2 00:00: 23:01 ONCE, 1 [place] mg 00 :[place] dose, Tue Medical 10/17/20 at Branch 1800, STAT NaCl 0.9% No 1000mL at 999 Uni vers (NS) bolus 10-17 02-24 mL/hr, ity of infusion 23:00: 00:03 1,000 mL, Amandeep as 1,000 mL 00 :00 IV Medical Infusion, Ward ONCE, 1 dose, [facility] 10/17/20 at 1700, MOODY cyclobenzap Yes [id number] 10mg Take 1 Univers rine 10 mg 10-17 4 tablet by ity of tablet 00:00: mouth 3 [place] 00 (three) Medical times Ward daily as needed for Muscle Spasms. cyclobenzap 2020- No [id number] 10mg Take 1 Univers rine 10 mg 10-17- 4 tablet by ity of tablet 00:00: 00:00 mouth 3 [place] 00 :00 (three) Medical times Ward daily as needed for Muscle Spasms. FENTanyl PF No 50ug 50 mcg, Un sandra (SUBLIMAZE 09-16 Slow IV ity o f (PF)) 00:15: 23:16 Push, [place] injection 00 :00 ONCE, 1 Medical 50 mcg dose, Fri Ward 09/15/20 at 1815, Routine iohexol No 120mL 120 mL, Unive rs (OMNIPAQUE 09-15 Intravenou it y of 350 22:45: 22:35 s, ONCE, 1 [place] BULK-150 00 :00 dose, Fri Medica l mL) 09/15/20 at Ward injection 1645, 120 mL Routine ondansetron 2020- No 4mg 4 mg, Slow Univers (ZOFRAN 09-15 IV Push, ity of (PF)) 22:15: 21:19 ONCE, 1 [place] injection 4 00 :00 dose, Fri Med [...]
Fa culty member approving Restricted medication : OSCAR SOLANO NaCl 0.9% No 1000mL at 999 Uni vers (NS) bolus 09-15 mL/hr, ity of infusion 21:15: 23:19 1,000 mL, [place] as 1,000 mL 00 :00 IV Medical Infusion, Branch ONCE, 1 dose, 09/15/20 at 1515, MOODY pantoprazol Yes [id number] 20mg Take 1 Univers e 20 mg EC 1-22 tablet by ity of tablet 00:00: mouth [place] 00 daily. Medical Branch dicyclomine Yes [id number] 10mg Take 1 Univers 10 mg 1-22 capsule by ity of capsule 00:00: mouth 4 [place] 00 (four) Medical times Branch daily. pantoprazol Yes [id number] 20mg Take 1 Univers e 20 mg EC 1-22 tablet by ity of tablet 00:00: mouth [place] 00 daily. Medical Branch dicyclomine Yes [id number] 10mg Take 1 Univers 10 mg 1-22 capsule by ity of capsule 00:00: mouth 4 [place] 00 (four) Medical times Branch daily. pantoprazol Yes [id number] 20mg Take 1 Univers e 20 mg EC 1-22 tablet by ity of tablet 00:00: mouth [place] 00 daily. Medical Branch dicyclomine Yes [id number] 10mg Take 1 Univers 10 mg 1-22 capsule by ity of capsule 00:00: mouth (four) Medical times Branch daily. pantoprazol 2020-0 Yes [id number] 20mg Take 1 Univers e 20 mg EC 1-22 tablet by ity of tablet 00:00: mouth 00 daily. Medical Branch dicyclomine 2020-0 Yes [id number] 10mg Take 1 Univers 10 mg 1-22 capsule by ity of capsule 00:00: mouth (four) Medical times Branch daily. pantoprazol 2020-0 Yes [id number] 20mg Take 1 Univers e 20 mg EC 1-22 tablet by ity of tablet 00:00: mouth 00 daily. Medical Branch dicyclomine 0 Yes [id number] 10mg Take 1 Univers 10 mg 1-22 capsule by ity of capsule 00:00: mouth (four) Medical times Branch daily. pantoprazol 2020-0 Yes [id number] 20mg Take 1 Univers e 20 mg EC 1-22 tablet by ity of tablet 00:00: mouth 00 daily. Medical Branch dicyclomine 0 Yes [id number] 10mg Take 1 Univers 10 mg 1-22 capsule by ity of capsule 00:00: mouth (four) Medical times Branch daily. pantoprazol 2020-0 Yes [id number] 20mg Take 1 Univers e 20 mg EC 1-22 tablet by ity of tablet 00:00: mouth 00 daily. Medical Branch dicyclomine 0 Yes [id number] 10mg Take 1 Univers 10 mg 1-22 capsule by ity of capsule 00:00: [facility] (four) Medical times Branch daily. pantoprazol 2020-0 Yes [id number] 20mg Take 1 Univers e 20 mg EC 1-22 tablet by ity of tablet 00:00: mouth 00 daily. Medical Branch dicyclomine 2020-0 Yes [id number] 10mg Take 1 Univers 10 mg 1-22 capsule by ity of capsule 00:00: mouth (four) Medical times Branch daily. pantoprazol 2020-0 Yes [id number] 20mg Take 1 Univers e 20 mg EC 1-22 tablet by ity of tablet 00:00: mouth 00 daily. Medical Branch dicyclomine 2020-0 Yes [id number] 10mg Take 1 Univers 10 mg 1-22 [...] Medical capsule MORNING Branch ondansetron 2019-08 Yes [id number] 8mg Take 1 Univers (ZOFRAN 1-14 tablet [...] Nausea and Vomiting (N/V). ondansetron 2019-08 Yes [id number] 8mg Take 1 Univers (ZOFRAN 1-14 tablet by ity of ODT) 8 mg 00:00: mouth [place] disintegrat 00 every 8 Medic al ing tablet (eight) Branch hours as needed for Nausea and Vomiting (N/V). ondansetron 2019-08 Yes [id number] 8mg Take 1 Univers (ZOFRAN 1-14 tablet by ity of ODT) 8 mg 00:00: mouth [place] disintegrat 00 every 8 Medic al ing tablet (eight) Branch hours as needed for Nausea and Vomiting (N/V). ondansetron 2019-08 Yes [id number] 8mg Take 1 Univers (ZOFRAN 1-14 tablet by ity of ODT) 8 mg 00:00: mouth [place] disintegrat 00 every 8 Medic al ing tablet (eight) Branch hours as needed for Nausea and Vomiting (N/V). ondansetron 2020- Yes [id number] 8mg Take 1 Univers (ZOFRAN 1-14 tablet by ity of ODT) 8 mg 00:00: mouth [place] disintegrat 00 every 8 Medic al ing tablet (eight) Branch hours as needed for Nausea and Vomiting (N/V). ondansetron 2020- Yes [id number] 8mg Take 1 Univers (ZOFRAN 1-14 tablet by ity of ODT) 8 mg 00:00: mouth [place] disintegrat 00 every 8 Medic al ing tablet (eight) Branch hours as needed for Nausea and Vomiting (N/V). ondansetron 2020- Yes [id number] 8mg Take 1 Univers (ZOFRAN 1-14 tablet by ity of ODT) 8 mg 00:00: mouth [place] disintegrat 00 every 8 Medic al ing tablet (eight) Branch hours as needed for Nausea and Vomiting (N/V). ondansetron 2019- Yes [id number] 8mg Take 1 Univers (ZOFRAN 1-14 tablet by ity of ODT) 8 mg 00:00: mouth [place] disintegrat 00 every 8 Medic al ing tablet (eight) Branch hours as needed for Nausea and Vomiting (N/V). OMEPRAZOLE 2019-08 2020- No Take by Uni vers ORAL 08-2905 mouth. ity of 21:03: 00:00 [place] 33 :00 Medical Branch azelastine 2019- Yes [id number] 1{spray Use 1 Univers 137 mcg 1-05 } [place] in ity of (0.1 %) 00:00: each [place] nasal spray 00 nostril 2 Med ical (two) Branch times daily. Use in each nostril as directed azelastine 2020- Yes [id number] 1{spray Use 1 Univers 137 mcg 1-05 } [place] in ity of (0.1 %) 00:00: each [place] nasal spray 00 nostril 2 Med ical (two) Branch times daily. Use in each nostril as directed azelastine 2020- Yes [id number] 1{spray Use 1 Univers 137 mcg 1-05 } [place] in ity of (0.1 %) 00:00: each [place] nasal spray 00 nostril 2 Med ical (two) Branch times daily. Use in each nostril as directed azelastine 2020-1 Yes [id number] 1{spray Use 1 Univers 137 mcg 1-05 } [place] in ity of (0.1 %) 00:00: each [place] nasal spray 00 nostril 2 Med ical (two) Branch times daily. Use in each nostril as directed azelastine 2020-1 Yes [id number] 1{spray Use 1 Univers 137 mcg 1-05 } [place] in ity of (0.1 %) 00:00: each [place] nasal spray 00 nostril 2 Med ical (two) Branch times daily. Use in each nostril as directed azelastine 2020-1 Yes [id number] 1{spray Use 1 Univers 137 mcg 1-05 } [place] in ity of (0.1 %) 00:00: each [place] nasal spray 00 nostril 2 Med ical (two) Branch times daily. Use in each nostril as directed azelastine 2020-1 Yes [id number] 1{spray Use 1 Univers 137 mcg 1-05 } [place] in ity of (0.1 %) 00:00: each [place] nasal spray 00 nostril 2 Med ical (two) Branch times daily. Use in each nostril as directed azelastine 2020-1 Yes [id number] 1{spray Use 1 Univers 137 mcg 1-05 } [place] in ity of (0.1 %) 00:00: each [place] nasal spray 00 nostril 2 Med ical (two) Branch times daily. Use in each nostril as directed azelastine 2020-1 Yes [id number] 1{spray Use 1 Univers 137 mcg 1-05 } [place] in ity of (0.1 %) 00:00: each [place] nasal spray 00 nostril 2 Med ical (two) Branch times daily. Use in each nostril as directed azelastine 2020-1 Yes [id number] 1{spray Use 1 Univers 137 mcg 1-05 } [place] in ity of (0.1 %) 00:00: each [place] nasal spray 00 nostril 2 Med ical (two) Branch times daily. Use in each nostril as directed azelastine 2020-1 Yes [id number] 1{spray Use 1 Univers 137 mcg 1-05 } [place] in ity of (0.1 %) 00:00: each [place] nasal spray 00 nostril 2 Med ical (two) Branch times daily. Use in each nostril as directed cefUROXime 2019-08- No [id number] 250mg Take 1 Univers 250 mg 08-2916 tablet by ity of tablet 00:00: 05:59 mouth 2 [place] 00 :00 (two) Medical times Ward daily for 10 days. cefUROXime 2019-08- No [id number] 250mg Take 1 Univers 250 mg 08-2916 tablet by ity of tablet 00:00: 05:59 mouth 2 [place] 00 :00 (two) Medical times Ward daily for 10 days. proMETHazin 2019-08- No 12.5mg 12.5 mg, Univers e 06-02 IV ity of (PHENERGAN) 03:15: 03:15 [facility], [place] 12.5 mg in 00 :00 ONCE, 1 Medica l NaCl 0.9% dose, [facility] h (NS) 50 mL 06/01/20 at [facility] 2215, 50 mL morpHINE 2019-08 No 4mg 4 mg, Slow Un sandra injection 4 06-02 IV Push, ity of mg 03:00: 02:09 ONCE, 1 [place] 00 :00 dose, [facility] 06/01/20 at Branch 2200, STAT ketorolac 2019-08- No 30mg 30 mg, Unive rs (TORADOL) 006-02 Slow IV ity of injection 02:00: 00:51 Push, [place] 30 mg 00 :00 ONCE, 1 Medical dose, [facility] 06/01/20 at 2100, MOODY
Fa [facility] member approving Restricted medication : JANENE MCMILLAN iohexol 2019-08 2020- No 120mL 120 mL, Unive rs (OMNIPAQUE 006-02 Intravenou it y of 350 01:45: 01:10 s, ONCE, 1 [place] BULK-150 00 :00 dose, [place] Medica l mL) 06/01/20 at Branch injection 2045, 120 mL Routine ondansetron 2019-08- No 4mg 4 mg, Slow Univers (ZOFRAN 06-02 IV Push, ity of (PF)) 00:00: 00:10 ONCE, 1 [place] injection 4 00 :00 dose, [place] Med ical mg 06/01/20 at Branch 1900, [place] morpHINE 2019- 2020- No 4mg 4 mg, Slow Un sandra injection 4 0-06-02 IV Push, ity of mg 00:00: 00:10 ONCE, 1 [place] 00 :00 dose, [place] Medical 06/01/20 at Branch 1900, STAT traMADoL 50 2019-08 Yes [id number] 50mg Take 1 Univ ers mg tablet 0-08 tablet by ity o f 00:00: mouth [place] 00 every 6 Medical (six) Branch hours as needed for Pain (scale 4-6). Indication s: acute pain ondansetron 2019-08 Yes [id number] 8mg Take 1 Univers (ZOFRAN 0-08 tablet [...] Indication s: acute pain ondansetron 2019-08 Yes [id number] 8mg Take 1 Univers (ZOFRAN 0-08 tablet [...] Indication s: acute pain ondansetron 2019-08 Yes [id number] 8mg Take 1 Univers (ZOFRAN 0-08 tablet [...] Indication s: acute pain traMADoL 50 2019-08 No [id number] 50mg Take 1 Uni vers mg tablet 0-08 03-01 tablet by ity of 00:00: 00:00 mouth [place] 00 :00 every 6 Medical (six) Branch hours as needed for Pain (scale 4-6). Indication s: acute pain ondansetron 2019-08- No [id number] 8mg Take 1 Univers (ZOFRAN 0-08 11-14 [...] Mon Medic al tablet 1 05/15/20 at [facility] h tablet 2114, Routine PARoxetine 2020-0 Yes 30mg Take 30 mg U nivers 30 mg 9-22 by mouth ity of tablet 00:16: daily. [place] [address] Medical Branch QUEtiapine 2020-0 Yes 100mg Take 100 Un sandra 100 mg 9-22 mg by ity of tablet 00:16: mouth [place] daily. Medical Branch OMEPRAZOLE 2020-0 Yes Take by [facility] ers ORAL 9-22 mouth. ity of 00:16: [place] [address] Medical Branch PARoxetine 2020-0 Yes 30mg Take 30 mg U nivers 30 mg 9-22 by mouth ity of tablet 00:16: daily. [place] [address] Medical Branch QUEtiapine 2020-0 Yes 100mg Take 100 Un sand[place] 100 mg 9-22 mg by ity of tablet 00:16: mouth [place] [address] daily. Medical Branch OMEPRAZOLE 2020-0 Yes Take by [facility] ers ORAL 9-22 mouth. ity of 00:16: [place] [address] Medical Branch PARoxetine 2020-0 Yes 30mg Take 30 mg U nivers 30 mg 9-22 by mouth ity of tablet 00:16: daily. [place] [address] Medical Branch QUEtiapine 2020-0 Yes 100mg Take 100 Un sandra 100 mg 9-22 mg by ity of tablet 00:16: mouth [place] [address] daily. Medical Branch OMEPRAZOLE 2020-0 Yes Take by [facility] ers ORAL 9-22 mouth. ity of 00:16: [place] [address] Medical Branch PARoxetine 2020-0 Yes 30mg Take 30 mg U nivers 30 mg 9-22 by mouth ity of tablet 00:16: daily. [place] [address] Medical Branch QUEtiapine 2020-0 Yes 100mg Take 100 Un sandra 100 mg 9-22 mg by ity of tablet 00:16: mouth [place] daily. Medical Branch OMEPRAZOLE 2020-0 Yes Take by [facility] ers ORAL 9-22 mouth. ity of 00:16: [place] [address] Medical Branch PARoxetine 2020-0 Yes 30mg Take 30 mg U nivers 30 mg 9-22 by mouth ity of tablet 00:16: daily. [place] [address] Medical Branch QUEtiapine 2020-0 Yes 100mg Take 100 Un sandra 100 mg 9-22 mg by ity of tablet 00:16: mouth [place] 28 daily. Medical Branch PARoxetine 2020-0 Yes 30mg Take 30 mg U nivers 30 mg 9-22 by mouth ity of tablet 00:16: daily. [place] [address] Medical Branch QUEtiapine 2020-0 Yes 100mg Take 100 Un sandra 100 mg 9-22 mg by ity of tablet 00:16: mouth [place] 28 daily. Medical Branch PARoxetine 2020-0 Yes 30mg Take 30 mg U nivers 30 mg 9-22 by mouth ity of tablet 00:16: daily. [place] [address] Medical Branch QUEtiapine 2020-0 Yes 100mg Take 100 Un sandra 100 mg 9-22 mg by ity of tablet 00:16: mouth [place] daily. Medical Branch PARoxetine 2020-0 Yes 30mg Take 30 mg U nivers 30 mg 9-22 by mouth ity of tablet 00:16: daily. [place] [address] Medical Branch QUEtiapine 2020-0 Yes 100mg Take 100 Un sand[place] 100 mg 9-22 mg by ity of tablet 00:16: mouth [place] daily. Medical Branch PARoxetine 2020-0 Yes 30mg Take 30 mg U nivers 30 mg 9-22 by mouth ity of tablet 00:16: daily. [place] [address] Medical Branch QUEtiapine 2020-0 Yes 100mg Take 100 [place] 100 mg 9-22 mg by ity of tablet 00:16: mouth [place] daily. Medical Branch PARoxetine 2020-0 Yes 30mg Take 30 mg U nivers 30 mg 9-22 by mouth ity of tablet 00:16: daily. [place] [address] Medical Branch QUEtiapine 2020-0 Yes 100mg Take 100 Un [place] 100 mg 9-22 mg by ity of tablet 00:16: mouth [place] daily. Medical Branch PARoxetine 2020-0 Yes 30mg Take 30 mg U nivers 30 mg 9-22 by mouth ity of tablet 00:16: daily. [place] [address] Medical Branch QUEtiapine 2020-0 Yes 100mg Take 100 Un [place] 100 mg 9-22 mg by ity of tablet 00:16: mouth [place] daily. Medical Branch PARoxetine 2020-0 Yes 30mg Take 30 mg U nivers 30 mg 9-22 by mouth ity of tablet 00:16: daily. [place] [address] Medical Branch QUEtiapine 2020-0 Yes 100mg Take 100 [place] 100 mg 9-22 mg by ity of tablet 00:16: mouth 28 daily. Medical Branch PARoxetine 2020-0 Yes 30mg Take 30 mg U nivers 30 mg 9-22 by mouth ity of tablet 00:16: daily. [place] [address] Medical Branch QUEtiapine 2020-0 Yes 100mg Take 100 Un [place] 100 mg 9-22 mg by ity of tablet 00:16: mouth 28 daily. Medical Branch PARoxetine 2020-0 Yes 30mg Take 30 mg U nivers 30 mg 9-22 by mouth ity of tablet 00:16: daily. [place] [address] Medical Branch QUEtiapine 2020-0 Yes 100mg Take [...] by mouth ity of tablet 19:16: daily. [place] [address] Medical Branch QUEtiapine 2020-0 Yes 100mg Take 100 Un sandra 100 mg 9-21 mg by ity of tablet 19:16: mouth daily. Medical Branch clonazePAM 2020-0 Yes .5mg Take 0.5-1 U nivers 1 mg tablet -21 tablets by it y of 00:00: mouth 2 [place] 00 (two) Medical times Branch daily as needed. ondansetron 2020-0 Yes [id number] 4mg Take 1 Univers (ZOFRAN -21 tablet [...] Indication s: acute pain ibuprofen 2020-0 Yes [id number] 600mg Take 1 Univers 600 mg 9-21 9108 tablet by ity of tablet 00:00: mouth [place] 00 every 6 Medical (six) Branch hours as needed for Pain (scale 4-6). clonazePAM 2020-0 Yes .5mg Take 0.5-1 U nivers 1 mg tablet 9-21 tablets by it y of 00:00: mouth 2 [place] 00 (two) Medical times Branch daily as needed. ondansetron 2020-0 Yes [id number] 4mg Take 1 Univers (ZOFRAN 9-21 tablet [...] Indication s: acute pain ibuprofen 2020-0 Yes [id number] 600mg Take 1 Univers 600 mg 9-21 [...] Indication s: acute pain ibuprofen 2020-0 Yes [id number] 600mg Take 1 Univers 600 mg 9-21 [...] Indication s: acute pain ibuprofen 2020-0 Yes [id number] 600mg Take 1 Univers 600 mg 9-21 [...] Indication s: acute pain ibuprofen 2020-0 Yes [id number] 600mg Take 1 Univers 600 mg 9-21 [...] Indication s: acute pain ibuprofen 2020-0 Yes [id number] 600mg Take 1 Univers 600 mg 9-21 [...] Indication s: acute pain ibuprofen 2020-0 Yes [id number] 600mg Take 1 Univers 600 mg 9-21 [...] Indication s: acute pain ibuprofen 2020-0 Yes [id number] 600mg Take 1 Univers 600 mg 9-21 [...] Indication s: acute pain ibuprofen 2020-0 Yes [id number] 600mg Take 1 Univers 600 mg 9-21 [...] Indication s: acute pain ibuprofen 2020-0 Yes [id number] 600mg Take 1 Univers 600 mg 9-21 [...] Indication s: acute pain ibuprofen 2020-0 Yes [id number] 600mg Take 1 Univers 600 mg 9-21 [...] Indication s: acute pain ibuprofen 2020-0 Yes [id number] 600mg Take 1 Univers 600 mg 9-21 [...] Indication s: acute pain ibuprofen 2020-0 Yes [id number] 600mg Take 1 Univers 600 mg 9-21 [...] Indication s: acute pain ibuprofen 2020-0 Yes [id number] 600mg Take 1 Univers 600 mg 9-21 9108 tablet by ity of tablet 00:00: mouth [place] 00 every 6 Medical (six) Branch hours as needed for Pain (scale 4-6). ondansetron 2020-0 2020- No [id number] 4mg Take 1 Univers (ZOFRAN 9-21 10-08 tablet by ity of ODT) 4 mg 00:00: 00:00 mouth [place] disintegrat 00 :00 every 8 Medic al ing tablet (eight) Branch hours as needed for Nausea and Vomiting (N/V). proMETHazin 2020-0 2020- No 12.5mg 12.5 mg, Univers e 04-08 IV ity of (PHENERGAN) 17:45: 17:45 [place], [place] 12.5 mg in 00 :00 ONCE, 1 Medica l NaCl 0.9% dose, Sat Branc h (NS) 50 mL 04/08/20 at [place]gy[place] 1245, 50 mL LORazepam 2019-0 2020- No 1mg 1 mg, Slow U [...] 04/08/20 at Branch 1215, [place] NaCl 0.9% 2019-0 2020- No 1000mL at 999 Uni vers (NS) bolus 04-08 mL/hr, ity of infusion 16:15: 17:15 1,000 mL, Amandeep as 1,000 mL 00 :00 IV Medical Infusion, Branch ONCE, 1 dose, 04/08/20 at 1115, MOODY ondansetron 2020-0 Yes [id number] 4mg Take 1 Univers (ZOFRAN 8-15 tablet by ity of ODT) 4 mg 00:00: mouth [place] disintegrat 00 every 8 Medic al ing tablet (eight) Branch hours as needed for Nausea and Vomiting (N/V) for up to 15 doses. ondansetron 2020-0 Yes [id number] 4mg Take 1 Univers (ZOFRAN 8-15 tablet by ity of ODT) 4 mg 00:00: mouth [place] disintegrat 00 every 8 Medic al ing tablet (eight) Branch hours as needed for Nausea and Vomiting (N/V) for up to 15 doses. ondansetron 2020-0 2020- No [id number] 4mg Take 1 Univers (ZOFRAN 8-15 09-21 tablet by ity of ODT) 4 mg 00:00: 00:00 mouth [place] disintegrat 00 :00 every 8 Medic al ing tablet (eight) Branch hours as needed for Nausea and Vomiting (N/V) for up to 15 doses. ondansetron 2018-08 Yes [id number] 4mg Take 1 Univers 4 mg 2-19 tablet by ity of disintegrat 00:00: mouth [place] ing tablet 00 every 4 Medica l (four) Branch hours as needed for Nausea and Vomiting (N/V). butalbital- 2018-08 Yes [id number] 1{tbl} Take 1 Univers acetaminoph 2-19 tablet by ity of en-caff 00:00: mouth [place] 50-325-40 00 every 6 Medical mg tablet (six) Branch hours as needed for Pain (scale 4-6). Nitrofurant 2018-08 Yes [id number] 100mg Take 1 Univers oin&Nit. 2-19 capsule by ity o f [place] 00:[place]: [place] (MACROBID[place] 00 (two) Medical 100 mg times Branch capsule daily. ondansetron 2018-08 Yes [id number] 4mg Take 1 Univers 4 mg 2-19 tablet by ity of disintegrat 00:00: mouth [place] ing tablet 00 every 4 Medica l (four) Branch hours as needed for Nausea and Vomiting (N/V). butalbital2018-08 Yes [id number] 1{tbl} Take 1 Univers acetaminoph 2-19 tablet by ity of en-caff 00:00: mouth [place] 50-325-40 00 every 6 Medical mg tablet (six) Branch hours as needed for Pain (scale 4-6). Nitrofurant 2018-08 Yes [id number] 100mg Take 1 Univers oin&Nit. 2-19 capsule by ity o f [place] 00:[place]: [place] (MACROBID) 00 (two) Medical 100 mg times Branch capsule daily. ondansetron 2018-08 Yes [id number] 4mg Take 1 Univers 4 mg 2-19 tablet by ity of disintegrat 00:00: mouth [place] ing tablet 00 every 4 Medica l (four) Branch hours as needed for Nausea and Vomiting (N/V). butalbital- 2018-08 Yes [id number] 1{tbl} Take 1 Univers acetaminoph 2-19 tablet by ity of en-caff 00:00: mouth [place] 50-325-40 00 every 6 Medical mg tablet (six) Branch hours as needed for Pain (scale 4-6). Nitrofurant 2018-08 Yes [id number] 100mg Take 1 Univers oin&Nit. 2-19 capsule by ity o f [place] 00:[place]: [place] (MACROBID) 00 (two) Medical 100 mg times Branch capsule daily. ondansetron 2018-08- No [id number] 4mg Take 1 Univers 4 mg 10-13 tablet by ity of disintegrat 00:00: 00:00 [place] tablet 00 :00 every 4 Medica l (four) Branch hours as needed for Nausea and Vomiting (N/V). butalbital- 2018-08- No [id number] 1{tbl} Take 1 Univers acetaminoph 10-13 tablet by it y of en-caff 00:00: 00:00 mouth [place] 50-325-40 00 :00 every 6 Medical mg tablet (six) Branch hours as needed for Pain (scale 4-6). Nitrofurant 2018-08- No [id number] 100mg Take 1 Univers oin&Nit. 10-13 capsule by ity of Macrocryst 00:00: 00:00 mouth 2 [place]ande[place] as (MACROBID) 00 :00 (two) Medical 100 mg times Branch capsule daily. methylPREDN 2018-08 Yes [id number] Take by Univers ISolone 1-20 mouth ity of (MEDROL, 00:00: SEE-INSTRU Amandeep as LIZANDRO,) 4 mg 00 CTIONS. Medica l tablets follow Branch package directions methylPREDN 2018-08 Yes [id number] Take by Univers ISolone 1-20 mouth ity of (MEDROL, 00:00: SEE-INSTRU Amandeep as LIZANDRO,) 4 mg 00 CTIONS. Medica l tablets follow Branch package directions methylPREDN 2018-08 Yes [id number] Take by Univers ISolone 1-20 mouth ity of (MEDROL, 00:00: SEE-INSTRU Amandeep as LIZANDRO,) 4 mg 00 CTIONS. Medica l tablets follow Branch package directions methylPREDN 2018-08 2020- No [id number] Take by Univers ISolone 1-05-15 mouth ity of (MEDROL, 00:00: 00:00 SEE-INSTRU [...] :00 EVERY Medical MORNING Branch allopurinol Yes [id number] 100mg Take 1 Univers 100 mg 9-19 tablet by ity of tablet 00:00: mouth [place] 00 daily. Medical Branch allopurinol Yes [id number] 100mg Take 1 Univers 100 mg 9-19 tablet by ity of tablet 00:00: mouth [place] 00 daily. Medical Branch allopurinol Yes [id number] 100mg Take 1 Univers 100 mg 9-19 tablet by ity of tablet 00:00: mouth [place] 00 daily. [facility] Branch allopurinol 2020- No [id number] 100mg Take 1 Univers 100 mg 9-19 [...] Yes 1{tbl} Take 1 Uni vers conjugated, 9 tablet by ity of -methyltest 20:07: mouth [...] 20mg Take 20 mg Univers m oxalate 909 by mouth ity of (LEXAPRO) 20:03: daily. [place] 20 mg 42 Medical tablet Branch escitalopra 2019-0 Yes 20mg Take 20 mg Univers m oxalate 05-03 by mouth ity of (LEXAPRO) 20:03: daily. [place] 20 mg 42 Medical tablet Branch QUEtiapine 2019-0 Yes 1 tablet Uni vers 25 mg 9-01 by mouth ity of tablet 00:00: [place] [address] Medical Branch gabapentin 2019-0 Yes TAKE 1 Unive rs 300 mg 9-01 CAPSULE BY ity of capsule 00:00: MOUTH [facility] Medical TIMES Branch DAILY QUEtiapine 2019- Yes 1 tablet Uni vers 25 mg 9-01 by mouth ity of tablet 00:00: [facility] [place] [facility] Medical Branch gabapentin 2019-0 Yes TAKE 1 Unive rs 300 mg 9-01 CAPSULE BY ity of capsule 00:00: MOUTH [facility] Medical TIMES Branch DAILY QUEtiapine 2019- Yes 1 tablet Uni vers 25 mg 9-01 by mouth ity of tablet 00:00: [facility] [place] [facility] Medical Branch gabapentin 2019-0 Yes TAKE 1 Unive rs 300 mg 9-01 CAPSULE BY ity of capsule 00:00: MOUTH [facility] Medical TIMES Branch DAILY QUEtiapine 2019-0 Yes 1 tablet Uni vers 25 mg 9-01 by mouth ity of tablet 00:00: [facility] [place] [facility] Medical Branch gabapentin 2019-0 Yes TAKE 1 Unive rs 300 mg 9-01 CAPSULE BY ity of capsule 00:00: MOUTH [facility] Medical TIMES Branch DAILY QUEtiapine 2019-0 Yes 1 tablet Uni vers 25 mg 9-01 by mouth ity of tablet 00:00: [facility] [place] [facility] Medical Branch gabapentin 2019-0 Yes TAKE 1 Unive rs 300 mg 9-01 CAPSULE BY ity of capsule 00:00: MOUTH [place] [facility] Medical TIMES Branch DAILY gabapentin 2019-0 Yes TAKE 1 Unive rs 300 mg 9-01 CAPSULE BY ity of capsule 00:00: MOUTH [place] [facility] Medical TIMES Branch DAILY gabapentin 2019-0 Yes TAKE 1 Unive rs 300 mg 9-01 CAPSULE BY ity of capsule 00:00: MOUTH [facility] Medical TIMES Branch DAILY gabapentin 2019-0 Yes TAKE 1 Unive rs 300 mg 9-01 CAPSULE BY ity of capsule 00:00: MOUTH [place] [facility] Medical TIMES Branch DAILY gabapentin 2019-0 [...] DAY Medical AT NIGHT Branch hydrOXYzine Yes [id number] 10mg Take 1 Univers 10 mg 6-26 tablet by ity of tablet 00:00: mouth [place] 00 every 6 Medical (six) Branch hours as needed for Anxiety. ketorolac Yes [id number] 10mg Take 1 Uni vers 10 mg 5-29 tablet by ity of tablet 00:00: mouth [place] 00 every 6 Medical (six) Branch hours as needed for Pain (scale 7-10). traMADOL Yes [id number] 50mg Take 1 Uni vers (ULTRAM) 50 4-04 tablet by ity of mg tablet 00:00: mouth [place] 00 every 6 [...] l YX) 1.25-2.5 mg per tablet escitalopra Yes 20mg QD Take 20 mg Methodi m (LEXAPRO) 3-[address] 20 MG 16:45: nightly. Hospita tablet 28 l risperiDONE 2018- Yes 1mg QD Take 1 mg M ethodi (RisperDAL) 3-[address] 1 MG tablet 16:45: nightly. Ho [facility]ita 28 l propranolol Yes 40mg Take 40 mg Methodi (INDERAL) 3-[address] 40 MG 16:45: daily. Hospita tablet 28 l estrogens-m Yes 1{tbl} QD Take 1 Me thodi ethyltestos 3-[address] terone 16:45: mouth [facility]ospita (EEDC,COVAR 28 daily. l YX) 1.25-2.5 mg per tablet ALPRAZolam 0 Yes 1mg Q.25D Take 1 mg M ethodi (XANAX) 1 3-[address] MG tablet 16:45: (four) Hospit a 28 times a l day as needed for anxiety. ALPRAZolam Yes 1mg Q.25D Take 1 mg M ethodi (XANAX) 1 3-[address] MG tablet 16:45: (four) Hospit a 28 times a l day as needed for anxiety. escitalopra Yes 20mg QD Take 20 mg Methodi m (LEXAPRO) 3-[address] 20 MG 16:45: nightly. Hospita tablet 28 l risperiDONE Yes 1mg QD Take 1 mg M ethodi (RisperDAL) 3-[address] 1 MG tablet 16:45: nightly. Ho spita 28 l propranolol Yes 40mg Take 40 mg Methodi (INDERAL) 3-[address] 40 MG 16:45: daily. Hospita tablet 28 l estrogens-m Yes 1{tbl} QD Take 1 Me thodi ethyltestos 3-[address] terone 16:45: mouth [facility]ospita (EEDC,COVAR 28 daily. l YX) 1.25-2.5 mg per tablet escitalopra Yes 20mg Take 20 mg Univers m oxalate 3-19 by mouth ity of (LEXAPRO) 00:44: daily. [place] 20 mg 57 Medical tablet Branch TRAMADOL [...] 00:44: [place] ORAL) 57 Medical Branch mirtazapine Yes 15mg Take 15 mg Univers (REMERON) 3-19 by mouth ity of 15 mg 00:44: at [place] tablet 57 bedtime. Medical Branch propranolol Yes 10mg Take 10 mg Univers 10 mg 3-19 by mouth ity of tablet 00:44: daily. [place] 57 Medical Branch estrogens, Yes 1{tbl} Take 1 Uni vers conjugated, 3-19 tablet by ity of -methyltest 00:44: mouth [place] osterone 57 daily. Medical 1.25-2.5 mg Branch per tablet naphazoline Yes Place in Un sandra HCl/phenira 3-19 each eye ity of mine 00:44: as needed [place] (OPCON-A 57 for Medical OPHTHALMIC) Itching. Bran ch clonazePAM Yes [id number] 1mg Take 1 U nivers 1 mg tablet 3-18 tablet by ity of 00:00: mouth 3 [place] 00 (three) Medical times Branch daily. ondansetron 2016- Yes 4mg Take 1 Univ ers (ZOFRAN 7-12 tablet by ity of ODT) 4 mg 00:00: mouth [place] disintegrat 00 every 8 Medic al ing tablet (eight) Branch hours as needed for Nausea and Vomiting (N/V). proMETHazin 2017- Yes 25mg Take 1 Univ ers e [...] Source Systolic blood 2021-07-11 04:11:14 114 mm[Hg] Univer sity of pressure [place] [facility] Diastolic blood 2021-07-11 04:11:14 80 mm[Hg] Unive rsity of [facility] Heart rate 2021-07-11 04:11:14 90 /min Universi ty [facility] [place] [facility] Respiratory rate 2021-07-11 04:11:14 17 /min Univ ersity of [place] [facility] Oxygen saturation in 2021-07-11 04:11:14 100 /min University of Arterial blood by [place] [employer] Pulse oximetry Branch Body temperature 2021-07-10 22:57:00 37 Olimpia Univ [facility] [place] [facility] Body height 2021-07-10 22:57:00 172.7 cm [facility] [place] [facility] Body weight 2021-07-10 22:57:00 104.327 kg [facility] [place] [facility] BMI 2021-07-10 22:57:00 34.97 kg/m2 [facility] [place] [facility] Body weight 2020-10-23 23:16:00 104.327 kg [facility] [place] [facility] BMI 2020-10-23 23:16:00 34.97 kg/m2 [facility] [place] [facility] Body weight 2020-10-23 23:16:00 104.327 kg [facility] [place] [facility] BMI 2020-10-23 23:16:00 34.97 kg/m2 [facility] [place] [facility] Heart rate 2020-10-18 00:00:00 103 /min [facility] [place] [facility] Respiratory rate 2020-10-18 00:00:00 25 /min Univ ersity of [place] [facility] Oxygen saturation in 2020-10-18 00:00:00 98 /min University of Arterial blood by [facility] [employer] Pulse oximetry Branch Systolic blood 2020-10-17 23:04:00 100 mm[Hg] Univer sity of [facility] Diastolic blood 2020-10-17 23:04:00 88 mm[Hg] Unive rsity of [facility] Body temperature 2020-10-17 22:10:00 36.06 Olimpia Univ ersity of [place] [facility] Body weight 2020-10-17 22:10:00 117.935 kg Universi ty [facility] [place] [facility] BMI 2020-10-17 22:10:00 39.53 kg/m2 [facility] [place] [facility] Heart rate 2020-10-18 00:00:00 103 /min [facility]i ty [facility] [place] [facility] Respiratory rate 2020-10-18 00:00:00 25 /min Univ ersity of [place] [facility] Oxygen saturation in 2020-10-18 00:00:00 98 /min University of Arterial blood by [place] [facility]ha Pulse oximetry Branch Systolic blood 2020-10-17 23:04:00 100 mm[Hg] Univer sity of pressure [place] [facility] Diastolic blood 2020-10-17 23:04:00 88 mm[Hg] Unive rsity of pressure [place] [facility] Body temperature 2020-10-17 22:10:00 36.06 Olimpia Univ ersity [facility] [place] [facility] Body weight 2020-10-17 22:10:00 117.935 kg Universi ty [facility] [place] [facility] BMI 2020-10-17 22:10:00 39.53 kg/m2 [facility]i ty [facility] [place] [facility] Systolic blood 2020-09-15 23:29:00 124 mm[Hg] Univer sity of pressure [place] [facility] Diastolic blood 2020-09-15 23:29:00 88 mm[Hg] Unive rsity of pressure [place] [facility] Heart rate 2020-09-15 23:29:00 81 /min Universi ty [facility] [place] [facility] Respiratory rate 2020-09-15 23:29:00 14 /min Univ ersity of [place] [facility] Oxygen saturation in 2020-09-15 23:29:00 100 /min University of Arterial blood by [place] [facility]ha Pulse oximetry Branch Body temperature 2020-09-15 20:32:00 37.22 Olimpia Univ ersity of [place] [facility] Body weight 2020-09-15 20:32:00 117.935 kg Universi ty [facility] [place] [facility] BMI 2020-09-15 20:32:00 39.53 kg/m2 [facility]i ty [facility] [place] [facility] Systolic blood 2020-09-15 23:29:00 124 mm[Hg] Univer sity of pressure [place] [facility] Diastolic blood 2020-09-15 23:29:00 88 mm[Hg] Unive rsity of pressure [place] [facility] Heart rate 2020-09-15 23:29:00 81 /min Universi ty [facility] [place] [facility] Respiratory rate 2020-09-15 23:29:00 14 /min Univ ersity [facility] [place] [facility] Oxygen saturation in 2020-09-15 23:29:00 100 /min University of Arterial blood by [facility] Pulse oximetry Branch Body temperature 2020-09-15 20:32:00 37.22 Olimpia Univ ersity [facility] [place] [facility] Body weight 2020-09-15 20:32:00 117.935 kg Universi ty [facility] [place] [facility] BMI 2020-09-15 20:32:00 39.53 kg/m2 [facility] [place] [facility] Heart rate 2020-06-29 20:58:00 99 /min [facility]i ty [facility] [place] [facility] Oxygen saturation in 2020-06-29 20:58:00 99 /min University of Arterial blood by [facility] Pulse oximetry Branch Systolic blood 2020-06-29 20:36:00 120 mm[Hg] Univer sity of pressure [place] [facility] Diastolic blood 2020-06-29 20:36:00 83 mm[Hg] Unive rsity of pressure [place] [facility] Body temperature 2020-06-29 20:36:00 37 Olimpia Univ ersity [facility] [place] [facility] Respiratory rate 2020-06-29 20:36:00 18 /min Univ ersity [facility] [place] [facility] Body height 2020-06-29 20:36:00 172.7 cm [facility] [place] [facility] Body weight 2020-06-29 20:36:00 118.117 kg [facility] [place] [facility] BMI 2020-06-29 20:36:00 39.59 kg/m2 [facility] [place] [facility] Heart rate 2020-06-29 20:58:00 99 /min [facility] [place] [facility] Oxygen saturation in 2020-06-29 20:58:00 99 /min University of Arterial blood by [facility] Pulse oximetry Branch Systolic blood 2020-06-29 20:36:00 120 mm[Hg] Univer sity of pressure [place] [facility] Diastolic blood 2020-06-29 20:36:00 83 mm[Hg] Unive rsity of pressure [place] [facility] Body temperature 2020-06-29 20:36:00 37 Olimpia Univ ersity [facility] [place] [facility] Respiratory rate 2020-06-29 20:36:00 18 /min Univ ersity of [place] [facility] Body height 2020-06-29 20:36:00 172.7 cm [facility]i ty [facility] [place] [facility] Body weight 2020-06-29 20:36:00 118.117 kg [facility] ty [facility] [place] [facility] BMI 2020-06-29 20:36:00 39.59 kg/m2 [facility] [place] [facility] Diastolic blood 2020-06-02 02:00:00 92 mm[Hg] Unive rsity of pressure [place] [facility] Heart rate 2020-06-02 02:00:00 93 /min [facility]i ty [facility] [place] [facility] Respiratory rate 2020-06-02 02:00:00 17 /min Univ ersity of [place] [facility] Oxygen saturation in 2020-06-02 02:00:00 98 /min University of Arterial blood by [place] Medi isha Pulse oximetry Branch Systolic blood 2020-06-02 02:00:00 138 mm[Hg] Univer sity of [facility] Body temperature 2020-06-01 22:30:00 37.17 Olimpia Univ ersity of [place] [facility] Body height 2020-06-01 22:30:00 175.3 cm [facility]i ty [facility] [place] [facility] Body weight 2020-06-01 22:30:00 129.275 kg [facility] [place] [facility] BMI 2020-06-01 22:30:00 42.09 kg/m2 [facility] [place] [facility] Diastolic blood 2020-06-02 02:00:00 92 mm[Hg] Unive rsity of pressure [place] [facility] Heart rate 2020-06-02 02:00:00 93 /min [facility]i ty [facility] [place] [facility] Respiratory rate 2020-06-02 02:00:00 17 /min Univ ersity of [place] [facility] Oxygen saturation in 2020-06-02 02:00:00 98 /min University of Arterial blood by [place] Medi isha Pulse oximetry Branch Systolic blood 2020-06-02 02:00:00 138 mm[Hg] Univer sity of [facility] Body temperature 2020-06-01 22:30:00 37.17 Olimpia Univ [facility] [place] [facility] Body height 2020-06-01 22:30:00 175.3 cm [facility]i ty [facility] [place] [facility] Body weight 2020-06-01 22:30:00 129.275 kg [facility] [place] [facility] BMI 2020-06-01 22:30:00 42.09 kg/m2 [facility] [place] [facility] Systolic blood 2020-05-16 02:24:57 127 mm[Hg] Univer sity of pressure [place] [facility] Diastolic blood 2020-05-16 02:24:57 96 mm[Hg] Unive rsity of pressure [place] [facility] Heart rate 2020-05-16 02:24:57 81 /min [facility]i ty [facility] [place] [facility] Respiratory rate 2020-05-16 02:24:57 18 /min Univ ersity [facility] [place] [facility] Oxygen saturation in 2020-05-16 02:24:57 97 /min University of Arterial blood by [place] Medi isha Pulse oximetry Branch Body temperature 2020-05-16 00:14:00 37.11 Olimpia [facility] [place] [facility] Body weight 2020-05-16 00:14:00 131.543 kg [facility] [place] [facility] BMI 2020-05-16 00:14:00 44.09 kg/m2 [facility] [place] [facility] Systolic blood 2020-05-16 02:24:57 127 mm[Hg] Univer sity of pressure [place] [facility] Diastolic blood 2020-05-16 02:24:57 96 mm[Hg] Unive rsity of pressure [place] [facility] Heart rate 2020-05-16 02:24:57 81 /min [facility]i ty [facility] [place] [facility] Respiratory rate 2020-05-16 02:24:57 18 /min Univ [facility] [place] [facility] Oxygen saturation in 2020-05-16 02:24:57 97 /min University of Arterial blood by [place] Medi isha Pulse oximetry Branch Body temperature 2020-05-16 00:14:00 37.11 [place]lim[place] [facility] [place] [facility] Body weight 2020-05-16 00:14:00 131.543 kg [facility]i ty [facility] [place] [facility] BMI 2020-05-16 00:14:00 44.09 kg/m2 [facility] [place] [facility] Systolic blood 2020-04-08 17:50:00 135 mm[Hg] Univer sity of pressure [place] [facility] Diastolic blood 2020-04-08 17:50:00 91 mm[Hg] Unive rsity of pressure [place] [facility] Heart rate 2020-04-08 17:50:00 75 /min [facility] [place] [facility] Respiratory rate 2020-04-08 17:50:00 18 /min [facility] Oxygen saturation in 2020-04-08 17:50:00 96 /min [place] of Arterial blood by [facility] Pulse oximetry Branch Body temperature 2020-04-08 16:22:51 37.28 Olimpia [facility] Body weight 2020-04-08 15:39:00 104.327 kg Universi [facility] BMI 2020-04-08 15:39:00 34.97 kg/m2 [facility] Systolic blood 2020-04-08 17:50:00 135 [facility]Hg[facility] Diastolic blood 2020-04-08 17:50:00 91 mm[facility]Hg[facility] 2020-04-08 17:50:00 75 /min [facility] Respiratory rate 2020-04-08 17:50:00 18 /min [facility] Oxygen saturation in 2020-04-08 17:50:00 96 /min [place] of Arterial blood by [facility] Pulse oximetry Branch Body temperature 2020-04-08 16:22:51 37.28 Olimpia [facility] Body weight 2020-04-08 15:39:00 104.327 kg [facility] BMI 2020-04-08 15:39:00 34.97 kg/m2 [facility] Procedures Procedure Date / Time Performed Performing Clinician Sour e URINALYSIS 2021-07-11 03:33:[address] [facility] TROPONIN I 2021-07-11 02:16:[address] [facility] COMP. METABOLIC PANEL 2021-07-11 02:16:00 Oscar Solano [facility] ([id number]) [facility] CBC WITH DIFF 2021-07-11 02:16:[address] [facility] XR SHOULDER 2+ VW LEFT 2021-07-11 01:41:42 Oscar Solano [facility] CT LUMBAR SPINE WO 2021-07-11 01:40:00 Oscar Solano [facility] CONSENT/REFUSAL FOR 2021-07-10 22:41:10 Doctor Unassigned, No [facility] [place] DIAGNOSIS AND Name Medical Branch TREATMENT CONSENT/REFUSAL FOR 2020-10-17 21:57:07 Doctor Unassigned, No [facility] [place] DIAGNOSIS AND Name Medical Branch TREATMENT CT ABDOMEN PELVIS W 2020-09-15 22:39:18 Oscar Solano [facility] CONTRAST Medical Branch LIPASE 2020-09-15 21:16:00 Oscar Solano [facility] Medical Branch COMP. METABOLIC PANEL 2020-09-15 21:16:00 Oscar Solano [facility] ([id number]) Medical Branch CBC WITH DIFF 2020-09-15 21:16:[address] [facility] URINALYSIS 2020-09-15 21:16:[address] [facility] CONSENT/REFUSAL FOR 2020-09-15 20:18:37 Doctor Unassigned, No [facility] [place] DIAGNOSIS AND Name Medical Branch TREATMENT CT ABDOMEN PELVIS W 2020-06-02 01:39:02 Janene Mcmillan [facility] CONTRAST Medical Branch LIPASE 2020-06-02 00:01:[address] [facility] COMP. METABOLIC PANEL 2020-06-02 00:01:00 Janene Mcmillan [facility] ([id number]) Medical Branch CBC WITH DIFF 2020-06-02 00:01:[address] [facility] URINALYSIS 2020-06-01 23:54:[address] [facility] CONSENT/REFUSAL FOR 2020-06-01 22:14:48 Doctor Unassigned, No [facility] [place] DIAGNOSIS AND Name Medical Branch TREATMENT XR KNEE 3 VW LEFT 2020-05-16 00:32:27 Lucas Jeffries [facility] CONSENT/REFUSAL FOR 2020-05-15 23:59:19 Doctor Unassigned, No [facility] [place] DIAGNOSIS AND Name Medical Branch TREATMENT CT ABDOMEN PELVIS WO 2020-04-08 16:30:32 Trish Kinney [facility] CONTRAST Medical Branch LIPASE 2020-04-08 16:11:00 Trish Kinney [facility] [place] [facility] TROPONIN I 2020-04-08 16:11:00 Trish Kinney [facility] HEPATIC FUNCTION PANEL 2020-04-08 16:11:00 Trish Kinney [facility] ([id number]) [facility] (ALB,T.PRO,BILI T,BU/BC,ALT,AST,ALK PHOS) BASIC METABOLIC PANEL 2020-04-08 16:11:00 Trish Kinney [facility] (NA, K, CL, CO2, Medical Branch GLUCOSE, BUN, CREATININE, CA) CBC WITH DIFF 2020-04-08 16:11:00 Trish Kinney [facility] URINALYSIS 2020-04-08 16:11:00 Trish Kinney [facility] POCT TEST 2020-04-08 16:11:00 Trish Kinney [facility] EKG-12 LEAD 2020-04-08 16:07:37 Trish Kinney [facility] NOTICE OF PRIVACY 2020-04-08 15:36:17 Doctor Unassigned, No [facility] CONSENT/REFUSAL FOR 2020-04-08 15:34:59 Doctor Unassigned, No [facility] DIAGNOSIS AND [facility] TREATMENT XR CERVICAL SPINE 4 VW 2019-05-07 20:48:10 [facility] RIGHT 2019-05-07 20:47:45 Ambika Miranda [facility] XR KNEE 3 VW LEFT 2019-05-07 20:47:16 Ambika Miranda [facility] XR ANKLE 3+ VW RIGHT 2019-05-07 20:47:01 Ambika Miranda [facility] ASSIGNMENT OF BENEFITS 2019-05-03 19:25:44 Doctor Unassigned, No [facility] Encounters Start End Encounter Admission Attending Care Care Encounter Source Date/Time Date/Time Type Type Clinicians Facility Department ID 2021-06-25 Emergency [facility] [id number] Univers 09:16[facility]29 [facility] 2021-06-24 Emergency [facility] [id number] Univers 12:43:14 ity of [facility] 2021-06-24 Emergency [facility] [id number] Univers 00:54:11 ity of [facility] 2021-06-23 Emergency [facility] [id number] Univers 18:56:21 ity of [facility] 2021-06-22 Emergency [facility] [id number] Univers 21:58:08 ity of [facility] 2021-06-22 Emergency [facility] [id number] Univers 18:42:15 ity of [facility] 2021-06-22 Emergency [facility] [id number] Univers 12:39:56 ity of [facility] 2021-07-10 2021-07-10 Emergency X [facility] ERT [id number] Univers 17:16:00 22:27:00 OSCAR itayaan [facility] 2021-07-10 2021-07-10 Emergency [facility] 1.2.297.017 [id number] Univers 17:16:00 22:27:00 Oscar BONDS 350.1.13.10 [facility] 4.2.7.2.686 [facility] [phone] [facility] 084 Branch 2021-07-09 2021-07-09 Emergency E JOEL TAN BL BL 7500 BL 15:18:00 22:28:00 2021-03-27 2021-03-27 Outpatient Pramod ESCOBAR [facility] [id number] Univers 10:00:00 10:00:00 BRAD laughlin o f [facility] 2021-03-26 2021-03-26 Outpatient Pramod PRADO [facility] [id number] Univers 14:00:00 14:00:00 RUIQING [facility] 2021-03-15 2021-03-15 Outpatient Pramod PRADO [facility] [id number] Univers 14:00:00 14:00:00 RUROBERT [facility] 2021-02-23 2021-02-23 Outpatient Pramod WHITFIELD [facility] [id number] Univers 10:40:00 10:40:00 STEFAN [facility] 2021-01-31 2021-01-31 Patient Alok [facility] 1.2.840.114 [id number] 00:00:00 00:00:00 Secure Msg [facility] 350.1.13.10 [place] 4.2.7.2.686 Professio [phone] [place] [address] Office Building One 2021-01-31 2021-01-31 Refill Alok [facility] 1.2.840.114 [id number] 00:00:00 00:00:00 [facility] 350.1.13.10 [place] 4.2.7.2.686 Professio [phone] [place] [address] Office Building One 2020-12-15 2020-12-15 Outpatient ROSEANN [facility] [id number] Univers 14:10:00 14:10:00 STEFAN tr[facility] 2020-12-14 2020-12-14 [facility]medici [facility] 1.2.840.114 [id number] 16:30:00 16:45:00 ne Visit [facility] 350.1.13.10 [place] 4.2.7.2.686 Professio [phone] [place] [address] Office Building One 2020-12-14 2020-12-14 Outpatient R ALOK [facility] [id number] Univers 16:30:00 16:30:00 WONDIFUL ity o f [facility] 2020-12-13 2020-12-13 Patient [facility] 1.2.840.114 [id number] 00:00:00 00:00:00 Secure Msg [facility] 350.1.13.10 [place] 4.2.7.2.686 Professio [phone] [place] [address] Office Building One 2020-12-11 2020-12-11 Telephone Schuyler [facility] 1.2.840.114 [id number] 00:00:00 00:00:00 [facility] 350.1.13.10 [place] 4.2.7.2.686 Professio [phone] [place] [address] Office Building One 2020-12-06 2020-12-06 [facility] 1.2.021.156 [id number] 01:21:00 03:58:00 [place] Mariel Bonds 350.1.13.10 [place] 4.2.7.2.686 [place] [id number] 084 2020-11-09 2020-11-09 Patient Roseann MNKRISTEN 1.2.840.114 [id number] 00:00:00 00:00:00 Outreach Stefan PRIMARY 350.1.13.10 [facility] 4.2.7.2.686 PAVILLION [id number] 388 2020-11-09 2020-11-09 Patient [facility] 1.2.840.114 [id number] Univers 00:00:00 00:00:00 Outreach Stefan PRIMARY 350.1.13.10 i ty of [facility] 4.2.7.2.[place] MAR[place] FERNANDAON [phone] [address] 2020-11-01 2020-11-01 Outpatient R ALOK [facility] [id number] Univers 00:00:00 00:00:00 WONDIFUL ity o f [facility] 2020-11-01 2020-11-01 Telephone [facility] 1.2.840.114 [id number] 00:00:00 00:00:00 [facility] 350.1.13.10 [place] 4.2.7.2.686 Professio [phone] nal [facility] Office Building One 2020-11-01 2020-11-01 Telephone Alok [facility] 1.2.840.114 [id number] Univers 00:00:00 00:00:00 [facility] 350.1.13.10 ity of [place] 4.2.7.2.686 Amandeep as Professio [phone] [address] Office Building One 2020-10-27 2020-10-27 Orders Doctor NIKOLAY 1.2.840.114 [id number] 00:00:00 00:00:00 Only Unassigned, MARLON 350.1.13.10 Lupus [facility] [id number] 009 2020-10-24 2020-10-24 Telephone [facility] 1.2.840.114 [id number] 00:00:00 00:00:00 [facility] 350.1.13.10 [place] 4.2.7.2.686 Professio [phone] [place] [address] Office [facility] 2020-10-24 2020-10-24 Telephone [facility] 1.2.840.114 [id number] Univers 00:00:00 00:00:00 [facility] 350.1.13.10 ity of [place] 4.2.7.2.686 Amandeep as Professio [phone] [address] Office [facility] 2020-10-23 2020-10-23 Telemedici [facility] 1.2.840.114 [id number] 16:47:16 17:53:03 ne Visit [facility] 350.1.13.10 [place] 4.2.7.2.[address] Professio [phone] One 2020-10-23 2020-10-23 [facility] 1.2.840.114 [id number] [facility] 16:47:16 17:53:03 ne Visit [facility] 350.1.13.10 ity of [place] 4.2.7.2.686 Amandeep as Professio [phone] [address] Office [facility] 2020-10-23 2020-10-23 [facility] [id number] [facility] 16:15:00 16:15:00 WONDIFUL ity o f [facility] 2020-10-17 2020-10-17 Emergency [facility] 1.2.840.114 [id number] [facility] 16:12:00 18:15:00 Khadijah Bonds 350.1.13.10 ity of [place] 4.2.7.2.686 [place] [facility] [phone] [address] 2020-10-17 2020-10-17 Emergency [facility] 1.2.840.114 [id number] 16:12:00 18:15:00 Khadijah Bonds 350.1.13.10 [place] 4.2.7.2.686 [place] [phone] [facility] 2020-10-17 2020-10-17 Telephone [facility] 1.2.840.114 [id number] Univers 00:00:00 00:00:00 [facility] 350.1.13.10 ity of [place] 4.2.7.2.686 Amandeep as Professio [phone] [address] Office [facility] 2020-10-17 2020-10-17 [place] [facility] 1.2.840.114 [id number] 00:00:00 00:00:00 [facility] 350.1.13.10 [place] 4.2.7.2.686 Professio [phone] [place] [address] Office [facility] 2020-10-16 2020-10-16 [place] [facility] 1.2.840.114 [id number] Univers 00:00:00 00:00:00 [facility] 350.1.13.10 ity of [place] 4.2.7.2.686 Amandeep as Professio [phone] [address] Office [facility] 2020-10-16 2020-10-16 [place] [facility] 1.2.840.114 [id number] 00:00:00 00:00:00 [facility] 350.1.13.10 [place] 4.2.7.2.686 Professio [phone] [place] [address] Office [facility] 2020-09-15 2020-09-15 [facility] 1.2.572.271 [id number] [facility] 14:33:00 18:20:00 Oscar R [place] 350.1.13.10 i ty of [place] 4.2.7.2.686 [place] [phone] [address] 2020-09-15 2020-09-15 Emergency [facility] 1.2.541.958 [id number] 14:33:00 18:20:00 Oscar R [place] 350.1.13.10 [place] 4.2.7.2.686 [place] [phone] [facility] 2020-07-07 2020-07-07 Refill Alok, [facility] 1.2.840.114 [id number] Univers 00:00:00 00:00:00 [facility] 350.1.13.10 ity of [place] 4.2.7.2.686 Amandeep as Professio [phone] [address] Office Building [facility] 2020-07-07 2020-07-07 Refcuca Miranda [facility] 1.2.840.114 [id number] 00:00:00 00:00:00 [facility] 350.1.13.10 [place] 4.2.7.2.686 Professio [phone] [place] [address] Office [facility] 2020-06-29 2020-06-29 Urgent Provider, [facility] 1.2.840.114 [id number] [facility] 14:02:05 15:07:58 Care Stella Lopez Health 350.1.13.10 ity of [place] 4.2.7.2.686 Amandeep as Professio [phone] [address] Office [facility] 2020-06-29 2020-06-29 Urgent Provider, [facility] 1.2.252.855 [id number] 14:02:05 15:07:58 Care [facility] 350.1.13.10 Care [place] 4.2.7.2.686 Professio [phone] [place] [address] Office [facility] 2020-06-29 2020-06-29 Outpatient R JESSICA, [facility] [id number] Univers 14:00:00 14:00:00 STELLA ity of [facility] 2020-06-29 2020-06-29 Letter Doctor LINK 1.2.840.114 [id number] Univers 00:00:00 00:00:00 (Out) Unassigned, MARLON 350.1.13.10 [facility] 4.2.7.2.686 Amandeep as [phone] [address] 2020-06-29 2020-06-29 Letter Doctor LINK 1.2.840.114 [id number] 00:00:00 00:00:00 (Out) Unassigned, MARLON 350.1.13.10 Lupus [facility] 4.2.7.2.686 [phone] 044 2020-06-08 2020-06-08 Outpatient R ROSANA [facility] [id number] Univers 13:00:00 13:00:00 PHILLIP sylviaayaan [facility] 2020-06-01 2020-06-01 Emergency [facility] 1.2.873.653 [id number] Univers 17:45:00 22:34:00 Janene Bonds 350.1.13.10 i ty of [place] 4.2.[address] [facility] [place] [phone] [address] 2020-06-01 2020-06-01 [facility] 1.2.070.659 [id number] 17:45:00 22:34:00 Janene Bonds 350.1.13.10 [place] 4.2.7.2.686 [place] [phone] [facility] 2020-05-15 2020-05-15 Emergency Lukasz, [facility] 1.2.840.114 [id number] Univers 19:17:00 21:27:00 Megan Hannah 350.1.13.10 i ty of [place] 4.2.7.2.686 [facility] [phone] [address] 2020-05-15 2020-05-15 Emergency Lukasz [facility] 1.2.840.114 [id number] 19:17:00 21:27:00 Megan Bustamanteton 350.1.13.10 [place] 4.2.7.2.686 [place] [phone] [facility] 2020-05-15 2020-05-15 Telemeduard [facility] 1.2.840.114 [id number] [facility] 11:19:42 15:58:43 ne Visit [employer] A Health 350.1.13.10 ity of [place] 4.2.7.2.686 Amandeep as Professio [phone] Md dic[address] Office Building One 2020-05-15 2020-05-15 Telemeduard Miranda [facility] 1.2.840.114 [id number] 11:19:42 15:58:43 ne Visit [facility] 350.1.13.10 [place] 4.2.7.2.686 Professio [phone] [place] [address] Office Building [facility] 2020-05-15 2020-05-15 Outpatient R ALOK [facility] [id number] Univers 15:00:00 15:00:00 WONDIFUL ity o f [facility] 2020-05-12 2020-05-12 Outpatient R JESSICA [facility] [id number] Univers 13:30:00 13:30:00 STELLA ity of [facility] 2020-05-12 2020-05-12 Telephone [facility] 1.2.840.114 [id number] Univers 00:00:00 00:00:00 [facility] 350.1.13.10 ity of [place] 4.2.7.2.686 Amandeep as Professio [phone] Md dical [address] Office [facility] 2020-05-12 2020-05-12 Telephone [facility] 1.2.840.114 [id number] 00:00:00 00:00:00 [facility] 350.1.13.10 [place] 4.2.7.2.686 Professio [phone] [place] [address] Office [facility] 2020-04-08 2020-04-08 Emergency [facility] 1.2.757.704 [id number] [facility] 10:44:00 12:53:00 Trish Bonds 350.1.13.10 ity of [place] 4.2.7.2.686 [facility] [phone] [address] 2020-04-08 2020-04-[address] 1.2.292.485 [id number] 10:44:00 12:53:00 Trish Bonds 350.1.13.10 [place] 4.2.7.2.686 [place] [phone] [facility] 2020-04-08 2020-04-08 Orders Doctor NIKOLAY 1.2.840.114 [id number] Univers 00:00:00 00:00:00 Only Unassigned, MARLON 350.1.13.10 ity of Lupus [facility] 4.2.7.2.686 Amandeep as [phone] [facility] [address] 2020-04-08 2020-04-08 Orders Doctor NIKOLAY 1.2.840.114 [id number] 00:00:00 00:00:00 Only Unassigned, MARLON 350.1.13.10 Lupus [facility] 4.2.7.2.686 [phone] 009 2019-08-12 2019-08-12 Emergency X ULRICH, [facility] ERT [id number] Univers 03:10:33 05:48:00 SUSAN ity [facility] 2019-05-07 2019-05-07 [facility] 1.2.075.615 [id number] Univers 15:01:43 23:59:00 Encounter Wondiful A [place] 350.1.13.10 ity of [place] 4.2.7.2.686 [facility] [phone] [address] 2019-05-07 2019-05-07 [facility] 1.2.659.374 [id number] 15:01:43 23:59:00 Encounter Wondiful A [place] 350.1.13.10 [place] 4.2.7.2.686 [place] [phone] [facility] 2019-05-07 2019-05-07 [facility] 1.2.063.803 [id number] Univers 15:01:25 23:59:00 Encounter Wondiful A [place] 350.1.13.10 ity of [place] 4.2.7.2.686 [facility] [phone] [address] 2019-05-07 2019-05-07 Outpatient R [facility] [id number] Univers 15:01:25 23:59:00 WONDIFUL ity o f [facility] 2019-05-07 2019-05-07 [facility] 1.2.031.440 [id number] 15:01:25 23:59:00 Encounter Wondiful A [place] 350.1.13.10 [place] 4.2.7.2.686 [place] [phone] [facility] 2019-05-07 2019-05-07 [facility] 1.2.832.367 [id number] Univers 15:00:59 15:00:59 Encounter Wondiful A [place] 350.1.13.10 ity of [place] 4.2.7.2.686 [facility] [phone] [address] 2019-05-07 2019-05-07 [facility] 1.2.151.406 [id number] 15:00:59 15:00:59 Encounter Wondiful A [place] 350.1.13.10 [place] 4.2.7.2.686 [place] [phone] [facility] 2019-05-07 2019-05-07 [facility] 1.2.255.159 [id number] Univers 15:00:00 15:00:00 Encounter Wondiful A [place] 350.1.13.10 ity of [place] 4.2.7.2.686 [facility] [phone] [address] 2019-05-07 2019-05-07 [facility] 1.2.917.625 [id number] 15:00:00 15:00:00 Encounter Wondiful A [place] 350.1.13.10 [place] 4.2.7.2.686 [place] [phone] 80 2019-05-04 2019-05-04 Telephone [facility] 1.2.840.114 [id number] [facility] 00:00:00 00:00:00 W[facility]iful A Health 350.1.13.10 ity of [place] 4.2.7.2.686 Amandeep Professio [phone] [address] Office Building One 2019-05-04 2019-05-04 Telephone [facility] 1.2.840.114 [id number] 00:00:00 00:00:00 Wondiful A Health 350.1.13.10 [place] 4.2.7.2.686 Professio [phone] nal [facility] Office Building One 2019-05-03 2019-05-03 Orders Doctor NIKOLAY 1.2.840.114 [id number] Univers 00:00:00 00:00:00 Only Unassigned, MARLON 350.1.13.10 ity of [place] [address]686 Amandeep as [phone] [facility] [address] 2019-05-03 2019-05-03 Orders Doctor NIKOLAY 1.2.840.114 [id number] 00:00:00 00:00:00 Only Unassigned, MARLON 350.1.13.10 Lup[place] [address]686 [phone] 009 Results Test Description Test Time Test Comments Results Result Comments Source TROPONIN I 2021-07-11 02:52:41 Test Item Value Reference Range Interpretation Comme nts TROPONIN I (test code = 0.002 ng/mL See_Comment [Au tomated message] The 3040272665) system which ge nerated this result tra [...] biotin. Lab Interpretation Normal (test code = 61020-2) [facility]. METABOLIC PANEL (02656)2021-07-11 02:40:16 Test Item Value Reference Range Interpretation Comments NA (test code = 137 mmol/L 135-145 3007409407) K (test code = 3.8 mmol/L 3.5-5.0 6682883530) CL (test code = 101 mmol/L 98-108 1421716922) CO2 TOTAL (test code = 29 mmol/L 23-31 8807414677) AGAP (test code = 2-16 0175389666) BUN (test code = 13 mg/dL 7-23 6059315844) GLUCOSE (test code = 124 mg/dL 70-110 H 1395635453) CREATININE (test code = 0.58 mg/dL 0.50-1.04 4784684363) TOTAL BILI (test code = 0.5 mg/dL 0.1-1.0 7444615233) CALCIUM (test code = 9.8 mg/dL 8.6-10.6 3746161247) T PROTEIN (test code = 7.0 g/dL 6.3-8.2 7163064054) ALBUMIN (test code = 4.3 g/dL 3.5-5.0 5232546238) ALK PHOS (test code = 58 U/L 34-122 8103385218) ALTv (test code = 18 U/L 5-35 1742-6) AST(SGOT) (test code = 25 U/L 13-40 3989543364) eGFR (test code = mL/min/1.73m2 8191256595) AMAYA (test code = AMAYA) Association of [...] tests). Lab Interpretation Abnormal (test code = 92940-0) [facility] WITH [id number] 02:28:55 Test Item Value Reference Range Interpretation Comments WBC (test code = See_Comment [Automated message] 6690-2) The system [employer] generated this result transmitted ref erence range: 4.30 - 1 1.10 10*3/?L. The re ference range was not u sed to interpret this result as normal/abnor mal. RBC (test code = See_Comment [Automated message] 789-8) The system [employer] generated this result transmitted ref erence range: [...] RDW-SD (test code 39.0 fL 39.0-49.9 = 21985-3) RDW-CV (test code 12.5 % 12.0-15.5 = 788-0) PLT (test code = See_Comment [Automated message] 777-3) The system [employer] generated this result transmitted ref erence range: 166 - 35 8 10*3/?L. The re ference range was not u sed to interpret this result as normal/abnor mal. MPV (test code = 9.5 fL 9.5-12.9 99232-0) NRBC/100 WBC (test See_Comment [Automat ed message] code = 1150564720) The [employer] which generated this result transmitted ref erence range: 0.0 - 10 .0 /100 WBCs. The refer ence range was not u sed to interpret this result as normal/abnor mal. NRBC x10^3 (test <0.01 See_Comment [Automated message] code = 2285849492) The [employer] which generated this result transmitted ref erence range: 10*3/?L. The reference range was not used to interpr et this result as normal/abnormal . GRAN MAT (NEUT) % 45.5 % (test code = 770-8) IMM GRAN % (test 0.60 % code = 6860191081) LYMPH % (test code 41.7 % = 736-9) MONO % (test code 9.2 % = 5905-5) EOS % (test code = 2.3 % 713-8) BASO % (test code 0.7 % = 706-2) GRAN MAT 3.22 10*3/uL 1.88-7.09 x10^3(ANC) (test code = 4898457322) IMM GRAN x10^3 0.04 10*3/uL 0.00-0.06 (test code = 3895950542) LYMPH x10^3 (test 2.95 10*3/uL 1.32-3.29 code = 731-0) MONO x10^3 (test 0.65 10*3/uL 0.33-0.92 code = 742-7) EOS x10^3 (test 0.16 10*3/uL 0.03-0.39 code = 711-2) BASO x10^3 (test 0.05 10*3/uL 0.01-0.07 code = 704-7) [facility] W [id number] 23:09:54 1. ?No acute abnormality identified within [...] May 2020 and favored infectious or inflammatory inetiology..[facility]. METABOLIC PANEL (78418)2020-09-15 22:18:00 Test Item Value Reference Range Interpretation Comments NA (test code = 137 mmol/L 135-145 9590809376) K (test code = 3.9 mmol/L 3.5-5 1792158075) CL (test code = 100 mmol/L 98-108 1186805599) CO2 TOTAL (test code = 28 mmol/L 23-31 2351330444) AGAP (test code = 2-16 2866786236) BUN (test code = 16 mg/dL 7-23 1619072342) GLUCOSE (test code = 98 mg/dL 70-110 7904358563) CREATININE (test code = 0.63 mg/dL 0.5-1.04 1240897507) TOTAL BILI (test code = 0.8 mg/dL 0.1-1.2 5820423782) CALCIUM (test code = 9.1 mg/dL 8.6-10.6 9567564755) T PROTEIN (test code = 7.7 g/dL 6.3-8.2 8167153454) ALBUMIN (test code = 4.5 g/dL 3.5-5 6825161396) ALK PHOS (test code = 51 U/L 34-122 5961226818) ALTv (test code = 41 U/L 5-35 H 1742-6) AST(SGOT) (test code = 41 U/L 13-40 H 5664996658) eGFR Calculation mL/min/1.73m2 (Non-) (test code = 5337605425) eGFR Calculation mL/min/1.73m2 () (test code = 4116811244) AMAYA (test code = AMAYA) Association of [...] tests). Lab Interpretation Abnormal (test code = 55521-6) [facility] 22:18:00 Test Item Value Reference Range Interpretation Comments LIPASE (test code = 4487384357) 44 U/L 0-220 Lab Interpretation (test code = Normal 27348-6) [facility]21-[facility]-22 22:09:00 Test Item Value Reference Range Interpretation Comments APPEARANCE (test code = Cloudy Clear A 2297012475) COLOR (test code = Yellow Yellow 4125267550) PH (test code = 4.8-8.0 8778180675) SP GRAVITY (test code = 1.003-1.030 2201435967) GLU U QUAL (test code = Normal Normal 1258947768) BLOOD (test code = Negative Negative 8961239494) KETONES (test code = Negative Negative 5778112379) PROTEIN (test code = Negative Negative 2887-8) UROBILIN (test code = Normal Normal 9312890989) BILIRUBIN (test code = Negative Negative 7176741267) NITRITE (test code = Negative Negative 3739730939) LEUK JONO (test code = 75/uL Negative A 9695336449) RBC/HPF (test code = See_Comment H [Autom ated message] 3185758648) The system [employer] generated this result transmitted ref erence range: 0 - 3 HP F. The reference range was not used to int erpret this result as normal/abnormal . WBC/HPF (test code = See_Comment H [Autom ated message] 8904368363) The system [employer] generated this result transmitted ref erence range: 0 - 5 HP F. The reference range was not used to int erpret this result as normal/abnormal . BACTERIA (test code = Moderate Negative A [id number]) MUCOUS (test code = Slight Negative LPF A [id number]) AMORPHOUS (test code = Rare Rare HPF [id number]) SQ EPITH (test code = HPF [id number]) Lab Interpretation (test Abnormal code = 68563-6) [facility] WITH [id number] 22:02:00 Test Item Value Reference Range Interpretation Comments WBC (test code = See_Comment [Automated message] 6690-2) The system [employer] generated this result transmitted ref erence range: 4.30 - 1 1.10 10*3/?L. The re ference range was not u sed to interpret this result as normal/abnor mal. RBC (test code = See_Comment [Automated message] 789-8) The system [employer] generated this result transmitted ref erence range: [...] RDW-SD (test code 41.2 fL 39-49.9 = 78534-2) RDW-CV (test code 13.4 % 12-15.5 = 788-0) PLT (test code = See_Comment [Automated message] 777-3) The system whic h generated this result transmitted ref erence range: 166 - 35 8 10*3/?L. The re ference range was not u sed to interpret this result as normal/abnor mal. MPV (test code = 10.4 fL 9.5-12.9 09868-2) NRBC/100 WBC (test See_Comment [Automat ed message] code = [id number]) The syste m which generated this result transmitted ref erence range: 0.0 - 10 .0 /100 WBCs. The refer ence range was not u sed to interpret this result as normal/abnor mal. NRBC x10^3 (test <0.01 See_Comment [Automated message] code = 5775857714) The syste m which generated this result transmitted ref erence range: 10*3/?L. The reference range was not used to interpr et this result as normal/abnormal . GRAN MAT (NEUT) % 57.6 % (test code = 770-8) IMM GRAN % (test 0.30 % code = 1615774998) LYMPH % (test code 31.3 % = 736-9) MONO % (test code 8.9 % = 5905-5) EOS % (test code = 1.5 % 713-8) BASO % (test code 0.4 % = 706-2) GRAN MAT 4.60 10*3/uL 1.88-7.09 x10^3(ANC) (test code = 4367877181) IMM GRAN x10^3 <0.03 0-0.06 (test code = 7679668783) LYMPH x10^3 (test 2.50 10*3/uL 1.32-3.29 code = 731-0) MONO x10^3 (test 0.71 10*3/uL 0.33-0.92 code = 742-7) EOS x10^3 (test 0.12 10*3/uL 0.03-0.39 code = 711-2) BASO x10^3 (test 0.03 10*3/uL 0.01-0.07 code = 704-7) [facility] W [id number] 03:12:10 No acute abdominal or pelvic process. [...] this study and agree with theabove report. [facility]2020-10-09 00:47:00 Test Item Value Reference Range Interpretation Comments APPEARANCE (test code = Clear Clear 9576403959) COLOR (test code = Yellow Yellow 1255070759) PH (test code = 4.8-8.0 4991737869) SP GRAVITY (test code = 1.003-1.030 2007946872) GLU U QUAL (test code = Normal Normal 7724498487) BLOOD (test code = Negative Negative 3594835438) KETONES (test code = Negative Negative 3134581684) PROTEIN (test code = Negative Negative 2887-8) UROBILIN (test code = Normal Normal 6020481506) BILIRUBIN (test code = Negative Negative 6264198802) NITRITE (test code = Negative Negative 8049904581) LEUK JONO (test code = Negative Negative 5923343378) RBC/HPF (test code = See_Comment [Autom ated message] 8575604714) The system [employer] generated this result transmitted ref erence range: 0 - 3 HP F. The reference range was not used to int erpret this result as normal/abnormal . WBC/HPF (test code = <1 See_Comment [Autom ated message] 9509651815) The system [employer] generated this result transmitted ref erence range: 0 - 5 HP F. The reference range was not used to int erpret this result as normal/abnormal . BACTERIA (test code = Few Negative A 8222544606) SQ EPITH (test code = HPF 8791113047) Lab Interpretation (test Abnormal code = 73438-4) [facility] METABOLIC PANEL (92758)2020-06-02 00:26:00 Test Item Value Reference Range Interpretation Comments NA (test code = 138 mmol/L 135-145 4101865433) K (test code = 4.5 mmol/L 3.5-5 1272716177) CL (test code = 100 mmol/L 98-108 1527924029) CO2 TOTAL (test code = 28 mmol/L 23-31 3379055189) AGAP (test code = 2-16 4315389553) BUN (test code = 11 mg/dL 7-23 0241557547) GLUCOSE (test code = 115 mg/dL 70-110 H 7583536920) CREATININE (test code = 0.70 mg/dL 0.5-1.04 8386722994) TOTAL BILI (test code = 0.8 mg/dL 0.1-1.5 7736485275) CALCIUM (test code = 10.1 mg/dL 8.6-10.6 2972984935) T PROTEIN (test code = 8.1 g/dL 6.3-8.2 0057171447) ALBUMIN (test code = 4.3 g/dL 3.5-5 5544674257) ALK PHOS (test code = 58 U/L 34-122 8821290185) ALTv (test code = 23 U/L 5-35 1742-6) AST(SGOT) (test code = 31 U/L 13-40 5456958049) eGFR Calculation mL/min/1.73m2 (Non-) (test code = 3967311815) eGFR Calculation mL/min/1.73m2 () (test code = 3870959564) AMAYA (test code = AMAYA) Association of [...] tests). Lab Interpretation Abnormal (test code = 11785-9) [facility]2020-10-09 00:26:00 Test Item Value Reference Range Interpretation Comments LIPASE (test code = 6746328873) 43 U/L 0-220 Lab Interpretation (test code = Normal 95731-0) [facility] WITH [id number] 00:09:00 Test Item Value Reference Range Interpretation Comments WBC (test code = See_Comment [Automated message] 6690-2) The system [employer] generated this result transmitted ref erence range: 4.30 - 1 1.10 10*3/?L. The re ference range was not u sed to interpret this result as normal/abnor mal. RBC (test code = See_Comment [Automated message] 429-8) The system [employer] generated this result transmitted ref erence range: [...] RDW-SD (test code 41.8 fL 39-49.9 = 91416-7) RDW-CV (test code 13.5 % 12-15.5 = 788-0) PLT (test code = See_Comment [Automated message] 777-3) The system whic h generated this result transmitted ref erence range: 166 - 35 8 10*3/?L. The re ference range was not u sed to interpret this result as normal/abnor mal. MPV (test code = 10.0 fL 9.5-12.9 45216-7) NRBC/100 WBC (test See_Comment [Automat ed message] code = 7641231704) The syste m which generated this result transmitted ref erence range: 0.0 - 10 .0 /100 WBCs. The refer ence range was not u sed to interpret this result as normal/abnor mal. NRBC x10^3 (test <0.01 See_Comment [Automated message] code = 0540014075) The syste m which generated this result transmitted ref erence range: 10*3/?L. The reference range was not used to interpr et this result as normal/abnormal . GRAN MAT (NEUT) % 64.7 % (test code = 770-8) IMM GRAN % (test 0.50 % code = 7373433761) LYMPH % (test code 26.0 % = 736-9) MONO % (test code 6.8 % = 5905-5) EOS % (test code = 1.6 % 713-8) BASO % (test code 0.4 % = 706-2) GRAN MAT 5.26 10*3/uL 1.88-7.09 x10^3(ANC) (test code = 7347758460) IMM GRAN x10^3 0.04 10*3/uL 0-0.06 (test code = 9707265236) LYMPH x10^3 (test 2.11 10*3/uL 1.32-3.29 code = 731-0) MONO x10^3 (test 0.55 10*3/uL 0.33-0.92 code = 742-7) EOS x10^3 (test 0.13 10*3/uL 0.03-0.39 code = 711-2) BASO x10^3 (test 0.03 10*3/uL 0.01-0.07 code = 704-7) [facility] HospitalTroponin [id number] 16:52:00 Test Item Value Reference Range Interpretation Comments TROPONIN I (test <0.012 See_Comment [Automated code = 2173243000) message] The system which generated this result [...] ? Lab Interpretation Normal (test code = 06042-7) [facility]/Pelvis W/O [id number] 16:48:14 No acute findings in the abdomen or pelvis. Preliminary Report Dictated by Resident: Tom Collins ?MD Anderson., have reviewed this study and agree withthe [...] havereviewed this study and agree withthe above report.[facility] HospitalUrinalysis2020-08-15 16:44:00 Test Item Value Reference Range Interpretation Comments APPEARANCE (test code = Clear Clear 6284156745) COLOR (test code = Straw Yellow A 5597908091) PH (test code = 4.8-8.0 6601339024) SP GRAVITY (test code = 1.003-1.030 0874701225) GLU U QUAL (test code = Normal Normal 9245809846) BLOOD (test code = Negative Negative 5017133067) KETONES (test code = Negative Negative 1631256192) PROTEIN (test code = Negative Negative 2887-8) UROBILIN (test code = Normal Normal 9635782732) BILIRUBIN (test code = Negative Negative 2325383417) NITRITE (test code = Negative Negative 6652510194) LEUK JONO (test code = Negative Negative 6016384986) RBC/HPF (test code = <1 See_Comment [Autom ated message] 5162560677) The system [employer] generated this result transmitted ref erence range: 0 - 3 HP F. The reference range was not used to int erpret this result as normal/abnormal . WBC/HPF (test code = See_Comment [Autom ated message] 3057170752) The system [employer] generated this result transmitted ref erence range: 0 - 5 HP F. The reference range was not used to int erpret this result as normal/abnormal . BACTERIA (test code = Few Negative A 0114772688) SQ EPITH (test code = HPF 3642825297) Lab Interpretation (test Abnormal code = 12962-3) [facility] HospitalBasi Metabolic Panel (NA, K, CL, CO2, GLUCOSE, BUN, CREATININE, CA)2020-04-08 16:41:00 Test Item Value Reference Range Interpretation Comments NA (test code = 137 mmol/L 135-145 5344234384) K (test code = 4.5 mmol/L 3.5-5 3512386875) CL (test code = 104 mmol/L 98-108 4870013498) CO2 TOTAL (test code = 26 mmol/L 23-31 0287168490) AGAP (test code = 2-16 4523895960) BUN (test code = 6 mg/dL 7-23 L 1013089237) GLUCOSE (test code = 99 mg/dL 70-110 1369265551) CREATININE (test code = 0.73 mg/dL 0.5-1.04 3330836652) CALCIUM (test code = 9.6 mg/dL 8.6-10.6 3019557788) eGFR Calculation mL/min/1.73m2 (Non-) (test code = 9688300578) eGFR Calculation mL/min/1.73m2 () (test code = 1942777017) AMAYA (test code = AMAYA) Association of [...] tests). Lab Interpretation Abnormal (test code = 55307-7) [facility] HospitalHepatic Function Panel (ALB, T.PRO, BILI T, BU/BC, ALT, AST, ALK PHOS)2020-04-08 16:41:00 Test Item Value Reference Range Interpretation Comments TOTAL BILI (test code = 8897352016) 0.4 mg/dL 0.1-1.1 BILI UNCON (test code = 7971695748) 0.5 mg/dL 0.1-1.1 BILI CONJ (test code = 2978058753) 0.0 mg/dL 0-0.3 T PROTEIN (test code = 8521731210) 8.1 g/dL 6.3-8.2 ALBUMIN (test code = 5661180668) 4.6 g/dL 3.5-5 ALK PHOS (test code = 8610421090) 61 U/L 34-122 ALTv (test code = 1742-6) 28 U/L 5-35 AST(SGOT) (test code = 7782883676) 35 U/L 13-40 Lab Interpretation (test code = Normal 21149-7) [facility] HospitalLipase [id number] 16:41:00 Test Item Value Reference Range Interpretation Comments LIPASE (test code = 8380933526) 39 U/L 0-220 Lab Interpretation (test code = Normal 00153-5) [facility] HospitalCBC with [id number] 16:27:00 Test Item Value Reference Range Interpretation Comments WBC (test code = See_Comment [Automated 3190-2) message] The sy stem which generated this result transmitted reference range : 4.30 - 11.10 10*3/?L. The reference range was not used to interpret this result as normal/abnormal . RBC (test code = See_Comment [Automated 850-8) message] The sy stem which generated this [...] RDW-SD (test code = 41.0 fL 39-49.9 32136-6) RDW-CV (test code = 13.3 % 12-15.5 788-0) PLT (test code = See_Comment [Automated 777-3) message] The sy stem which generated this result transmitted reference range : 166 - 358 10*3/ ?L. The reference r radha was not used to interpret this result as normal/abnormal . MPV (test code = 10.5 fL 9.5-12.9 21568-6) NRBC/100 WBC (test See_Comment [Automat ed code = 1209197867) message] The system which generated this result transmitted reference range : 0.0 - 10.0 /100 WBCs. The refer ence range was not u sed to interpret th is result as normal/abnormal . NRBC x10^3 (test code <0.01 See_Comment [Auto mated = 0231472481) message] The s ystem which generated this result transmitted reference range : 10*3/?L. The reference range was not used to interpret this result as normal/abnormal . GRAN MAT (NEUT) % 53.1 % (test code = 770-8) IMM GRAN % (test code 0.30 % = 6546652366) LYMPH % (test code = 35.9 % 736-9) MONO % (test code = 9.0 % 5905-5) EOS % (test code = 1.3 % 713-8) BASO % (test code = 0.4 % 706-2) GRAN MAT x10^3(ANC) 4.89 10*3/uL 1.88-7.09 (test code = 2204694943) IMM GRAN x10^3 (test 0.03 10*3/uL 0-0.06 code = 5040071513) LYMPH x10^3 (test code 3.31 10*3/uL 1.32-3.29 H = 731-0) MONO x10^3 (test code 0.83 10*3/uL 0.33-0.92 = 742-7) EOS x10^3 (test code = 0.12 10*3/uL 0.03-0.39 711-2) BASO x10^3 (test code 0.04 10*3/uL 0.01-0.07 = 704-7) Lab Interpretation Abnormal (test code = 86215-5) [facility] HospitalPOCT [id number] 16:11:00 Test Item Value Reference Range Interpretation Comments POCT PREG (test code = 1605) negative POCT PREG LOT # (test code = 3575) [id number] POCT PREG TEST DATE (test 03/24/2021 code = 3576) Lab Interpretation (test code = Normal 10486-3) [facility] HospitalRPR [id number] 13:49:18 Test Item Value Reference Range Interpretation [...] = 06-24-20 N Expiration Dt) Comprehensive Metabolic [id number] 22:30:33 Test Item Value Reference Range Interpretation [...] A/G 1.5 ratio N Ratio) Comprehensive Metabolic [id number] 22:30:33 Test Item Value Reference Range Interpretation [...] the [employer], http://nkdep.ni h.gov Alcohol [id number] 22:30:33 Test Item Value Reference Range Interpretation Comments Ethanol Level (test <0.00 g/dL 0.00-0.01 Intoxica wilma 0.080 g/dL code = Ethanol or more Level) Ethanol Inst (test <0 N code = Ethanol Inst) Comprehensive Metabolic [id number] 22:30:33 Test Item Value Reference Range Interpretation [...] [employer], http://nkdep.ni h.gov HCG Qualitative [id number] 22:23:26 Test Item Value Reference Range Interpretation [...] 72 hours. Lot # (test code = 642357 N Lot #) Expiration Dt (test 2020-09-24 N code = Expiration Dt) Neg Control (test Negative code = Neg Control) Pos Control (test Positive code = Pos Control) Internal QC (test Acceptable code = Internal QC) Complete Blood Count with [id number] 22:08:35 Test Item Value Reference Range Interpretation [...] code = IPF) 0 % N Automated [id number] 22:08:35 Test Item Value Reference Range Interpretation Comments Neutro Auto (test code = Neutro 64.2 % 36.0-70.0 Auto) Lymph Auto (test code = Lymph Auto) 25.7 % 12.0-44.0 Faulk Auto (test code = Faulk Auto) 8.2 % 0.0-11.0 Eos, Auto (test code = Eos, Auto) 1.2 % 0.0-7.0 Basophil Auto (test code = Basophil 0.4 % 0.0-2.0 Auto) Neutro Absolute (test code = Neutro 6.7 x10 1.6-7.4 Absolute) Lymph Absolute (test code = Lymph 2.68 x10 .50-4.60 Absolute) Faulk Absolute (test code = Faulk .86 x10 .00-1.20 Absolute) Eos Absolute (test code = Eos 0.12 x10 0.00-0.74 Absolute) Baso Absolute (test code = Baso 0.04 x10 0.00-0.21 Absolute) IG [id number] 22:08:35 Test Item Value Reference Range Interpretation Comments IG (test code = IG) 0.3 % 0.0-5.0 IG Abs (test code = IG Abs) 0 x10 N XR HIPS 2 VW [id number] 20:58:17Osteoarthrosis * * * * * * [...] head is preserved. No bone lesion is noted.IMPRESSIONOsteoarthrosisUnBaylor Scott & [facility] XR ANKLE 3+ VW [id number] 20:57:16Mild degenerative changes in the medial ankle [...] in the form of small oste ophytes. [facility], Radiant Results In[employer] User - 05/07/2019 3:57 [...] osteophytes.IMPRESSIONMild degenerative changes in the medial ankle jointUnBaylor Scott & White Medical Center – BudaXR KNEE 3 VW LEFT 2019-05-07 20:56:101. Changes [...] swelling is seen anterior to thequadriceps tendon. [facility] - 05/07/2019 3:56 PM CDT* * [...] Soft tissue swelling anterior to the quadriceps tendonUnBaylor Scott & White Medical Center – BudaXR CERVICAL SPINE 4 [id number] 20:49:441.?No acute osseous findings are seen.2.?Curvature abnormality [...] the formof discspace narrowing and facet arthropathy. [facility], Radiant Results [facility] User - 05/07/2019 3:49 PM CDT* * [...] seen.2. Curvature abnor mality and minimal degenerative changes.[facility]
--- NOTE | 2023-02-27 13:36 | EDPHYS ---
Physician Documentation [facility] Name: Maribel Diaz Age: 42 yrs Sex: Female : 1980 Arrival Date: 02/27/2023 Time: 12:52 Bed 10 Private MD: ED Physician Jonathan Maria HPI: 02/27 13:18 This 42 yrs old Female presents to ER via Ambulatory with complaints of Finger rn Infection. 13:18 The patient presents with cellulitis of the right 5th finger. Description: rn erythematous, swollen. Onset: The symptoms/episode began/occurred 1 week(s) ago. Possible cause(s): unknown. Modifying factors: the symptoms are alleviated by nothing, the symptoms are aggravated by pressure, touching. Severity of symptoms: At their worst the symptoms were mild, in the emergency department the symptoms are unchanged. The patient has not experienced similar symptoms in the past. The patient has been recently seen at the [facility] Emergency Department. Pt reports initially broke her right 5th finger 3 weeks ago, seen here a week ago with xrays and pain medication. Returns today for increased pain and swelling with redness to same finger. No new injury. No fever. Reports pain with pressure. Sent by her doctor to ER for further evaluation. . Historical: - Allergies: 13:00 Benadryl; ll1 13:00 Tegretol; hallucinations; ll1 13:00 Toradol; ll1 - PMHx: 13:00 ADD/ADHD; cervical cancer; Depression; Fibromyalgia; Panic Attacks; Substance Abuse; ll1 temporal artritis; - PSHx: 13:00 cher. ankle; section; hysterectomy; ll1 - Immunization history:: Client reports receiving the 2nd dose of the Covid vaccine. - Social history:: Smoking status: Reported history of juuling and/or vaping. Patient/guardian denies using tobacco, the patient reports quitting approximately 15 years ago. - Family history:: not pertinent. - Hospitalizations: : No recent hospitalization is reported. ROS: 13:18 Constitutional: Negative for fever, chills, and weight loss, MS/Extremity: + right 5th rn finger swelling and redness Exam: 13:18 Constitutional: This is a well developed, well nourished patient who is awake, alert, rn anxious and tearful MS/ Extremity: Pulses equal, no cyanosis. Neurovascular intact. Right 5th distal finger with erythema and warmth, no fluctuance, no evidence of paronychia or felon, no fusiform swelling, no tenderness along flexor surface of finger. No extension toward hand or wrist/arm. Redness and pain isolated to 5th digit. Vital Signs: 13:03 BP 168 / 94; Pulse 102; Resp 17; Temp 98.6; Pulse Ox 96% ; Weight 99.79 kg; Height 5 ll1 ft. 8 in. ; Pain 8/10; 16:52 BP 148 / 86; Pulse 95; Resp 19; Pulse Ox 99% ; ko1 13:03 Body Mass Index 33.45 (99.79 kg, 172.72 cm) ll1 13:03 Pain Scale: Adult ll1 MDM: 13:07 Patient medically screened. rn 13:18 Differential diagnosis: cellulitis. Data reviewed: vital signs, nurses notes, and as a rn result, I will discharge patient. Counseling: I had a detailed discussion with the patient and/or guardian regarding: the historical points, exam findings, and any diagnostic results supporting the discharge/admit diagnosis, the need for outpatient follow up, to return to the emergency department if symptoms worsen or persist or if there are any questions or concerns that arise at home. Special discussion: I discussed with the patient/guardian in detail that at this point there is no indication for admission to the hospital. It is understood, however, that if the symptoms persist or worsen the patient needs to return immediately for re-evaluation. Based on the history and exam findings, there is no indication for further emergent testing or inpatient evaluation. I discussed with the patient/guardian the need to see the hand specialist for further evaluation of the symptoms. ED course: Currently no fluctuance or evidence of deep infection. 13:34 Consideration of Admission/Observation Patient was admitted/placed on observation. rn Escalation of care including admission/observation considered. Management of patient was discussed with the following: Thread Clipper: Dr. Elder consulted, requests admission to hospital, abx, and NPO after midnight. 02/27 13:31 Order name: CBC with Diff; Complete Time: 14:16 rn 02/27 13:31 Order name: Basic Metabolic Panel rn 02/27 13:31 Order name: Protime (+inr) rn 02/27 13:31 Order name: Ptt, Activated rn 02/27 14:29 Order name: Urinalysis w/ reflexes EDMS 02/27 14:30 Order name: Basic Metabolic Panel EDMS 02/27 14:30 Order name: Basic Metabolic Panel EDMS 02/27 14:30 Order name: Basic Metabolic Panel EDMS 02/27 14:30 Order name: Basic Metabolic Panel EDMS 02/27 14:30 Order name: CBC with Automated Diff EDMS 02/27 14:30 Order name: CBC with Automated Diff EDMS 02/27 14:30 Order name: CBC with Automated Diff EDMS 02/27 14:30 Order name: CBC with Automated Diff EDMS 02/27 14:30 Order name: Magnesium EDMS 02/27 14:30 Order name: Magnesium EDMS 02/27 14:30 Order name: Magnesium EDMS 02/27 14:30 Order name: Magnesium EDMS 02/27 14:57 Order name: Vancomycin Level Trough EDMS 02/27 13:32 Order name: XRAY Hand RIGHT 3 View; Complete Time: 14:16 rn 02/27 14:29 Order name: CONS Physician Consult EDMS 02/27 14:29 Order name: NPO EDMS 02/27 13:31 Order name: IV Start; Complete Time: 13:52 rn Administered Medications: 14:00 Drug: Cefepime IVPB 1 grams Route: IVPB; Rate: 200 ml/hr; Infused Over: 30 mins; Site: ko1 right forearm; 14:31 Drug: morphine IVP or IV 4 mg Route: IVP; Infused Over: 4 mins; Site: right forearm; ko1 14:32 Drug: vancoMYCIN IVPB 1 grams Route: IVPB; Infused Over: 2 hrs; Site: right forearm; ko1 Disposition Summary: 02/27/23 13:35 Hospitalization Ordered Provider: Pieter Maria rn Location: Telemetry/MedSurg (observation) rn Condition: Stable rn Problem: new rn Symptoms: have improved rn Bed/Room Type: Standard rn Hospitalization Status: Inpatient Admission(02/27/23 13:36) rn Room Assignment: 230(02/27/23 16:38) em1 Diagnosis - Cellulitis of right finger rn - Displaced fracture of distal phalanx of right little finger, sequela rn Forms: - Medication Reconciliation Form rn - SBAR form rn Signatures: Dispatcher [employer] EDJonathan Mcmullen MD MD rn Michele Holliday em1 Yeison Barboza RN RN ll1 Lyndsay Bruno RN RN ko1 Corrections: (The following items were deleted from the chart) 13:36 13:35 Observation rn rn 16:38 13:35 rn [email or web address]
--- NOTE | 2023-02-27 13:36 | ER ---
Nurse's Notes [facility] Name: Maribel Diaz Age: 42 yrs Sex: Female : 1980 Arrival Date: 02/27/2023 Time: 12:52 Bed 10 Private MD: Diagnosis: Cellulitis of right finger;Displaced fracture of distal phalanx of right little finger, sequela Presentation: 02/27 13:03 Chief complaint: Patient states: R hand 5th digit pain, redness, swelling for 3 days. ll1 States she broke that finger 2 weeks ago. Coronavirus screen: Vaccine status: Patient reports receiving the 2nd dose of the covid vaccine. Client denies travel out of the [place] in the last 14 days. At this time, the client does not indicate any symptoms associated with coronavirus-19. Ebola Screen: Patient denies travel to an Ebola-affected area in the 21 days before illness onset. Initial Sepsis Screen: Does the patient meet any 2 criteria? No. Patient's initial sepsis screen is negative. Does the patient have a suspected source of infection? Yes: Skin breakdown/wound. Risk Assessment: Do you want to hurt yourself or someone else? Patient reports no desire to harm self or others. Onset of symptoms was February 25, 2023. 13:03 Method Of Arrival: Ambulatory ll1 13:03 Acuity: RICO 4 ll1 Historical: - Allergies: 13:00 Benadryl; ll1 13:00 Tegretol; hallucinations; ll1 13:00 Toradol; ll1 - PMHx: 13:00 ADD/ADHD; cervical cancer; Depression; Fibromyalgia; Panic Attacks; Substance Abuse; ll1 temporal artritis; - PSHx: 13:00 cher. ankle; section; hysterectomy; ll1 - Immunization history:: Client reports receiving the 2nd dose of the Covid vaccine. - Social history:: Smoking status: Reported history of juuling and/or vaping. Patient/guardian denies using tobacco, the patient reports quitting approximately 15 years ago. - Family history:: not pertinent. - Hospitalizations: : No recent hospitalization is reported. Screenin:16 [facility] ED Fall Risk Assessment (Adult) History of falling in the last 3 months, ko1 including since admission No falls in past 3 months (0 pts) Confusion or Disorientation No (0 pts) Intoxicated or Sedated No (0 pts) Impaired Gait No (0 pts) Mobility Assist Device Used No (0 pt) Altered Elimination No (0 pt) Score/Fall Risk Level 0 - 2 = Low Risk Oriented to surroundings, Maintained a safe environment, Educated pt \T\ family on fall prevention, incl call for assistance when getting out of bed, Assessed \T\ reinforced patient's understanding of fall precautions, Provided non-skid footwear, Hourly rounding (assess needs \T\ fall precautionary measures) done, Used ambulatory aids as needed (educated on \T\ assisted with), Used gait belt as appropriate. Abuse screen: Denies threats or abuse. Denies injuries from another. Nutritional screening: No deficits noted. Tuberculosis screening: No symptoms or risk factors identified. Assessment: 13:16 General: Appears in no apparent distress. uncomfortable, Behavior is calm, cooperative, ko1 appropriate for age. Neuro: No deficits noted. Cardiovascular: No deficits noted. Respiratory: No deficits noted. GI: No deficits noted. : No deficits noted. EENT: No deficits noted. Derm: No deficits noted. 13:18 Pain: Complains of pain in right hand fifth finger. Musculoskeletal: Swelling present ko1 in right hand 5th finger. Vital Signs: 13:03 BP 168 / 94; Pulse 102; Resp 17; Temp 98.6; Pulse Ox 96% ; Weight 99.79 kg; Height 5 ll1 ft. 8 in. ; Pain 8/10; 16:52 BP 148 / 86; Pulse 95; Resp 19; Pulse Ox 99% ; ko1 13:03 Body Mass Index 33.45 (99.79 kg, 172.72 cm) ll1 13:03 Pain Scale: Adult ll1 ED Course: 12:55 Patient arrived in ED. rg4 13:05 Triage completed. ll1 13:05 Arm band placed on. ll1 13:07 Lyndsay Bruno, [facility] is Primary Nurse. ko1 13:07 Jonathan Maria MD is Attending Physician. rn 13:16 Patient has correct armband on for positive identification. Bed in low position. Call ko1 light in reach. Pulse ox on. NIBP on. Door closed. Noise minimized. Lights dimmed. Warm blanket given. 13:35 Pieter Maria MD is Hospitalizing Provider. rn 13:45 Inserted saline lock: 22 gauge in right forearm, using aseptic technique. Blood ko1 collected. 13:50 XRAY Hand RIGHT 3 View In Process Unspecified. EDMS 13:52 Protime (+inr) Sent. ko1 13:52 Ptt, Activated Sent. ko1 13:52 Basic Metabolic Panel Sent. ko1 13:52 CBC with Diff Sent. ko1 16:46 No provider procedures requiring assistance completed. Patient admitted, IV remains in ko1 place. Administered Medications: 14:00 Drug: Cefepime IVPB 1 grams Route: IVPB; Rate: 200 ml/hr; Infused Over: 30 mins; Site: ko1 right forearm; 14:31 Drug: morphine IVP or IV 4 mg Route: IVP; Infused Over: 4 mins; Site: right forearm; ko1 14:32 Drug: vancoMYCIN IVPB 1 grams Route: IVPB; Infused Over: 2 hrs; Site: right forearm; ko1 Medication: 13:16 VIS not applicable for this client. ko1 Outcome: 13:35 Decision to Hospitalize by Provider. rn 16:52 Admitted to Med/surg accompanied by tech, via wheelchair, room 230. ko1 16:52 Condition: stable 16:52 Instructed on the need for admit, Demonstrated understanding of instructions. 17:05 Patient left the ED. ko1 Signatures: Dispatcher [employer] EDMS Jonathan Maria MD MD rn Garcia, Rubi rg4 Yeison Barboza RN RN ll1 Lyndsay Bruno RN RN ko1 Corrections: (The following items were deleted from the chart) 13:06 13:03 Acuity: RICO 3 ll1 ll1
[2023-02-27 14:02] LABS: Absolute Lymphocytes (CBC) 2.3 K/uL (0.7-4.9); Hematocrit 39.5 % (36.0-45.0); MCV 84.4 fL (80-100); MPV 7.8 fL (7.6-11.3); RBC Red Blood Cell Count 4.68 M/uL (3.86-4.86)
[2023-02-27] MEDS ORDERED: NA CHLORIDE 0.9% 250 ML ONE (14:03)
[2023-02-27] MEDS ORDERED: NA CHLORIDE 0.9% 100 ML ONE (14:03)
[2023-02-27] MEDS ORDERED: VANCOMYCIN 1 GM/VIAL ONE (14:03)
[2023-02-27] MEDS ORDERED: CEFEPIME 1 GM/VIAL ONE (14:03)
--- NOTE | 2023-02-27 14:06 | RAD REPORT ---
EXAM DESCRIPTION: RAD - Hand Right 3 View - 02/27/2023 1:48 pm CLINICAL HISTORY: PAIN COMPARISON: <Comparisons> TECHNIQUE: Right hand, 3 views. FINDINGS: Stable fractures along the fifth digit the distal and middle phalanges. Mild flexion at th e level of the distal interphalangeal joint. Surrounding soft tissue swelling. There is no dislocation or periosteal reaction noted. No foreign body or other soft tissue abnormalit y. IMPRESSION: Stable findings, as above.
--- NOTE | 2023-02-27 14:20 | P.HP ---
Certification for Inpatient Patient admitted to: Inpatient With expected LOS: <2 Midnights Patient will require the following post-hospital care: None Practitioner: I am a practitioner with admitting privileges, knowledge of patient current condition, hospital course, and medical plan of care. Services: Services provided to patient in accordance with Admission requirements found in Title 42 Section 412.3 of the Code of Federal Regulations Patient History Date of Service: 02/27/23 Reason for admission: Cellulitis Finger History of Present Illness: 42 year old female with past medical history Depression, Anxiety, Fibromyalgia, HX substance abuse, Giant Temporal Arteritis presents to the emergency room with cellulitis of the right 5th finger. She reports she was referred to the ED by her physician. She reports initially broke her right 5th finger 3 weeks ago. She reports over the last week, same finger is swollen, red, and painful is getting progressively worse. She reports pain is worse when using her right hand, and she reports using her right hand because she has to. She denies No new injury, denies fever. Reports pain with pressure. Allergies carbamazepine [From Tegretol] Allergy (Verified 02/27/23 15:22) Shortness of breath diphenhydramine [From Benadryl] Allergy (Verified 02/27/23 15:22) Itching ketorolac [From Toradol] Allergy (Verified 02/27/23 15:23) Itching/Hives/Rash Home Medications: Paroxetine HCl [Paxil] 30 mg PO DAILY 01/22/21 hydrOXYzine HCL [Atarax] 50 mg PO BIDP PRN 01/22/21 clonazePAM [Klonopin*] 1 tab PO BIDP PRN 01/23/21 Hydrocodone 10/APAP 325 [Downs 10/325] 1 tab PO Q12H PRN #30 tab 01/24/21 carBAMazepine [Tegretol*] 200 mg PO BID #60 tab 01/24/21 predniSONE [Prednisone*] 60 mg PO DAILY #90 tab 01/24/21 predniSONE [Prednisone*] 20 mg PO DAILY #90 tab 01/25/21 - Past Medical/Surgical History -: Cervical cancer -: Anxiety disorder -: Depression -: Morbid obesity -: Fibromyalgia - Social History Alcohol use: Yes CD- Drugs: No Caffeine use: No Review of Systems General: Unremarkable Physical Examination - Physical Exam General: Alert, In no apparent distress, Oriented x3, Other (Anxious) HEENT: Atraumatic, Normocephalic, PERRLA Neck: Supple, 2+ carotid pulse no bruit, JVD not distended Respiratory: Clear to auscultation bilaterally, Normal air movement Cardiovascular: No edema, Normal pulses, Regular rate/rhythm Capillary refill: <2 Seconds Gastrointestinal: Normal bowel sounds, Non-distended Musculoskeletal: Other (Right 5th little finger mild edema, erythema, localized) Neurological: Normal speech, Normal strength at 5/5 x4 extr - Studies Laboratory Data (last 24 hrs) 02/27/23 13:45: WBC 7.10, Hgb 12.8, Hct 39.5, Plt Count 311 Assessment and Plan - Problems (Diagnosis) (1) Cellulitis of finger of right hand Current Visit: Yes Status: Acute Plan: Keep NPO Consult Hand Surgeon IV ABX, PRN analgesics, (2) Anxiety Current Visit: Yes Status: Acute Plan: Resume appop home medications (3) Depression Current Visit: Yes Status: Chronic Plan: Resume approp home medications Denies SI/HI thoughts Qualifiers: Major depression recurrence: recurrent Psychotic features: without psychotic features (4) ADHD (attention deficit hyperactivity disorder), combined type Current Visit: Yes Status: Chronic Plan: Resume approp home medications Discharge Plan: Home Plan to discharge in: 24 Hours - Advance Directives Does patient have a Living Will: No Does patient have a Durable POA for Healthcare: No - Code Status/Comfort Care Code Status Assessed: Yes Code Status: Full Code Physician Review: Patient Assessed, Agree with Above Assessment and Plan Critical Care: No Time Spent Managing Pts Care (In Minutes): 55
[2023-02-27 14:23] LABS: Protime INR 1.02
[2023-02-27] MEDS ORDERED: ALPRAZOLAM 0.25 MG TABLET PO PRN (14:24)
[2023-02-27] MEDS ORDERED: ACETAMINOPHEN 500 MG TAB PO PRN (14:24)
[2023-02-27 14:30] LABS: Potassium 3.5 mEq/L (3.5-5.1)
[2023-02-27] MEDS ORDERED: KETOROLAC 30 MG/ML INJ IV PRN (14:31)
[2023-02-27] MEDS ORDERED: MORPHINE 2 MG/ML SYR IV PRN (14:32)
[2023-02-27] MEDS ORDERED: MORPHINE 4 MG/ML SYR ONE (14:36)
[2023-02-27 17:40] VITALS: BMI 33.4
[2023-02-27] MEDS: HYDROCODONE/APAP 5/325 MG TAB PO PRN (17:48)
[2023-02-27] MEDS: CEFEPIME 2 GM in NA CHLORIDE 0.9% 100 ML IV SCH (21:07)
[2023-02-27] MEDS: MORPHINE 2 MG/ML SYR IV PRN (21:52)
[2023-02-28] MEDS: clonazePAM 1 MG TAB PO PRN ×2 (00:27→15:34)
[2023-02-28] MEDS ORDERED: VANCOMYCIN 1.75 GM in NA CHLORIDE 0.9% 500 ML IVPB SCH (02:00)
[2023-02-28] MEDS: HYDROCODONE/APAP 5/325 MG TAB PO PRN ×3 (02:14→20:10)
[2023-02-28] MEDS ORDERED: DIPHENHYDRAMINE 50 MG/ML VIAL IV ONE (04:28)
[2023-02-28 06:41] LABS: Hematocrit 40.1 % (36.0-45.0); Lymphocytes % 32.5 % (15.3-44.8); MCV 84.6 fL (80-100); MPV 7.7 fL (7.6-11.3); RBC Red Blood Cell Count 4.74 M/uL (3.86-4.86)
[2023-02-28 07:01] LABS: Magnesium 2.2 mg/dL (1.6-2.4); Potassium 3.3 mEq/L (3.5-5.1)
--- NOTE | 2023-02-28 07:16 | P.PN ---
Date of Service: 02/28/23 Subjective: not feeling well today, unable to sleep overnight appears anxious, tearful at times; not wanting to elaborate / repeat herself feels swelling, redness, pain of hand has been improving afebrile ROS: 10 point ROS as noted above, otherwise negative Physical Exam: GEN: Alert, oriented, anxious, tearful HEENT: Normal conjunctiva, sclera anicteric CV: Regular rate and rhythm, no edema Pulm: Nonlabored respirations on room air Integumentary: Right 5th finger mild edema, erythema, tenderness to palm Neuro: Normal speech, anxious/tearful vitals reviewed Problem List: Cellulitis of finger of right hand recent R 5th digit fracture along distal and middle phalanges Anxiety Depression ADHD Cellulitis of finger of right hand X-ray hand (02/28): Stable fractures along the fifth digit the distal and middle phalanges. Mild flexion at the level of the distal interphalangeal joint. Surrounding soft tissue swelling. Hand surgeon consulted NPO for possible I&D/surgery Dr. Elder to evaluate Given Vanc in ED, felt itchy last night after administration, switched to cefepime. ?suspect allergy, no further itching since unclear if vanc is cause continue cefepime(02/27-) added doxycycline (02/28-) in place of vanc no leukocytosis, +afebrile PRN pain medications Anxiety Depression ADHD Continue home medications ativan while NPO, since can't have home klonopin (02/28) Code: Full Dispo: Home ~1-2 days
[2023-02-28] MEDS ORDERED: LORazepam 2 MG/ML VIAL IV ONE (08:38)
[2023-02-28] MEDS: DOXYCYCLINE 100 MG in NA CHLORIDE 0.9% 100 ML IVPB SCH ×2 (09:32→20:09)
[2023-02-28] MEDS: CEFEPIME 2 GM in NA CHLORIDE 0.9% 100 ML IV SCH ×2 (09:34→20:09)
[2023-02-28] MEDS: MORPHINE 2 MG/ML SYR IV PRN ×3 (09:38→23:37)
[2023-02-28] MEDS: DIPHENHYDRAMINE 50 MG/ML VIAL IV PRN (21:35)
[2023-03-01 03:05] LABS: Absolute Lymphocytes (CBC) 2.3 K/uL (0.7-4.9); Hematocrit 36.3 % (36.0-45.0); Lymphocytes % 34.2 % (15.3-44.8); MCV 84.5 fL (80-100); MPV 8.1 fL (7.6-11.3)
[2023-03-01] MEDS: clonazePAM 1 MG TAB PO PRN ×2 (03:11→20:18)
[2023-03-01] MEDS: DIPHENHYDRAMINE 50 MG/ML VIAL IV PRN (03:12)
[2023-03-01 03:27] LABS: Magnesium 2.1 mg/dL (1.6-2.4); Potassium 4.2 mEq/L (3.5-5.1)
--- NOTE | 2023-03-01 07:18 | P.PN ---
Date of Service: 03/01/23 Subjective: feeling better today, able to sleep overnight less anxious this morning finger pain improving, remains afebrile feeling constipated, asking for laxative ROS: 10 point ROS as noted above, otherwise negative Physical Exam: GEN: Alert, oriented, anxious, HEENT: Normal conjunctiva, sclera anicteric CV: Regular rate and rhythm, no edema Pulm: Nonlabored respirations on room air Integumentary: Right 5th finger mild edema, erythema, tenderness to palm Neuro: Normal speech, anxious vitals reviewed Problem List: Cellulitis of finger of right hand recent R 5th digit fracture along distal and middle phalanges Anxiety Depression ADHD Constipation Cellulitis of finger of right hand X-ray hand (02/28): Stable fractures along the fifth digit the distal and middle phalanges. Mild flexion at the level of the distal interphalangeal joint. Surrounding soft tissue swelling. Hand surgeon consulted Dr. Elder to re-evaluate Friday if surgery is needed Given Vanc in ED, felt itchy last night after administration, switched to cefepime. ?suspect allergy, no further itching since unclear if vanc is cause continue cefepime(02/27-) added doxycycline (02/28-) in place of vanc no leukocytosis, +afebrile PRN pain medications Anxiety Depression ADHD Continue home medications ativan DCd (03/01) Constipation prn laxative Code: Full Dispo: Home ~Friday after re-eval, possible surgery
[2023-03-01] MEDS: HYDROCODONE/APAP 5/325 MG TAB PO PRN (08:49)
[2023-03-01] MEDS: DOXYCYCLINE 100 MG in NA CHLORIDE 0.9% 100 ML IVPB SCH ×2 (08:50→20:18)
[2023-03-01] MEDS: CEFEPIME 2 GM in NA CHLORIDE 0.9% 100 ML IV SCH ×2 (08:50→20:18)
[2023-03-01] MEDS ORDERED: BISACODYL E.C. 5 MG TAB PO PRN (10:11)
[2023-03-01] MEDS: MORPHINE 2 MG/ML SYR IV PRN ×2 (13:32→20:18)
[2023-03-01] MEDS: ONDANSETRON 4 MG/2 ML VIAL IV PRN (15:50)
[2023-03-02] MEDS: MORPHINE 2 MG/ML SYR IV PRN ×4 (02:53→20:23)
[2023-03-02] MEDS: DIPHENHYDRAMINE 50 MG/ML VIAL IV PRN ×4 (02:54→23:20)
--- NOTE | 2023-03-02 07:25 | P.PN ---
Date of Service: 03/02/23 Subjective: doing okay, tired no new / worsening problems redness, swelling, pain of finger improving ROS: 10 point ROS as noted above, otherwise negative Physical Exam: GEN: Alert, oriented, NAD HEENT: Normal conjunctiva, sclera anicteric CV: Regular rate and rhythm, no edema Pulm: Nonlabored respirations on room air Integumentary: Right 5th finger mild erythema distally, tenderness to wrist Neuro: Normal speech, normal affect vitals reviewed Problem List: R 5th digit cellulitis recent R 5th digit fracture along distal and middle phalanges Anxiety Depression ADHD Constipation R 5th digit cellulitis recent R 5th digit fracture along distal and middle phalanges X-ray hand (02/28): Stable fractures along the fifth digit the distal and middle phalanges. Mild flexion at the level of the distal interphalangeal joint. Surrounding soft tissue swelling. Hand surgeon consulted Dr. Elder to re-evaluate Friday if surgery is needed NPO at midnight in the event surgery is needed Given Vanc in ED, felt itchy last night after administration, switched to cefepime. ?suspect allergy, no further itching since unclear if vanc is cause continue cefepime(02/27-) added doxycycline (02/28-) in place of vanc no leukocytosis, +afebrile PRN pain medications Anxiety Depression ADHD Continue home medications ativan DCd (03/01) Constipation prn laxative Code: Full Dispo: Home ~Friday after re-eval, possible surgery
[2023-03-02] MEDS: CEFEPIME 2 GM in NA CHLORIDE 0.9% 100 ML IV SCH ×2 (08:31→20:34)
[2023-03-02] MEDS: DOXYCYCLINE 100 MG in NA CHLORIDE 0.9% 100 ML IVPB SCH ×2 (08:32→20:35)
[2023-03-02] MEDS: clonazePAM 1 MG TAB PO PRN (14:55)
[2023-03-02] MEDS ORDERED: PARoxetine HCL 10 MG TAB PO ONE (20:37)
[2023-03-02] MEDS ORDERED: NA CHLORIDE 0.9% 250 ML ONE (21:26)
[2023-03-02] MEDS: HYDROCODONE/APAP 5/325 MG TAB PO PRN (23:20)
[2023-03-03] MEDS: clonazePAM 1 MG TAB PO PRN (03:43)
[2023-03-03] MEDS: MORPHINE 2 MG/ML SYR IV PRN ×3 (03:43→22:56)
[2023-03-03 04:23] LABS: Absolute Lymphocytes (CBC) 3.1 K/uL (0.7-4.9); Hematocrit 37.4 % (36.0-45.0); Lymphocytes % 39.4 % (15.3-44.8); MCV 84.3 fL (80-100); MPV 8.5 fL (7.6-11.3); RBC Red Blood Cell Count 4.44 M/uL (3.86-4.86)
[2023-03-03 04:34] LABS: Potassium 3.9 mEq/L (3.5-5.1)
--- NOTE | 2023-03-03 06:55 | P.PN ---
Date of Service: 03/03/23 Subjective: Feeling better today swelling and pain of finger improving; however reports noew Burning sensation/pain in arm after receiving doxycycline; will switch to PO otherwise no new / worsening problems ROS: 10 point ROS as noted above, otherwise negative Physical Exam: GEN: Alert, oriented, NAD HEENT: Normal conjunctiva, sclera anicteric CV: Regular rate and rhythm, no edema Pulm: Nonlabored respirations on room air Integumentary: Right 5th finger mild erythema distally, tenderness to wrist Neuro: Normal speech, normal affect vitals reviewed Problem List: R 5th digit cellulitis recent R 5th digit fracture along distal and middle phalanges Anxiety Depression ADHD Constipation R 5th digit cellulitis recent R 5th digit fracture along distal and middle phalanges X-ray hand (02/28): Stable fractures along the fifth digit the distal and middle phalanges. Mild flexion at the level of the distal interphalangeal joint. Surrounding soft tissue swelling. Hand surgeon consulted NPO at midnight for tentative surgery with Dr. Elder tomorrow (03/04) Given Vanc in ED, felt itchy last night after administration, switched to cefepime. ?suspect allergy, no further itching since unclear if vanc is cause continue cefepime(02/27-) doxycycline (02/28-) switched to PO 03/03 due to pain in her veins/arm shortly after administration no leukocytosis, +afebrile PRN pain medications Anxiety Depression ADHD Continue home medications ativan DCd (03/01) Constipation prn laxative Code: Full Dispo: Home Pending surgery tomorrow 03/04
[2023-03-03] MEDS: DOXYCYCLINE 100 MG in NA CHLORIDE 0.9% 100 ML IVPB SCH (08:54)
[2023-03-03] MEDS: CEFEPIME 2 GM in NA CHLORIDE 0.9% 100 ML IV SCH ×2 (08:54→20:10)
[2023-03-03] MEDS: PARoxetine HCL 10 MG TAB PO SCH (08:55)
[2023-03-03] MEDS: HYDROCODONE/APAP 5/325 MG TAB PO PRN ×3 (08:55→20:08)
[2023-03-03] MEDS: DOXYCYCLINE 100 MG CAP PO SCH ×2 (11:03→20:10)
[2023-03-03] MEDS: DIPHENHYDRAMINE 50 MG/ML VIAL IV PRN ×2 (16:44→22:55)
[2023-03-03] MEDS: ONDANSETRON 4 MG/2 ML VIAL IV PRN (20:08)
--- NOTE | 2023-03-03 20:54 | P.PN ---
Date of Service: 03/04/23 Subjective: ROS: 10 point ROS as noted above, otherwise negative Physical Exam: GEN: Alert, oriented, NAD HEENT: Normal conjunctiva, sclera anicteric CV: Regular rate and rhythm, no edema Pulm: Nonlabored respirations on room air Integumentary: Right 5th finger mild erythema distally, tenderness to wrist Neuro: Normal speech, normal affect Problem List: 1. R 5th digit cellulitis 2. recent R 5th digit fracture along distal and middle phalanges 3. Anxiety 4. Depression 5. ADHD 6. Constipation PLAN X-ray hand (02/28): Stable fractures along the fifth digit the distal and middle p halanges. Mild flexion at the level of the distal interphalangeal joint. Surrounding soft tissue swelling. Hand surgeon consulted NPO for tentative surgery with Dr. Elder tomorrow (03/04) continue cefepime(02/27-) doxycycline (02/28-) switched to PO 03/03 due to pain in her veins/arm shortly after administration PRN pain medications Continue home medications prn laxative
[2023-03-04] MEDS: HYDROCODONE/APAP 5/325 MG TAB PO PRN ×4 (01:35→20:11)
[2023-03-04] MEDS: clonazePAM 1 MG TAB PO PRN (01:41)
[2023-03-04] MEDS: MORPHINE 2 MG/ML SYR IV PRN ×2 (04:40→10:54)
[2023-03-04] MEDS: DIPHENHYDRAMINE 50 MG/ML VIAL IV PRN ×3 (04:40→20:11)
[2023-03-04] MEDS: DOXYCYCLINE 100 MG CAP PO SCH ×2 (08:06→20:10)
[2023-03-04] MEDS: PARoxetine HCL 10 MG TAB PO SCH (08:06)
[2023-03-04] MEDS: CEFEPIME 2 GM in NA CHLORIDE 0.9% 100 ML IV SCH ×2 (08:06→20:10)
[2023-03-04] MEDS ORDERED: Ringers Lactate 1,000 ML IV ONE (08:20)
[2023-03-04] MEDS ORDERED: propofoL 200 MG/20 ML VIAL IV ONE (08:50)
[2023-03-04] MEDS ORDERED: FENTANYL CITR 100 MCG/2 ML ONE ×2 (08:51→10:21)
[2023-03-04] MEDS ORDERED: MIDAZOLAM HCL 2 MG/2 ML INJ ONE (08:51)
[2023-03-04] MEDS ORDERED: LIDOCAINE 2% MPF 5 ML VIAL ONE (08:52)
[2023-03-04] MEDS ORDERED: ONDANSETRON 4 MG/2 ML VIAL ONE ×2 (08:52→09:01)
[2023-03-04] MEDS ORDERED: POTASSIUM CL SA 10 MEQ TAB PO ONE (09:00)
[2023-03-04] MEDS ORDERED: NA CIT/CITRIC AC 30 ML ORAL UDC ONE (09:01)
[2023-03-04] MEDS ORDERED: FAMOTIDINE 20 MG/2 ML VIAL IV ONE (09:02)
[2023-03-04] MEDS ORDERED: SILVER SULFADIAZINE 1% 25 GM TOP ONE (09:35)
[2023-03-04] MEDS: HYDROMORPHONE HCL 1 MG/ML INJ ONE ×2 (09:52→10:01)
[2023-03-04] MEDS ORDERED: PROMETHAZINE INJ 25 MG/ML AMP ONE (10:05)
--- NOTE | 2023-03-04 12:26 | HP ---
Date of Admission: 02/27/2023 History Of Present Illness: The patient is a 42-year-old white female, right-hand dominant, who fell about 3 weeks ago, fractured her right little finger. She has history of hip arthritis. She ____. Past Surgical History: She has had previous ligation of her temporal arteritis, tonsillectomy, ankle surgery, hysterectomy, . Social History: Does not smoke, does not drink. Allergies: NO ALLERGIES. Medications: She is on multiple medications, currently on Paxil . Physical Examination: She has erythema and tenderness over the right little finger. The patient has a deformity as well. The patient had a fracture of the distal phalanx consistent with a mallet deformity. The cellulitis and tenderness have progressed despite IV antibiotic treatment. Plan: Will be incision and drainage. GREGOR Voice ID: [id number]
[2023-03-04] MEDS: HYDROMORPHONE HCL 0.5 MG/0.5 ML INJ IV PRN ×2 (13:05→16:41)
--- NOTE | 2023-03-04 15:22 | OP ---
Surgeon: Kaushal Elder MD Preoperative Diagnosis: Infection of the right little finger. Postoperative Diagnosis: Infection of the right little finger. Procedure: Incision and drainage, arthrotomy. Anesthesia: General. Procedure In Detail: After satisfactory induction of general anesthesia, right hand was prepped with Betadine scrub and Betadine paint. Dry sterile drapes applied in the usual manner. The arm was kenny vated, exsanguinated with an Esmarch. Tourniquet was inflated to 250 mmHg. Hand was placed on roll back table. A periosteal elevator was used to remove the nail plate and then an incision was made ov er the dorsum extending to the transverse crease. flap was elevated. The patient ___ distal phalanx with tendon attached. This was identified. Cultures were taken in the wound ____ fluid present and then the wound was jet lavaged, irrigated with about 1 L of dilute Betadine solution. The patient also had another area of erythema and tenderness over the radial aspect of the middle phalanx. This was incised . It was also irrigated with about 1 L of dilute Betadi ne solution. Tourniquet was released. 2-inch Lore [place]. The patient tolerated the p rocedure well and returned to recovery. WINSTON/PAULINO Voice ID: [id number] Report ID: [id number]
[2023-03-04] MEDS: HYDROMORPHONE HCL 1 MG/ML INJ IV PRN ×2 (18:11→22:29)
[2023-03-05] MEDS: HYDROMORPHONE HCL 1 MG/ML INJ IV PRN ×5 (02:35→20:13)
[2023-03-05 03:48] LABS: Hematocrit 38.4 % (36.0-45.0); Lymphocytes % 39.3 % (15.3-44.8); MPV 8.4 fL (7.6-11.3); RBC Red Blood Cell Count 4.58 M/uL (3.86-4.86)
[2023-03-05] MEDS: HYDROCODONE/APAP 5/325 MG TAB PO PRN ×3 (03:58→22:36)
[2023-03-05] MEDS: CEFEPIME 2 GM in NA CHLORIDE 0.9% 100 ML IV SCH ×2 (07:57→20:13)
[2023-03-05] MEDS: PARoxetine HCL 10 MG TAB PO SCH (07:57)
[2023-03-05] MEDS: DOXYCYCLINE 100 MG CAP PO SCH ×2 (07:57→20:13)
[2023-03-05] MEDS: clonazePAM 1 MG TAB PO PRN (11:11)
[2023-03-05] MEDS: NA CHLORIDE 0.9% 1,000 ML IV SCH (15:50)
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
[2023-03-06] MEDS: HYDROMORPHONE HCL 1 MG/ML INJ IV PRN ×2 (02:30→12:31)
[2023-03-06] MEDS: DIPHENHYDRAMINE 50 MG/ML VIAL IV PRN (02:30)
[2023-03-06] MEDS: clonazePAM 1 MG TAB PO PRN (02:50)
[2023-03-06] MEDS ORDERED: HYDROMORPHONE HCL 1 MG/ML INJ IV ONE (05:17)
[2023-03-06] MEDS: NA CHLORIDE 0.9% 1,000 ML IV SCH (05:20)
[2023-03-06] MEDS: Ringers Lactate 1,000 ML IV ONE ×2 (07:26→07:28)
[2023-03-06] MEDS ORDERED: SUCCINYLCHOLINE 20 MG/ML (10 ML) IV ONE (07:35)
[2023-03-06] MEDS ORDERED: FENTANYL CITR 100 MCG/2 ML ONE (07:38)
[2023-03-06] MEDS ORDERED: propofoL 200 MG/20 ML VIAL IV ONE (07:38)
[2023-03-06] MEDS ORDERED: dexAMETHasone 10 MG/ML VIAL ONE (07:39)
[2023-03-06] MEDS ORDERED: MIDAZOLAM HCL 2 MG/2 ML INJ ONE (07:39)
[2023-03-06] MEDS ORDERED: ONDANSETRON 4 MG/2 ML VIAL ONE (07:39)
[2023-03-06] MEDS ORDERED: LIDOCAINE 2% MPF 5 ML VIAL ONE (07:39)
[2023-03-06] MEDS ORDERED: KETAMINE HCL IN 0.9 % NACL 50 MG/5 ML SYRINGE IV ONE (08:20)
[2023-03-06 09:00] VITALS: O2SAT 96
[2023-03-06] MEDS: FENTANYL CITR 100 MCG/2 ML ONE ×2 (09:00→09:05)
[2023-03-06] MEDS ORDERED: HYDROMORPHONE HCL 1 MG/ML INJ ONE (09:01)
--- NOTE | 2023-03-06 09:09 | RAD REPORT ---
EXAM DESCRIPTION: RAD - Hand Right 2 View - 03/06/2023 8:43 am CLINICAL HISTORY: 5TH DIGIT PIN COMPARISON: None available. FINDINGS: Fluoroscopy was utilized during the right hand fifth digit internal fixation procedure. No radiologist was available for the procedure, nor will any image interpretation he provided. Please r efer to the procedural report for additional details. Fluoroscopy time: 17 seconds. IMPRESSION: Documentation of fluoroscopy utilization as above.
[2023-03-06] MEDS: DOXYCYCLINE 100 MG CAP PO SCH (09:35)
[2023-03-06] MEDS: PARoxetine HCL 10 MG TAB PO SCH (09:36)
[2023-03-06] MEDS: CEFEPIME 2 GM in NA CHLORIDE 0.9% 100 ML IV SCH (09:36)
[2023-03-06] MEDS: HYDROCODONE/APAP 5/325 MG TAB PO PRN (10:24)
[2023-03-06 16:36] VITALS: BP 158/84; TEMP 97.8
--- NOTE | 2023-03-06 19:32 | OP ---
Surgeon: Kaushal Elder MD Preoperative Diagnosis: Open fracture of the right little finger, distal phalanx. Postoperative Diagnosis: Open fracture of the right little finger, distal phalanx. Procedures Performed: K-wire arthrodesis, open reduction and internal fixation, simple closure of 1 cm wound and 3 cm wound. Anesthesia: General. Procedure In Detail: After satisfactory induction of general anesthesia, right arm was prepped with Betadine scrub and Betadine paint. Dry sterile drapes were applied in the usual manner. The arm was elevated, exsanguinated with an Esmarch. Tourniquet was inflated to 250 mmHg. The flaps were eleva wilma, then curetted, then jet lavaged, irrigated with 3 L of dilute Betadine solution. At that time, the C-arm was brought in. K-wire applied from distal to proximal. After reducing the DIP joint, thi s was done after a K-wire had been placed proximal to the distal phalanx fracture and then this was w ithhold in place while the finger was rotated dorsally and the K-wire driven. This reduced the fract ure of the distal phalanx. Then, C-arm revealed adequate reduction. Tourniquet was released. Wound was closed with 4-0 Prolene simple sutures. Dressed with Xeroform, 2 inch Vignesh, Kerlix, and splint . Patient tolerated the procedure well and returned to recovery. WINSTON/PAULINO Voice ID: [id number] Report ID: [id number]
== END 2023-03-06 17:58 | disposition home or self-care (01) | DRG 982 ==
LOC: ER 12:52 → ERHOLD 14:24 → 2ND 17:02
PROVIDERS: ADMIT Hospitalist; ATTEND Hospitalist
PROC: 0R9W0ZZ Drainage of Right Finger Phalangeal Joint, Open Approach (ICD-10-PCS; principal; 2023-03-04 09:00)
PROC: 0PST04Z Reposition Right Finger Phalanx with Internal Fixation Device, Open Approach (ICD-10-PCS; 2023-03-06)
DX: L03.011 Cellulitis of right finger (principal); F33.9 Major depressive disorder, recurrent, unspecified; F90.9 Attention-deficit hyperactivity disorder, unspecified type; M79.7 Fibromyalgia; F41.9 Anxiety disorder, unspecified; K59.00 Constipation, unspecified; S62.636S Displaced fracture of distal phalanx of right little finger, sequela; Z88.5 Allergy status to narcotic agent; Z88.8 Allergy status to other drugs, medicaments and biological substances; Z79.52 Long term (current) use of systemic steroids; Z85.41 Personal history of malignant neoplasm of cervix uteri; Z87.891 Personal history of nicotine dependence; Z90.710 Acquired absence of both cervix and uterus; Z79.899 Other long term (current) drug therapy
CPT/HCPCS: 36415; 80048; 83735; 85025; 85610; 85730; 87070; 87075; 87205; 96374; 96375; 99285; J0692; J1100; J1170; J1200; J2001; J2250; J2270; J2405; J2550; J2704; J3010; J7030; J7040; J7050; J7120

== ENCOUNTER 2023-03-15 18:45 | Inpatient (IN) | payer SELFPAY ==
--- OUTSIDE RECORDS SUMMARY | 2023-03-15 18:54 | XMS REPORT | Continuity of Care Document ---
:1980 Author Organization [facility] t Address [address] [place] [place] [address] Care Team Providers Name Role Phone Asked, [...] Stefan Whitfield DO Attending Clinician Doctor Unassigned, [place] Attending Clinician Unavailable Khadijah Capps DO Attending Clinician Provider, [facility] Attending Clinician Unavailable Stella Gamboa Attending Clinician STELLA LOPEZ Attending Clinician Unavailable PHILLIP WAYNE Attending Clinician Unavailable Janene Li Attending Clinician Lucas Larson Attending Clinician Trish Long Attending Clinician SUSAN ULRICH Attending Clinician Unavailable OSCAR SOLANO Admitting Clinician Unavailable Payers Payer Name Policy Type Policy Number Effective Date Expiration Date [facility] [id number] 2020 00:00:00 MEDICAID OF [place] [id number] 2020 00:00:00 Problems Condition Condition Condition Status Onset Resolution Last Treating Co mments Source Name Details Category Date Date Treatment Clinician Date 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 6-09 ity of 00:00: [place] [address] Medical Branch DDD DDD Disease Active Univers (degenerat (degenerat 3-13 it y of abdoul disc abdoul disc 00:00: [place] disease), disease), 00 Medi isha cervical cervical Branch Muscle Muscle Disease Active Univers spasms spasms 3-13 ity of 00:00: [place] [facility] Chronic Chronic Disease Active 2020- Univers pain of pain of 3-13 ity of both both 00:00: [place] ankles ankles 00 Medical Branch History of History of Disease Active U yair ankle ankle 3-13 ity of surgery surgery 00:00: [place] [facility] Polyarthra Polyarthra Disease Active U nivers lgia lgia 3-13 ity of 00:00: [place] [facility] Chronic Chronic Disease Active 2019- Univers pain pain 9-22 ity of syndrome syndrome 00:00: [place] [facility] Chronic Chronic Disease Active 2019- Univers depression depression 9-22 it y of 00:00: [place] [address] Medical Branch Anxiety Anxiety Disease Active 2019- Univers 9-22 ity of 00:00: [place] [address] Medical Branch JASON JASON Disease Active 2018- Univers positive positive 9-18 ity of 00:00: [place] [address] Medical Branch Gout Gout Disease Active 2019- Univers 9-18 ity of 00:00: [place] 00 Medical Branch Osteoarthr Osteoarthr Disease Active U nivers itis of itis of 9-18 ity of multiple multiple 00:00: [place] joints joints 00 Medical Branch Morbid Morbid [...] rs overdose overdose 3-08 ity of 00:00: [place] 00 Medical Branch Suicide Suicide Disease Active Univers attempt attempt 3-07 ity of 00:00: [place] 00 [facility] Allergies, Adverse Reactions, Alerts Allergy Allergy Status Severity Reaction(s) Onset Inactive Treating Comm ents Source Name Type Date Date Clinician NO KNOWN Drug Active Univers ALLERGIE Class ity of S [facility] [place] [facility] Social History Social Habit Start Date Stop Date Quantity Comments Source Exposure to Not sure Hus[place] of SARS-CoV-2 (event) [facility] [place] [facility] Gender identity [facility] Sexual orientation [facility] History of tobacco Smokes tobacco [facility] use daily Hospital Alcohol intake 2021-07-10 2021-07-10 Current drinker Unive rsity of 00:00:00 00:00:00 of alcohol [facility] (finding) [place] History of Social 2019-04-21 2019-04-[address] function 00:00:00 00:00:00 Hospital Tobacco Comment 2018-10-30 2018-10-30 "Smokes Vape" Univer sity of 00:00:00 00:00:00 [facility] [place] [facility] Tobacco use and 2018-10-30 2018-10-30 Never used Universit y of exposure 00:00:00 00:00:00 [facility] [place] [facility] Sex Ass[birth year] At [birth year] [employer] 00:00:00 00:00:00 Hospital Smoking Status Start Date Stop Date Source Smokes tobacco daily 2018-11-15 00:00:00 [facility] [place] [facility] Current some day smoker 2018-10-30 00:00:00 [facility] [place] Medications Ordered Filled Start Stop [...] 00 :00 dose, On Medi isha mg [facility] Branch 07/10/21 at 1900, [place] ketorolac 2020-08- No 15mg 15 mg, [facility] 09-10 Slow IV ity of injection 01:00: 02:25 [place], [place] 15 mg 00 :00 ONCE, 1 Medical dose, On Branch e 07/10/21 at 1900, [place]
Fa culty member approving Restricted medication : SOLANOOSCAR R famotidine 2020-08- No 20mg 20 mg, [facility] ers (PEPCID AC) 09-10 Oral, ity of [...] 07/10/21 at 1900, STAT ondansetron 0 Yes [id number] 4mg Take 1 U nivers 4 mg 7-20 tablet by ity of disintegrat 00:00: mouth [place] ing tablet 00 every 8 Medica l (eight) Branch hours as needed for Nausea and Vomiting (N/V). Tramadol Yes [id number] 100mg Take 1 Univer s 100 mg 7-20 tablet by ity of tablet 00:00: mouth [place] 00 daily. Medical Indication Branch s: acute pain ketorolac Yes [id number] 10mg Take 1 U nivers 10 mg 4-14 tablet by ity of tablet 00:00: mouth [place] 00 every 6 Medical (six) Branch hours as needed for Pain (scale 7-10). cyclobenzap Yes [id number] 10mg Take 1 Univers rine 10 mg 3-03 tablet by ity of tablet 00:00: mouth 3 00 (three) Medical times Branch daily as needed for Muscle Spasms. REFILLS SHOULD COME FROM PAIN MANAGEMENT cyclobenzap Yes [id number] 10mg Take 1 Univers rine 10 mg 3-03 tablet by ity of tablet 00:00: mouth 3 00 (three) Medical times Branch daily as needed for Muscle Spasms. REFILLS SHOULD COME FROM PAIN MANAGEMENT cyclobenzap Yes [id number] 10mg Take 1 Univers rine 10 mg 3-03 tablet by ity of tablet 00:00: mouth 3 00 (three) Medical times Branch daily as needed for Muscle Spasms. REFILLS SHOULD COME FROM PAIN MANAGEMENT cyclobenzap Yes [id number] 10mg Take 1 Univers rine 10 mg 3-03 tablet by ity of tablet 00:00: mouth 3 00 (three) Medical times Branch daily as needed for Muscle Spasms. REFILLS SHOULD COME FROM PAIN MANAGEMENT cyclobenzap 2020- No [id number] 10mg Take 1 Univers rine 10 mg 3-01 03-03 tablet by ity of tablet 00:00: 00:00 mouth 3 [place] 00 :00 (three) Medical times Branch daily as needed for Muscle Spasms. cyclobenzap 2020- No [id number] 10mg Take 1 Univers rine 10 mg [...] 1,000 mL 00 :00 IV Medical Infusion, [place] ONCE, 1 dose, [facility] 10/17/20 at 1700, [place] cyclobenzap Yes [id number] 10mg Take 1 Univers rine 10 mg 10-17 4 tablet by ity of tablet 00:00: mouth 3 [place] 00 (three) Medical times [place] daily as needed for Muscle Spasms. cyclobenzap 2020- No [id number] 10mg Take 1 Univers rine 10 mg 10-17- 4 tablet by ity of tablet 00:00: 00:00 mouth 3 [place] 00 :00 (three) Medical times [place] daily as needed for Muscle Spasms. FENTanyl PF No 50ug 50 mcg, Un sandra (SUBLIMAZE 09-16 Slow IV ity o f (PF)) 00:15: 23:16 Push, [place] injection 00 :00 ONCE, 1 Medical 50 mcg dose, Fri [place] 09/15/20 at 1815, Routine iohexol No 120mL 120 mL, Unive rs (OMNIPAQUE 09-15 Intravenou it y of 350 22:45: 22:35 s, ONCE, 1 [place] BULK-150 00 :00 dose, Fri Medica l mL) 09/15/20 at [place] injection 1645, 120 mL Routine ondansetron 2020- No 4mg 4 mg, Slow Univers (ZOFRAN 09-15 IV [place], ity of (PF)) 22:15: 21:19 ONCE, 1 [place] injection 4 00 :00 dose, Fri Med [...] dose, 09/15/20 at 1515, [place] pantoprazol Yes [id number] 20mg Take 1 Univers e 20 mg EC 1-22 tablet by ity of tablet 00:00: mouth [place] 00 daily. Medical Branch dicyclomine Yes [id number] 10mg Take 1 Univers 10 mg 1-22 capsule by ity of capsule 00:00: mouth 4 [place] 00 (four) Medical times Branch daily. pantoprazol Yes [id number] 20mg Take 1 Univers e 20 mg EC 1-22 tablet by ity of tablet 00:00: mouth [place] 00 daily. Medical Branch dicyclomine Yes [id number] 10mg Take 1 Univers 10 mg 1-22 capsule by ity of capsule 00:00: mouth 4 [place] 00 (four) Medical times Branch daily. pantoprazol Yes [id number] 20mg Take 1 Univers e 20 mg EC 1-22 tablet by ity of tablet 00:00: mouth [place] 00 daily. Medical Branch dicyclomine Yes [id number] 10mg Take 1 Univers 10 mg 1-22 capsule by ity of capsule 00:00: mouth (four) Medical times Branch daily. pantoprazol 2020-0 Yes [id number] 20mg Take 1 Univers e 20 mg EC 1-22 tablet by ity of tablet 00:00: mouth 00 daily. Medical Branch dicyclomine 2020-0 Yes [id number] 10mg Take 1 Univers 10 mg 1-22 capsule by ity of capsule 00:00: mouth (four) Medical times Branch daily. pantoprazol 2020-0 Yes [id number] 20mg Take 1 Univers e 20 mg EC 1-22 tablet by ity of tablet 00:00: mouth 00 daily. Medical Branch dicyclomine 0 Yes [id number] 10mg Take 1 Univers 10 mg 1-22 capsule by ity of capsule 00:00: mouth (four) Medical times Branch daily. pantoprazol 2020-0 Yes [id number] 20mg Take 1 Univers e 20 mg EC 1-22 tablet by ity of tablet 00:00: mouth 00 daily. Medical Branch dicyclomine 0 Yes [id number] 10mg Take 1 Univers 10 mg 1-22 capsule by ity of capsule 00:00: mouth (four) Medical times Branch daily. pantoprazol 2020-0 Yes [id number] 20mg Take 1 Univers e 20 mg EC 1-22 tablet by ity of tablet 00:00: mouth 00 daily. Medical Branch dicyclomine 0 Yes [id number] 10mg Take 1 Univers 10 mg 1-22 capsule by ity of capsule 00:00: [facility] (four) Medical times Branch daily. pantoprazol 2020-0 Yes [id number] 20mg Take 1 Univers e 20 mg EC 1-22 tablet by ity of tablet 00:00: mouth 00 daily. Medical Branch dicyclomine 2020-0 Yes [id number] 10mg Take 1 Univers 10 mg 1-22 capsule by ity of capsule 00:00: mouth (four) Medical times Branch daily. pantoprazol 2020-0 Yes [id number] 20mg Take 1 Univers e 20 mg EC 1-22 tablet by ity of tablet 00:00: mouth 00 daily. Medical Branch dicyclomine 2020-0 Yes [id number] 10mg Take 1 Univers 10 mg 1-22 [...] Medical capsule MORNING Branch ondansetron 2019-08 Yes [id number] 8mg Take 1 Univers (ZOFRAN 1-14 tablet [...] Nausea and Vomiting (N/V). ondansetron 2019-08 Yes [id number] 8mg Take 1 Univers (ZOFRAN 1-14 tablet by ity of ODT) 8 mg 00:00: mouth [place] disintegrat 00 every 8 Medic al ing tablet (eight) Branch hours as needed for Nausea and Vomiting (N/V). ondansetron 2019-08 Yes [id number] 8mg Take 1 Univers (ZOFRAN 1-14 tablet by ity of ODT) 8 mg 00:00: mouth [place] disintegrat 00 every 8 Medic al ing tablet (eight) Branch hours as needed for Nausea and Vomiting (N/V). ondansetron 2019-08 Yes [id number] 8mg Take 1 Univers (ZOFRAN 1-14 tablet by ity of ODT) 8 mg 00:00: mouth [place] disintegrat 00 every 8 Medic al ing tablet (eight) Branch hours as needed for Nausea and Vomiting (N/V). ondansetron 2020- Yes [id number] 8mg Take 1 Univers (ZOFRAN 1-14 tablet by ity of ODT) 8 mg 00:00: mouth [place] disintegrat 00 every 8 Medic al ing tablet (eight) Branch hours as needed for Nausea and Vomiting (N/V). ondansetron 2020- Yes [id number] 8mg Take 1 Univers (ZOFRAN 1-14 tablet by ity of ODT) 8 mg 00:00: mouth [place] disintegrat 00 every 8 Medic al ing tablet (eight) Branch hours as needed for Nausea and Vomiting (N/V). ondansetron 2020- Yes [id number] 8mg Take 1 Univers (ZOFRAN 1-14 tablet by ity of ODT) 8 mg 00:00: mouth [place] disintegrat 00 every 8 Medic al ing tablet (eight) Branch hours as needed for Nausea and Vomiting (N/V). ondansetron 2019- Yes [id number] 8mg Take 1 Univers (ZOFRAN 1-14 tablet by ity of ODT) 8 mg 00:00: mouth [place] disintegrat 00 every 8 Medic al ing tablet (eight) Branch hours as needed for Nausea and Vomiting (N/V). OMEPRAZOLE 2019-08 2020- No Take by Uni vers ORAL 08-2905 mouth. ity of 21:03: 00:00 [place] 33 :00 Medical Branch azelastine 2019- Yes [id number] 1{spray Use 1 Univers 137 mcg 1-05 } [place] in ity of (0.1 %) 00:00: each [place] nasal spray 00 nostril 2 Med ical (two) Branch times daily. Use in each nostril as directed azelastine 2020- Yes [id number] 1{spray Use 1 Univers 137 mcg 1-05 } [place] in ity of (0.1 %) 00:00: each [place] nasal spray 00 nostril 2 Med ical (two) Branch times daily. Use in each nostril as directed azelastine 2020- Yes [id number] 1{spray Use 1 Univers 137 mcg 1-05 } [place] in ity of (0.1 %) 00:00: each [place] nasal spray 00 nostril 2 Med ical (two) Branch times daily. Use in each nostril as directed azelastine 2020-1 Yes [id number] 1{spray Use 1 Univers 137 mcg 1-05 } [place] in ity of (0.1 %) 00:00: each [place] nasal spray 00 nostril 2 Med ical (two) Branch times daily. Use in each nostril as directed azelastine 2020-1 Yes [id number] 1{spray Use 1 Univers 137 mcg 1-05 } [place] in ity of (0.1 %) 00:00: each [place] nasal spray 00 nostril 2 Med ical (two) Branch times daily. Use in each nostril as directed azelastine 2020-1 Yes [id number] 1{spray Use 1 Univers 137 mcg 1-05 } [place] in ity of (0.1 %) 00:00: each [place] nasal spray 00 nostril 2 Med ical (two) Branch times daily. Use in each nostril as directed azelastine 2020-1 Yes [id number] 1{spray Use 1 Univers 137 mcg 1-05 } [place] in ity of (0.1 %) 00:00: each [place] nasal spray 00 nostril 2 Med ical (two) Branch times daily. Use in each nostril as directed azelastine 2020-1 Yes [id number] 1{spray Use 1 Univers 137 mcg 1-05 } [place] in ity of (0.1 %) 00:00: each [place] nasal spray 00 nostril 2 Med ical (two) Branch times daily. Use in each nostril as directed azelastine 2020-1 Yes [id number] 1{spray Use 1 Univers 137 mcg 1-05 } [place] in ity of (0.1 %) 00:00: each [place] nasal spray 00 nostril 2 Med ical (two) Branch times daily. Use in each nostril as directed azelastine 2020-1 Yes [id number] 1{spray Use 1 Univers 137 mcg 1-05 } [place] in ity of (0.1 %) 00:00: each [place] nasal spray 00 nostril 2 Med ical (two) Branch times daily. Use in each nostril as directed azelastine 2020-1 Yes [id number] 1{spray Use 1 Univers 137 mcg 1-05 } [place] in ity of (0.1 %) 00:00: each [place] nasal spray 00 nostril 2 Med ical (two) Branch times daily. Use in each nostril as directed cefUROXime 2019-08- No [id number] 250mg Take 1 Univers 250 mg 08-2916 tablet by ity of tablet 00:00: 05:59 mouth 2 [place] 00 :00 (two) Medical times [place] daily for 10 days. cefUROXime 2019-08- No [id number] 250mg Take 1 Univers 250 mg 08-2916 tablet by ity of tablet 00:00: 05:59 mouth 2 [place] 00 :00 (two) Medical times [place] daily for 10 days. proMETHazin 2019-08- No 12.5mg 12.5 mg, Univers e 06-02 IV ity of (PHENERGAN) 03:15: 03:15 [facility], [place] 12.5 mg in 00 :00 ONCE, 1 Medica l NaCl 0.9% dose, [facility] h (NS) 50 mL 06/01/20 at [facility] 2215, 50 mL morpHINE 2019-08 No 4mg 4 mg, Slow Un sandra injection 4 06-02 IV [place], ity of mg 03:00: 02:09 ONCE, 1 [place] 00 :00 dose, [facility] 06/01/20 at Branch 2200, STAT ketorolac 2019-08- No 30mg 30 mg, Unive rs (TORADOL) 006-02 Slow IV ity of injection 02:00: 00:51 [place], [place] 30 mg 00 :00 ONCE, 1 Medical dose, [facility] 06/01/20 at 2100, [place]
[facility] member approving Restricted medication : JANENE MCMILLAN [...] Indication s: acute pain ondansetron 2019-08 Yes [id number] 8mg Take 1 Univers (ZOFRAN 0-08 tablet [...] Indication s: acute pain ondansetron 2019-08 Yes [id number] 8mg Take 1 Univers (ZOFRAN 0-08 tablet [...] Indication s: acute pain ondansetron 2019-08 Yes [id number] 8mg Take 1 Univers (ZOFRAN 0-08 tablet [...] Indication s: acute pain ondansetron 2019-08- No [id number] 8mg Take 1 Univers (ZOFRAN 0-08 11-14 [...] Medic al tablet 1 05/15/20 at [facility] h tablet 2114, Routine PARoxetine 2020-0 Yes 30mg Take 30 mg U nivers 30 mg 9-22 by mouth ity of tablet 00:16: daily. [place] [address] Medical Branch QUEtiapine 2020-0 Yes 100mg Take 100 Un sandra 100 mg 9-22 mg by ity of tablet 00:16: mouth [place] daily. Medical Branch OMEPRAZOLE 2020-0 Yes Take by [facility] ers ORAL 9-22 mouth. ity of 00:16: [place] [address] Medical Branch PARoxetine 2020-0 Yes 30mg Take 30 mg U nivers 30 mg 9-22 by mouth ity of tablet 00:16: daily. [place] [address] Medical Branch QUEtiapine 2020-0 Yes 100mg Take 100 Un [place] 100 mg 9-22 mg by ity of tablet 00:16: mouth [place] [address] daily. Medical Branch OMEPRAZOLE 2020-0 Yes Take by [facility] ers ORAL 9-22 mouth. ity of 00:16: [place] [address] Medical Branch PARoxetine 2020-0 Yes 30mg Take 30 mg U nivers 30 mg 9-22 by mouth ity of tablet 00:16: daily. [place] [address] Medical Branch QUEtiapine 2020-0 Yes 100mg Take 100 Un sand[place] 100 mg 9-22 mg by ity of tablet 00:16: mouth [place] [address] daily. Medical Branch OMEPRAZOLE 2020-0 Yes Take by [facility] ers ORAL 9-22 mouth. ity of 00:16: [place] [address] Medical Branch PARoxetine 2020-0 Yes 30mg Take 30 mg U nivers 30 mg 9-22 by mouth ity of tablet 00:16: daily. [place] [address] Medical Branch QUEtiapine 2020-0 Yes 100mg Take 100 Un sand[place] 100 mg 9-22 mg by ity of tablet 00:16: mouth [place] daily. Medical Branch OMEPRAZOLE 2020-0 Yes Take by [facility] ers ORAL 9-22 mouth. ity of 00:16: [place] [address] Medical Branch PARoxetine 2020-0 Yes 30mg Take 30 mg U nivers 30 mg 9-22 by mouth ity of tablet 00:16: daily. [place] [address] Medical Branch QUEtiapine 2020-0 Yes 100mg Take 100 Un sandra 100 mg 9-22 mg by ity of tablet 00:16: mouth [place] 28 daily. Medical Branch PARoxetine 2020-0 Yes 30mg Take 30 mg U nivers 30 mg 9-22 by mouth ity of tablet 00:16: daily. [place] [address] Medical Branch QUEtiapine 2020-0 Yes 100mg Take 100 Un sandra 100 mg 9-22 mg by ity of tablet 00:16: mouth [place] 28 daily. Medical Branch PARoxetine 2020-0 Yes 30mg Take 30 mg U nivers 30 mg 9-22 by mouth ity of tablet 00:16: daily. [place] [address] Medical Branch QUEtiapine 2020-0 Yes 100mg Take 100 Un sandra 100 mg 9-22 mg by ity of tablet 00:16: mouth [place] daily. Medical Branch PARoxetine 2020-0 Yes 30mg Take 30 mg U nivers 30 mg 9-22 by mouth ity of tablet 00:16: daily. [place] [address] Medical Branch QUEtiapine 2020-0 Yes 100mg Take 100 Un sandra 100 mg 9-22 mg by ity of tablet 00:16: mouth [place] daily. Medical Branch PARoxetine 2020-0 Yes 30mg Take 30 mg U nivers 30 mg 9-22 by mouth ity of tablet 00:16: daily. [place] [address] Medical Branch QUEtiapine 2020-0 Yes 100mg Take 100 Un sand[place] 100 mg 9-22 mg by ity of tablet 00:16: mouth [place] daily. Medical Branch PARoxetine 2020-0 Yes 30mg Take 30 mg U nivers 30 mg 9-22 by mouth ity of tablet 00:16: daily. [place] [address] Medical Branch QUEtiapine 2020-0 Yes 100mg Take 100 Un sand[place] 100 mg 9-22 mg by ity of tablet 00:16: mouth [place] daily. Medical Branch PARoxetine 2020-0 Yes 30mg Take 30 mg U nivers 30 mg 9-22 by mouth ity of tablet 00:16: daily. [place] [address] Medical Branch QUEtiapine 2020-0 Yes 100mg Take 100 Un [place] 100 mg 9-22 mg by ity of tablet 00:16: mouth [place] daily. Medical Branch PARoxetine 2020-0 Yes 30mg Take 30 mg U nivers 30 mg 9-22 by mouth ity of tablet 00:16: daily. [place] [address] Medical Branch QUEtiapine 2020-0 Yes 100mg Take 100 [place] 100 mg 9-22 mg by ity of tablet 00:16: mouth 28 daily. Medical Branch PARoxetine 2020-0 Yes 30mg Take 30 mg U nivers 30 mg 9-22 by mouth ity of tablet 00:16: daily. [place] [address] Medical Branch QUEtiapine 2020-0 Yes 100mg Take 100 Un [place] 100 mg 9-22 mg by ity of tablet 00:16: mouth 28 daily. Medical Branch PARoxetine 2020-0 Yes 30mg Take 30 mg U nivers 30 mg 9-22 by mouth ity of tablet 00:16: daily. [place] [address] Medical Branch QUEtiapine 2020-0 Yes 100mg Take [...] by mouth ity of tablet 19:16: daily. [place] [address] Medical Branch QUEtiapine 2020-0 Yes 100mg Take 100 Un sand[place] 100 mg 9-21 mg by ity of tablet 19:16: mouth daily. Medical Branch clonazePAM 2020-0 Yes .5mg Take 0.5-1 U nivers 1 mg tablet -21 tablets by it y of 00:00: mouth 2 [place] 00 (two) Medical times Branch daily as needed. ondansetron 2020-0 Yes [id number] 4mg Take 1 Univers (ZOFRAN -21 tablet [...] Indication s: acute pain ibuprofen 2020-0 Yes [id number] 600mg Take 1 Univers 600 mg 9-21 9108 tablet by ity of tablet 00:00: mouth [place] 00 every 6 Medical (six) Branch hours as needed for Pain (scale 4-6). clonazePAM 2020-0 Yes .5mg Take 0.5-1 U nivers 1 mg tablet 9-21 tablets by it y of 00:00: mouth 2 [place] 00 (two) Medical times Branch daily as needed. ondansetron 2020-0 Yes [id number] 4mg Take 1 Univers (ZOFRAN 9-21 tablet [...] Indication s: acute pain ibuprofen 2020-0 Yes [id number] 600mg Take 1 Univers 600 mg 9-21 [...] Indication s: acute pain ibuprofen 2020-0 Yes [id number] 600mg Take 1 Univers 600 mg 9-21 [...] Indication s: acute pain ibuprofen 2020-0 Yes [id number] 600mg Take 1 Univers 600 mg 9-21 [...] Indication s: acute pain ibuprofen 2020-0 Yes [id number] 600mg Take 1 Univers 600 mg 9-21 [...] Indication s: acute pain ibuprofen 2020-0 Yes [id number] 600mg Take 1 Univers 600 mg 9-21 [...] Indication s: acute pain ibuprofen 2020-0 Yes [id number] 600mg Take 1 Univers 600 mg 9-21 [...] Indication s: acute pain ibuprofen 2020-0 Yes [id number] 600mg Take 1 Univers 600 mg 9-21 [...] Indication s: acute pain ibuprofen 2020-0 Yes [id number] 600mg Take 1 Univers 600 mg 9-21 [...] Indication s: acute pain ibuprofen 2020-0 Yes [id number] 600mg Take 1 Univers 600 mg 9-21 [...] Indication s: acute pain ibuprofen 2020-0 Yes [id number] 600mg Take 1 Univers 600 mg 9-21 [...] Indication s: acute pain ibuprofen 2020-0 Yes [id number] 600mg Take 1 Univers 600 mg 9-21 [...] Indication s: acute pain ibuprofen 2020-0 Yes [id number] 600mg Take 1 Univers 600 mg 9-21 [...] Indication s: acute pain ibuprofen 2020-0 Yes [id number] 600mg Take 1 Univers 600 mg 9-21 9108 tablet by ity of tablet 00:00: mouth [place] 00 every 6 Medical (six) Branch hours as needed for Pain (scale 4-6). ondansetron 2020-0 2020- No [id number] 4mg Take 1 Univers (ZOFRAN 9-21 10-08 tablet by ity of ODT) 4 mg 00:00: 00:00 mouth [place] disintegrat 00 :00 every 8 Medic al ing tablet (eight) Branch hours as needed for Nausea and Vomiting (N/V). proMETHazin 2020-0 2020- No 12.5mg 12.5 mg, Univers e 04-08 IV ity of (PHENERGAN) 17:45: 17:45 [place], [place] 12.5 mg in 00 :00 ONCE, 1 [...] 04/08/20 at 1115, [place] ondansetron 2020-0 Yes [id number] 4mg Take 1 Univers (ZOFRAN 8-15 tablet by ity of ODT) 4 mg 00:00: mouth [place] disintegrat 00 every 8 Medic al ing tablet (eight) Branch hours as needed for Nausea and Vomiting (N/V) for up to 15 doses. ondansetron 2020-0 Yes [id number] 4mg Take 1 Univers (ZOFRAN 8-15 tablet by ity of ODT) 4 mg 00:00: mouth [place] disintegrat 00 every 8 Medic al ing tablet (eight) Branch hours as needed for Nausea and Vomiting (N/V) for up to 15 doses. ondansetron 2020-0 2020- No [id number] 4mg Take 1 Univers (ZOFRAN 8-15 09-21 tablet by ity of ODT) 4 mg 00:00: 00:00 mouth [place] disintegrat 00 :00 every 8 Medic al ing tablet (eight) Branch hours as needed for Nausea and Vomiting (N/V) for up to 15 doses. ondansetron 2018-08 Yes [id number] 4mg Take 1 Univers 4 mg 2-19 tablet by ity of disintegrat 00:00: mouth [place] ing tablet 00 every 4 Medica l (four) Branch hours as needed for Nausea and Vomiting (N/V). butalbital- 2018-08 Yes [id number] 1{tbl} Take 1 Univers acetaminoph 2-19 tablet by ity of en-caff 00:00: mouth [place] 50-325-40 00 every 6 Medical mg tablet (six) Branch hours as needed for Pain (scale 4-6). Nitrofurant 2018-08 Yes [id number] 100mg Take 1 Univers oin&Nit. 2-19 capsule by ity o f Macrocryst 00:00: mouth 2 [place] (MACROBID) 00 (two) Medical 100 mg times Branch capsule daily. ondansetron 2018-08 Yes [id number] 4mg Take 1 Univers 4 mg 2-19 tablet by ity of disintegrat 00:00: mouth [place] ing tablet 00 every 4 Medica l (four) Branch hours as needed for Nausea and Vomiting (N/V). butalbital2018-08 Yes [id number] 1{tbl} Take 1 Univers acetaminoph 2-19 tablet by ity of en-caff 00:00: mouth [place] 50-325-40 00 every 6 Medical mg tablet (six) Branch hours as needed for Pain (scale 4-6). Nitrofurant 2018-08 Yes [id number] 100mg Take 1 Univers oin&Nit. 2-19 capsule by ity o f Macrocryst 00:00: mouth 2 [place] (MACROBID) 00 (two) Medical 100 mg times Branch capsule daily. ondansetron 2018-08 Yes [id number] 4mg Take 1 Univers 4 mg 2-19 tablet by ity of disintegrat 00:00: mouth [place] ing tablet 00 every 4 Medica l (four) Branch hours as needed for Nausea and Vomiting (N/V). butalbital- 2018-08 Yes [id number] 1{tbl} Take 1 Univers acetaminoph 2-19 tablet by ity of en-caff 00:00: mouth [place] 50-325-40 00 every 6 Medical mg tablet (six) Branch hours as needed for Pain (scale 4-6). Nitrofurant 2018-08 Yes [id number] 100mg Take 1 Univers oin&Nit. 2-19 capsule by ity o f [place] (MACROBID) 00 (two) Medical 100 mg times Branch capsule daily. ondansetron 2018-08- No [id number] 4mg Take 1 Univers 4 mg 10-13 tablet by ity of disintegrat 00:00: 00:[place] tablet 00 :00 every 4 Medica l (four) Branch hours as needed for Nausea and Vomiting (N/V). butalbital- 2018-08- No [id number] 1{tbl} Take 1 Univers acetaminoph 10-13 tablet by it y of en-caff 00:00: 00:00 mouth [place] 50-325-40 00 :00 every 6 Medical mg tablet (six) Branch hours as needed for Pain (scale 4-6). Nitrofurant 2018-08- No [id number] 100mg Take 1 Univers oin&Nit. 10-13 capsule by ity of [place] 00:00: 00:00 mouth 2 Amandeep as (MACROBID) 00 :00 (two) Medical 100 mg times Branch capsule daily. methylPREDN 2018-08 Yes [id number] Take by Univers ISolone 1-20 mouth ity of (MEDROL, 00:00: SEE-INSTRU Amandeep as LIZANDRO,) 4 mg 00 CTIONS. Medica l tablets follow Branch package directions methylPREDN 2018-08 Yes [id number] Take by Univers ISolone 1-20 mouth ity of (MEDROL, 00:00: SEE-INSTRU Amandeep as LIZANDRO,) 4 mg 00 CTIONS. Medica l tablets follow Branch package directions methylPREDN 2018-08 Yes [id number] Take by Univers ISolone 1-20 mouth ity of (MEDROL, 00:00: SEE-INSTRU Amandeep as LIZANDRO,) 4 mg 00 CTIONS. Medica l tablets follow Branch package directions methylPREDN 2018-08 2020- No [id number] Take by Univers ISolone 1-05-15 mouth ity [...] :00 EVERY Medical MORNING Branch allopurinol Yes [id number] 100mg Take 1 Univers 100 mg 9-19 tablet by ity of tablet 00:00: mouth [place] 00 daily. Medical Branch allopurinol Yes [id number] 100mg Take 1 Univers 100 mg 9-19 tablet by ity of tablet 00:00: mouth [place] 00 daily. Medical Branch allopurinol Yes [id number] 100mg Take 1 Univers 100 mg 9-19 tablet by ity of tablet 00:00: mouth [place] [address] [facility] Branch allopurinol 2020- No [id number] 100mg Take 1 Univers 100 mg 9-19 [...] by mouth ity of (LEXAPRO) 20:03: daily. [place] 20 mg 42 Medical tablet Branch escitalopra 2019-0 Yes 20mg Take 20 mg Univers m oxalate 05-03 by mouth ity of (LEXAPRO) 20:03: daily. [place] 20 mg 42 Medical tablet Branch QUEtiapine 2019-0 Yes 1 tablet Uni vers 25 mg 9-01 by mouth ity of tablet 00:00: [place] [address] Medical Branch gabapentin 2019-0 Yes TAKE 1 Unive rs 300 mg 9-01 CAPSULE BY ity of capsule 00:00: MOUTH [facility] Medical TIMES Branch DAILY QUEtiapine 2019- Yes 1 tablet Uni vers 25 mg 9-01 by mouth ity of tablet 00:00: [facility] Medical Branch gabapentin 2019-0 Yes TAKE 1 Unive rs 300 mg 9-01 CAPSULE BY ity of capsule 00:00: MOUTH [facility] Medical TIMES Branch DAILY QUEtiapine 2019- Yes 1 tablet Uni vers 25 mg 9-01 by mouth ity of tablet 00:00: [facility] Medical Branch gabapentin 2019-0 Yes TAKE 1 Unive rs 300 mg 9-01 CAPSULE BY ity of capsule 00:00: MOUTH [facility] Medical TIMES Branch DAILY QUEtiapine 2019-0 Yes 1 tablet Uni vers 25 mg 9-01 by mouth ity of tablet 00:00: [facility] Medical Branch gabapentin 2019-0 Yes TAKE 1 Unive rs 300 mg 9-01 CAPSULE BY ity of capsule 00:00: MOUTH [facility] Medical TIMES Branch DAILY QUEtiapine 2019-0 Yes 1 tablet Uni vers 25 mg 9-01 by mouth ity of tablet 00:00: [facility] Medical Branch gabapentin 2019-0 Yes TAKE 1 Unive rs 300 mg 9-01 CAPSULE BY ity of capsule 00:00: MOUTH [place] [facility] Medical TIMES Branch DAILY gabapentin 2019-0 Yes TAKE 1 Unive rs 300 mg 9-01 CAPSULE BY ity of capsule 00:00: MOUTH [place] [facility] Medical TIMES Branch DAILY gabapentin 2019-0 Yes TAKE 1 Unive rs 300 mg 9-01 CAPSULE BY ity of capsule 00:00: MOUTH [facility] Medical TIMES Branch DAILY gabapentin 2019-0 Yes TAKE 1 Unive rs 300 mg 9-01 CAPSULE BY ity of capsule 00:00: MOUTH [place] [facility] Medical TIMES Branch DAILY gabapentin 2019-0 2020- [...] DAY Medical AT NIGHT Branch hydrOXYzine Yes [id number] 10mg Take 1 Univers 10 mg 6-26 tablet by ity of tablet 00:00: mouth [place] 00 every 6 Medical (six) Branch hours as needed for Anxiety. ketorolac Yes [id number] 10mg Take 1 Uni vers 10 mg 5-29 tablet by ity of tablet 00:00: mouth [place] 00 every 6 Medical (six) Branch hours as needed for Pain (scale 7-10). traMADOL Yes [id number] 50mg Take 1 Uni vers (ULTRAM) 50 [...] l YX) 1.25-2.5 mg per tablet ALPRAZolam Yes 1mg Q.25D Take 1 mg M ethodi (XANAX) 1 3-[address] MG tablet 16:45: (four) Hospit a 28 times a l day as needed for anxiety. escitalopra 2019-0 Yes 20mg QD Take 20 mg Methodi m (LEXAPRO) 3-[address] 20 MG 16:45: nightly. Hospita tablet 28 l escitalopra 2019-0 Yes 20mg QD Take 20 mg Methodi m (LEXAPRO) 3-[address] 20 MG 16:45: nightly. Hospita tablet 28 l risperiDONE 2019-0 Yes 1mg QD Take 1 mg M ethodi (RisperDAL) 3-[address] 1 MG tablet 16:45: nightly. Ho spita 28 l propranolol 2019-0 Yes 40mg Take 40 mg Methodi (INDERAL) 3-[address] 40 MG 16:45: daily. Hospita tablet 28 l estrogens-m 0 Yes 1{tbl} QD Take 1 Me thodi ethyltestos 3-[address] terone 16:45: mouth Hospita (EEMT,COVAR 28 daily. l YX) 1.25-2.5 mg per tablet ALPRAZolam 2019-0 Yes 1mg Q.25D Take 1 mg M ethodi (XANAX) 1 3-[address] MG tablet 16:45: (four) Hospit a 28 times a l day as needed for anxiety. risperiDONE 2019-0 Yes 1mg QD Take 1 mg M ethodi (RisperDAL) 3-[address] 1 MG tablet 16:45: nightly. Ho spita 28 l propranolol 2019-0 Yes 40mg Take 40 mg Methodi (INDERAL) 3-[address] 40 MG 16:45: daily. Hospita tablet 28 l estrogens-m 2019-0 Yes 1{tbl} QD Take 1 Me thodi ethyltestos 3-[address] terone 16:45: mouth Hospita (EEMT,COVAR 28 daily. l YX) 1.25-2.5 mg per tablet ALPRAZolam 2019-0 Yes 1mg Q.25D Take 1 mg M [...] by mouth ity of tablet 00:44: daily. [place] [id number] Medical Branch estrogens, Yes 1{tbl} Take 1 Uni vers conjugated, 3-19 tablet by ity of -methyltest 00:44: mouth [place] osterone 57 daily. Medical 1.25-2.5 mg Branch per tablet naphazoline Yes Place in Un sandra HCl/phenira 3-19 each eye ity of mine 00:44: as needed [place] (OPCON-A 57 for Medical OPHTHALMIC) Itching. Bran ch clonazePAM 0 Yes [id number] 1mg Take 1 U nivers 1 mg [...] and Vomiting (N/V). proMETHazin 2016- Yes 25mg Take 1 Univ ers e [...] Source Systolic blood 2021-07-11 04:11:14 114 mm[Hg] [facility] 2021-07-11 04:11:14 80 mm[Hg] [facility] Heart rate 2021-07-11 04:11:14 90 /min [facility] Respiratory rate 2021-07-11 04:11:14 17 /min [facility] Oxygen saturation in 2021-07-11 04:11:14 100 /min [facility] Arterial blood by [facility] Pulse oximetry Branch Body temperature 2021-07-10 22:57:[address] [facility] Body height 2021-07-10 22:57:00 172.7 cm [facility] Body weight 2021-07-10 22:57:00 104.327 kg [facility] BMI 2021-07-10 22:57:00 34.97 kg/m2 [facility] Body weight 2020-10-23 23:16:00 104.327 kg [facility] [place] [facility] BMI 2020-10-23 23:16:00 34.97 kg/m2 [facility] [place] [facility] Body weight 2020-10-23 23:16:00 104.327 kg [facility] [place] [facility] BMI 2020-10-23 23:16:00 34.97 kg/m2 [facility] [place] [facility] Heart rate 2020-10-18 00:00:00 103 /min [facility] [place] [facility] Respiratory rate 2020-10-18 00:00:00 25 /min Univ ersity of [place] [facility] Oxygen saturation in 2020-10-18 00:00:00 98 /min University of Arterial blood by [place] Medi isha Pulse oximetry Branch Systolic blood 2020-10-17 23:04:00 100 mm[Hg] Univer sity of pressure [place] [facility] Diastolic blood 2020-10-17 23:04:00 88 mm[Hg] Unive rsity of pressure [place] [facility] Body temperature 2020-10-17 22:10:00 36.06 Olimpia Univ ersity of [place] [facility] Body weight 2020-10-17 22:10:00 117.935 kg [facility] [place] [facility] BMI 2020-10-17 22:10:00 39.53 kg/m2 [facility] [place] [facility] Heart rate 2020-10-18 00:00:00 103 /min [facility] [place] [facility] Respiratory rate 2020-10-18 00:00:00 25 /min Univ ersity of [place] [facility] Oxygen saturation in 2020-10-18 00:00:00 98 /min University of Arterial blood by [place] Medi isha Pulse oximetry Branch Systolic blood 2020-10-17 23:04:00 100 mm[Hg] Univer sity of pressure [place] [facility] Diastolic blood 2020-10-17 23:04:00 88 mm[Hg] Unive rsity of pressure [place] [facility] Body temperature 2020-10-17 22:10:00 36.06 Olimpia Univ ersity of [place] [facility] Body weight 2020-10-17 22:10:00 117.935 kg Universi ty [facility] [place] [facility] BMI 2020-10-17 22:10:00 39.53 kg/m2 [facility]i [facility] [place] [facility] Systolic blood 2020-09-15 23:29:00 124 mm[Hg] Univer sity of pressure [place] [facility] Diastolic blood 2020-09-15 23:29:00 88 mm[Hg] Unive rsity of pressure [place] [facility] Heart rate 2020-09-15 23:29:00 81 /min [facility]i ty [facility] [place] [facility] Respiratory rate 2020-09-15 23:29:00 14 /min Univ ersity of [place] [facility] Oxygen saturation in 2020-09-15 23:29:00 100 /min University of Arterial blood by [place] Medi isha Pulse oximetry Branch Body temperature 2020-09-15 20:32:00 37.22 Olimpia Univ ersity of [place] [facility] Body weight 2020-09-15 20:32:00 117.935 kg Universi ty [facility] [place] [facility] BMI 2020-09-15 20:32:00 39.53 kg/m2 [facility] [place] [facility] Systolic blood 2020-09-15 23:29:00 124 mm[Hg] Univer sity of pressure [place] [facility] Diastolic blood 2020-09-15 23:29:00 88 mm[Hg] Unive rsity of pressure [place] [facility] Heart rate 2020-09-15 23:29:00 81 /min [facility]i ty [facility] [place] [facility] Respiratory rate 2020-09-15 23:29:00 14 /min Univ ersity of [place] [facility] Oxygen saturation in 2020-09-15 23:29:00 100 /min University of Arterial blood by [place] [employer] [facility] Pulse oximetry Branch Body temperature 2020-09-15 20:32:00 37.22 Olimpia Univ ersity of [place] [facility] Body weight 2020-09-15 20:32:00 117.935 kg [facility] [place] [facility] BMI 2020-09-15 20:32:00 39.53 kg/m2 [facility] [place] [facility] Heart rate 2020-06-29 20:58:00 99 /min [facility] [place] [facility] Oxygen saturation in 2020-06-29 20:58:00 99 /min University of Arterial blood by [place] Medi isha Pulse oximetry Branch Respiratory rate 2020-06-29 20:36:00 18 /min Univ ersity of [place] [facility] Body height 2020-06-29 20:36:00 172.7 cm [facility] [place] [facility] Body weight 2020-06-29 20:36:00 118.117 kg [facility] [place] [facility] BMI 2020-06-29 20:36:00 39.59 kg/m2 [facility] [place] [facility] Systolic blood 2020-06-29 20:36:00 120 mm[Hg] Univer sity of pressure [place] [facility] Diastolic blood 2020-06-29 20:36:00 83 mm[Hg] Unive rsity of pressure [place] [facility] Body temperature 2020-06-29 20:36:00 37 Olimpia Univ ersity [facility] [place] [facility] Heart rate 2020-06-29 20:58:00 99 /min [facility]i ty [facility] [place] [facility] Oxygen saturation in 2020-06-29 20:58:00 99 /min University of Arterial blood by [place] [employer] is[facility] Pulse oximetry Branch Respiratory rate 2020-06-29 20:36:00 18 /min Univ ersity of [place] [facility] Body height 2020-06-29 20:36:00 172.7 cm [facility]i [facility] [place] [facility] Body weight 2020-06-29 20:36:00 118.117 kg [facility] [place] [facility] BMI 2020-06-29 20:36:00 39.59 kg/m2 [facility] [place] [facility] Systolic blood 2020-06-29 20:36:00 120 mm[Hg] Univer sity of pressure [place] [facility] Diastolic blood 2020-06-29 20:36:00 83 mm[Hg] Unive rsity of pressure [place] [facility] Body temperature 2020-06-29 20:36:00 37 Olimpia Univ ersity of [place] [facility] Systolic blood 2020-06-02 02:00:00 138 mm[Hg] Univer sity of pressure [place] [facility] Diastolic blood 2020-06-02 02:00:00 92 mm[Hg] Unive rsity of pressure [place] [facility] Heart rate 2020-06-02 02:00:00 93 /min Universi ty [facility] [place] [facility] Respiratory rate 2020-06-02 02:00:00 17 /min Univ ersity of [place] [facility] Oxygen saturation in 2020-06-02 02:00:00 98 /min University of Arterial blood by [employer] isha Pulse oximetry Branch Body temperature 2020-06-01 22:30:00 37.17 Olimpia Univ ersity of [place] [facility] Body height 2020-06-01 22:30:00 175.3 cm [facility]i ty [facility] [place] [facility] Body weight 2020-06-01 22:30:00 129.275 kg [facility] [place] [facility] BMI 2020-06-01 22:30:00 42.09 kg/m2 [facility] [place] [facility] Systolic blood 2020-06-02 02:00:00 138 mm[Hg] Univer sity of pressure [place] [facility] Diastolic blood 2020-06-02 02:00:00 92 mm[Hg] Unive rsity of pressure [place] [facility] Heart rate 2020-06-02 02:00:00 93 /min [facility]i [facility] [place] [facility] Respiratory rate 2020-06-02 02:00:00 17 /min Univ ersity [facility] [place] [facility] Oxygen saturation in 2020-06-02 02:00:00 98 /min University of Arterial blood by [place] isha Pulse oximetry Branch Body temperature 2020-06-01 22:30:00 37.17 Olimpia Univ ersity [facility] [place] [facility] Body height 2020-06-01 22:30:00 175.3 cm [facility] [place] [facility] Body weight 2020-06-01 22:30:00 129.275 kg [facility] [place] [facility] BMI 2020-06-01 22:30:00 42.09 kg/m2 [facility] [place] [facility] Systolic blood 2020-05-16 02:24:57 127 mm[Hg] Univer sity of pressure [place] [facility] Diastolic blood 2020-05-16 02:24:57 96 mm[Hg] Unive rsity of pressure [place] [facility] Heart rate 2020-05-16 02:24:57 81 /min [facility]i [facility] [place] [facility] Respiratory rate 2020-05-16 02:24:57 18 /min Univ ersity of [place] [facility] Oxygen saturation in 2020-05-16 02:24:57 97 /min University of Arterial blood by [place] is[facility] Pulse oximetry Branch Body temperature 2020-05-16 00:14:00 37.11 Olimpia Univ ersity of [place] [facility] Body weight 2020-05-16 00:14:00 131.543 kg [facility]i [facility] [place] [facility] BMI 2020-05-16 00:14:00 44.09 kg/m2 [facility] [place] [facility] Systolic blood 2020-05-16 02:24:57 127 mm[Hg] Univer sity of pressure [place] [facility] Diastolic blood 2020-05-16 02:24:57 96 [...] 2020-05-16 00:14:00 37.11 Olimpia Univ [facility] [place] [facility] Body weight 2020-05-16 00:14:00 131.543 kg [facility] [place] [facility] BMI 2020-05-16 00:14:00 44.09 kg/m2 [facility] [place] [facility] Systolic blood 2020-04-08 17:50:00 135 mm[Hg] Univer sity of pressure [place] [facility] Diastolic blood 2020-04-08 17:50:00 91 mm[Hg] Unive rsity of pressure [place] [facility] Heart rate 2020-04-08 17:50:00 75 /min [facility] [place] [facility] Respiratory rate 2020-04-08 17:50:00 18 /min Univ [facility] [place] [facility] Oxygen saturation in 2020-04-08 17:50:00 96 /min University of Arterial blood by [place] isha Pulse oximetry Branch Body temperature 2020-04-08 16:22:51 37.28 Olimpia Univ [facility] [place] [facility] Body weight 2020-04-08 15:39:00 104.327 kg [facility] [place] [facility] BMI 2020-04-08 15:39:00 34.97 kg/m2 [facility] [place] [facility] Systolic blood 2020-04-08 17:50:00 135 mm[Hg] Univer sity of pressure [place] [facility] Diastolic blood 2020-04-08 17:50:00 91 mm[Hg] Unive rsity of pressure [place] [facility] Heart rate 2020-04-08 17:50:00 75 /min [facility] [place] [facility] Respiratory rate 2020-04-08 17:50:00 18 /min Univ ers[facility] [place] [facility] Oxygen saturation in 2020-04-08 17:50:00 96 /min University of Arterial blood by [place] Medi isha Pulse oximetry Branch Body temperature 2020-04-08 16:22:51 37.28 Olimpia Univ [facility] [place] [facility] Body weight 2020-04-08 15:39:00 104.327 kg [facility] BMI 2020-04-08 15:39:00 34.97 kg/m2 [facility] Procedures Procedure Date / Time Performed Performing Clinician Sourc e URINALYSIS 2021-07-11 03:33:00 Oscar Solano [facility] TROPONIN I 2021-07-11 02:16:00 Oscar Solano [facility] COMP. METABOLIC PANEL 2021-07-11 02:16:00 Oscar Solano [facility] ([id number]) Medical Branch CBC WITH DIFF 2021-07-11 02:16:00 Oscar Solano [facility] XR SHOULDER 2+ VW LEFT 2021-07-11 01:41:42 Oscar Solano [facility] CT LUMBAR SPINE WO 2021-07-11 01:40:00 Oscar Solano [facility] CONSENT/REFUSAL FOR 2021-07-10 22:41:10 Doctor Unassigned, No Un [facility] [place] DIAGNOSIS AND Name Medical Branch TREATMENT CONSENT/REFUSAL FOR 2020-10-17 21:57:07 Doctor Unassigned, No Un [facility] [place] DIAGNOSIS AND Name Medical Branch TREATMENT CT ABDOMEN PELVIS W 2020-09-15 22:39:18 Oscar Solano [facility] CONTRAST Medical Branch LIPASE 2020-09-15 21:16:00 Oscar Solano [facility] COMP. METABOLIC PANEL 2020-09-15 21:16:00 Oscar Solano [facility] ([id number]) Medical Branch CBC WITH DIFF 2020-09-15 21:16:00 Oscar Solano [facility] URINALYSIS 2020-09-15 21:16:00 Oscar Solano [facility] CONSENT/REFUSAL FOR 2020-09-15 20:18:37 Doctor Unassigned, No Un [facility] [place] DIAGNOSIS AND Name Medical Branch TREATMENT CT ABDOMEN PELVIS W 2020-06-02 01:39:02 Janene Mcmillan [facility] CONTRAST Medical Branch LIPASE 2020-06-02 00:01:00 Janene Mcmillan [facility] COMP. METABOLIC PANEL 2020-06-02 00:01:00 Janene Mcmillan [facility] ([id number]) [facility] CBC WITH DIFF 2020-06-02 00:01:00 Oj [facility] URINALYSIS 2020-06-01 23:54:00 Oj [facility] CONSENT/REFUSAL FOR 2020-06-01 22:14:48 Doctor Unassigned, No [facility] TREATMENT XR KNEE 3 VW LEFT 2020-05-16 00:32:[address] [facility] CONSENT/REFUSAL FOR 2020-05-15 23:59:19 Doctor Unassigned, No Un [facility] DIAGNOSIS AND [facility] TREATMENT CT ABDOMEN PELVIS WO 2020-04-08 16:30:32 Trish Kinney [facility] CONTRAST [facility] Branch LIPASE 2020-04-08 16:11:[address] [facility] TROPONIN I 2020-04-08 16:11:[address] [facility] HEPATIC FUNCTION PANEL 2020-04-08 16:11:00 Trish Kinney [facility] ([id number]) [facility] (ALB,T.PRO,BILI T,BU/BC,ALT,AST,ALK PHOS) BASIC METABOLIC PANEL 2020-04-08 16:11:00 Trish Kinney [facility] (NA, K, CL, CO2, Medical Branch GLUCOSE, BUN, CREATININE, CA) CBC WITH DIFF 2020-04-08 16:11:[address] [facility] URINALYSIS 2020-04-08 16:11:[address] [facility] POCT TEST 2020-04-08 16:11:00 Trish Kinney [facility] EKG-12 LEAD 2020-04-08 16:07:[address] [facility] NOTICE OF PRIVACY 2020-04-08 15:36:17 Doctor Unassigned, No [facility] PRACTICES [facility] CONSENT/REFUSAL FOR 2020-04-08 15:34:59 Doctor Unassigned, No Un [facility] DIAGNOSIS AND Name [facility] TREATMENT XR CERVICAL SPINE 4 VW 2019-05-07 20:48:10 Ambika Miranda [facility] [place] [facility] XR HIPS 2 VW RIGHT 2019-05-07 20:47:45 Ambika Miranda Unive rsity of [facility] [place] [facility] XR KNEE 3 VW LEFT 2019-05-07 20:47:16 Ambika Miranda Univer sity of [facility] [place] [facility] XR ANKLE 3+ VW RIGHT 2019-05-07 20:47:01 [facility] 2019-05-03 19:25:44 Doctor Unassigned, No [facility] Name [facility] Branch Encounters Start End Encounter Admission Attending Care Care Encounter Source Date/Time Date/Time Type Type Clinicians Facility Department ID 2021-06-25 Emergency [facility] [id number] Univers 09:16:29 ity of [facility] [place] [facility] 2021-06-24 Emergency [facility] [id number] Univers 12:43:14 ity of [facility] [place] [facility] 2021-06-24 Emergency [facility] [id number] Univers 00:54:11 ity of [facility] [place] [facility] 2021-06-23 Emergency [facility] [id number] Univers 18:56:21 ity of [facility] [place] [facility] 2021-06-22 Emergency [facility] [id number] Univers 21:58:08 ity of [facility] [place] [facility] 2021-06-22 Emergency [facility] [id number] Univers 18:42:15 ity of [facility] [place] [facility] 2021-06-22 Emergency [facility] [id number] Univers 12:39:56 it of [facility] [place] [facility] 2021-07-10 2021-07-10 Emergency X [facility] ERT [id number] Univers 17:16:00 22:27:00 OSCAR ity of [facility] [place] [facility] 2021-07-10 2021-07-10 Emergency [facility] [id number] Univers 17:16:00 22:27:00 Oscar BONDS [id number] i ty [facility] [id number] [facility] [id number] [address] 2021-07-09 2021-07-09 Emergency E JOEL TAN MHBL MHBL [id number] MHBL 15:18:00 22:28:00 2021-03-27 2021-03-27 Outpatient Pramod ESCOBAR [facility] [id number] Univers 10:00:00 10:00:00 BRAD laughlin o f [facility] 2021-03-26 2021-03-26 [id number] 2021-03-15 Outpatient Pramod PRADO [facility] [id number] Univers 14:00:00 14:00:00 [facility] 2021-02-23 2021-02-23 [facility] [id number] Univers 10:40:00 10:40:00 [facility] 2021-01-31 2021-01-31 [facility] [id number] 00:00:00 00:00:00 Secure Msg [facility] [id number] [place] [id number] Professio [phone] [place] [address] Office [facility] 2021-01-31 2021-01-31 [facility] [id number] 00:00:00 00:00:00 [facility] [id number] [place] [id number] Professio [phone] [place] [address] Office [address] [facility] 2020-12-15 2020-12-15 Outpatient ROSEANN [facility] [id number] Univers 14:10:00 14:10:00 [facility] 2020-12-14 2020-12-14 [facility]medici [facility] [id number] 16:30:00 16:45:00 ne Visit [facility] [id number] [place] [id number] Professio [phone] [place] [address] Office [facility] 2020-12-14 2020-12-14 Outpatient R ALOK [facility] [id number] Univers 16:30:00 16:30:00 WONDIFUL ity o f [facility] 2020-12-13 2020-12-13 Patient Alok [facility] [id number] 00:00:00 00:00:00 Secure Msg [facility] [id number] [place] [id number] Professio [phone] [place] [address] Office [facility] 2020-12-11 2020-12-11 [facility]phone [facility] 1.2.840.114 [id number] 00:00:00 00:00:00 [facility] 350.1.13.10 [place] 4.2.7.2.686 Professio [phone] [place] [address] Office [facility] 2020-12-06 2020-12-06 Emergency [facility] 1.2.929.335 [id number] 8404 01:21:00 03:58:00 [place] Floyd [place] 350.1.13.10 [place]tem 4.2.7.2.686 [place] [phone] 084 2020-11-09 2020-11-09 Patient Roseann [facility] 1.2.840.114 [id number] Univers 00:00:00 00:00:00 Outreach Stefan PRIMARY 350.1.13.10 i ty of Damon CARE 4.2.7.2.686 Amandeepa s PAVILLION [phone] [address] 2020-11-09 2020-11-09 Patient Roseann [facility] 1.2.840.114 [id number] 00:00:00 00:00:00 Outreach Stefan PRIMARY 350.1.13.10 [place] CARE 4.2.7.2.686 PAVILLION [phone] [facility] 2020-11-01 2020-11-01 Outpatient R ALOK [facility] [id number] Univers 00:00:00 00:00:00 WONDIFUL ity o f [facility] 2020-11-01 2020-11-01 [facility]phone [facility] 1.2.840.114 [id number] Univers 00:00:00 00:00:00 [facility] 350.1.13.10 ity of [place] 4.2.7.2.686 Amandeep as Professio [phone] [address] Office [facility] 2020-11-01 2020-11-01 Telephone Alok [facility] 1.2.840.114 [id number] 00:00:00 00:00:00 [facility] 350.1.13.10 [place] 4.2.7.2.686 Professio [phone] [place] [address] Office Building One 2020-10-27 2020-10-27 Orders Doctor NIKOLAY 1.2.840.114 [id number] 00:00:00 00:00:00 Only Unassigned, MARLON 350.1.13.10 [place] [facility] 4.2.7.2.686 [phone] 009 2020-10-24 2020-10-24 Telephone Alok [facility] 1.2.840.[id number] [facility] 00:00:00 00:00:00 [facility] 350.1.13.10 ity of [place] 4.2.7.2.686 Amandeep as Professio [phone] [address] Office [facility] 2020-10-24 2020-10-24 Telephone JACQUELINE Miranda 1.2.840.114 [id number] 00:00:00 00:00:00 [facility] 350.1.13.10 [place] 4.2.7.2.686 Professio [phone] [place] [address] Office [facility] 2020-10-23 2020-10-23 Telemedici Alok OHKRISTEN 1.2.840.114 [id number] Univers 16:47:16 17:53:03 ne Visit [facility] 350.1.13.10 ity of [place] 4.2.7.2.686 Amandeep as Professio [phone] [address] Office [facility] 2020-10-23 2020-10-23 Telemedici Alok OHKRISTEN 1.2.840.114 [id number] 16:47:16 17:53:03 ne Visit [facility] 350.1.13.10 [place] 4.2.7.2.686 Professio [phone] [place] [address] Office Building One 2020-10-23 2020-10-23 Outpatient R ALOK [facility] [id number] [facility] 16:15:00 16:15:00 WONDIFUL ity o f [facility] 2020-10-17 2020-10-17 Emergency [facility] 1.2.840.[id number] [facility] 16:12:00 18:15:00 Khadijah Bonds 350.1.13.10 ity of [place] 4.2.7.2.686 [place] [facility] [phone] [address] 2020-10-17 2020-10-17 Emergency [facility] 1.2.840.114 [id number] 16:12:00 18:15:00 Khadijah Bonds 350.1.13.10 [place] 4.2.7.2.686 [place] [phone] [facility] 2020-10-17 2020-10-17 Telephone [facility] 1.2.840.[id number] [facility] 00:00:00 00:00:00 [facility] 350.1.13.10 ity of [place] 4.2.7.2.686 Amandeep as Professio [phone] [address] Office Building One 2020-10-17 2020-10-17 [facility]phone [facility] 1.2.840.114 [id number] 00:00:00 00:00:00 [facility] 350.1.13.10 [place] 4.2.7.2.686 Professio [phone] [place] [address] Office Building One 2020-10-16 2020-10-16 [facility]phone [facility] 1.2.840.114 [id number] Univers 00:00:00 00:00:00 [facility] 350.1.13.10 ity of [place] 4.2.7.2.686 Amandeep as Professio [phone] [address] Office Building One 2020-10-16 2020-10-16 Telephone [facility] 1.2.840.114 [id number] 00:00:00 00:00:00 [facility] 350.1.13.10 [place] 4.2.7.2.686 Professio [phone] [place] [address] Office [facility] 2020-09-15 2020-09-15 Emergency [facility] 1.2.700.[id number] [facility] 14:33:00 18:20:00 Oscar R [place] 350.1.13.10 i ty of [place] 4.2.7.2.686 [place] [facility] [phone] [address] 2020-09-15 2020-09-15 Emergency [facility] 1.2.555.925 [id number] 8808 14:33:00 18:20:00 Oscar R [place] 350.1.13.10 [place] 4.2.7.2.686 [place] [phone] [facility] 2020-07-07 2020-07-07 Refill [facility] 1.2.840.[id number] [facility] 00:00:00 00:00:00 [facility] 350.1.13.10 ity of [place] 4.2.7.2.686 Amandeep as Professio [phone] [address] Office [facility] 2020-07-07 2020-07-07 [facility] 1.2.840.114 [id number] 00:00:00 00:00:00 [facility] 350.1.13.10 [place] 4.2.7.2.686 Professio [phone] [place] [address] Office Building [facility] 2020-06-29 2020-06-29 Urgent Provider, [facility] 1.2.[id number] [facility] 14:02:05 15:07:58 Care Stella Lopez [facility] 350.1.13.10 ity of [place] 4.2.7.2.686 Amandeep as Professio [phone] [address] Office [facility] 2020-06-29 2020-06-29 Urgent Provider, [facility] 1.2.850.356 [id number] 14:02:05 15:07:58 Care [facility] 350.1.13.10 Care [place] 4.2.7.2.686 [facility] [phone] [facility] 044 Office Building One 2020-06-29 2020-06-29 Outpatient R JESSICA, [facility] [id number] Univers 14:00:00 14:00:00 STELLA [facility] 2020-06-29 2020-06-29 Letter Doctor NIKOLAY 1.2.840.114 [id number] Univers 00:00:00 00:00:00 (Out) Unassigned, MARLON 350.1.13.10 ity of [place] [facility] 4.2.7.2.686 Amandeep [phone] [address] 2020-06-29 2020-06-29 Letter Doctor NIKOLAY 1.2.840.114 [id number] 00:00:00 00:00:00 (Out) Unassigned, MARLON [facility].1.13.10 [facility] 4.2.7.2.686 [phone] 044 2020-06-08 2020-06-08 Outpatient R ROSANA, [facility] [id number] Univers 13:00:00 13:00:00 PHILLIP [facility] 2020-06-01 2020-06-01 Emergency [facility] 1.2.111.248 [id number] Univers 17:45:00 22:34:00 Janene Bonds 350.1.13.10 i ty of [place] 4.2.7.2.686 [facility] [phone] [address] 2020-06-01 2020-06-01 Emergency [facility] 1.2.376.304 [id number] 4313 17:45:00 22:34:00 Janene Bonds 350.1.13.10 [place] 4.2.7.2.686 [place] [phone] [facility] 2020-05-15 2020-05-15 Emergency Lucas Jeffries [facility] 1.2.840.114 [id number] Univers 19:17:00 21:27:00 Megan Bonds 350.1.13.10 i ty of [place] 4.2.7.2.686 [place] [phone] [address] 2020-05-15 2020-05-15 Emergency Lucas Jeffries [facility] 1.2.840.114 [id number] 19:17:00 21:27:00 Megan Bonds 350.1.13.10 [place] 4.2.7.2.686 [place] [phone] [facility] 2020-05-15 2020-05-15 Telemedici [facility] 1.2.840.114 [id number] Univers 11:19:42 15:58:43 ne Visit [facility] 350.1.13.10 ity of [place] 4.2.7.2.686 Amandeep as Professio [phone] [address] Office [facility] 2020-05-15 2020-05-15 [facility] 1.2.840.114 [id number] 11:19:42 15:58:43 ne Visit [facility] 350.1.13.10 [place] 4.2.7.2.686 Professio [phone] [place] [address] Office [facility] 2020-05-15 2020-05-15 Outpatient R ALOK [facility] [id number] Univers 15:00:00 15:00:00 WONDIFUL ity o f [facility] 2020-05-12 2020-05-12 Outpatient R JESSICA [facility] [id number] Univers 13:30:00 13:30:00 STELLA ity of [facility] 2020-05-12 2020-05-12 Telephone [facility] 1..840.114 [id number] Univers 00:00:00 00:00:00 [facility] 350.1.13.10 ity of [place] 4.2.7.2.686 Amandeep as Professio [phone] [address] Office [facility] 2020-05-12 2020-05-12 Telephone [facility] 1.2.840.114 [id number] 00:00:00 00:00:00 [facility] 350.1.13.10 [place] 4.2.7.2.686 [place] [phone] nal 044 Office Building One 2020-04-08 2020-04-08 [facility] 1.2.961.[id number] [facility] 10:44:00 12:53:00 Trish Bonds 350.1.13.10 ity of [place] 4.2.7.2.686 [facility] [phone] [facility] 084 [place] 2020-04-08 2020-04-08 [facility] 1.2.395.812 [id number] 8891 10:44:00 12:53:00 Trish Bonds 350.1.13.10 [place] 4.2.7.2.686 [place] [phone] [facility] 2020-04-08 2020-04-08 Orders Doctor NIKOLAY 1.2.840.[id number] [facility] 00:00:00 00:00:00 Only Unassigned, MARLON 350.1.13.10 ity of [place] [facility] 4.2.7.2.686 [facility] [phone] [facility] 009 [place] 2020-04-08 2020-04-08 Orders Doctor NIKOLAY 1.2.840.114 [id number] 00:00:00 00:00:00 Only Unassigned, MARLON 350.1.13.10 [place] [facility] 4.2.7.2.686 [id number] [facility] 2019-08-12 2019-08-12 Emergency [facility] ERT [id number] Univers 03:10:33 05:48:00 SUSAN ity [facility] 2019-05-07 2019-05-07 [facility] 1.2.857.[id number] [facility] 15:01:43 23:59:00 Encounter Wondiful A [place] 350.1.13.10 ity of [place] 4.2.7.2.[address] [place] [address] [phone] [facility] 807 [place] 2019-05-07 2019-05-07 [facility] 1.2.817.352 [id number] 15:01:43 23:59:00 Encounter Wondiful A [place] 350.1.13.10 [place] 4.2.7.2.686 [place] [phone] [facility] 2019-05-07 2019-05-07 [facility] 1.2.362.384 [id number] Univers 15:01:25 23:59:00 Encounter Wondiful A [place] 350.1.13.10 ity of [place] 4.2.7.2.686 [facility] [phone] [address] 2019-05-07 2019-05-07 [facility] [id number] Univers 15:01:25 23:59:00 WONDIFUL ity o f [facility] 2019-05-07 2019-05-07 [facility] 1.2.682.599 [id number] 6107 15:01:25 23:59:00 Encounter Wondiful A [place] 350.1.13.10 [place] 4.2.7.2.686 [place] [phone] [facility] 2019-05-07 2019-05-07 [facility] 1.2.281.146 [id number] 6109 Univers 15:00:59 15:00:59 Encounter Wondiful A [place] 350.1.13.10 ity of [place] 4.2.7.2.686 [facility] [phone] [address] 2019-05-07 2019-05-07 [facility] 1.2.213.191 [id number] 15:00:59 15:00:59 Encounter Wondiful A [place] 350.1.13.10 [place] 4.2.7.2.686 [place] [phone] [facility] 2019-05-07 2019-05-07 [facility] 1.2.692.338 [id number] Univers 15:00:00 15:00:00 Encounter Wondiful A [place] 350.1.13.10 ity of [place] 4.2.7.2.[address] [place] [phone] 2019-05-07 2019-05-07 [facility] 1.2.879.507 [id number] 15:00:00 15:00:00 Encounter Wondiful A [place] 350.1.13.10 [place] 4.2.7.2.686 [place] [phone] 807 2019-05-04 2019-05-04 Telephone JACQUELINE Miranda 1.2.840.114 [id number] Univers 00:00:00 00:00:00 [facility] 350.1.13.10 ity of [place] 4.2.7.2.686 Amandeep as Professio [phone] Mt dical [address] Office [facility] 2019-05-04 2019-05-04 Telephone JACQUELINE Miranda 1.2.840.114 [id number] 00:00:00 00:00:00 [facility] 350.1.13.10 [place] 4.2.7.2.686 Professio [phone] nal [facility] Office [facility] 2019-05-03 2019-05-03 Orders Doctor NIKOLAY 1.2.840.114 [id number] Univers 00:00:00 00:00:00 Only Unassigned, MARLON 350.1.13.10 ity of [place] [facility] 4.2.7.2.686 Amandeep as [phone] [facility] 009 [place] 2019-05-03 2019-05-03 Orders Doctor NIKOLAY 1.2.840.114 [id number] 00:00:00 00:00:00 Only Unassigned, MARLON 350.1.13.10 [place] [facility] 4.2.7.2.686 [phone] 009 Results Test Description Test Time Test Comments Results Result Comments Source TROPONIN I 2021-07-11 02:52:41 Test Item Value Reference Range Interpretation Comme nts TROPONIN I (test code = 0.002 ng/mL See_Comment [Au tomated message] The 0916300230) system which ge nerated this result tra [...] biotin. Lab Interpretation Normal (test code = 58763-5) [facility]. METABOLIC PANEL (77117)2021-07-11 02:40:16 Test Item Value Reference Range Interpretation Comments NA (test code = 137 mmol/L 135-145 0366129969) K (test code = 3.8 mmol/L 3.5-5.0 4129229311) CL (test code = 101 mmol/L 98-108 7626062879) CO2 TOTAL (test code = 29 mmol/L 23-31 2830329106) AGAP (test code = 2-16 8253284005) BUN (test code = 13 mg/dL 7-23 3353269446) GLUCOSE (test code = 124 mg/dL 70-110 H 7203734997) CREATININE (test code = 0.58 mg/dL 0.50-1.04 6105165396) TOTAL BILI (test code = 0.5 mg/dL 0.1-1.4 4552127878) CALCIUM (test code = 9.8 mg/dL 8.6-10.6 0388791032) T PROTEIN (test code = 7.0 g/dL 6.3-8.2 9348243315) ALBUMIN (test code = 4.3 g/dL 3.5-5.0 8379362070) ALK PHOS (test code = 58 U/L 34-122 6914598594) ALTv (test code = 18 U/L 5-35 1742-6) AST(SGOT) (test code = 25 U/L 13-40 9296202229) eGFR (test code = mL/min/1.73m2 1943464716) AMAYA (test code = AMAYA) Association of [...] tests). Lab Interpretation Abnormal (test code = 89824-0) [facility] WITH [id number] 02:28:55 Test Item Value Reference Range Interpretation Comments WBC (test code = See_Comment [Automated message] 6690-2) The system [employer] generated this result transmitted ref erence range: 4.30 - 1 1.10 10*3/?L. The re ference range was not u sed to interpret this result as normal/abnor mal. RBC (test code = See_Comment [Automated message] 789-8) The system [employer] generated this result transmitted ref erence range: [...] RDW-SD (test code 39.0 fL 39.0-49.9 = 98083-4) RDW-CV (test code 12.5 % 12.0-15.5 = 788-0) PLT (test code = See_Comment [Automated message] 777-3) The system whic h generated this result transmitted ref erence range: 166 - 35 8 10*3/?L. The re ference range was not u sed to interpret this result as normal/abnor mal. MPV (test code = 9.5 fL 9.5-12.9 35664-7) NRBC/100 WBC (test See_Comment [Automat ed message] code = 9863795803) The syste m which generated this result transmitted ref erence range: 0.0 - 10 .0 /100 WBCs. The refer ence range was not u sed to interpret this result as normal/abnor mal. NRBC x10^3 (test <0.01 See_Comment [Automated message] code = 9499311528) The syste m which generated this result transmitted ref erence range: 10*3/?L. The reference range was not used to interpr et this result as normal/abnormal . GRAN MAT (NEUT) % 45.5 % (test code = 770-8) IMM GRAN % (test 0.60 % code = 4267383052) LYMPH % (test code 41.7 % = 736-9) MONO % (test code 9.2 % = 5905-5) EOS % (test code = 2.3 % 713-8) BASO % (test code 0.7 % = 706-2) GRAN MAT 3.22 10*3/uL 1.88-7.09 x10^3(ANC) (test code = 7755074245) IMM GRAN x10^3 0.04 10*3/uL 0.00-0.06 (test code = 4036320031) LYMPH x10^3 (test 2.95 10*3/uL 1.32-3.29 code = 731-0) MONO x10^3 (test 0.65 10*3/uL 0.33-0.92 code = 742-7) EOS x10^3 (test 0.16 10*3/uL 0.03-0.39 code = 711-2) BASO x10^3 (test 0.05 10*3/uL 0.01-0.07 code = 704-7) [facility] PEL[facility] W [id number] 23:09:54 1. ?No acute abnormality identified within [...] May 2020 and favored infectious or inflammatory inetiology..[facility] METABOLIC PANEL (82107)2020-09-15 22:18:00 Test Item Value Reference Range Interpretation Comments NA (test code = 137 mmol/L 135-145 5092382059) K (test code = 3.9 mmol/L 3.5-5 5195461623) CL (test code = 100 mmol/L 98-108 9810506125) CO2 TOTAL (test code = 28 mmol/L 23-31 8592836378) AGAP (test code = 2-16 7540708556) BUN (test code = 16 mg/dL 7-23 1976492923) GLUCOSE (test code = 98 mg/dL 70-110 6222351764) CREATININE (test code = 0.63 mg/dL 0.5-1.04 5113995100) TOTAL BILI (test code = 0.8 mg/dL 0.1-1.7 8183685670) CALCIUM (test code = 9.1 mg/dL 8.6-10.6 6470348811) T PROTEIN (test code = 7.7 g/dL 6.3-8.2 0951321155) ALBUMIN (test code = 4.5 g/dL 3.5-5 4092621892) ALK PHOS (test code = 51 U/L 34-122 5892388061) ALTv (test code = 41 U/L 5-35 H 1742-6) AST(SGOT) (test code = 41 U/L 13-40 H 2446736454) eGFR Calculation mL/min/1.73m2 (Non-) (test code = 0318003571) eGFR Calculation mL/min/1.73m2 () (test code = 9910846243) AMAYA (test code = AMAYA) Association of [...] tests). Lab Interpretation Abnormal (test code = 93426-6) [facility]2021-01-22 22:18:00 Test Item Value Reference Range Interpretation Comments LIPASE (test code = 1241183725) 44 U/L 0-220 Lab Interpretation (test code = Normal 54003-3) [facility]2021-01-22 22:09:00 Test Item Value Reference Range Interpretation Comments APPEARANCE (test code = Cloudy Clear A 2646927696) COLOR (test code = Yellow Yellow 7236830997) PH (test code = 4.8-8.0 3850325871) SP GRAVITY (test code = 1.003-1.030 0714717694) GLU U QUAL (test code = Normal Normal 9261851796) BLOOD (test code = Negative Negative 3983027765) KETONES (test code = Negative Negative 2285516398) PROTEIN (test code = Negative Negative 2887-8) UROBILIN (test code = Normal Normal 2086502236) BILIRUBIN (test code = Negative Negative 0245372550) NITRITE (test code = Negative Negative 7675116965) LEUK JONO (test code = 75/uL Negative A 7413896890) RBC/HPF (test code = See_Comment H [Autom ated message] 8432107826) The system [employer] generated this result transmitted ref erence range: 0 - 3 HP F. The reference range was not used to int erpret this result as normal/abnormal . WBC/HPF (test code = See_Comment H [Autom ated message] 3192131465) The system [employer] generated this result transmitted ref erence range: 0 - 5 HP F. The reference range was not used to int erpret this result as normal/abnormal . BACTERIA (test code = Moderate Negative A 8294437043) MUCOUS (test code = Slight Negative LPF A 2094207152) AMORPHOUS (test code = Rare Rare HPF 8615560950) SQ EPITH (test code = HPF 6799634764) Lab Interpretation (test Abnormal code = 11193-1) [facility] WITH [id number] 22:02:00 Test Item Value Reference Range Interpretation Comments WBC (test code = See_Comment [Automated message] 6690-2) The system [employer] generated this result transmitted ref erence range: 4.30 - 1 1.10 10*3/?L. The re ference range was not u sed to interpret this result as normal/abnor mal. RBC (test code = See_Comment [Automated message] 689-8) The system [employer] generated this result transmitted ref erence range: [...] RDW-SD (test code 41.2 fL 39-49.9 = 49636-3) RDW-CV (test code 13.4 % 12-15.5 = 788-0) PLT (test code = See_Comment [Automated message] 777-3) The system [employer] generated this result transmitted ref erence range: 166 - 35 8 10*3/?L. The re ference range was not u sed to interpret this result as normal/abnor mal. MPV (test code = 10.4 fL 9.5-12.9 26725-7) NRBC/100 WBC (test See_Comment [Automat ed message] code = 4679063089) The syste m which generated this result transmitted ref erence range: 0.0 - 10 .0 /100 WBCs. The refer ence range was not u sed to interpret this result as normal/abnor mal. NRBC x10^3 (test <0.01 See_Comment [Automated message] code = 6213135525) The syste m which generated this result transmitted ref erence range: 10*3/?L. The reference range was not used to interpr et this result as normal/abnormal . GRAN MAT (NEUT) % 57.6 % (test code = 770-8) IMM GRAN % (test 0.30 % code = 6132175138) LYMPH % (test code 31.3 % = 736-9) MONO % (test code 8.9 % = 5905-5) EOS % (test code = 1.5 % 713-8) BASO % (test code 0.4 % = 706-2) GRAN MAT 4.60 10*3/uL 1.88-7.09 x10^3(ANC) (test code = 3316186655) IMM GRAN x10^3 <0.03 0-0.06 (test code = 8562375051) LYMPH x10^3 (test 2.50 10*3/uL 1.32-3.29 code = 731-0) MONO x10^3 (test 0.71 10*3/uL 0.33-0.92 code = 742-7) EOS x10^3 (test 0.12 10*3/uL 0.03-0.39 code = 711-2) BASO x10^3 (test 0.03 10*3/uL 0.01-0.07 code = 704-7) [facility]OMEN PELVIS W [id number] 03:12:10 No acute abdominal or pelvic process. [...] this study and agree with theabove report. [facility]UR[facility]IS2020-10-09 00:47:00 Test Item Value Reference Range Interpretation Comments APPEARANCE (test code = Clear Clear 2470956529) COLOR (test code = Yellow Yellow 4206599302) PH (test code = 4.8-8.0 4855274367) SP GRAVITY (test code = 1.003-1.030 2815680535) GLU U QUAL (test code = Normal Normal 1337309030) BLOOD (test code = Negative Negative 5569200133) KETONES (test code = Negative Negative 7370460474) PROTEIN (test code = Negative Negative 2887-8) UROBILIN (test code = Normal Normal 0665764760) BILIRUBIN (test code = Negative Negative 5882901393) NITRITE (test code = Negative Negative 9744345869) LEUK JONO (test code = Negative Negative 0889999065) RBC/HPF (test code = See_Comment [Autom ated message] 0751437934) The system [employer] generated this result transmitted ref erence range: 0 - 3 HP F. The reference range was not used to int erpret this result as normal/abnormal . WBC/HPF (test code = <1 See_Comment [Autom ated message] [id number]) The system [employer] generated this result transmitted ref erence range: 0 - 5 HP F. The reference range was not used to int erpret this result as normal/abnormal . BACTERIA (test code = Few Negative A [id number]) SQ EPITH (test code = HPF [id number]) Lab Interpretation (test Abnormal code = 52543-7) [id number] 00:26:00 Test Item Value Reference Range Interpretation Comments NA (test code = 138 mmol/L 135-145 [id number]) K (test code = 4.5 mmol/L 3.5-5 1807805354) CL (test code = 100 mmol/L 98-108 7219774209) CO2 TOTAL (test code = 28 mmol/L 23-31 5325200483) AGAP (test code = 2-16 1176511902) BUN (test code = 11 mg/dL 7-23 3048142017) GLUCOSE (test code = 115 mg/dL 70-110 H 8819849542) CREATININE (test code = 0.70 mg/dL 0.5-1.04 2400741434) TOTAL BILI (test code = 0.8 mg/dL 0.1-1.4 5715271433) CALCIUM (test code = 10.1 mg/dL 8.6-10.6 1817575595) T PROTEIN (test code = 8.1 g/dL 6.3-8.2 0504111028) ALBUMIN (test code = 4.3 g/dL 3.5-5 2280967782) ALK PHOS (test code = 58 U/L 34-122 5374804899) ALTv (test code = 23 U/L 5-35 1742-6) AST(SGOT) (test code = 31 U/L 13-40 1861727320) eGFR Calculation mL/min/1.73m2 (Non-) (test code = 2622310088) eGFR Calculation mL/min/1.73m2 () (test code = 4039051151) AMAYA (test code = AMAYA) Association of [...] tests). Lab Interpretation Abnormal (test code = 28567-6) [facility] [facility]:26[facility]00 Test Item Value Reference Range Interpretation Comments LIPASE (test code = 7613739118) 43 U/L 0-220 Lab Interpretation (test code = Normal 29456-4) [facility] WITH [id number] 00:09:00 Test Item Value Reference Range Interpretation Comments WBC (test code = See_Comment [Automated message] 6690-2) The system [employer] generated this result transmitted ref erence range: 4.30 - 1 1.10 10*3/?L. The re ference range was not u sed to interpret this result as normal/abnor mal. RBC (test code = See_Comment [Automated message] 789-8) The system [employer] generated this result transmitted ref erence range: [...] RDW-SD (test code 41.8 fL 39-49.9 = 91836-1) RDW-CV (test code 13.5 % 12-15.5 = 788-0) PLT (test code = See_Comment [Automated message] 777-3) The system [employer] generated this result transmitted ref erence range: 166 - 35 8 10*3/?L. The re ference range was not u sed to interpret this result as normal/abnor mal. MPV (test code = 10.0 fL 9.5-12.9 99726-9) NRBC/100 WBC (test See_Comment [Automat ed message] code = 7877382570) The syste m which generated this result transmitted ref erence range: 0.0 - 10 .0 /100 WBCs. The refer ence range was not u sed to interpret this result as normal/abnor mal. NRBC x10^3 (test <0.01 See_Comment [Automated message] code = 1320173850) The syste m which generated this result transmitted ref erence range: 10*3/?L. The reference range was not used to interpr et this result as normal/abnormal . GRAN MAT (NEUT) % 64.7 % (test code = 770-8) IMM GRAN % (test 0.50 % code = 2264342847) LYMPH % (test code 26.0 % = 736-9) MONO % (test code 6.8 % = 5905-5) EOS % (test code = 1.6 % 713-8) BASO % (test code 0.4 % = 706-2) GRAN MAT 5.26 10*3/uL 1.88-7.09 x10^3(ANC) (test code = 7972509070) IMM GRAN x10^3 0.04 10*3/uL 0-0.06 (test code = 3984204770) LYMPH x10^3 (test 2.11 10*3/uL 1.32-3.29 code = 731-0) MONO x10^3 (test 0.55 10*3/uL 0.33-0.92 code = 742-7) EOS x10^3 (test 0.13 10*3/uL 0.03-0.39 code = 711-2) BASO x10^3 (test 0.03 10*3/uL 0.01-0.07 code = 704-7) [id number] 16:52[facility]00 Test Item Value Reference Range Interpretation Comments TROPONIN I (test <0.012 See_Comment [Automated code = 3330114860) message] The system which generated this result [...] ? Lab Interpretation Normal (test code = 62723-9) [facility]el[facility] W/O [id number] 16:48:14 No acute findings in the abdomen [...] pain, diverticulitissuspected.COMPARISON: CT abdomen and pelvis on 7/11/2017TECHNIQUE AND FINDINGS: Contiguous axial imaging from the [...] havereviewed this study and agree withthe above report.[facility] CenterUrinalysis2020-08-15 16:44:00 Test Item Value Reference Range Interpretation Comments APPEARANCE (test code = Clear Clear 9346060631) COLOR (test code = Straw Yellow A 4047796736) PH (test code = 4.8-8.0 7979530623) SP GRAVITY (test code = 1.003-1.030 5271894838) GLU U QUAL (test code = Normal Normal 4717580586) BLOOD (test code = Negative Negative 2058962829) KETONES (test code = Negative Negative 2994438919) PROTEIN (test code = Negative Negative 2887-8) UROBILIN (test code = Normal Normal 5742991406) BILIRUBIN (test code = Negative Negative 3191500459) NITRITE (test code = Negative Negative 4912418500) LEUK JONO (test code = Negative Negative 7488552239) RBC/HPF (test code = <1 See_Comment [Autom ated message] 3926214336) The system [employer] generated this result transmitted ref erence range: 0 - 3 HP F. The reference range was not used to int erpret this result as normal/abnormal . WBC/HPF (test code = See_Comment [Autom ated message] 1289382285) The system [employer] generated this result transmitted ref erence range: 0 - 5 HP F. The reference range was not used to int erpret this result as normal/abnormal . BACTERIA (test code = Few Negative A 3889067506) SQ EPITH (test code = HPF 7065571397) Lab Interpretation (test Abnormal code = 06527-1) [facility] Metabolic Panel (NA, K, CL, CO2, GLUCOSE, BUN, CREATININE, CA)2020-04-08 16:41:00 Test Item Value Reference Range Interpretation Comments NA (test code = 137 mmol/L 135-145 5293400029) K (test code = 4.5 mmol/L 3.5-5 9845636221) CL (test code = 104 mmol/L 98-108 6721244481) CO2 TOTAL (test code = 26 mmol/L 23-31 7745946474) AGAP (test code = 2-16 3038960435) BUN (test code = 6 mg/dL 7-23 L 1382191191) GLUCOSE (test code = 99 mg/dL 70-110 9201290233) CREATININE (test code = 0.73 mg/dL 0.5-1.04 3649692048) CALCIUM (test code = 9.6 mg/dL 8.6-10.6 9374280255) eGFR Calculation mL/min/1.73m2 (Non-) (test code = 7729902406) eGFR Calculation mL/min/1.73m2 () (test code = 0516125146) AMAYA (test code = AMAYA) Association of [...] tests). Lab Interpretation Abnormal (test code = 72720-6) [facility] CenterHepatic Function Panel (ALB, T.PRO, BILI T, BU/BC, ALT, AST, ALK PHOS)2020-04-08 16:41:00 Test Item Value Reference Range Interpretation Comments TOTAL BILI (test code = 4549746046) 0.4 mg/dL 0.1-1.1 BILI UNCON (test code = 2936397743) 0.5 mg/dL 0.1-1.1 BILI CONJ (test code = 8423592618) 0.0 mg/dL 0-0.3 T PROTEIN (test code = 0826014506) 8.1 g/dL 6.3-8.2 ALBUMIN (test code = 2261417475) 4.6 g/dL 3.5-5 ALK PHOS (test code = 3819793921) 61 U/L 34-122 ALTv (test code = 1742-6) 28 U/L 5-35 AST(SGOT) (test code = 3787483061) 35 U/L 13-40 Lab Interpretation (test code = Normal 10674-6) [facility] CenterLipase [id number] 16:41:00 Test Item Value Reference Range Interpretation Comments LIPASE (test code = 3131535541) 39 U/L 0-220 Lab Interpretation (test code = Normal 43305-1) [facility] CenterCBC with [id number] 16:27:00 Test Item Value Reference Range Interpretation Comments WBC (test code = See_Comment [Automated 8790-2) message] The sy stem which generated this [...] RDW-SD (test code = 41.0 fL 39-49.9 48970-3) RDW-CV (test code = 13.3 % 12-15.5 788-0) PLT (test code = See_Comment [Automated 777-3) message] The sy stem which generated this result transmitted reference range : 166 - 358 10*3/ ?L. The reference r radha was not used to interpret this result as normal/abnormal . MPV (test code = 10.5 fL 9.5-12.9 09946-2) NRBC/100 WBC (test See_Comment [Automat ed code = 1668904857) message] The system which generated this result transmitted reference range : 0.0 - 10.0 /100 WBCs. The refer ence range was not u sed to interpret th is result as normal/abnormal . NRBC x10^3 (test code <0.01 See_Comment [Auto mated = 0780791063) message] The s ystem which generated this result transmitted reference range : 10*3/?L. The reference range was not used to interpret this result as normal/abnormal . GRAN MAT (NEUT) % 53.1 % (test code = 770-8) IMM GRAN % (test code 0.30 % = 6288963234) LYMPH % (test code = 35.9 % 736-9) MONO % (test code = 9.0 % 5905-5) EOS % (test code = 1.3 % 713-8) BASO % (test code = 0.4 % 706-2) GRAN MAT x10^3(ANC) 4.89 10*3/uL 1.88-7.09 (test code = 9656482541) IMM GRAN x10^3 (test 0.03 10*3/uL 0-0.06 code = 5696069949) LYMPH x10^3 (test code 3.31 10*3/uL 1.32-3.29 H = 731-0) MONO x10^3 (test code 0.83 10*3/uL 0.33-0.92 = 742-7) EOS x10^3 (test code = 0.12 10*3/uL 0.03-0.39 711-2) BASO x10^3 (test code 0.04 10*3/uL 0.01-0.07 = 704-7) Lab Interpretation Abnormal (test code = 71803-0) [facility] CenterPOCT [id number] 16:11:00 Test Item Value Reference Range Interpretation Comments POCT PREG (test code = 1605) negative POCT PREG LOT # (test code = 3575) [id number] POCT PREG TEST DATE (test 03/24/2021 code = 3576) Lab Interpretation (test code = Normal 29136-6) [facility] CenterRPR [id number] 13:49:18 Test Item Value Reference Range Interpretation [...] = 06-24-20 N Expiration Dt) Comprehensive Metabolic [id number] 22:30:33 Test Item Value Reference Range Interpretation [...] A/G 1.5 ratio N Ratio) Comprehensive Metabolic [id number] 22:30:33 Test Item Value Reference Range Interpretation [...] the National Kidney Foundation, http://nkdep.ni h.gov Alcohol [id number] 22:30:33 Test Item Value Reference Range Interpretation Comments Ethanol Level (test <0.00 g/dL 0.00-0.01 Intoxica wilma 0.080 g/dL code = Ethanol or more Level) Ethanol Inst (test <0 N code = Ethanol Inst) Comprehensive Metabolic [id number] 22:30:33 Test Item Value Reference Range Interpretation [...] account, if the information is provided. If [facility] race is not provided, and t he patient is -Luz n, multiply by 1.2 12. If sex is not provided, and t he patient is fema le, multiply by 0.7 42. Results for pat ients <18 years of ag e have not been validated by [facility] MDRD study and should be interpreted wit h caution. eGFR R esult Interpretation: eGFR > or = 60 is in the Normal RangeeGF R < 60 may mean kid kath diseaseeGFR < 1 5 may mean kidney failure Rang es recommended by the National Kidney Foundation, http://nkdep. h.gov HCG Qualitative [id number] 22:23:26 Test Item Value Reference Range Interpretation [...] 72 hours. Lot # (test code = 257316 N Lot #) Expiration Dt (test 2020-09-24 N code = Expiration Dt) Neg Control (test Negative code = Neg Control) Pos Control (test Positive code = Pos Control) Internal QC (test Acceptable code = Internal QC) Complete Blood Count with [id number] 22:08:35 Test Item Value Reference Range Interpretation [...] code = IPF) 0 % N Automated [id number] 22:08:35 Test Item Value Reference Range Interpretation Comments Neutro Auto (test code = Neutro 64.2 % 36.0-70.0 Auto) Lymph Auto (test code = Lymph Auto) 25.7 % 12.0-44.0 Hancock Auto (test code = Hancock Auto) 8.2 % 0.0-11.0 Eos, Auto (test code = Eos, Auto) 1.2 % 0.0-7.0 Basophil Auto (test code = Basophil 0.4 % 0.0-2.0 Auto) Neutro Absolute (test code = Neutro 6.7 x10 1.6-7.4 Absolute) Lymph Absolute (test code = Lymph 2.68 x10 .50-4.60 Absolute) Hancock Absolute (test code = Hancock .86 x10 .00-1.20 Absolute) Eos Absolute (test code = Eos 0.12 x10 0.00-0.74 Absolute) Baso Absolute (test code = Baso 0.04 x10 0.00-0.21 Absolute) IG [id number] 22:08:35 Test Item Value Reference Range Interpretation Comments IG (test code = IG) 0.3 % 0.0-5.0 IG Abs (test code = IG Abs) 0 x10 N XR HIPS 2 VW [id number] 20:58:17Osteoarthrosis * * * * * * [...] is preserved. No bone lesion is noted. Ut, Radiant Results Inf t User - 05/07/2019 [...] head is preserved. No bone lesion is noted.IMPRESSIONOsteoarthrosisSt. Luke's Health [facility] XR ANKLE 3+ VW [id number] 20:57:16Mild degenerative changes in the medial ankle [...] in the form of small oste ophytes. [facility], Radiant Results Inft User - 05/07/2019 3:57 [...] osteophytes.IMPRESSIONMild degenerative changes in the medial ankle jointUnTexas Health FriscoXR KNEE 3 VW LEFT 2019-05-07 20:56:101. Changes [...] swelling is seen anterior to thequadriceps tendon. [facility], Radiant Results Inft User - 05/07/2019 3:56 PM CDT* * [...] Soft tissue swelling anterior to the quadriceps tendonUnTexas Health FriscoXR CERVICAL SPINE 4 DU0102-28-05 20:49:441.?No acute osseous findings are seen.2.?Curvature abnormality [...] the formof disc space narrowing and facet arthropathy. [facility], Radiant Results Inft User - 05/07/2019 [...] No acute osseous findings are seen.2. Curvature abno rmality and minimal degenerative changes.[facility]
[2023-03-15 20:10] LABS: Hematocrit 39.2 % (36.0-45.0); Lymphocytes % 28.1 % (15.3-44.8); MCV 83.9 fL (80-100); MPV 7.5 fL (7.6-11.3); Platelets 280 thou/uL (152-406); RBC Red Blood Cell Count 4.67 M/uL (3.86-4.86)
[2023-03-15 20:23] LABS: Potassium 4.1 mEq/L (3.5-5.1)
--- NOTE | 2023-03-15 20:34 | ER ---
Nurse's Notes [facility] Name: Maribel Diaz Age: 42 yrs Sex: Female : 1980 Arrival Date: 03/15/2023 Time: 18:45 Bed 13 Private MD: Diagnosis: Infection right fifth digit Presentation: 03/15 18:52 Chief complaint: EMS states: Recently inpatient for right 5th finger infection, Dr. maxwell Elder operated x 2, reports worsening pain, fever, and vomiting x 3 days. Not tolerating meds/fluids. Coronavirus screen: At this time, the client does not indicate any symptoms associated with coronavirus-19. Ebola Screen: No symptoms or risks identified at this time. Initial Sepsis Screen: Does the patient meet any 2 criteria? No. Patient's initial sepsis screen is negative. Does the patient have a suspected source of infection? No. Patient's initial sepsis screen is negative. Risk Assessment: Do you want to hurt yourself or someone else? Patient reports no desire to harm self or others. Onset of symptoms was March 15, 2023. 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 ankle; section; hysterectomy; hb - Immunization history:: Adult Immunizations up to date. - Social history:: Smoking status: . Screenin:56 [facility] ED Fall Risk Assessment (Adult) History of falling in the last 3 months, sg5 including since admission No falls in past 3 months (0 pts). Abuse screen: Denies threats or abuse. Nutritional screening: No deficits noted. Tuberculosis screening: No symptoms or risk factors identified. Assessment: 19:53 General: Appears in no apparent distress. comfortable, Behavior is calm, cooperative, sg5 appropriate for age. Pain: Complains of pain in right pinky. Neuro: Level of Consciousness is awake, alert, obeys commands, Oriented to person, place, time, situation, Appropriate for age. Cardiovascular: Capillary refill < 3 seconds Patient's skin is warm and dry. Respiratory: Airway is patent Trachea midline Respiratory effort is even, unlabored. GI: Abdomen is round non-distended, Reports nausea, vomiting. : No signs and/or symptoms were reported regarding the genitourinary system. EENT: No signs and/or symptoms were reported regarding the EENT system. Derm: sutures and pin to right pinky from previous injury, warm, with reddened area. Vital Signs: 18:52 BP 137 / 96; Pulse 102; Resp 16; Temp 98.9(TE); Pulse Ox 99% on R/A; Weight 99.79 kg hb (M); Height 5 ft. 7 in. ; Pain 9/10; 19:53 BP 156 / 84; Pulse 98; Resp 18; Pulse Ox 99% on R/A; sg5 20:06 BP 126 / 98; Pulse 78; Resp 18; Pulse Ox 100% on R/A; sg5 23:39 BP 114 / 87; Pulse 83; Resp 17 S; Pulse Ox 99% on R/A; lg3 18:52 Body Mass Index 34.46 (99.79 kg, 170.18 cm) hb 18:52 Pain Scale: Adult hb ED Course: 18:48 Patient arrived in ED. ts1 18:52 Ariadne Mercedes FNP-C [facility]. kb 18:52 Teresa Looney is Attending Physician. kb 18:54 Triage completed. hb 18:55 Arm band placed on. hb 19:18 Becca Loya, RN is Primary Nurse. sg5 19:56 Patient has correct armband on for positive identification. Bed in low position. Call sg5 light in reach. Valuables Left with patient. 20:06 Inserted saline lock: 20 gauge in left antecubital area, using aseptic technique. Blood sg5 collected. 20:32 Salazar Borden MD is Hospitalizing Provider. kb 23:40 No provider procedures requiring assistance completed. Patient admitted, IV remains in lg3 place. No redness/swelling at site. 03/16 07:36 Provided Education on: ADMISSION. db Administered Medications: 03/15 21:21 Drug: morphine IVP or IV 4 mg Route: IVP; Infused Over: 4 mins; Site: left antecubital; vc1 23:28 Follow up: Response: No adverse reaction; Marked relief of symptoms pf1 21:21 Drug: Ondansetron IVP 4 mg Route: IVP; Site: left antecubital; vc1 23:28 Follow up: Response: No adverse reaction pf1 21:21 Drug: NS 0.9% IV 1000 ml Route: IV; Rate: 1000 ml; Site: left antecubital; vc1 23:28 Follow up: IV Status: Completed infusion; IV Intake: 1000ml pf1 23:35 Drug: Hydrocodone-Acetaminophen PO (7.5 mg-325 mg) 1 tabs Route: PO; pf1 23:42 Follow up: Response: No adverse reaction; Marked relief of symptoms lg3 23:35 Drug: clonazePAM PO 1 mg Route: PO; pf1 23:42 Follow up: Response: No adverse reaction; Marked relief of symptoms; RASS: Alert and lg3 Calm (0) 23:40 Drug: ceFAZolin IVPB 1 grams Volume: 50 ml; Route: IVPB; Infused Over: 30 mins; Site: pf1 left antecubital; 03/16 00:44 Follow up: Response: No adverse reaction; IV Status: Completed infusion; IV Intake: 85tpgs9 03/15 23:42 Drug: vancoMYCIN IVPB 1 grams Route: IVPB; Infused Over: 2 hrs; Site: right forearm; lg3 03/16 00:44 Follow up: IV Status: Infusion continued upon admission lg3 Medication: 03/15 23:40 VIS not applicable for this client. lg3 Intake: 23:28 IV: 1000ml; Total: 1000ml. pf1 03/16 00:44 IV: 50ml; Total: 1050ml. lg3 Outcome: 03/15 20:33 Decision to Hospitalize by Provider. kb 23:40 Admitted to ER Hold. Please see [facility] for further documentation. lg3 23:40 Condition: stable 23:40 Instructed on the need for admit, Demonstrated understanding of instructions. 03/16 08:19 Patient left the ED. eb Signatures: Ariadne Mercedes, MARKETING STRATEGIST-C MARKETING STRATEGIST-Ckb Bethany Cotton, RN RN Luisa Beltre Liset Bullard, RN RN lg3 Mary Erazo, RN RN vc1 Teresa Crawford, RN RN db Emily Pacheco, ZION RN pf1 Becca Loya RN RN sg5 Marleni Deluca, PAS PAS ts1 Corrections: (The following items were deleted from the chart) 03/15 18:54 18:51 Chief complaint: hb hb 18:56 18:52 BP 137 / 96; Pulse 102bpm; Resp 16bpm; Pulse Ox 99% RA; Temp 98.9F Temporal; Pain hb 9/10, Adult; hb 18:57 18:52 BP 137 / 96; Pulse 102bpm; Resp 16bpm; Pulse Ox 99% RA; Temp 98.9F Temporal; hb 45.26 kg Measured; Height 5 ft. 7 in.; BMI: 15.6; Pain 9/10, Adult; hb 20:39 18:55 Home Meds: clonazepam 0.5 mg Oral TbDL 1 tab 3 times per day; hb sg5 23:42 23:41 vancoMYCIN IVPB 1 grams IVPB in left antecubital over 2 hrs lg3 lg3
--- NOTE | 2023-03-15 20:34 | EDPHYS ---
Physician Documentation [facility] Name: Maribel Diaz Age: 42 yrs Sex: Female : 1980 Arrival Date: 03/15/2023 Time: 18:45 Bed 13 Private MD: ED Physician Teresa Looney HPI: 03/15 22:36 This 42 yrs old Female presents to ER via Ambulatory with complaints of kb Nausea/Vomiting, INFECTION ON PINKY. 22:36 the patient presents with a swollen area of the right little finger. Description: kb erythematous, swollen. Onset: The symptoms/episode began/occurred 3 day(s) ago. Possible cause(s): recent surgery. Associated signs and symptoms: Pertinent positives: erythema, fever, nausea, swelling, vomiting. Modifying factors: the symptoms are alleviated by nothing, the symptoms are aggravated by movement, touching. Severity of symptoms: At their worst the symptoms were moderate, in the emergency department the symptoms are unchanged. The patient has not experienced similar symptoms in the past. The patient has not recently seen a physician. HAMMERER TAB: 23:44 LMP N/A - Hysterectomy sg5 Historical: - Allergies: 18:55 Benadryl; hb 18:55 Tegretol; hallucinations; hb 18:55 Toradol; hb - Home Meds: 18:55 Paxil 20 mg Oral tab 1 tab once daily [Active]; hb 20:39 clonazepam 1 mg oral Tablet,disintegrating [Active]; sg5 23:57 trazodone 100 mg Oral tablet every day at bedtime [Active]; ondansetron 4 mg oral sg5 Tablet,disintegrating every 8 hours [Active]; - PMHx: 18:55 ADD/ADHD; cervical cancer; Depression; Fibromyalgia; Panic Attacks; Substance Abuse; hb temporal artritis; - PSHx: 18:55 cher. ankle; section; hysterectomy; hb - Immunization history:: Adult Immunizations up to date. - Social history:: Smoking status: . ROS: 22:33 Respiratory: Negative for shortness of breath, cough, wheezing, and pleuritic chest kb pain. 22:33 Constitutional: Positive for fever, malaise. 22:33 Abdomen/GI: Positive for nausea and vomiting, Negative for abdominal pain, diarrhea, constipation. 22:33 Skin: Positive for erythema, swelling, of the right little finger, pins and sutures in place. 22:33 All other systems are negative. Exam: 22:35 Constitutional: This is a well developed, well nourished patient who is awake, alert, kb and in no acute distress. Head/Face: Normocephalic, atraumatic. ENT: Moist Mucous membranes Cardiovascular: Regular rate and rhythm with a normal S1 and S2. No gallops, murmurs, or rubs. No pulse deficits. Respiratory: Respirations even and unlabored. No increased work of breathing. Talking in full sentences Abdomen/GI: Soft, non-tender. No distention MS/ Extremity: Pulses equal, no cyanosis. Neurovascular intact. Full, normal range of motion. Neuro: Awake and alert, GCS 15, oriented to person, place, time, and situation. Moves all extremities. Normal gait. 22:35 Skin: Appearance: normal except for affected area, Color: erythematous, swelling, noted on the right little finger, that are moderate. Vital Signs: 18:52 BP 137 / 96; Pulse 102; Resp 16; Temp 98.9(TE); Pulse Ox 99% on R/A; Weight 99.79 kg hb (M); Height 5 ft. 7 in. ; Pain 9/10; 19:53 BP 156 / 84; Pulse 98; Resp 18; Pulse Ox 99% on R/A; sg5 20:06 BP 126 / 98; Pulse 78; Resp 18; Pulse Ox 100% on R/A; sg5 23:39 BP 114 / 87; Pulse 83; Resp 17 S; Pulse Ox 99% on R/A; lg3 18:52 Body Mass Index 34.46 (99.79 kg, 170.18 cm) hb 18:52 Pain Scale: Adult hb MDM: 18:52 Patient medically screened. kb 20:09 Management of patient was discussed with the following: Pipefitter Helper: Dr Jerrod lowery recommends admission to hospitalist. Requests wire be removed and to keep pt NPO after midnight. 21:43 Differential diagnosis: osteomyelitis, post surgical infection. Data reviewed: vital kb signs, nurses notes. 21:45 Consideration of Admission/Observation Patient was admitted/placed on observation. kb Escalation of care including admission/observation considered. Management of patient was discussed with the following: Hospitalist: SURI Bain accepts pt for admission under Dr Borden. Counseling: I had a detailed discussion with the patient and/or guardian regarding: the historical points, exam findings, and any diagnostic results supporting the discharge/admit diagnosis, lab results, the need for further work-up and treatment in the hospital. ED course: Attempted to pull wire out. Pt did not tolerate well, procedure unsuccessful . 03/15 19:03 Order name: CBC with Diff; Complete Time: 20:12 kb 03/15 19:03 Order name: Basic Metabolic Panel; Complete Time: 20:24 kb 03/15 19:03 Order name: Blood Culture Adult (2) kb 03/15 19:03 Order name: Lactate w/ 2H reflex if indic.; Complete Time: 20:29 kb 03/16 02:35 Order name: CBC with Automated Diff EDMS 03/16 02:44 Order name: Basic Metabolic Panel EDMS 03/15 21:56 Order name: Hand Right 3 View XRAY la1 03/15 22:32 Order name: RAD; Complete Time: 22:32 EDMS 03/15 19:03 Order name: IV Start; Complete Time: 20:09 kb Administered Medications: 21:21 Drug: morphine IVP or IV 4 mg Route: IVP; Infused Over: 4 mins; Site: left antecubital; vc1 23:28 Follow up: Response: No adverse reaction; Marked relief of symptoms pf1 21:21 Drug: Ondansetron IVP 4 mg Route: IVP; Site: left antecubital; vc1 23:28 Follow up: Response: No adverse reaction pf1 21:21 Drug: NS 0.9% IV 1000 ml Route: IV; Rate: 1000 ml; Site: left antecubital; vc1 23:28 Follow up: IV Status: Completed infusion; IV Intake: 1000ml pf1 23:35 Drug: Hydrocodone-Acetaminophen PO (7.5 mg-325 mg) 1 tabs Route: PO; pf1 23:42 Follow up: Response: No adverse reaction; Marked relief of symptoms lg3 23:35 Drug: clonazePAM PO 1 mg Route: PO; pf1 23:42 Follow up: Response: No adverse reaction; Marked relief of symptoms; RASS: Alert and lg3 Calm (0) 23:40 Drug: ceFAZolin IVPB 1 grams Volume: 50 ml; Route: IVPB; Infused Over: 30 mins; Site: pf1 left antecubital; 03/16 00:44 Follow up: Response: No adverse reaction; IV Status: Completed infusion; IV Intake: [id number] 03/15 23:42 Drug: vancoMYCIN IVPB 1 grams Route: IVPB; Infused Over: 2 hrs; Site: right forearm; lg3 03/16 00:44 Follow up: IV Status: Infusion continued upon admission lg3 Disposition Summary: 03/15/23 20:33 Hospitalization Ordered Hospitalization Status: Observation kb Provider: Salazar Borden Condition: Stable kb Problem: new kb Symptoms: are unchanged kb Bed/Room Type: Standard kb Location: Telemetry/MedSurg (observation)(03/16/23 07:44) eb Room Assignment: [facility](03/16/23 07:44) eb Diagnosis - Infection right fifth digit kb Forms: - Medication Reconciliation Form kb - SBAR form kb Signatures: Dispatcher [employer] EDAriadne Clark FNP-C MACHINE FEEDER RAW STOCK-Ckb Odell Guzman FNP-C FNP-Cla1 Milli Easley RN RN Betahny Chapman RN RN Luisa Beltre Lacie, RN RN lg3 Mary Erazo RN RN vc1 Emily Pacheco RN RN pf1 Becca Loya RN RN sg5 Corrections: (The following items were deleted from the chart) 03/15 20:39 18:55 Home Meds: clonazepam 0.5 mg Oral TbDL 1 tab 3 times per day; sg5 22:34 20:21 Constitutional: Negative for fever, chills, and weight loss, kb kb 23:00 20:33 Telemetry/MedSurg (observation) kb cg 23:00 20:33 kb cg 03/16 07:44 03/15 23:00 [facility] ER HOLD cg eb 03/16 07:44 03/15 23:00 ERHOLD- cg eb
[2023-03-15] MEDS ORDERED: NA CHLORIDE 0.9% 1,000 ML ONE (21:22)
[2023-03-15] MEDS ORDERED: ONDANSETRON 4 MG/2 ML VIAL ONE (21:22)
[2023-03-15] MEDS ORDERED: MORPHINE 4 MG/ML SYR ONE (21:22)
--- NOTE | 2023-03-15 22:21 | P.HP ---
Certification for Inpatient Patient admitted to: Inpatient With expected LOS: >2 Midnights Patient will require the following post-hospital care: None Practitioner: I am a practitioner with admitting privileges, knowledge of patient current condition, hospital course, and medical plan of care. Services: Services provided to patient in accordance with Admission requirements found in Title 42 Section 412.3 of the Code of Federal Regulations Patient History Date of Service: 03/15/23 Reason for admission: Right fifth digit cellulitis History of Present Illness: 42-year-old female with history of anxiety/depression, fibromyalgia, history of substance abuse, temporal arteritis presents to the emergency department with chief complaint of right fifth digit swelling, pain. Had fracture to the right fifth digit approximately 1 month ago, she was hospitalized for cellulitis on 02/27/2023 and subsequent discharge on 03/06/2023. She noticed the past couple days she is having increased swelling, drainage from her wound. She was evaluated in the ER, ED staff discussed with patient's surgeon who saw the wound and recommended she be admitted for surgical incision and drainage. Her labs are unremarkable, she is given IV antibiotics in ED, n.p.o. after midnight. Allergies carbamazepine [From Tegretol] Allergy (Verified 02/27/23 15:22) Shortness of breath ketorolac [From Toradol] Allergy (Verified 02/27/23 15:23) Itching/Hives/Rash Home Medications: Paroxetine HCl [Paxil] 40 mg PO DAILY 01/22/21 clonazePAM [Klonopin*] 1 tab PO BIDP PRN 01/23/21 Ondansetron [Ondansetron Odt] 4 mg PO Q4H PRN 02/27/23 Doxycycline Hyclate 100 mg PO BID #20 tab 03/06/23 Hydrocodone 10/APAP 325 [[place] 10/325] 1 tab PO Q6H PRN #30 tab 03/06/23 Hydrocodone 10/APAP 325 [[place]ty 10/325] 1 tab PO Q6H PRN #30 tab 03/06/23 Minocycline HCl 100 mg PO BID #20 cap 03/06/23 Minocycline HCl 100 mg PO BID #20 cap 03/06/23 Smz./Tmp. [Bactrim Ds 800 MG/160 MG] 1 each PO DAILY #10 tab 03/06/23 Smz./Tmp. [Bactrim Ds 800 MG/160 MG] 1 each PO DAILY #10 tab 03/06/23 Smz./Tmp. [Bactrim Ds 800 MG/160 MG] 1 each PO DAILY #10 tab 03/06/23 - Past Medical/Surgical History -: Cervical cancer -: Anxiety disorder -: Depression -: Morbid obesity -: Fibromyalgia -: Right fifth digit pin, I&D Psychosocial/ Personal History: Lives at home with adult children - Family History Family History: Reviewed- Non-Contributory - Social History Smoking Status: Never smoker Alcohol use: No CD- Drugs: No Caffeine use: No Place of Residence: Home Review of Systems 10-point ROS is otherwise unremarkable Musculoskeletal: Other (Finger pain, swelling) Physical Examination - Physical Exam General: Alert, In no apparent distress, Oriented x3 HEENT: Atraumatic, PERRLA, Mucous membr. moist/pink, EOMI, Sclerae nonicteric Neck: Supple, 2+ carotid pulse no bruit, No LAD, Without JVD or thyroid abnormality Respiratory: Clear to auscultation bilaterally, Normal air movement Cardiovascular: Regular rate/rhythm, Normal S1 S2 Gastrointestinal: Normal bowel sounds, No tenderness Musculoskeletal: No tenderness, Other (Right fifth digit with pin in place, sutures in place with swelling, redness and wound drainage) Integumentary: No rashes Neurological: Normal gait, Normal speech, Normal strength at 5/5 x4 extr, Normal tone, Normal affect Lymphatics: No axilla or inguinal lymphadenopathy - Studies Laboratory Data (last 24 hrs) 03/15/23 19:45: Sodium 136, Potassium 4.1, BUN 13, Creatinine 0.79, Glucose 104 03/15/23 19:45: WBC 7.30, Hgb 12.6, Hct 39.2, Plt Count 280 Assessment and Plan - Plan Assessment: Cellulitis right fifth digit complicated with previous fracture/pin in place with previous I&D Anxiety/depression Plan: Cellulitis right fifth digit complicated with previous fracture/pin in place with previous I&D N.p.o. after midnight, Dr. Zamora to see tomorrow. Vancomycin, cefepime started 03/15/2023 She saw ID during previous admission, will consult infectious disease. Anxiety/depression Continue home medications, patient is anxious. Given as needed Klonopin. DVT PPX: SCD Code status: Full Discharge Plan: Home Plan to discharge in: 72 Hours - Advance Directives Does patient have a Living Will: No Does patient have a Durable POA for Healthcare: No - Code Status/Comfort Care Code Status Assessed: Yes (Full code) Critical Care: No Time Spent Managing Pts Care (In Minutes): 55
--- NOTE | 2023-03-15 22:31 | RAD REPORT ---
EXAM DESCRIPTION: RAD - Hand Right 3 View - 03/15/2023 10:14 pm CLINICAL HISTORY: Right hand pain and swelling FINDINGS: One thin fuses the fifth DIP joint. Another has been placed into the distal phalanx. No acute fracture or dislocation seen. Soft tissue swelling is present. No bony destructive lesion visualized
[2023-03-15] MEDS ORDERED: clonazePAM 1 MG TAB ONE (23:27)
[2023-03-15] MEDS ORDERED: HYDROCODONE/APAP 7.5/325 MG TAB ONE (23:27)
[2023-03-15] MEDS ORDERED: CEFAZOLIN SODIUM 1 GM/VIAL ONE (23:27)
[2023-03-15] MEDS ORDERED: NA CHLORIDE 0.9% 250 ML ONE (23:28)
[2023-03-15] MEDS ORDERED: VANCOMYCIN 1 GM/VIAL ONE (23:28)
[2023-03-15] MEDS ORDERED: NA CHLORIDE 0.9% 50 ML ONE (23:28)
[2023-03-16] MEDS ORDERED: TRAZODONE 50 MG TABLET PO PRN (00:12)
[2023-03-16] MEDS ORDERED: VANCOMYCIN 1 GM in NA CHLORIDE 0.9% 250 ML IVPB SCH (00:12)
[2023-03-16] MEDS: NA CHLORIDE 0.9% 1,000 ML IV SCH ×2 (00:12→11:11)
[2023-03-16] MEDS ORDERED: NA CHLORIDE 0.9% 1,000 ML ONE (00:32)
[2023-03-16] MEDS: HYDROMORPHONE HCL 0.5 MG/0.5 ML INJ IV PRN ×5 (00:49→21:29)
[2023-03-16] MEDS ORDERED: HYDROMORPHONE HCL 0.5 MG/0.5 ML INJ ONE ×2 (00:52→04:38)
[2023-03-16 01:19] VITALS: BMI 34.4
[2023-03-16] MEDS ORDERED: VANCOMYCIN 750 MG in NA CHLORIDE 0.9% 250 ML IVPB ONE (02:00)
[2023-03-16 02:34] LABS: Absolute Lymphocytes (CBC) 2.8 K/uL (0.7-4.9); Hematocrit 36.2 % (36.0-45.0); MPV 7.8 fL (7.6-11.3); Platelets 246 thou/uL (152-406); RBC Red Blood Cell Count 4.31 M/uL (3.86-4.86)
[2023-03-16] MEDS ORDERED: VANCOMYCIN 1 GM/VIAL ONE (02:52)
[2023-03-16] MEDS ORDERED: NA CHLORIDE 0.9% 250 ML ONE (02:52)
--- NOTE | 2023-03-16 07:06 | P.PN ---
Date of Service: 03/16/23 Subjective: feeling better now after surgery no new / worsening problems afebrile ROS: 10 point ROS as noted above, otherwise negative Physical Exam: GEN: Alert, oriented, NAD HEENT: Normal conjunctiva, sclera anicteric CV: Regular rate and rhythm, no edema Pulm: Nonlabored respirations on room air ABD: Soft, nontender, nondistended MSK: Right fifth digit with dressing in place c/d/i Neuro: Normal speech, normal affect vitals reviewed Problem List: Cellulitis right fifth digit, now s/p K-wire removal, suture removal, and I&D 03/16 Anxiety/depression Cellulitis right fifth digit, now s/p K-wire removal, suture removal, and I&D 03/16 Dr. Elder consulted s/p K-wire removal, suture removal, and I&D of R 5th digit (03/16) Monitor H&H. Transfuse if hgb < 7 Silvadene cream BID ID consulted Blood cultures: pending Wound culuture: pending cont vanc/cefepime (03/15-) cont IVF PRN pain medication Anxiety/depression Continue home medications PRN Klonopin Code: Full Dispo: Home
[2023-03-16] MEDS ORDERED: NA CHLORIDE 0.9% 100 ML ONE (08:15)
[2023-03-16] MEDS ORDERED: CEFEPIME 1 GM/VIAL ONE (08:15)
[2023-03-16] MEDS ORDERED: Ringers Lactate 1,000 ML IV ONE (08:31)
[2023-03-16] MEDS ORDERED: ONDANSETRON 4 MG/2 ML VIAL ONE (09:15)
[2023-03-16] MEDS ORDERED: propofoL 200 MG/20 ML VIAL IV ONE (09:15)
[2023-03-16] MEDS ORDERED: FENTANYL CITR 100 MCG/2 ML ONE (09:15)
[2023-03-16] MEDS ORDERED: MIDAZOLAM HCL 2 MG/2 ML INJ ONE (09:15)
[2023-03-16] MEDS ORDERED: dexAMETHasone 4 MG/ML VIAL ONE (09:15)
[2023-03-16] MEDS ORDERED: LIDOCAINE 1% MPF 5 ML VIAL ONE (09:15)
[2023-03-16] MEDS: CEFEPIME 1 GM in NA CHLORIDE 0.9% 100 ML IV SCH ×3 (09:15→21:29)
[2023-03-16] MEDS ORDERED: SILVER SULFADIAZINE 1% 25 GM TOP ONE (09:44)
[2023-03-16] MEDS: FENTANYL CITR 100 MCG/2 ML ONE ×4 (09:58→10:13)
[2023-03-16] MEDS: HYDROMORPHONE HCL 1 MG/ML INJ ONE ×2 (10:18→10:22)
--- NOTE | 2023-03-16 10:21 | OP ---
Surgeon: Kaushal Elder MD Preoperative Diagnosis: Infection of the right little finger. Postoperative Diagnosis: Infection of the right little finger. Procedure Performed: K-wire removal, suture removal, and debridement of the skin. Anesthesia: General. Procedure In Detail: After satisfactory induction of general anesthesia, the right hand was prepped with Betadine scrub and Betadine paint. Dry sterile drapes were applied in the usual manner. Hand was placed on the roll lock table. We then started with removal of K-wires and sutures were removed finger was swollen. The skin was incised and cultures were taken. The wounds were then jet lavaged, irrigated with 1 L of dilute Betadine solution. Silvadene cream was applied, 2-inch Vignesh and Kerlix. The patient tolerated the procedure well and returned to recovery. WINSTON/PAULINO Voice ID: [id number] Report ID: [id number] DYAN
[2023-03-16] MEDS: CODEINE 30MG/APAP 300MG TAB PO PRN (11:13)
[2023-03-16] MEDS: clonazePAM 1 MG TAB PO PRN (13:16)
[2023-03-16] MEDS: VANCOMYCIN 1.75 GM in NA CHLORIDE 0.9% 500 ML IVPB SCH (13:16)
[2023-03-16] MEDS: CALCIUM CARBONATE CHEW 500MG TAB PO PRN (20:39)
[2023-03-17] MEDS: VANCOMYCIN 1.75 GM in NA CHLORIDE 0.9% 500 ML IVPB SCH ×2 (00:34→14:16)
[2023-03-17] MEDS: ONDANSETRON 4 MG/2 ML VIAL IV PRN ×3 (01:11→22:36)
[2023-03-17] MEDS: clonazePAM 1 MG TAB PO PRN (02:13)
[2023-03-17] MEDS: HYDROMORPHONE HCL 0.5 MG/0.5 ML INJ IV PRN ×4 (02:38→22:37)
[2023-03-17] MEDS ORDERED: HYDROMORPHONE HCL 0.5 MG/0.5 ML INJ IV ONE ×2 (04:47→12:00)
--- NOTE | 2023-03-17 05:17 | P.PN ---
Date of Service: 03/17/23 Patient was in the bathroom when she got up from the toilet with her pants around her ankles to get something from in her room slipping on her pants. She is complaining of pain in the left hip/flank area. She is ambulatory, sitting with legs crossed in bed. No additional imaging warranted at this time.
[2023-03-17 05:21] LABS: Absolute Lymphocytes (CBC) 1.9 K/uL (0.7-4.9); Hematocrit 37.4 % (36.0-45.0); Lymphocytes % 20.7 % (15.3-44.8); MCV 83.3 fL (80-100); MPV 7.9 fL (7.6-11.3); Platelets 324 thou/uL (152-406); RBC Red Blood Cell Count 4.49 M/uL (3.86-4.86)
[2023-03-17 05:23] LABS: Potassium 3.8 mEq/L (3.5-5.1)
--- NOTE | 2023-03-17 06:56 | P.PN ---
Date of Service: 03/17/23 Subjective: had a fall this morning when using bathroom (pants around ankles and slipped trying to get something) , +left hip/flank pain finger with slightly more erythema, discoloration +nausea and anxiety Afebrile ROS: 10 point ROS as noted above, otherwise negative Physical Exam: GEN: Alert, oriented, NAD HEENT: Normal conjunctiva, sclera anicteric CV: Regular rate and rhythm, no edema Pulm: Nonlabored respirations on room air ABD: Soft, nontender, nondistended MSK: Right fifth digit with dressing in place c/d/i Neuro: Normal speech, normal affect vitals reviewed Problem List: Cellulitis right fifth digit, now s/p K-wire removal, suture removal, and I&D 03/16 Anxiety/depression Cellulitis right fifth digit, now s/p K-wire removal, suture removal, and I&D 03/16 Dr. Elder consulted s/p K-wire removal, suture removal, and I&D of R 5th digit (03/16) Monitor H&H. Transfuse if hgb < 7 Silvadene cream BID ID consulted Blood cultures: NGTD Wound culuture: pending cont vanc/cefepime (03/15-) afebrile without leukocytosis cont IVF PRN pain medication Anxiety/depression Continue home medications PRN Klonopin Code: Full Dispo: Home ss/cm consulted
[2023-03-17] MEDS: CEFEPIME 2 GM in NA CHLORIDE 0.9% 100 ML IV SCH ×2 (09:00→17:30)
[2023-03-17] MEDS: SILVER SULFADIAZINE 1% 50 GM TOP SCH ×2 (09:00→22:43)
[2023-03-17] MEDS ORDERED: PARoxetine HCL 10 MG TAB PO SCH (09:00)
[2023-03-17] MEDS: GABAPENTIN 100 MG CAP PO SCH ×2 (09:04→20:21)
--- NOTE | 2023-03-17 09:57 | PN ---
Patient was seen and re-examined. Patient had no purulence, no swelling, no tenderness. She has discoloration and mild erythema, but there are some areas of discoloration, approximately 0.5 x 0.5 cm volar surface over the middle phalanx we will discontinue Silvadene cream and recommend probably Infectious Disease consult to evaluate her finger. WINSTON/PAULINO Voice ID: [id number] Report ID: [id number] DYAN
--- NOTE | 2023-03-17 10:42 | HP ---
Date of Admission: 03/15/2023 History Of Present Illness: A 42-year-old white female, right hand dominant, presented with infection of her right middle finger, treated in the past with ORIF for an open fracture of the distal phalanx. She was last seen about a week ago by me. Her finger had become increasingly tender and presented to the emergency room. Past Medical History: History of autoimmune disease, ADHD, high cholesterol. Past Surgical History: Previous surgery is on ankles, right and left. Hysterectomy and tonsils. Social History: Does not smoke, does not drink. Allergies: SHE IS ALLERGIC TO TORADOL. Mediations: She is on multiple medications for anxiety including trazodone. Physical Examination: Vital Signs: She is 5 feet 8 inches, 220 pounds. Extremities: On examination, she has a K-wire placed longitudinally and 1 obliquely in the distal phalanx of the finger. Has redness, tenderness, and swelling of the finger. Plan will be to remove K-wires and debridement of the previous incision and drainage back. Assessment: Infection of right middle finger. Plan: debridment WINSTON/PAULINO Voice ID: [id number] DYAN
--- NOTE | 2023-03-17 12:27 | CON ---
History Of Present Illness: Maribel Diaz is known from previous admission. The patient is here agai n with pain in her right hand and small fifth finger, complaining of severe discomfort and pain, curr ently on pain medication. Concern about cellulitis versus bone infection. The patient had also surg ical repair done for the fracture, the patient had about a month ago. Past Medical History: Anxiety disorder, depression, morbid obesity, fibromyalgia, cervical cancer, r ight seventh digit pin, I and D. Social History: Access smoker and alcohol use. Medications: Vancomycin, cefepime. See MAR for other medication. Allergies: CARBAMAZEPINE AND TORADOL. Review of Systems: A 10-point review was performed. Physical Examination: General: This is a 42-year-old female, sitting in bed, not in any acute cardiopulmonary distress. Extremities: Examination of right hand shows slightly purplish and then slight increased warmth in t he fifth digit, decreased mobility also noted. Laboratory Data: Shows WBC 9, hemoglobin 12.6, platelets 324. Chemistry shows BUN of 11, creatinine 0.7. Micro data; cultures are negative to date. Hand x-ray shows no signs of active infection. Assessment And Plan: Right fifth digit status post fracture, discomfort continued to be a problem. The patient also has skin color changes in that area. We will recommend to get an MRI, consider stop ping antibiotic if MRI is negative for osteomyelitis. Possible pain secondary to nerve damage. No signs of active infection on examination. We will follow the pat ient closely. NF/MODL Voice ID: [id number] Report ID: [id number]
[2023-03-17] MEDS ORDERED: DIPHENHYDRAMINE 50 MG/ML VIAL IV ONE (14:26)
[2023-03-17] MEDS: PARoxetine HCL 10 MG TAB PO SCH (20:22)
[2023-03-18] MEDS: CEFEPIME 2 GM in NA CHLORIDE 0.9% 100 ML IV SCH ×3 (01:15→17:36)
[2023-03-18] MEDS: HYDROMORPHONE HCL 0.5 MG/0.5 ML INJ IV PRN ×3 (02:26→20:38)
[2023-03-18] MEDS: CODEINE 30MG/APAP 300MG TAB PO PRN ×5 (03:43→22:21)
[2023-03-18 04:57] LABS: Absolute Lymphocytes (CBC) 3.8 K/uL (0.7-4.9); Hematocrit 34.5 % (36.0-45.0); Lymphocytes % 43.8 % (15.3-44.8); MCV 84.2 fL (80-100); MPV 7.5 fL (7.6-11.3); Platelets 280 thou/uL (152-406); RBC Red Blood Cell Count 4.09 M/uL (3.86-4.86)
[2023-03-18 05:04] LABS: Potassium 3.7 mEq/L (3.5-5.1)
[2023-03-18] MEDS: GABAPENTIN 100 MG CAP PO SCH ×2 (07:41→20:36)
[2023-03-18] MEDS: SILVER SULFADIAZINE 1% 50 GM TOP SCH ×2 (07:42→20:37)
[2023-03-18] MEDS ORDERED: POTASSIUM CL SA 10 MEQ TAB PO ONE (09:00)
[2023-03-18] MEDS ORDERED: HOME MED 1 EA UNK (Trazodone Hcl [Trazodone Hcl] 100 MG Tablet) PO PRN (10:10)
[2023-03-18] MEDS ORDERED: clonazePAM 1 MG TAB PO PRN (10:10)
--- NOTE | 2023-03-18 10:44 | PN ---
The patient's finger is markedly improved. The erythema is down. The swelling is down. There is still an area of discoloration volarly over the middle phalanx, but the incision seems to be closing. She is able to flex the finger We will probably keep her another day and check tomorrow. She may be discharged soon. WINSTON/PAULINO Voice ID: [id number] Report ID: [id number] DYAN
[2023-03-18] MEDS ORDERED: LORazepam 2 MG/ML VIAL IV ONE (11:00)
--- NOTE | 2023-03-18 12:43 | RAD REPORT ---
EXAM DESCRIPTION: MRI - Hand Right Wo Cont - 03/18/2023 12:19 pm CLINICAL HISTORY: Right hand pain and swelling COMPARISON: X-ray right hand March 15, 2023 TECHNIQUE: Axial, sagittal coronal magnetic resonance imaging right performed FINDINGS: Postsurgical changes fifth middle and distal phalanx Areas of abnormal signal involves po rtions of the fifth proximal, middle and distal phalanx. Edema within the adjacent subcutaneous tissu e. No fracture or dislocation IMPRESSION: Areas of abnormal signal involves portions of the fifth proximal, middle and distal phal anx. Although some of this may represent artifact it is probable that some of this is pathologic adams cating osteomyelitis No soft tissue abscess
[2023-03-18] MEDS: ONDANSETRON 4 MG/2 ML VIAL IV PRN ×2 (15:38→20:38)
--- NOTE | 2023-03-18 16:34 | P.PN ---
Subjective Date of Service: 03/18/23 Chief Complaint: Right fifth digit cellulitis Patient has no new complaint. She states that the pain in her finger is much better controlled with Tylenol 3. Physical Examination - Vital Signs Temperature: 97.2 F Blood Pressure: 139/79 Pulse: 70 Respirations: 16 Pulse Ox (%): 100 Assessment And Plan - Plan Physical Exam: GEN: Alert, oriented, NAD HEENT: Normal conjunctiva, sclera anicteric CV: Regular rate and rhythm, no edema Pulm: Nonlabored respirations on room air ABD: Soft, nontender, nondistended MSK: Right fifth digit with dressing in place. Neuro: No focal motor deficit vitals reviewed Problem List: Cellulitis right fifth digit, now s/p K-wire removal, suture removal, and I&D 03/16 Anxiety/depression Cellulitis right fifth digit, now s/p K-wire removal, suture removal, and I&D 03/16 Dr. Elder is following s/p K-wire removal, suture removal, and I&D of R 5th digit (03/16) Dr. Elder plan to monitor for 1 more day Monitor H&H. Transfuse if hgb < 7 Continue local wound care ID is following Blood cultures: NGTD Wound culuture: pending cont vanc/cefepime (03/15-) PRN pain medication Anxiety/depression Continue home medications PRN Klonopin Code: Full Dispo: Home
[2023-03-18] MEDS: PARoxetine HCL 10 MG TAB PO SCH (20:36)
[2023-03-18] MEDS: clonazePAM 1 MG TAB PO PRN (23:13)
[2023-03-19] MEDS: CEFEPIME 2 GM in NA CHLORIDE 0.9% 100 ML IV SCH ×2 (00:47→08:44)
[2023-03-19] MEDS: CODEINE 30MG/APAP 300MG TAB PO PRN ×6 (01:45→20:35)
[2023-03-19 06:34] LABS: Potassium 3.8 mEq/L (3.5-5.1)
[2023-03-19] MEDS: FLUTICASONE 50MCG NASAL SPRAY NAS SCH (08:44)
[2023-03-19] MEDS: GABAPENTIN 100 MG CAP PO SCH ×3 (08:44→23:49)
[2023-03-19] MEDS: SILVER SULFADIAZINE 1% 50 GM TOP SCH ×2 (08:44→21:04)
[2023-03-19] MEDS ORDERED: POTASSIUM CL SA 10 MEQ TAB PO ONE (09:00)
[2023-03-19] MEDS: HYDROMORPHONE HCL 0.5 MG/0.5 ML INJ IV PRN ×3 (10:23→23:44)
--- NOTE | 2023-03-19 13:45 | PN ---
Subjective: The patient is sitting in bed, not in any acute distress. Continued to have pain in her right fifth digit. No signs of active infection. At outside, the patient is getting local treatmen t with Silvadene. No red streaks. No swelling noted except in the fifth digit area. Physical Examination: Vital Signs: Temperature 98, pulse 69 to 70, respirations 14, blood pressure 138/87. Extremities: Examination of right hand shows other than the fifth digit, no extension of swelling or redness. Imaging: MRI report is saying patient has area of abnormal signal involving portion of the stress pr oximal, middle and distal phalanx and may represent artifact is probable that some of this is patholo gical indicating osteo. No soft tissue abscess is noted. Assessment And Plan: Status post fracture of fifth digit. Cultures are negative. We will stop anti biotics today and monitor the patient for signs of infection. Continue local wound care. Continue S ilvadene or Betadine to the wound site and cover with gauze or finger protector. We will discontinue ID service as the patient is off antibiotic. Continue to monitor for any signs of infection, fevers , swelling, and redness going above the finger level. We will follow the patient as needed. NF/MODL Voice ID: [id number] Report ID: [id number]
--- NOTE | 2023-03-19 14:59 | P.PN ---
Subjective Date of Service: 03/19/23 Chief Complaint: Right fifth digit cellulitis Patient is complaining of intermittent pain in the affected finger. Physical Examination - Vital Signs Temperature: 98.7 F Blood Pressure: 138/87 Pulse: 69 Respirations: 16 Pulse Ox (%): 99 Assessment And Plan - Plan Physical Exam: GEN: Alert, oriented, NAD HEENT: Normal conjunctiva, sclera anicteric CV: Regular rate and rhythm, no edema Pulm: Nonlabored respirations on room air ABD: Soft, nontender, nondistended MSK: Right fifth digit with dressing in place. Neuro: No focal motor deficit vitals reviewed Problem List: Cellulitis right fifth digit, now s/p K-wire removal, suture removal, and I&D 03/16 Anxiety/depression Cellulitis right fifth digit, now s/p K-wire removal, suture removal, and I&D 03/16 Dr. Elder is following s/p K-wire removal, suture removal, and I&D of R 5th digit (03/16) Dr. Elder plan to monitor for 1 more day Monitor H&H. Transfuse if hgb < 7 Continue local wound care MRI of the hand-nonspecific for osteomyelitis. Deep tissue wound culture-no growth acute osteomyelitis highly unlikely. ID is following Blood cultures: NGTD Wound culuture: No growth. Off antibiotics per ID. PRN pain medication Anxiety/depression Continue home medications PRN Klonopin Code: Full Dispo: Home
[2023-03-19] MEDS: ONDANSETRON 4 MG/2 ML VIAL IV PRN ×2 (17:18→23:44)
[2023-03-19] MEDS: clonazePAM 1 MG TAB PO PRN (20:34)
[2023-03-19] MEDS: PARoxetine HCL 10 MG TAB PO SCH (20:35)
[2023-03-20] MEDS: CODEINE 30MG/APAP 300MG TAB PO PRN ×5 (02:34→19:43)
[2023-03-20] MEDS: HYDROMORPHONE HCL 0.5 MG/0.5 ML INJ IV PRN ×4 (04:41→22:07)
[2023-03-20 07:07] LABS: Potassium 3.9 mEq/L (3.5-5.1)
[2023-03-20] MEDS: FLUTICASONE 50MCG NASAL SPRAY NAS SCH (09:00)
[2023-03-20] MEDS: SILVER SULFADIAZINE 1% 50 GM TOP SCH ×2 (09:00→21:00)
[2023-03-20] MEDS: GABAPENTIN 100 MG CAP PO SCH ×2 (09:31→20:31)
[2023-03-20] MEDS: ONDANSETRON 4 MG/2 ML VIAL IV PRN (11:20)
--- NOTE | 2023-03-20 12:27 | PN ---
The patient's MRI was reviewed. The findings were consistent with osteomyelitis of the distal proxim al phalanx of the little finger. The infectious disease doctor recommended stopping her IV antibioti cs . Most likely, she has chronic osteo with the IV antibiotics for 6 weeks and alternativ e will be amputation of finger. She is going to consider that . WINSTON/PAULINO Voice ID: [id number] Report ID: [id number]
--- NOTE | 2023-03-20 15:56 | P.PN ---
Subjective Date of Service: 03/20/23 Chief Complaint: Right fifth digit cellulitis Patient has no new complaint. He has been afebrile. He has been experiencing intermittent pain in the left fifth finger. Physical Examination - Vital Signs Temperature: 97.3 F Blood Pressure: 123/77 Pulse: 85 Respirations: 16 Pulse Ox (%): 97 Assessment And Plan - Plan Physical Exam: GEN: Alert, oriented, NAD HEENT: Normal conjunctiva, sclera anicteric CV: Regular rate and rhythm, no edema Pulm: Nonlabored respirations on room air ABD: Soft, nontender, nondistended MSK: Right fifth digit with dressing in place. Neuro: No focal motor deficit vitals reviewed Problem List: Cellulitis right fifth digit, now s/p K-wire removal, suture removal, and I&D 03/16 Anxiety/depression Cellulitis right fifth digit, now s/p K-wire removal, suture removal, and I&D 03/16 Dr. Elder is following s/p K-wire removal, suture removal, and I&D of R 5th digit (03/16) Dr. Elder plan to monitor for 1 more day Monitor H&H. Transfuse if hgb < 7 Continue local wound care MRI of the hand-nonspecific for osteomyelitis. Deep tissue wound culture-no growth acute osteomyelitis highly unlikely. ID is following Blood cultures: NGTD Wound culuture: No growth. Off antibiotics per ID. Case discussed with infectious disease Dr. Wade who considers acute infection unlikely. Monitor for fever or leukocytosis off antibiotics. Dr. Elder is considering amputation versus 6 weeks of IV antibiotics. Outpatient IV antibiotics may pose a challenge since patient is uninsured and may not be able to afford it. PRN pain medication Anxiety/depression Continue home medications PRN Klonopin Code: Full Dispo: Home
[2023-03-20] MEDS ORDERED: POTASSIUM 25 MEQ EFFERV TAB PO ONE (17:00)
[2023-03-20] MEDS: clonazePAM 1 MG TAB PO PRN (20:31)
[2023-03-20] MEDS: PARoxetine HCL 10 MG TAB PO SCH (20:31)
[2023-03-21] MEDS: CODEINE 30MG/APAP 300MG TAB PO PRN ×5 (01:36→21:20)
[2023-03-21] MEDS: HYDROMORPHONE HCL 0.5 MG/0.5 ML INJ IV PRN ×4 (02:57→23:26)
[2023-03-21] MEDS ORDERED: HYDROMORPHONE HCL 0.5 MG/0.5 ML INJ IV ONE (05:54)
[2023-03-21] MEDS: GABAPENTIN 100 MG CAP PO SCH ×2 (08:07→21:00)
[2023-03-21] MEDS: SILVER SULFADIAZINE 1% 50 GM TOP SCH ×2 (08:09→21:00)
[2023-03-21] MEDS: FLUTICASONE 50MCG NASAL SPRAY NAS SCH (09:00)
[2023-03-21] MEDS: clonazePAM 1 MG TAB PO PRN (14:42)
[2023-03-21 16:01] LABS: Absolute Lymphocytes (CBC) 3.7 K/uL (0.7-4.9); Hematocrit 41.3 % (36.0-45.0); Lymphocytes % 29.1 % (15.3-44.8); MCV 85.2 fL (80-100); MPV 7.8 fL (7.6-11.3); Platelets 351 thou/uL (152-406); RBC Red Blood Cell Count 4.85 M/uL (3.86-4.86)
--- NOTE | 2023-03-21 16:41 | P.PN ---
Subjective Date of Service: 03/21/23 Chief Complaint: Right fifth digit cellulitis Patient reports worsening pain in the left fifth finger. She has been afebrile. Physical Examination - Vital Signs Temperature: 97.1 F Blood Pressure: 140/93 Pulse: 94 Respirations: 18 Pulse Ox (%): 98 - Studies Laboratory Data (last 24 hrs) WBC 7.30 thou/uL (4.3-10.9) 03/15/23 19:45 Hgb 12.6 g/dL (12.0-15.0) 03/15/23 19:45 Hct 39.2 % (36.0-45.0) 03/15/23 19:45 Plt Count 280 thou/uL (152-406) 03/15/23 19:45 Sodium 136 mEq/L (136-145) 03/15/23 19:45 Potassium 4.1 mEq/L (3.5-5.1) 03/15/23 19:45 BUN 13 mg/dL (7-18) 03/15/23 19:45 Creatinine 0.79 mg/dL (0.55-1.02) 03/15/23 19:45 Glucose 104 mg/dL (74-106) 03/15/23 19:45 Microbiology Data (last 24 hrs): 03/15/23 20:00 Blood - Blood Aerobic Blood Culture - Final No growth in 5 days. 03/15/23 20:00 Blood - Blood Anaerobic Blood Culture - Final No growth in 5 days. 03/15/23 19:45 Blood - Blood Aerobic Blood Culture - Final No growth in 5 days. 03/15/23 19:45 Blood - Blood Anaerobic Blood Culture - Final No growth in 5 days. Assessment And Plan - Plan Physical Exam: GEN: Alert, oriented, NAD HEENT: Normal conjunctiva, sclera anicteric CV: Regular rate and rhythm, no edema Pulm: Nonlabored respirations on room air ABD: Soft, nontender, nondistended MSK: Right fifth digit with dressing in place. Neuro: No focal motor deficit vitals reviewed Problem List: Cellulitis right fifth digit, now s/p K-wire removal, suture removal, and I&D 03/16 Anxiety/depression Cellulitis right fifth digit, now s/p K-wire removal, suture removal, and I&D 03/16 Dr. Elder is following s/p K-wire removal, suture removal, and I&D of R 5th digit (03/16) Dr. Elder plan to monitor for 1 more day Monitor H&H. Transfuse if hgb < 7 Continue local wound care MRI of the hand-nonspecific for osteomyelitis. Deep tissue wound culture-no growth. acute osteomyelitis highly unlikely. ID is following Blood cultures: NGTD Wound culuture: No growth. Off antibiotics per ID. Case discussed with infectious disease Dr. Wade who considers acute infection unlikely. Monitor for fever or leukocytosis off antibiotics. Dr. Elder is considering amputation versus 6 weeks of IV antibiotics for possible chronic osteomyelitis. Outpatient IV antibiotics may pose a challenge since patient is uninsured and may not be able to afford it. We will check CRP and monitor over the next couple of days. Patient is requesting antibiotics to be restarted. We will resume IV antibiotics as we monitor CRP Infectious disease to follow. PRN pain medication Anxiety/depression Continue home medications PRN Klonopin Code: Full Dispo: Home
[2023-03-21] MEDS: CEFEPIME 2 GM in NA CHLORIDE 0.9% 100 ML IV SCH (17:00)
[2023-03-21] MEDS: VANCOMYCIN 1.75 GM in NA CHLORIDE 0.9% 500 ML IVPB SCH (17:36)
[2023-03-21] MEDS: PARoxetine HCL 10 MG TAB PO SCH (21:21)
[2023-03-21] MEDS ORDERED: KETOROLAC 30 MG/ML INJ IV ONE (22:22)
[2023-03-22] MEDS: CEFEPIME 2 GM in NA CHLORIDE 0.9% 100 ML IV SCH ×3 (01:33→16:22)
[2023-03-22] MEDS: CODEINE 30MG/APAP 300MG TAB PO PRN ×5 (01:33→21:57)
[2023-03-22] MEDS: ONDANSETRON 4 MG/2 ML VIAL IV PRN ×2 (03:18→21:54)
[2023-03-22] MEDS: clonazePAM 1 MG TAB PO PRN ×2 (04:30→21:57)
[2023-03-22] MEDS: HYDROMORPHONE HCL 0.5 MG/0.5 ML INJ IV PRN ×4 (04:31→20:17)
[2023-03-22] MEDS: VANCOMYCIN 1.75 GM in NA CHLORIDE 0.9% 500 ML IVPB SCH ×2 (04:35→16:49)
[2023-03-22] MEDS: GABAPENTIN 100 MG CAP PO SCH ×2 (08:05→20:20)
[2023-03-22] MEDS: FLUTICASONE 50MCG NASAL SPRAY NAS SCH (08:14)
[2023-03-22] MEDS: SILVER SULFADIAZINE 1% 50 GM TOP SCH ×2 (08:25→20:21)
[2023-03-22 09:37] LABS: C-Reactive Protein 4.27 mg/L (<3.00); Potassium 4.1 mEq/L (3.5-5.1)
[2023-03-22] MEDS: CALCIUM CARBONATE CHEW 500MG TAB PO PRN (11:48)
--- NOTE | 2023-03-22 12:48 | P.PN ---
Subjective Date of Service: 03/22/23 Chief Complaint: Right fifth digit cellulitis Patient reports intermittent swelling and pain of the right fifth finger. Patient states the swelling comes and coloration comes and goes multiple times during the day. She has been afebrile. Physical Examination - Vital Signs Temperature: 97.0 F Blood Pressure: 107/61 Pulse: 90 Respirations: 18 Pulse Ox (%): 98 Assessment And Plan - Plan Physical Exam: GEN: Alert, oriented, NAD HEENT: Normal conjunctiva, sclera anicteric CV: Regular rate and rhythm, no edema Pulm: Nonlabored respirations on room air ABD: Soft, nontender, nondistended MSK: Right fifth digit with dressing in place. Neuro: No focal motor deficit vitals reviewed Problem List: Cellulitis right fifth digit, now s/p K-wire removal, suture removal, and I&D 03/16 Anxiety/depression Cellulitis right fifth digit, now s/p K-wire removal, suture removal, and I&D 03/16 Dr. Elder is following s/p K-wire removal, suture removal, and I&D of R 5th digit (03/16) Dr. Elder plan to monitor for 1 more day Monitor H&H. Transfuse if hgb < 7 Continue local wound care MRI of the hand-nonspecific for osteomyelitis. Deep tissue wound culture-no growth. acute osteomyelitis highly unlikely. ID is following Blood cultures: NGTD Wound culuture: No growth. Off antibiotics per ID. Case discussed with infectious disease Dr. Wade who considers acute infection unlikely. Monitor for fever or leukocytosis off antibiotics. Dr. Elder is considering amputation versus 6 weeks of IV antibiotics for possible chronic osteomyelitis. CRP is highly normal, less than 2.9 and does not suggest infection. Patient's description of intermittent redness and swelling and pain radiation along the medial aspect of the upper extremity suggest reflex dystrophy syndrome. Patient has had several rounds of antibiotics without significant improvement. Continue antibiotics given recent foreign body removal. Infectious disease is following. PRN pain medication Anxiety/depression Continue home medications PRN Klonopin Code: Full Dispo: Home
[2023-03-22] MEDS: PARoxetine HCL 10 MG TAB PO SCH (20:20)
[2023-03-23] MEDS: HYDROMORPHONE HCL 0.5 MG/0.5 ML INJ IV PRN ×6 (00:06→22:31)
[2023-03-23] MEDS: CEFEPIME 2 GM in NA CHLORIDE 0.9% 100 ML IV SCH ×3 (00:10→16:36)
[2023-03-23] MEDS: CODEINE 30MG/APAP 300MG TAB PO PRN ×6 (02:22→23:47)
[2023-03-23] MEDS: VANCOMYCIN 1.75 GM in NA CHLORIDE 0.9% 500 ML IVPB SCH (04:44)
[2023-03-23] MEDS: GABAPENTIN 100 MG CAP PO SCH ×2 (08:25→20:15)
[2023-03-23] MEDS: SILVER SULFADIAZINE 1% 50 GM TOP SCH ×2 (08:26→20:16)
[2023-03-23] MEDS: FLUTICASONE 50MCG NASAL SPRAY NAS SCH (08:29)
[2023-03-23 10:05] VITALS: O2SAT 99
[2023-03-23] MEDS: clonazePAM 1 MG TAB PO PRN ×2 (11:27→22:36)
--- NOTE | 2023-03-23 12:24 | P.PN ---
Subjective Date of Service: 03/23/23 Chief Complaint: Right fifth digit cellulitis Patient fifth finger is not swollen today. She has been afebrile. Physical Examination - Vital Signs Temperature: 97.2 F Blood Pressure: 116/68 Pulse: 72 Respirations: 18 Pulse Ox (%): 99 Assessment And Plan - Plan Physical Exam: GEN: Alert, oriented, NAD HEENT: Normal conjunctiva, sclera anicteric CV: Regular rate and rhythm, no edema Pulm: Nonlabored respirations on room air ABD: Soft, nontender, nondistended MSK: Right fifth digit with dressing in place. Neuro: No focal motor deficit vitals reviewed Problem List: Cellulitis right fifth digit, now s/p K-wire removal, suture removal, and I&D 03/16 Anxiety/depression Cellulitis right fifth digit, now s/p K-wire removal, suture removal, and I&D 03/16 Dr. Eldre is following s/p K-wire removal, suture removal, and I&D of R 5th digit (03/16) Dr. Elder plan to monitor for 1 more day Monitor H&H. Transfuse if hgb < 7 Continue local wound care MRI of the hand-nonspecific for osteomyelitis. Deep tissue wound culture-no growth. acute osteomyelitis highly unlikely. ID is following Blood cultures: NGTD Wound culuture: No growth. Off antibiotics per ID. Case discussed with infectious disease Dr. Wade who considers acute infection unlikely. Monitor for fever or leukocytosis off antibiotics. Dr. Elder is considering amputation versus 6 weeks of IV antibiotics for possible chronic osteomyelitis. CRP is normal and does not suggest infection. Patient's description of intermittent redness and swelling and pain radiation along the medial aspect of the upper extremity suggest reflex dystrophy syndrome. Patient has had several rounds of antibiotics without significant improvement in her pain. Continue antibiotics given recent foreign body removal. Infectious disease to follow. PRN pain medication Anxiety/depression Continue home medications PRN Klonopin Code: Full Dispo: Home
[2023-03-23] MEDS: PARoxetine HCL 10 MG TAB PO SCH (20:14)
[2023-03-23] MEDS: VANCOMYCIN 1.5 GM in NA CHLORIDE 0.9% 500 ML IVPB SCH (20:15)
[2023-03-23] MEDS: ONDANSETRON 4 MG/2 ML VIAL IV PRN (22:36)
[2023-03-24] MEDS: CEFEPIME 2 GM in NA CHLORIDE 0.9% 100 ML IV SCH ×3 (01:33→16:56)
[2023-03-24] MEDS: CODEINE 30MG/APAP 300MG TAB PO PRN ×6 (02:15→22:52)
[2023-03-24] MEDS: HYDROMORPHONE HCL 0.5 MG/0.5 ML INJ IV PRN ×5 (04:00→21:12)
[2023-03-24] MEDS: ONDANSETRON 4 MG/2 ML VIAL IV PRN ×3 (08:16→22:56)
[2023-03-24] MEDS: FLUTICASONE 50MCG NASAL SPRAY NAS SCH (08:29)
[2023-03-24] MEDS: GABAPENTIN 100 MG CAP PO SCH ×2 (08:29→21:11)
[2023-03-24] MEDS: clonazePAM 1 MG TAB PO PRN ×2 (08:30→21:12)
[2023-03-24] MEDS: SILVER SULFADIAZINE 1% 50 GM TOP SCH ×2 (08:32→21:00)
[2023-03-24] MEDS: VANCOMYCIN 1.5 GM in NA CHLORIDE 0.9% 500 ML IVPB SCH ×2 (09:30→21:11)
--- NOTE | 2023-03-24 11:04 | P.PN ---
Subjective Date of Service: 03/24/23 Chief Complaint: Right fifth digit cellulitis No new changes from yesterday. She has been afebrile. Patient is requesting for change in primary attending. Physical Examination - Vital Signs Temperature: 95.4 F Blood Pressure: 133/85 Pulse: 74 Respirations: 19 Pulse Ox (%): 98 Assessment And Plan - Plan Physical Exam: GEN: Alert, oriented, NAD Pulm: Nonlabored respirations on room air ABD: Soft, nontender, nondistended MSK: Right fifth digit with dressing in place. Neuro: No focal motor deficit vitals reviewed Problem List: Cellulitis right fifth digit, now s/p K-wire removal, suture removal, and I&D 03/16 Anxiety/depression Cellulitis right fifth digit, now s/p K-wire removal, suture removal, and I&D 03/16 Dr. Elder is following s/p K-wire removal, suture removal, and I&D of R 5th digit (03/16) Continue local wound care MRI of the hand-report is nonspecific for osteomyelitis. Deep tissue wound culture-no growth. acute osteomyelitis highly unlikely. ID is following Blood cultures: NGTD Wound culuture: No growth. Off antibiotics per ID. Case discussed with infectious disease Dr. Wade who considers acute infection unlikely. No leukocytosis, patient has been afebrile. CRP is not elevated to suggest ongoing infection. Dr. Elder informed of ID recommendation. Dr. Elder stated he will follow up as outpatient. Patient's description of intermittent redness and swelling and pain radiation along the medial aspect of the upper extremity suggest reflex dystrophy syndrome. Antibiotic management per ID. Patient requested for change in primary attending. She is informed Dr. Maria we will take over from tomorrow and she agrees. PRN pain medication Anxiety/depression Continue home medications PRN Klonopin Code: Full Dispo: Home
[2023-03-24] MEDS: PARoxetine HCL 10 MG TAB PO SCH (21:12)
[2023-03-25] MEDS: CEFEPIME 2 GM in NA CHLORIDE 0.9% 100 ML IV SCH ×2 (01:06→08:55)
[2023-03-25] MEDS: HYDROMORPHONE HCL 0.5 MG/0.5 ML INJ IV PRN ×3 (01:06→08:57)
[2023-03-25] MEDS: CODEINE 30MG/APAP 300MG TAB PO PRN ×4 (02:10→14:44)
[2023-03-25 04:03] LABS: Potassium 4.2 mEq/L (3.5-5.1)
[2023-03-25 04:05] LABS: Absolute Lymphocytes (CBC) 2.8 K/uL (0.7-4.9); Hematocrit 35.2 % (36.0-45.0); Lymphocytes % 35.9 % (15.3-44.8); MCV 84.1 fL (80-100); MPV 8.2 fL (7.6-11.3); Platelets 295 thou/uL (152-406); RBC Red Blood Cell Count 4.18 M/uL (3.86-4.86)
[2023-03-25] MEDS: ONDANSETRON 4 MG/2 ML VIAL IV PRN ×3 (05:24→17:30)
--- NOTE | 2023-03-25 06:52 | P.PN ---
Date of Service: 03/25/23 Subjective: doing okay today, +anxious requiring frequent pain medication no new / worsening problems afebrile reports intermittent pain of 5th digit, radiates up arm ROS: 10 point ROS as noted above, otherwise negative Physical Exam: GEN: Alert, oriented, NAD HEENT: Normal conjunctiva, sclera anicteric CV: Regular rate and rhythm, no edema Pulm: Nonlabored respirations on room air ABD: Soft, nontender, nondistended MSK: Right fifth digit with mild erythema and swelling Neuro: Normal speech, normal affect vitals reviewed Problem List: Cellulitis right fifth digit, now s/p K-wire removal, suture removal, and I&D 03/16 Anxiety/depression Cellulitis right fifth digit, now s/p K-wire removal, suture removal, and I&D 03/[address] Elder is following s/p K-wire removal, suture removal, and I&D of R 5th digit (03/16) Continue local wound care MRI hand (03/18): nonspecific for osteomyelitis vs artifact. Dr. Elder recommends covering for possible osteomyelitis wound culture without growth. acute osteomyelitis highly unlikely. Blood cultures: no growth ID is following Case discussed with Dr. Wade who considers acute infection unlikely. Cefepime and Vancomycin (03/21-) transition to oral doxycycline 03/25- discussed with ID will treat for total 6 weeks Afebrile throughout hospitalization, +no leukocytosis CRP improved possibility of reflex dystrophy syndrome PRN pain medication dc dilaudid, adjust pain medications via oral route Gabapentin increased 03/25 Anxiety/depression Continue home medications PRN Klonopin Code: Full Dispo: Home ~1-2 days
[2023-03-25] MEDS ORDERED: CEFEPIME 2 GM VIAL ONE (08:53)
[2023-03-25] MEDS: GABAPENTIN 300 MG CAP PO SCH ×3 (09:00→20:25)
[2023-03-25] MEDS: FLUTICASONE 50MCG NASAL SPRAY NAS SCH (09:04)
[2023-03-25] MEDS: GABAPENTIN 100 MG CAP PO SCH (09:06)
[2023-03-25] MEDS ORDERED: NA CHLORIDE 0.9% 100 ML ONE (09:19)
[2023-03-25] MEDS: VANCOMYCIN 1.5 GM in NA CHLORIDE 0.9% 500 ML IVPB SCH (09:45)
[2023-03-25] MEDS: SILVER SULFADIAZINE 1% 50 GM TOP SCH ×2 (09:47→20:26)
[2023-03-25] MEDS: clonazePAM 1 MG TAB PO PRN ×2 (11:22→20:26)
[2023-03-25] MEDS: CALCIUM CARBONATE CHEW 500MG TAB PO PRN (11:23)
[2023-03-25] MEDS: HYDROCODONE/APAP 5/325 MG TAB PO PRN ×2 (17:28→22:35)
[2023-03-25] MEDS: PARoxetine HCL 10 MG TAB PO SCH (20:25)
[2023-03-25] MEDS: DOXYCYCLINE 100 MG CAP PO SCH (20:25)
[2023-03-25] MEDS: NYSTATIN PWDR 100000 UNIT/GM TOP SCH (20:26)
[2023-03-26] MEDS ORDERED: HYDROCODONE/APAP 5/325 MG TAB PO ONE (00:04)
[2023-03-26] MEDS: ONDANSETRON 4 MG/2 ML VIAL IV PRN ×3 (00:20→21:09)
[2023-03-26] MEDS: CALCIUM CARBONATE CHEW 500MG TAB PO PRN (01:56)
[2023-03-26] MEDS ORDERED: FAMOTIDINE 20 MG TAB PO ONE (03:23)
[2023-03-26] MEDS: HYDROCODONE/APAP 5/325 MG TAB PO PRN (04:08)
[2023-03-26] MEDS: GABAPENTIN 300 MG CAP PO SCH ×3 (08:17→21:01)
[2023-03-26] MEDS: FLUTICASONE 50MCG NASAL SPRAY NAS SCH (08:17)
[2023-03-26] MEDS: DOXYCYCLINE 100 MG CAP PO SCH ×2 (08:17→21:02)
[2023-03-26] MEDS: clonazePAM 1 MG TAB PO PRN ×2 (08:17→21:02)
[2023-03-26] MEDS: SILVER SULFADIAZINE 1% 50 GM TOP SCH ×2 (08:18→21:00)
[2023-03-26] MEDS: NYSTATIN PWDR 100000 UNIT/GM TOP SCH ×2 (08:18→21:00)
[2023-03-26] MEDS: HYDROCODONE/APAP 7.5/325 MG TAB PO PRN ×3 (10:09→22:43)
--- NOTE | 2023-03-26 11:26 | P.PN ---
Date of Service: 03/26/23 Subjective: anxious/stressed about situation, tearful at times; +difficulty sleeping intermittent pain ~unchanged Feels current pain medication is not enough - but also states pain medication never really helped the pain, but helped make her sleepy no acute events overnight, +afebrile contemplating amputation ROS: 10 point ROS as noted above, otherwise negative Physical Exam: GEN: Alert, oriented, anxious / tearful HEENT: Normal conjunctiva, sclera anicteric CV: Regular rate and rhythm, no edema Pulm: Nonlabored respirations on room air ABD: Soft, nontender, nondistended MSK: Right fifth digit with mild erythema and swelling at distal tip, tender. no rash/skin changes of rest of arm Neuro: Normal speech, +anxious vitals reviewed Problem List: Cellulitis right fifth digit, now s/p K-wire removal, suture removal, and I&D 03/16 Concern for osteomyelitis Anxiety/depression Cellulitis right fifth digit, now s/p K-wire removal, suture removal, and I&D 03/[address] Elder is following s/p K-wire removal, suture removal, and I&D of R 5th digit (03/16) Continue local wound care MRI hand (03/18): nonspecific for osteomyelitis vs artifact. Dr. Elder recommends covering for presumed osteomyelitis wound culture without growth. acute osteomyelitis highly unlikely when discussing with ID Blood cultures: no growth ID is following Case discussed with Dr. Wade who considers acute infection unlikely. Given Cefepime and Vancomycin (03/21-03/25) given risk vs benefit, and Dr. Elder's recommendation, ID recommends PO doxycycline to complete 6 weeks Afebrile throughout hospitalization, +no leukocytosis CRP improved possibility of reflex dystrophy syndrome norco, gabapentin, and topical lidocaine for pain patient states considering amputation if no improvement, mainly due to severity of pain - on 03/26 PRN pain medication dc dilaudid, [place] increased Gabapentin increased 03/25 topical lidocaine added 03/27 Anxiety/depression Continue home medications PRN Klonopin Code: Full Dispo: Home ~1 day
--- NOTE | 2023-03-26 14:42 | PN ---
Patient is lying in bed, continues to have problem with pain in her hand. Denies any fever. Continu ed to have problem with nausea and vomiting. Currently, on doxycycline, will continue a total of 6 w eeks. Patient is also contemplating of possible amputation because of pain severity to the fifth dig it on right hand. We will follow the patient as needed. SOPHIA/PAULINO Voice ID: [id number] Report ID: [id number]
--- NOTE | 2023-03-26 14:57 | HP ---
Date of Admission: 03/15/2023 History Of Present Illness: The patient's finger swells, up and down, still painful, held in flexion . She has areas of erythema that have getting larger. Case was reviewed, the MRI scan with the radi ologist. He believes she has osteomyelitis of the fingers involving all 3 portions of the distal, mi ddle, and proximal phalanx. Assessment: Osteomyelitis. Plan: Antibiotics. If antibiotics fail, consider or possible amputation of the finger. WINSTON/PAULINO Voice ID: [id number]
[2023-03-26] MEDS: LIDOCAINE JELLY 2%- 5 ML TUBE TOP PRN ×2 (16:09→22:43)
[2023-03-26] MEDS: PARoxetine HCL 10 MG TAB PO SCH (21:02)
[2023-03-27] MEDS ORDERED: ACETAMIN/CAFFEINE/BUTALB TAB PO ONE (00:30)
[2023-03-27] MEDS ORDERED: DIPHENHYDRAMINE 50 MG/ML VIAL IV ONE (00:44)
[2023-03-27] MEDS ORDERED: KETOROLAC 30 MG/ML INJ IV ONE (00:44)
[2023-03-27] MEDS: HYDROCODONE/APAP 7.5/325 MG TAB PO PRN ×2 (04:21→10:24)
[2023-03-27] MEDS: LIDOCAINE JELLY 2%- 5 ML TUBE TOP PRN ×2 (04:22→10:25)
[2023-03-27] MEDS: ONDANSETRON 4 MG/2 ML VIAL IV PRN (05:22)
--- NOTE | 2023-03-27 08:41 | P.DS ---
Admission Date: 03/15/23 Discharge Date: 03/27/23 Disposition: ROUTINE DISCHARGE Discharge Condition: GOOD Reason for Admission: Right fifth digit cellulitis Consultations: Hand surgeon - Dr. Elder Infectious Disease - Dr. Wade Brief History of Present Illness: 42 yo F, anxiety/depression, fibromyalgia, history of substance abuse, temporal arteritis Patient presents to the emergency department with chief complaint of right fifth digit swelling, pain. Had fracture to the right fifth digit approximately 1 month ago, she was hospitalized for cellulitis on 02/27/2023 and subsequent discharge on 03/06/2023. She noticed the past couple days she is having increased swelling, drainage from her wound. She was evaluated in the ER, ED staff discussed with patient's surgeon who saw the wound and recommended she be admitted for surgical incision and drainage. Her labs are unremarkable, she is given IV antibiotics in ED, n.p.o. after midnight. Hospital Course: Problem List: Cellulitis right fifth digit, now s/p K-wire removal, suture removal, and I&D 03/16 Concern for osteomyelitis Anxiety/depression Patient presented with worsening right fifth digit swelling, pain. Patient recently had a fracture to the right fifth digit, was hospitalized for cellulitis on 02/27/23 and discharged on 03/06/23. Dr. Elder was consulted and performed K-wire removal, suture removal, and I&D of the right fifth digit. MRI of the hand post surgery reported nonspecific osteomyelitis vs artifacts. Case was discussed with Dr. Elder who recommended covering for possible osteomyelitis. Infectious disease was consulted. Patient was treated with IV cefepime and vancomycin. Blood and wound culture were without growth on discharge. Patient is to finish a total of 6 week course of antibiotics - continue on oral doxycycline on discharge. She remained afebrile throughout hospitalization and leukocytosis resolved. Finger swelling/pain/redness waxed/waned throughout hospitalization. Patient scheduled to follow up with Dr. Elder as outpatient this coming Friday for further medical vs. surgical management Given patient description of intermittent redness/swelling and pain radiation along the medial aspect of the upper extremities, it is possible her symptoms suggest reflex dystrophy syndrome if there is no improvement in her symptoms. New prescriptions: Doxycycline for 5 more weeks [place] 7.5mg PRN Gabapentin refilled home meds Klonopin zofran continue lidocaine topical to finger as needed. avoid placing on any wound/skin breakdown/tear conntinue Nystatin powder to skin rash Follow up: PCP 3-[address] Elder as previously planned (Friday) Physical Exam: GEN: Alert, oriented, NAD HEENT: Normal conjunctiva, sclera anicteric CV: Regular rate and rhythm, no edema Pulm: Nonlabored respirations on room air ABD: Soft, nontender, nondistended MSK: Right fifth digit with mild erythema and swelling at distal tip, tender. no rash/skin changes of rest of arm Neuro: Normal speech Vital Signs/Physical Exam: Temp Pulse Resp BP Pulse Ox 97.9 F 80 14 132/87 96 03/27/23 04:00 03/27/23 04:00 03/27/23 04:21 03/27/23 04:00 03/27/23 04:21 Laboratory Data at Discharge: WBC 7.70 thou/uL (4.3-10.9) 03/25/23 02:30 Hgb 11.8 g/dL (12.0-15.0) L 03/25/23 02:30 Hct 35.2 % (36.0-45.0) L 03/25/23 02:30 Plt Count 295 thou/uL (152-406) 03/25/23 02:30 Sodium 136 mEq/L (136-145) 03/25/23 02:30 Potassium 4.2 mEq/L (3.5-5.1) 03/25/23 02:30 BUN 16 mg/dL (7-18) 03/25/23 02:30 Creatinine 0.76 mg/dL (0.55-1.02) 03/25/23 02:30 Glucose 118 mg/dL (74-106) H 03/25/23 02:30 Home Medications: Paroxetine HCl [Paxil] 40 mg PO DAILY 01/22/21 Dextroamphetamine/Amphetamine [Adderall 15 mg Tablet] 15 mg PO BID PRN 03/16/23 Fluticasone [Flonase 50MCG Nasal [place]*] 2 sprays NS DAILY 03/16/23 Trazodone HCl 100 mg PO BEDTIME PRN 03/16/23 Doxycycline Hyclate [Vibramycin] 100 mg PO BID 35 Days #70 cap 03/27/23 Gabapentin 300 mg PO TID 30 Days #90 cap 03/27/23 Hydrocodone 7.5/APAP 325 [[place] 7.5/325 mg*] 1 tab PO Q8H PRN 7 Days #20 tab 03/27/23 Ondansetron [Ondansetron Odt] 4 mg PO Q4H PRN #30 tab 03/27/23 clonazePAM [Klonopin*] 1 tab PO DAILY PRN 30 Days #30 tab 03/27/23 New Medications: Gabapentin 300 mg PO TID 30 Days #90 cap clonazePAM [Klonopin*] 1 tab PO DAILY PRN 30 Days #30 tab PRN Reason: Anxiety Hydrocodone 7.5/APAP 325 [[place] 7.5/325 mg*] 1 tab PO Q8H PRN 7 Days #20 tab PRN Reason: Pain Scale 5-7 (Moderate) Ondansetron [Ondansetron Odt] 4 mg PO Q4H PRN #30 tab PRN Reason: Nausea / Vomiting Doxycycline Hyclate [Vibramycin] 100 mg PO BID 35 Days #70 cap Physician Discharge Instructions: Patient presented with worsening right fifth digit swelling, pain. Patient recently had a fracture to the right fifth digit, was hospitalized for cellulitis on 02/27/23 and discharged on 03/06/23. Dr. Elder was consulted and performed K-wire removal, suture removal, and I&D of the right fifth digit. MRI of the hand post surgery reported nonspecific osteomyelitis vs artifacts. Case was discussed with Dr. Elder who recommended covering for possible osteomyelitis. Infectious disease was consulted. Patient was treated with IV cefepime and vancomycin. Blood and wound culture were without growth on discharg e. Patient is to finish a total of 6 week course of antibiotics - continue on oral doxycycline on discharge. She remained afebrile throughout hospitalization and leukocytosis resolved. Finger swelling/pain/redness waxed/waned throughout hospitalization. Patient scheduled to follow up with Dr. Elder as outpatient this coming Friday for further medical vs. surgical management Given patient description of intermittent redness/swelling and pain radiation along the medial aspect of the upper extremities, it is possible her symptoms suggest reflex dystrophy syndrome if there is no improvement in her symptoms. New prescriptions: Doxycycline for 5 more weeks [place] 7.5mg PRN Gabapentin refilled home meds Klonopin zofran continue lidocaine topical to finger as needed. avoid placing on any wound/skin breakdown/tear conntinue Nystatin powder to skin rash Follow up: PCP 3-[address] Elder as previously planned (Friday) Followup: Unknown,U [Primary Care Provider] -
[2023-03-27] MEDS: SILVER SULFADIAZINE 1% 50 GM TOP SCH (09:00)
[2023-03-27 09:14] VITALS: BP 139/64; TEMP 97.7
[2023-03-27] MEDS: DOXYCYCLINE 100 MG CAP PO SCH (09:26)
[2023-03-27] MEDS: GABAPENTIN 300 MG CAP PO SCH (09:26)
[2023-03-27] MEDS: NYSTATIN PWDR 100000 UNIT/GM TOP SCH (09:27)
[2023-03-27] MEDS: FLUTICASONE 50MCG NASAL SPRAY NAS SCH (09:27)
== END 2023-03-27 12:20 | disposition home or self-care (01) | DRG 603 ==
LOC: ER 18:45 → ERHOLD 21:55 → 2ND 03-16 10:56
PROVIDERS: ADMIT Hospitalist; ATTEND Hospitalist
PROC: 0HDFXZZ Extraction of Right Hand Skin, External Approach (ICD-10-PCS; principal; 2023-03-16 09:00)
DX: L03.011 Cellulitis of right finger (principal); M86.8X8 Other osteomyelitis, other site; M79.7 Fibromyalgia; F41.9 Anxiety disorder, unspecified; F32.A Depression, unspecified; E78.00 Pure hypercholesterolemia, unspecified; Z88.5 Allergy status to narcotic agent; Z88.8 Allergy status to other drugs, medicaments and biological substances; Z85.41 Personal history of malignant neoplasm of cervix uteri; Z79.899 Other long term (current) drug therapy; Z90.710 Acquired absence of both cervix and uterus
CPT/HCPCS: 36415; 80048; 80202; 83605; 85025; 86140; 87040; 87070; 87075; 87205; 99285; J0690; J0692; J1100; J1170; J1200; J2001; J2250; J2405; J2704; J3010; J7030; J7040; J7050; J7120